=== PATIENT | male | born 1955 | race Caucasian/White ===

== ENCOUNTER 2024-03-24 08:20 | Outpatient (REF) | payer MEDICARE, SELFPAY ==
--- NOTE | 2024-03-24 07:45 | SKI_PTH ---
PATIENT: Hugo Goins LOC: [facility] U#:[id number] AGE/SX: 69/M ROOM: RE03/24/[address]: Ethan Garvey MD : 1955 BED: DIS: 03/24/2024 SPEC #: [id number] RECD: 03/24/24 12:57 STATUS: SERGIO RERenato #: [id number] MARTHA: 03/24/24 07:[address]: Ethan Garvey DEPT: Surgical Specimen RECD BY: Sue Zhu ENTERED: 03/24/24 12:59 SP TYPE: ROD ROMERO DR: Teagan Kumar Tissues: 1 - SKIN BIOPSY(SHAVE/PUNCH) Procedures: GROSS AND MICRO LEVEL 4 IMMUNOPEROXIDASE STAIN Comments: [id number]
== END 2024-03-24 08:21 | disposition home or self-care (01) ==
LOC: LBN 08:20
PROVIDERS: PCP Nurse Practitioner Family; Visit Provider Otolaryngology
DX: B97.7 Papillomavirus as the cause of diseases classified elsewhere (principal); C09.9 Malignant neoplasm of tonsil, unspecified
CPT/HCPCS: 88305; 88361

== ENCOUNTER 2024-03-24 09:43 | Outpatient (CLI) | payer MEDICARE, SELFPAY ==
[2024-03-24 10:02] LABS: CREATININE 1.4 mg/dL (0.70-1.30); Estimated GFR 54.75 (mL/min/1.73m2)
== END 2024-03-24 09:44 | disposition home or self-care (01) ==
LOC: LBO 09:43
PROVIDERS: PCP Nurse Practitioner Family; Visit Provider Otolaryngology
DX: J35.8 Other chronic diseases of tonsils and adenoids (principal)
CPT/HCPCS: 36415; 82565

== ENCOUNTER 2024-03-27 00:25 | Outpatient (CLI) | payer MEDICARE, SELFPAY ==
--- OUTSIDE RECORDS SUMMARY | 2024-03-27 00:41 | XMS_ITS | Clinical Summary ---
Author Organization [facility] Address [facility] [place] [address] Care Team Providers Care Hereditary Cancer Program Coordinator Name Role Phone Lyric Egan MD Primary Care Provider Allergies Active Allergy Reactions Criticality Noted Date Comments Sulfamethoxazole-Trimethoprim Rash 2013 Sulfa (Sulfonamide Antibiotics) Rash 08/06 Medications Medication Sig Dispensed Refills Start Date End Date Status metoprolol tartrate (LOPRESSOR) 50 mg tablet Take 75 mg by mouth 2 times daily. Active betamethasone dipropionate (DIPROLENE) 0.05 % ointment Apply topically 2 times daily. Active fluticasone propion-salmeteroL (ADVAIR HFA) 45-21 mcg/actuation HFA Aerosol Inhaler Inhale 2 puffs into the lungs 2 times daily. Active levothyroxine (SYNTHROID) 125 mcg Tablet Take 125 mcg by mouth daily. 09/11/2017 Active betamethasone valerate (VALISONE) 0.1 % Cream 03/18/2019 Active albuteroL 90 mcg/actuation HFA Aerosol Inhaler Inhale 2 puffs into the lungs every 4 hours as needed. 10/28/2021 Active clindamycin phosphate (Clindagel) 1 % gel, once daily Apply topically 2 times daily. 08/01/2022 Active lisinopriL (Zestril) 10 mg Tablet TAKE ONE TABLET BY MOUTH EVERY DAY (INCREASE) 08/01/2022 Active magnesium 250 mg tablet Take 400 mg by mouth 2 times daily. Active EnbreL SureClick Pen InjectorIndications :moderate to severe plaque psoriasis,psoriatic arthritis,L40.50, L40.9 Inject the contents of 1 pen (50mg) subcutaneously twice weekly for 3 months, then inject 1 pen subcutaneously every 7 days thereafter. 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 8 mL 2 10/12/2022 Active EnbreL SureClick Pen InjectorIndications :psoriatic arthritis,L40.50, L40.9 Inject 50 mg subcutaneously once a week. 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 Hepatitis C, chronic 07/12/2011 Psoriasis 07/12/2011 Family History Medical History Relation Comments Heart Failure Brother 3 High Cholesterol Brother 4 Cancer Father Heart Failure Father Thyroid Disease Mother High Cholesterol Sister 3 Relation Status Comments Brother 1 Brother 2 Alive Brother 3 Brother 4 Father Mother Alive Sister 1 Sister 2 Alive Sister 3 Social History Tobacco Use Types Packs/Day Years Used Date Smoking Tobacco: Former Cigarettes 1 30 1 - 05/30/2002 Smokeless Tobacco: Never Tobacco Cessation:Counseling Given: Not Answered Alcohol Use Standard Drinks/Week Comments No 0 (1 standard drink = 0.6 oz pur e alcohol) quit alcohol 2001 Sex and Gender Information Value Date Recorded Sex Assigned at Not on file Gender Identity Not on file Sexual Orientation Not on file Last Filed Vital Signs Vital Sign Reading Time Taken Comments Blood Pressure 138/79 04/18/2023 12:42 PM EDT Pulse 77 04/18/2023 12:42 PM EDT Temperature 36.2 ??C (97.1 ??F) 04/18/2023 12:42 PM E DT Respiratory Rate 17 04/18/2023 12:42 PM EDT Oxygen Saturation 100% 04/18/2023 12:42 PM EDT Inhaled Oxygen Concentration - - Weight 81.6 kg (180 lb) 04/18/2023 12:42 PM EDT Height 177.8 cm (5' 10) 04/18/2023 12:42 PM EDT Body Mass Index 25.83 04/18/2023 12:42 PM EDT Plan of Treatment Upcoming Encounters Date Type Department Care Team (Late st Contact Info) Description 04/15/2024 1:30 PM EDT Office Visit Rheumatology at [facility] [place] [address] Lucrecia Rios, [facility] [place] [address] Health Maintenance Due Date Last Done Comments CT Colonography 1955 Colonoscopy 1955 Colorectal Cancer Screening 1955 FIT DNA 1955 FIT 1955 Sigmoidoscopy (10 year) with FIT yearly 1955 Sigmoidoscopy 1955 Pneumoccocal Vaccine: 65+ (1 of 2 - PCV) 1962 Lipid Screening 1974 Tdap adult 1975 Tetanus vaccine 1975 Zoster vaccine (1 of 2) 2006 Advance Directive 2011 Diabetes Screening (HgbA1C o r Glucose) 09/26/2015 09/26/2012, 08/11/2012, 06/30/2012, Additional history exists AAA Screen 2021 Covid-19 Vaccine (5 - 2022-2 4 season) 2023 12/25/2021, 06/27/2021, 11/28/2020, Additional history exists Influenza (Flu) vaccine (1 o f 1 - Influenza standard series) 04/05/2024 Goals Goal Patient Goal Type Associated Problems Recent Progress Patient-Stated? Author [facility] Medication Compliance and Understanding Patient Facing Action Plan No Nataliya Lentz, [facility] Note: Hugo Puja Goins is hoping to see a decrease in BSA of his Psorasis and a decrease in his pain score of 4 to a 2. Procedures Procedure Name Priority Date/Time Associated Diagnosis Comments CMP W/FASTING GLUCOSE Routine 09/26/2012 10:45 AM EST Chronic hepatitis C from Last 3 Months or Most Recently Relevant to Health Maintenance Results * (ABNORMAL) CMP w/fasting Glucose (09/26/2012 10:45 AM EST) Glucose Fasting 95 65 - 99 mg/dL CERNER MILLENNIUM Comment: ?Fasting* Glucose Interpretive Criteria Normal ?65-99 mg/dL Impaired Fasting glucose ?100-125 mg/dL Consistent with Diabetes Mellitus ? >or= 126 mg/dL *Fasting is defined as no caloric intake for at least 8 hours In the absence of unequivocal hyperglycemia a plasma glucose value of >or= 126 mg/dL should be repeated on a subsequent day. Diagnosis and Classification of Diabetes Mellitus, Position Statement from the [place] [employer]. ??Diabetes Care, Volume 33, Supplement 1, Aug 2009 Blood Urea Nitrogen 27(H) 10 - 20 mg/dL CERNER MILLENNIUM Creatinine 1.08 0.80 - 1.50 mg/dL CERNER MILLENNIUM Comment: Please note that the pediatric reference intervals supplied above were not validated at [facility]. Results from pediatric patients should be interpreted in conjunction to the patient's age, height and muscle mass. Sodium 138 135 - 145 mmol/L CERNER MILLENNIUM Potassium 4.3 3.5 - 5.0 mmol/L CERNER MILLENNIUM Comment: Please note: ??Patients with WBC >100,000 may have falsely elevated Potassium levels. ??For accurate Potassium quantification in these patients send serum separator tube (gold top) for subsequent determinations. ??Contact the Clinical Chemistry Laboratory if there are any questions. Chloride 103 98 - 107 mmol/L CERNER MILLENNIUM Carbon Dioxide 27 22 - 31 mmol/L CERNER MILLENNIUM Anion Gap 8 5 - 15 mmol/L CERNER MILLENNIUM Calcium 9.2 8.5 - 10.5 mg/dL CERNER MILLENNIUM Protein, Total 7.6 6.4 - 8.3 gm/dL CERNER MILLENNIUM Albumin 4.2 3.2 - 5.2 gm/dL CERNER MILLENNIUM Aspartate Aminotransferase 24 0 - 39 unit/L CERNER MILLENNIUM Alanine Aminotransferase 28 0 - 55 unit/L CERNER MILLENNIUM Alkaline Phosphatase 69 40 - 120 unit/L CERNER MILLENNIUM Bilirubin, Total 0.5 0.2 - 1.3 mg/dL CERNER MILLENNIUM Bilirubin, Direct 0.1 0.0 - 0.3 mg/dL CERNER MILLENNIUM Est Glomerular Filtration Rate >60 >=60 [facility] Comment: The National Kidney Disease Education Program (NKDEP) has recommended all laboratories report estimated GFR (eGFR) along with plasma creatinine measurements to assist you with recognition of early kidney disease. Caveats: ??Plasma creatinine should be at steady-state (unchanged within the past week). For patients multiply eGFR by 1.2. The MDRD equation was developed using patients between the ages of 18 and 70 years. ?? The MDRD equation has not been validated for patients < 18 years of age and should not be used to assess renal function in the pediatric population. ??The MDRD eGFR equation will also overestimate the true GFR of patients above the age of 70. ??This overestimation is variable but increases with age. At present, NKDEP does NOT recommend using the MDRD equation for drug dosing purposes and pharmacists should continue to use their current dosing methods. In addition, numerical eGFR values greater than 60 ml/min/1.73 square meters should be treated as > 60, and not an exact number due to greater inaccuracies at these higher values. Per NKDEP, they classify normal renal function as any GFR >60ml/min/1.73 square meters; chronic kidney disease when GFR <60, and renal failure when GFR <15. ??This calculation may not be valid for patients with atypical muscle mass (very lean or obese), acute renal failure, and in patients with diabetic kidney disease. References: http://nkdep.nih.gov/resources/NKDEP_Suggestn4Labs_0606_508.pdf http://www.kidney.org/professionals/kls/pdf/faq_gfr.pdf Roxane K, Corby NA, Jhoan AK, Anthony TS, Nan AD, Bran NABEEL. Relative performance of the MDRD and CKD-EPI equations for estimating glomerular filtration rate among patients with varied clinical presentations. Clin J Am Soc Nephrol;6:1963-72. Blood specimen (specimen) 09/26/2012 10:45 AM EST 09/26/2012 10:49 AM EST Narrative Resulting Agency Comment Spec In Lab Chris Brown MD CHEMISTRY ORDERABLE S CERNER MILLENNIUM from Last 3 Months or Most Recently Relevant to Health Maintenance Care Teams Hereditary Cancer Program Coordinator Relationship Specialty Start Date End Date Lyric Egan MD [address] [facility] [facility] [place] [id number] PCP - General 12/21/21
--- OUTSIDE RECORDS SUMMARY | 2024-03-27 00:42 | XMS_ITS | Encounter Summary ---
[facility] [place] [address] Care Team Providers Care Steel Finisher Name Role Phone Lyric Egan MD Primary Care Provider Encounter Details Date Type Department Care Team (Latest Contact Info) Description 04/18/2023 Travel Social History Tobacco Use Types Packs/Day Years Used Date Smoking Tobacco: Former Cigarettes 1 30 1 - 05/30/2002 Smokeless Tobacco: Never Alcohol Use Standard Drinks/Week Comments No 0 (1 standard drink = 0.6 oz pur e alcohol) quit alcohol 2001 Sex and Gender Information Value Date Recorded Sex Assigned at Not on file Gender Identity Not on file Sexual Orientation Not on file documented as of this encounter Plan of Treatment Upcoming Encounters Date Type Department Care Team (Late st Contact Info) Description 04/15/2024 1:30 PM EDT Office [place] [address] Lucrecia Rios, VP [employer] [facility] [place] [address] documented as of this encounter Goals Goal Patient Goal Type Associated Problems Recent Progress Patient-Stated? Author [facility] Medication Compliance and Understanding Patient Facing Action Plan No Nataliya Lentz, [facility] Note: Hugo Luo Buster is hoping to see a decrease in BSA of his Psorasis and a decrease in his pain score of 4 to a 2. documented as of this encounter Visit Diagnoses Not on filedocumented in this encounter Care Teams Steel Finisher Relationship Specialty Start Date End Date Lyric Egan MD [address] [place] [address] PCP - General 12/21/21 documented as of this encounter
--- OUTSIDE RECORDS SUMMARY | 2024-03-27 00:42 | XMS_ITS | Encounter Summary ---
Author Organization [facility] [place] [address] Care Team Providers Care Wardrobe Assistant Name Role Phone Lyric Egan MD Primary Care Provider Encounter Details Date Type Department Care Team (Late st Contact Info) Description 10/17/2023 [place] [phone] Silvio Avila, RN Social History Tobacco Use Types Packs/Day Years [...] on file documented as of this encounter Miscellaneous Notes * Telephone Encounter - Rupesh Quinones - 10/17/2023 10:40 AM EDT Rachel from [facility] insurance states they had to deny the patient's prior authorization for enbrel as they did not receive additional information. [facility] was looking for additional documentation of response to treatment. They will be faxing over their decision, and the provider may submit for redetermination or appeal. Reference number is [id number] * Telephone Encounter - Silvio Avila RN - 10/17/2023 10:15 AM EDT Copied from [facility] #[id number]. Topic: Specialty Dept CRMs - Generic Call >> Oct 17, 2023 9:11 AM Shell Bruno wrote: Specialist: Francisco Obrien MD Relationship (if other than patient-full name): Porsha at [facility] insurance Reason for Call: Calling to get additional information for prior authorization, case expires at 10am this morning. She did fax form to our fax. Please complete and send back. Will check with Specialty Pharmacist. ++++++++++++++++++++++++++++++++++++ Sandra Friedman [facility] sent to Silvio Avila RN Caller: Unspecified (Today, 9:13 AM) We submitted the extra information this morning. Fyi! documented in this encounter Plan of Treatment Upcoming Encounters Date Type Department Care Team (Late st Contact Info) Description 04/15/2024 1:30 PM EDT Office [place] [address] Lucrecia Rios APRN [facility] [place] [address] documented as of this encounter Goals Goal Patient Goal Type Associated Problems Recent Progress Patient-Stated? Author [facility] Medication Compliance and Understanding Patient Facing Action Plan Nataliya Hyatt, [facility] Note: Hugo Hurdett is hoping to see a decrease in BSA of his Psorasis and a decrease in his pain score of 4 to a 2. documented as of this encounter Visit Diagnoses Not on filedocumented in this encounter Care Teams Wardrobe Assistant Relationship Specialty Start Date End Date Lyric Egan MD [address] [place] [address] PCP - General 12/21/21 documented as of this encounter
--- OUTSIDE RECORDS SUMMARY | 2024-03-27 00:42 | XMS_ITS | Encounter Summary ---
[place] [address] Care Team Providers Care Hostess Party Sales Representative Name Role Phone Lyric Egan MD Primary Care Provider Reason for Visit * Reason Comments Psoriasis Encounter Details Date Type Department Care Team (Late st Contact Info) Description 08/27/2022 3:45 PM EST Office Visit Dermatology at [address] [phone] Reilly Summers MD [address] [facility] [place] [address] Psoriasis Social History Tobacco Use Types Packs/Day Years [...] on file documented as of this encounter Progress Notes * Reilly Summers MD - 08/27/2022 3:45 PM EST Problem: 1. ??Follow-up psoriasis and psoriatic arthritis, hands, on Dar since November 2021 2. ??Previously Humira since January 2014 through August 2016, then back on February 2017 through November 2021 3. ??Past history of EtOH abuse hepatitis, now treated ?? Hugo follows up for a 6-month check. The [employer] is working beautifully for his cutaneous psoriasis but he is having some issues with pain in his hand and his right knee. The right knee issue beganabout 2 or 3 months ago and it sounds like both that and the left hand pain come and go during the day not clearly due to psoriatic arthritis. He recalls however when he was on the Humira that he had no joint pain. However after having been on the Humira since 2014 his cutaneous psoriasis with beginning again to flare. He tells me how he went to the emergency room because of pain in his knee and an x-ray was done and was told that there is no sign of any injury but the then he might have arthritis. He was given a course of prednisone which of course cleared his symptoms for a time but when he stopped the medicine it came back. Physical examination reveals a pleasant 67-year-old gentleman who has no active cutaneous psoriasis. He has pain upon flexing his right knee and he points to the back of his hands where he complains of pain within the hand. Assessment plan: Psoriasis, cutaneous well controlled with Skyrizi 1. Patient is currently appears to be developing either osteoarthritis or results of injury 2. Recommend that we begin the use of ibuprofen 400 mg 1 p.o. 3 times daily with meals given some pain relief and reduction of the swelling in his left knee. Dispense #90 with 3 refills. 3. Advised the patient to see his PCP regarding the symptoms. 4. Continue Skyrizi at the current dosing 150 mg subcutaneously once every 12 weeks. He was given a1 year supply in February. 5. Return to clinic in 6 months for repeat check. CC: CADE Hawthorne MD documented in this encounter Plan of Treatment Upcoming Encounters Date Type Department Care Team (Late st Contact Info) Description 04/15/2024 1:30 PM EDT Office [place] [address] Lucrecia Rios APRN [facility] [place] [address] documented as of this encounter Goals Goal Patient Goal Type Associated Problems Recent Progress Patient-Stated? Author [facility] Medication Compliance and Understanding Patient Facing Action Plan Nataliya Hyatt, [facility] Note: Hugo Luo Buster is hoping to see a decrease in BSA of his Psorasis and a decrease in his pain score of 4 to a 2. documented as of this encounter Visit Diagnoses Diagnosis Psoriasis Other psoriasis documented in this encounter Care Teams Hostess Party Sales Representative Relationship Specialty Start Date End Date Lyric Egan MD [address] [place] [address] PCP - General 12/21/21 documented as of this encounter
--- OUTSIDE RECORDS SUMMARY | 2024-03-27 00:42 | XMS_ITS | Encounter Summary ---
Author Organization [facility] [place] [address] Care Team Providers Care Equal Opportunity Director Name Role Phone Yeimi Carey APRN Primary Care Provider [phone] Reason for Visit * Reason Comments Medication Management Encounter Details Date Type Department Care Team (Late st Contact Info) Description 08/17/2020 Specialty [place] [phone] Mary Riggs [facility] Social History Tobacco Use Types Packs/Day Years [...] as of this encounter Progress Notes * Mary Riggs RPH - 08/17/2020 3:50 PM EST Clinical Management Plan: Refill Specialty Pharmacy Consultation; Mary Riggs [facility] Comprehensive Medication Management (CMM) Hugo Puja Buster Mr. Hugo Goins is a 65 y.o. (1955) male who was contacted in regard to a specialty medication refill reminder. Spoke with patient regarding Humira. A review of the medication therapy was performed. The medication was Refilled as scheduled, and all medication related questions and concernswere addressed. The specialty pharmacy staff will follow up with the patient 5-7 days prior to next refill. Was a change made to the Care Plan: no If yes, should the medication be held: No Assessment and Recommendations: Title Type of Medication Management: targeted medication review, chronic disease management Referred By: provider Recipient: beneficiary Provider: plan sponsor pharmacist Visit Type: [facility] Follow-up Method of Contact: by telephone Cognitive Ability: normal Cognitive Impairment Status Verified this Year: no Allergies and Drug intolerance: Allergies Allergen Reactions ??? Bactrim [Sulfamethoxazole-Trimethoprim] Rash Medication Reconciliation Discrepancies (compared to [facility] med list) -no New medications: no New medical conditions: no New allergies: no Adherence: Medication Adherence Patient reported X missed doses in the last month: 0 Any gaps in refill history greater than 2 weeks in the last 3 months: no Demonstrates understanding of importance of adherence: yes Informant: patient Reliability of informant: reliable Provider-estimated medication adherence level: 90-100% Reasons for non-adherence: no problems identified Adherence tools used: directed education Support network for adherence: healthcare provider Confirmed plan for next specialty medication refill: delivery by pharmacy Refills needed for supportive medications: not needed Are you experiencing any side effects from your medications? no Pt understands no changes to current drug regimen were made at the appointment and that [facility] is providing recommendations (summary located at top of note) for provider review and follow up. Mary Riggs RPH 08/17/20 3:51 PM documented in this encounter Plan of Treatment Upcoming Encounters Date Type Department Care Team (Late st Contact Info) Description 04/15/2024 1:30 PM EDT Office [place] [address] Lucrecia Rios SHIPBOARD INTELLIGENCE ANALYST [facility] [place] [address] documented as of this encounter Goals Goal Patient Goal Type Associated Problems Recent Progress Patient-Stated? Author [facility] Medication Compliance and Understanding Patient Facing Action Plan No Nataliya Lentz, [facility] Note: Hugo Goins is hoping to see a decrease in BSA of his Psorasis and a decrease in his pain score of 4 to a 2. documented as of this encounter Visit Diagnoses Not on filedocumented in this encounter Care Teams Equal Opportunity Director Relationship Specialty Start Date End Date Yeimi Carey APRN [address] [place] [phone] PCP - General Family Medicine 11/04/18 12/20/21 documented as of this encounter
--- OUTSIDE RECORDS SUMMARY | 2024-03-27 00:42 | XMS_ITS | Encounter Summary ---
Author Organization [facility] [place] [address] Care Team Providers Care Hotel Front Desk Agent Name Role Phone Lyric Egan MD Primary Care Provider Encounter Details Date Type Department Care Team (Late st Contact Info) Description 10/12/2022 [place] [phone] Francisco Obrien MD [facility] [place] [address] Social History Tobacco Use Types Packs/Day Years [...] as of this encounter Miscellaneous Notes * Addendum Note - Sandra Yoder [facility] - 10/30/2022 8:16 AM EDTAddended by: SANDRA YODER on: 10/30/2022 08:16 AM Modules accepted: Orders documented in this encounter Plan of Treatment Upcoming Encounters Date Type Department Care Team (Late st Contact Info) Description 04/15/2024 1:30 PM EDT Office [place] [phone] Lucrecia Rios, ELECTROMECHANICAL TECHNICIAN [facility] [place] [address] documented as of this encounter Goals Goal Patient Goal Type Associated Problems Recent Progress Patient-Stated? Author [facility] Medication Compliance and Understanding Patient Facing Action Plan Nataliya Hyatt, [facility] Note: Hugo Luo Buster is hoping to see a decrease in BSA of his Psorasis and a decrease in his pain score of 4 to a 2. documented as of this encounter Visit Diagnoses Not on filedocumented in this encounter Care Teams Hotel Front Desk Agent Relationship Specialty Start Date End Date Lyric Egan MD [address] [place] [address] PCP - General 12/21/21 documented as of this encounter
--- OUTSIDE RECORDS SUMMARY | 2024-03-27 00:42 | XMS_ITS | Encounter Summary ---
[place] [address] Care Team Providers Care Drum Plater Name Role Phone Lyric Egan MD Primary Care Provider Reason for Visit * Reason Comments Prior Authorization Skyrizi pen 150mg/mL SOAJ Encounter Details Date Type Department Care Team (Late st Contact Info) Description 11/22/2021 Specialty [place] [phone] Raina Man, [facility] [place] Social History Tobacco Use Types Packs/Day Years [...] as of this encounter Progress Notes * Raina Pimentel - 11/22/2021 9:38 AM EDT [facility], Medication Prior Authorization Submission Patient: Hugo Goins Patient : 1955 Patient Address: [address] [place] [address] [place] [id number] (home) Medication Name: SKYRIZI 150 MG/ML SUBCUTANEOUS PEN INJECTOR Medication ID: Subscriber Insurance: [employer] (MEDDADV) Subscriber Insurance Comment: Phone: Fax: Physician: KP RAMIREZ Physician Comment: Sent Via: CHRISTIE Torrez: [id number] Ref/Case/PA#: Medication Strength Frequency Requested: INJECT THE CONTENTS OF ONE PEN (150MG) SUBCUTANEOUSLY ONCEON DAY 1, ONCE ON DAY 28, AND THEN ONCE EVERY 12 WEEKS THEREAFTER Qty/Day Supply: 09/01 New Start: New to Therapy Diagnosis & ICD-10 Code: Psoriasis L40.9 Patient Notified: Left Voicemessage Submission Notes: None Raina Pimentel 11/22/21 9:43 AM * Raina Pimentel - 11/22/2021 9:38 AM EDT [facility], Prior Authorization Approval Medication Name: SKYRIZI 150 MG/ML SUBCUTANEOUS PEN INJECTOR Medication ID: Approval Dates: 11/22/2021 to 11/22/2022 Insurance requirements/notes: None Other Notes: None Case/Reference #: [id number] Approval notification Received via: Fax Copay: [phone] Copay assistance: Other (Enter Comment) Copay Notes: Pt can apply for hat stock laminating machine operator's assistance. Insurance mandated Pharmacy: [facility] Fillable at [facility]: Yes Pharmacy staff will be reaching out to the patient to inform them of their medication's [place]. If applicable, a pharmacist will speak with the patient to offer our specialty pharmacy services and to arrange delivery of their medication. Raina Pimentel 11/23/21 8:25 AM documented in this encounter Plan of Treatment Upcoming Encounters Date Type Department Care Team (Late st Contact Info) Description 04/15/2024 1:30 PM EDT Office Visit Rheumatology at [place] [phone] Lucrecia Rios APRN [facility] [place] [address] documented as of this encounter Goals Goal Patient Goal Type Associated Problems Recent Progress Patient-Stated? Author [facility] Home Medication Compliance and Understanding Patient Facing Action Plan Nataliya Hyatt, [facility] Note: Hugo Puja Goins is hoping to see a decrease in BSA of his Psorasis and a decrease in his pain score of 4 to a 2. documented as of this encounter Visit Diagnoses Not on filedocumented in this encounter Care Teams Drum Plater Relationship Specialty Start Date End Date Lyric Egan MD [address] [place] [address] PCP - General 12/21/21 documented as of this encounter
--- OUTSIDE RECORDS SUMMARY | 2024-03-27 00:42 | XMS_ITS | Encounter Summary ---
Author Organization [facility] [place] [address] Care Team Providers Care Manager Of Engineering Name Role Phone Yeimi Carey APRN Primary Care Provider +1- [phone] Reason for Visit * Reason Comments Medication Management Medication Refill Encounter Details Date Type Department Care Team (Late st Contact Info) Description 02/03/2021 Specialty [place] [phone] Haritha Enriquez [facility] Social History Tobacco Use Types Packs/Day Years [...] as of this encounter Progress Notes * Haritha Enriquez RP - 02/03/2021 11:22 AM EDT Clinical Management Plan: Refill Specialty Pharmacy Consultation; Haritha Enriquez [facility] Comprehensive Medication Management (CMM) Hugo Goins Mr. Hugo Goins is a 65 y.o. (1955) male who was contacted in regard to a specialty medication refill reminder. Contact made with patient regarding Humira. A review of the medication therapywas performed. The medication was refilled as scheduled, and all medication related questions and concerns were addressed. The specialty pharmacy staff will follow up with the patient 5-7 days prior to next refill. Was a change made to the Care Plan: no If yes, should the medication be held: No Assessment and Recommendations: Title Type of Medication Management: chronic disease management, targeted medication review Referred By: provider Recipient: beneficiary Provider: plan sponsor pharmacist Visit Type: [facility] Follow-up Method of Contact: by telephone Cognitive Ability: normal Cognitive Impairment Status Verified this Year: no Allergies and Drug intolerance: Allergies Allergen Reactions ??? Bactrim [Sulfamethoxazole-Trimethoprim] Rash Medication Reconciliation Discrepancies (compared to [facility] med list) -None Specialty Pharmacy Refill Questionnaire Refill Questionnaire 02/03/2021 What is the name of the specialty medication you are refilling? Humira 40mg/0.4ml Are you taking any new medications? No Any new medical condition? No Any new allergies? No Any missed doses since your last fill? No Any new side effects that are bothersome? No What date will you need this fill by? 02/07/2021 Adherence: Medication Adherence Patient reported X missed doses in the last month: 0 Any gaps in refill history greater than 2 weeks in the last 3 months: no Demonstrates understanding of importance of adherence: yes Informant: patient Reliability of informant: reliable Provider-estimated medication adherence level: 90-100% Other non-adherence reason: Patient will be 1 day late to inject to to holiday weekend Adherence tools used: directed education Support network for adherence: healthcare provider Confirmed plan for next specialty medication refill: delivery by pharmacy Refills needed for supportive medications: not needed Pt understands no changes to current drug regimen were made at the appointment and that [facility] is providing recommendations (summary located at top of note) for provider review and follow up. Haritha Enriquez RPH 02/03/21 11:25 AM documented in this encounter Plan of Treatment Upcoming Encounters Date Type Department Care Team (Late st Contact Info) Description 04/15/2024 1:30 PM EDT Office [place] [address] [address]N [facility] [place] [address] documented as of this encounter Goals Goal Patient Goal Type Associated Problems Recent Progress Patient-Stated? Author [facility] Medication Compliance and Understanding Patient Facing Action Plan No Nataliya Lentz, [facility] Note: Hugo Luo Buster is hoping to see a decrease in BSA of his Psorasis and a decrease in his pain score of 4 to a 2. documented as of this encounter Visit Diagnoses Not on filedocumented in this encounter Care Teams Manager Of Engineering Relationship Specialty Start Date End Date Yeimi Carey APRN [address] [place] [phone] PCP - General Family Medicine 11/04/18 12/20/21 documented as of this encounter
--- OUTSIDE RECORDS SUMMARY | 2024-03-27 00:42 | XMS_ITS | Encounter Summary ---
Author Organization [facility] [place] [address] Care Team Providers Care Valve Repairer Reclamation Name Role Phone Yeimi Carey APRN Primary Care Provider +1- [phone] Reason for Visit * Reason Comments Specialty Refill Management Encounter Details Date Type Department Care Team (Late st Contact Info) Description 12/06/2020 Specialty [place] [phone] Liberty Chawla, [employer] Social History Tobacco Use Types Packs/Day Years [...] as of this encounter Progress Notes * Liberty Chawla - 12/06/2020 4:04 PM EDT Clinical Management Plan: Refill Specialty Pharmacy Consultation; Liberty Chawla Comprehensive Medication Management (CMM) Hugoasad Hurdfranko Mr. Hugo Goins is a 65 y.o. [...] a change made to the Care Plan: No Allergies and Drug intolerance: Allergies Allergen Reactions ??? Bactrim [Sulfamethoxazole-Trimethoprim] Rash Medication Reconciliation Discrepancies (compared to [facility] med list) No Specialty Pharmacy Refill Questionnaire Refill Questionnaire 12/06/2020 What is the name of the specialty medication you are refilling? Humira Pen 40MG/0.4ML PNKT Are you taking any new medications? No Any new medical condition? No Any new allergies? No Any new side effects that are bothersome? No What date will you need this fill by? 12/13/2020 Adherence: Any missed doses? No Patient understands no changes to current drug regimen were made.. Liberty Chawla 12/06/20 4:06 PM documented in this encounter Plan of Treatment Upcoming Encounters Date Type Department Care Team (Late st Contact Info) Description 04/15/2024 1:30 PM EDT Office [place] [address] Lucrecia Rios [employer]ER[employer] [facility] [place] [address] documented as of this encounter Goals Goal Patient Goal Type Associated Problems Recent Progress Patient-Stated? Author [facility] Medication Compliance and Understanding Patient Facing Action Plan No Nataliya Lentz, [facility] Note: Hugo Puja Goins is hoping to see a decrease in BSA of his Psorasis and a decrease in his pain score of 4 to a 2. documented as of this encounter Visit Diagnoses Not on filedocumented in this encounter Care Teams Valve Repairer Reclamation Relationship Specialty Start Date End Date Yeimi Carey APRN [address] [place] [phone] PCP - General Family Medicine 11/04/18 12/20/21 documented as of this encounter
--- OUTSIDE RECORDS SUMMARY | 2024-03-27 00:42 | XMS_ITS | Encounter Summary ---
[place] [address] Care Team Providers Care Awning Maker Name Role Phone Lyric Egan MD Primary Care Provider Encounter Details Date Type Department Care Team (Late st Contact Info) Description 10/19/2022 Specialty [place] [address] Desiree Ramsey, [facility] Social History Tobacco Use Types Packs/Day Years [...] as of this encounter Progress Notes * Desiree Ramsey - 10/19/2022 3:14 PM EDTSummary: Enbrel MAP submission [facility] - Accounts Payable Clerk Assistance Submission The Specialty Medication Access Team has looked into copay assistance for the following patient, but was unable to locate a copay card or [employer] with available funding. The Specialty Medication Access Team will work with the patient to complete an application to the director translational's assistance program. The Specialty Medication Access Team will follow up with the patient throughout the process. Patient: Hugo Goins : 1955 Medication: Enbrel Order ID: [id number] Directions: Inject the contents of 1 pen (50mg) subcutaneously twice weekly for 3 months, then inject 1 pen subcutaneously every 7 days thereafter. Dispense Quantity: 8mL # of Refills: 2 Prescriber Name: Francisco Obrien Diagnosis/ICD-10 code: L40.9, L40.50 Insurance: [employer] Med D Medicare Part D?: Yes [place] Approved? Yes Current copay is: $$$ Patient notified of copay and attests that copay is unaffordable: Yes Accounts Payable Clerk: [email or web address] Radiotelegraph Operator Servicer: n/a Phone number: [phone] Fax number: [phone] Patient documents submitted (per Accounts Payable Clerk guidelines - may vary): ??? Copies of insurance cards: Yes ??? Income verification documents: Yes ??? Signed Patient Enrollment Form: Yes ??? Pharmacy receipts (important for manufacturers requesting patient to spend 3% income on pharmacy expenses): No Additional Comments: Desiree Ramsey 10/19/22 3:15 PM Next Review Date: * Desiree Ramsey - 10/19/2022 3:14 PM EDTSummary: Enbrel MAP approval [facility] - Accounts Payable Clerk Assistance Approval The Specialty Medication Access Team has looked into director translational assistance for the following patient. The patient???s application was approved to receive the medication at no cost through the director translational. The Specialty Medication Access Team will inform the patient and provider. Patient: Hugo Goins : 1955 Medication: Enbrel Accounts Payable Clerk: [employer] Accounts Payable Clerk Assistance Approval Dates: 10/25/22 to 08/04/23 Accounts Payable Clerk Preferred Pharmacy: [facility] Accounts Payable Clerk Preferred Pharmacy Accounts Payable Clerk Preferred Pharmacy Patient Notified: Yes Prescriber Notified: Yes Desiree Ramsey 10/26/22 8:50 AM documented in this encounter Plan of Treatment Upcoming Encounters Date Type Department Care Team (Late st Contact Info) Description 04/15/2024 1:30 PM EDT Office [place] [address] Lucrecia Rios, [facility] [place] [address] documented as of this encounter Goals Goal [...] on filedocumented in this encounter Care Teams Awning Maker Relationship Specialty Start Date End Date Lyric Egan MD [address] [place] [address] PCP - General 12/21/21 documented as of this encounter
--- OUTSIDE RECORDS SUMMARY | 2024-03-27 00:42 | XMS_ITS | Encounter Summary ---
Author Organization [facility] [place] [address] Care Team Providers Care Sleeve Tailor Name Role Phone Yeimi Carey APRN Primary Care Provider +1- [phone] Reason for Visit * Reason Comments Medication Management Encounter Details Date Type Department Care Team (Late st Contact Info) Description 10/12/2020 Specialty Pharmacy [place] [phone] Mary Riggs [facility] Social History Tobacco Use Types Packs/Day [...] Progress Notes * Mary Riggs RPH - 10/12/2020 4:26 PM EST Clinical Management Plan: Refill Specialty Pharmacy Consultation; Mary Riggs [facility] Comprehensive Medication Management (CMM) Hugo Goins Mr. [...] beneficiary Provider: plan sponsor pharmacist Visit Type: [facility] Follow-up Method of Contact: by telephone Cognitive Ability: normal Cognitive Impairment Status Verified this Year: no Allergies and Drug intolerance: Allergies Allergen Reactions ??? Bactrim [Sulfamethoxazole-Trimethoprim] Rash Medication Reconciliation Discrepancies (compared to [facility] med list) -no New medications: no [...] were made at the appointment and that [facility] is providing recommendations (summary located at top of note) for provider review and follow up. Mary Riggs RPH 10/12/20 4:27 PM documented in this encounter Plan of Treatment Upcoming Encounters Date Type Department Care Team (Late st Contact Info) Description 04/15/2024 1:30 PM EDT Office Visit [place] [address] Lucrecia Rios DIRECTOR OF CAREER SERVICES [place] [address] documented as of this encounter Goals Goal Patient Goal Type Associated Problems Recent Progress Patient-Stated? Author [facility] Medication Compliance and Understanding Patient Facing Action Plan No Nataliya Lentz, [facility] Note: Hugo Goins is hoping to see a decrease in BSA of his Psorasis and a decrease in his pain score of 4 to a 2. documented as of this encounter Visit Diagnoses Not on filedocumented in this encounter Care Teams Sleeve Tailor Relationship Specialty Start Date End Date Yeimi Carey APRN [address] [place] [phone] PCP - General Family Medicine 11/04/18 12/20/21 documented as of this encounter
--- OUTSIDE RECORDS SUMMARY | 2024-03-27 00:42 | XMS_ITS | Encounter Summary ---
[place] [address] Care Team Providers Care Aircraft Mechanic Electrical And Radio Name Role Phone Lyric Egan MD Primary Care Provider Reason for Visit * Reason Comments Follow-up Encounter Details Date Type Department Care Team (Late st Contact Info) Description 02/19/2022 4:00 PM EDT Office Visit Dermatology at [address] [address] Reilly Summers MD [address] [facility], [place] [address] Psoriasis Social History Tobacco Use Types Packs/Day [...] Progress Notes * Reilly Summers MD - 02/19/2022 4:00 PM EDT Problem: 1. Follow-up psoriasis and psoriatic arthritis, hands, on Skyrizi since November 2021 2. Previously Humira since January 2014 through August 2016, then back on February 2017 through November 2021 3. Past history of EtOH abuse hepatitis, now treated Roddy follows up and is doing well. He is pleased with his initial improvement with the Skyrizi. He is tolerating the medication well without any injection site reactions or side effects. Examination still reveals psoriasis present over the lower shins but the plaques are thinning significantly and flattening. There is still marked erythema at sites of previous involvement. He has no other areas of psoriasis. His arthritic symptoms are well controlled. Assessment plan: Psoriasis and psoriatic arthritis with initial response to Skyrizi 1. Continue Skyrizi current dosing 150 mg subcutaneously once every 12 weeks. Dispense 1 pen will give 3 refills for 1 year supply 2. Return to clinic another 6 months for repeat check. 3. Patient congratulated on initial good response CC: Lyric Phoenix MD ?? documented in this encounter Plan of Treatment Upcoming Encounters Date Type Department Care Team (Late st Contact Info) Description 04/15/2024 1:30 PM EDT Office Visit [place] [address] Lucrecia Rios, [facility] [place] [address] documented as of this encounter Goals Goal Patient Goal Type Associated Problems Recent Progress Patient-Stated? Author [facility] Medication Compliance and Understanding Patient Facing Action Plan Nataliya Hyatt, [facility] Note: Hugo Luo Buster is hoping to see a decrease in BSA of his Psorasis and a decrease in his pain score of 4 to a 2. documented as of this encounter Visit Diagnoses Diagnosis Psoriasis Other psoriasis documented in this encounter Care Teams Aircraft Mechanic Electrical And Radio Relationship Specialty Start Date End Date Lyric Egan MD [address] [place] [address] PCP - General 12/21/21 documented as of this encounter
--- OUTSIDE RECORDS SUMMARY | 2024-03-27 00:42 | XMS_ITS | Encounter Summary ---
Author Organization [facility] [place] [address] Care Team Providers Care Bullet Slugs Inspector Name Role Phone Lyric Egan MD Primary Care Provider Reason for Visit * Reason Comments Specialty Pharmacy Review Enbrel SureCli ck 50mg/ml Encounter Details Date Type Department Care Team (Late st Contact Info) Description 04/18/2023 Specialty Pharm[place] [phone] Rosa Hanson, [facility] Social History Tobacco Use Types Packs/Day Years [...] as of this encounter Progress Notes * Rosa Hanson - 04/18/2023 11:59 PM EDT The [facility] has completed a benefits investigation for Hugo Luo Buster to review their eligibility to fill at [facility]. Per patient's medication list they are prescribedEnbrel SureClick 50mg/ml and the medication is able to be filled at the [facility], butthe medication cost may not be financially viable. The patient is approved to get Enbrel from [facility] until 08/04/23 documented in this encounter Plan of Treatment Upcoming Encounters Date Type Department Care Team (Late st Contact Info) Description 04/15/2024 1:30 PM EDT Office Visit Rheumatology at [facility] [place] [address] Lucrecia Rios, CONTROLS OPERATOR MOLDED [employer] [facility] [place] [address] documented as of this encounter Goals Goal Patient Goal Type Associated Problems Recent Progress Patient-Stated? Author [facility] Medication Compliance and Understanding Patient Facing Action Plan Nataliya Hyatt, [facility] Note: Hugo Luo Buster is hoping to see a decrease in BSA of his Psorasis and a decrease in his pain score of 4 to a 2. documented as of this encounter Visit Diagnoses Not on filedocumented in this encounter Care Teams Bullet Slugs Inspector Relationship Specialty Start Date End Date Lyric Egan MD [address] [place] [address] PCP - General 12/21/21 documented as of this encounter
--- OUTSIDE RECORDS SUMMARY | 2024-03-27 00:42 | XMS_ITS | Encounter Summary ---
Author Organization [facility] [place] [address] Care Team Providers Care Community Organizer Name Role Phone Yeimi Carey APRN Primary Care Provider +1- [phone] Reason for Visit * Reason Comments Medication Management Encounter Details Date Type Department Care Team (Late st Contact Info) Description 11/09/2020 Specialty [place] [phone] Mary Riggs [facility] Social History Tobacco Use Types [...] Progress Notes * Mary Riggs RPH - 11/09/2020 3:29 PM EDT Clinical Management Plan: Refill Specialty Pharmacy Consultation; Mary Riggs [facility] Comprehensive Medication Management (CMM) Hugo Goins Mr. [...] [Sulfamethoxazole-Trimethoprim] Rash Medication Reconciliation Discrepancies (compared to [facility] med list) No Specialty Pharmacy Refill Questionnaire There is no flowsheet data to display. Adherence: Any missed doses? No Patient understands no changes to current drug regimen were made.. Mary Riggs RPH 11/09/20 3:30 PM documented in this encounter Plan of Treatment Upcoming Encounters Date Type Department Care Team (Late st Contact Info) Description 04/15/2024 1:30 PM EDT Office [place] [address] Lucrecia Rios APRN [facility] [address] documented as of this encounter Goals Goal Patient Goal Type Associated Problems Recent Progress Patient-Stated? Author [facility] Medication Compliance and Understanding Patient Facing Action Plan No Nataliya Lentz, [facility] Note: Hugo Luo Vannessafranko is hoping to see a decrease in BSA of his Psorasis and a decrease in his pain score of 4 to a 2. documented as of this encounter Visit Diagnoses Not on filedocumented in this encounter Care Teams Community Organizer Relationship Specialty Start Date End Date Yeimi Carey APRN [address] [place] [phone] PCP - General Family Medicine 11/04/18 12/20/21 documented as of this encounter
--- OUTSIDE RECORDS SUMMARY | 2024-03-27 00:42 | XMS_ITS | Encounter Summary ---
[place] [address] Care Team Providers Care Transport Rn Name Role Phone Yeimi Carey LESTER Primary Care Provider +1- [phone] Reason for Visit * Reason Comments Psoriasis Encounter Details Date Type Department Care Team (Late st Contact Info) Description 11/20/2021 3:45 PM EDT Office Visit Dermatology at [address] [phone] Reilly Summers MD [address] [facility] [place] [address] Psoriasis Social History Tobacco Use Types Packs/Day [...] Progress Notes * Reilly Summers MD - 11/20/2021 3:45 PM EDT Problem: 1. Follow-up psoriasis and psoriatic arthritis, hands 2. On Humira since January 2014 through August 2016 now back back on since February 2017 3. Past history of EtOH abuse hepatitis, now treated Roddy follows up and wanted to see me in July because of worsening of psoriasis on his shins. Unfortunately was not able to get in. Physical examination reveals a pleasant 66-year-old gentleman who has plaques of psoriasis widely over the anterior shins bilaterally. Last year he only has some involvement on his elbows, which today are clear. He has no other areas of psoriasis. His arthritic symptoms are still controlled Assessment plan: Psoriasis and psoriatic arthritis with decreased control on Humira 1. We will check to see which of the Biologics are formulary. For now to continue Humira 40 mg per 0.4 mL autoinjector pen citrate free. He is injecting 1 pen subcutaneously every 2 weeks. 2. Patient's current co-pay is a $5 a month 3. Return to clinic in 3 months for repeat check and then again in a year. CC: Yeimi Carey APRN documented in this encounter Plan of Treatment Upcoming Encounters Date Type Department Care Team (Late st Contact Info) Description 04/15/2024 1:30 PM EDT Office [place] [address] Lucrecia Rios APRN [facility] [place] [address] documented as of this encounter Goals Goal Patient Goal Type Associated Problems Recent Progress Patient-Stated? Author [facility] Medication Compliance and Understanding Patient Facing Action Plan Nataliya Hyatt, [facility] Note: Hugo Goins is hoping to see a decrease in BSA of his Psorasis and a decrease in his pain score of 4 to a 2. documented as of this encounter Visit Diagnoses Diagnosis Psoriasis Other psoriasis documented in this encounter Care Teams Transport Rn Relationship Specialty Start Date End Date Yeimi Carey APRN [address] [place] [phone] PCP - General Family Medicine 11/04/18 12/20/21 documented as of this encounter
--- OUTSIDE RECORDS SUMMARY | 2024-03-27 00:42 | XMS_ITS | Encounter Summary ---
Author Organization [facility] [place] [address] Care Team Providers Care Care Transport Nurse Name Role Phone Lyric Egan MD Primary Care Provider Reason for Visit * Reason Comments Medication Management Etanercept (Enbrel ) 50mg/mL SOAJ Encounter Details Date Type Department Care Team (Late st Contact Info) Description 06/21/2023 Specialty [place] [phone] Sandra Friedman, [facility] Social History Tobacco Use Types Packs/Day [...] as of this encounter Progress Notes * Sandra Friedman [facility] - 06/21/2023 2:24 PM EST Specialty Pharmacy Consultation; Sandra Friedman [facility] Comprehensive Medication Management (CMM): Specialty Consult, Intervention Hugo Goins Diagnosis: Psoriatic Arthritis Contact in person or via telephone: in person Mr. Hugo Goins is a 68 y.o. (1955) male who was contacted in regard to specialty medication intervention. Spoke with patient regarding Enbrel mfr assistance form. Specialty Pharmacy Intervention: Intervention Category (Nature of Intervention): Formulary Related/Financial Issues Formulary Related/Financial Issues: Referred to MAT Prescriber accepted response (Prescriber accept Intervention): Accepted Recommendation: Patient had all his paperwork filled out and brought to clinic. We will work on getting Lucrecia Anne's form signed early next week. Outcome: We will let him know once submitted to [email or web address] and follow up with them. Sandra Friedman [facility] 06/21/23 2:25 PM * Sandra Friedman [facility] - 06/21/2023 2:24 PM EST [facility]- Energy Conservation Director Assistance Update The [facility] has looked into assistance for the following patient, but we have not been able to find any copay cards or foundations with available funding for them. The patient has beenprovided information to apply for chief load dispatcher assistance program to receive free medication. The [facility] will follow-up with the patient in 7 days to see if they need any additional guidance. Patient: Hugo Merinoihsan : 1955 Medication: Enbrel Sureclick 50mg/mL SOAJ Dosing: Inject 50 mg subQ every 7 days Insurance: Medicare Medicare Part D?: Yes PA has been approved, current copay is: $$$ Sandra Friedman [facility] 06/21/23 2:31 PM * Hina Flor [facility] - 06/21/2023 2:24 PM EST D- Specialty Pharmacy - Energy Conservation Director Assistance Outreach The Specialty Medication Access Team received a referral to work with Hugo Goins to complete an application to the chief load dispatcher's assistance program for their specialty medication, Enbrel sureclick 50mg/ml. The Specialty Medication Access Team spoke to chief load dispatcher. Energy Conservation Director name: [employer] to provider the chief load dispatcher application status. The chief load dispatcher application is still under review. The Specialty Medication Access Team will follow-up with the chief load dispatcher in 3 days to check on application status. Summary of conversations and next steps: S/W [employer]- THE APPLICAITON WAS CUT OFF THEY REQUESTED TOHAVE APPLICATION RE-FAXED. WILL REFAX ONCE MORE THEN REACH OUT TO CLINIC IF FAX NOT RECIEVED. Hina Flor CPHT 07/01/23 3:56 PM * Pham Juan CP[facility] - 06/21/2023 2:24 PM EST [facility] - Energy Conservation Director Assistance Outreach The Specialty Medication Access Team received a referral to work with Hugo Goins to complete an application to the chief load dispatcher's assistance program for their specialty medication, Enbrel. The Specialty Medication Access Team spoke to chief load dispatcher. Energy Conservation Director name: [email or web address] to provide the chief load dispatcher application status. The chief load dispatcher application is still under review. The Specialty Medication Access Team will follow-up with the chief load dispatcher in 3 days to check on application status. Summary of conversations and next steps: S/W MFR - THEY PARTIALLY RECEIVED THE APPLICATION, EACH PAGE IS CUT OFF. ASKED CLINIC TO REFAX APPLICATION FOR US Pham Juan CPHT 07/03/23 11:00 AM * Sandra Friedman [facility] - 06/21/2023 2:24 PM EST [facility], Energy Conservation Director Assistance Update The D[facility] Specialty Pharmacy has attempted to reach out to Hugo Goins to see if they need any further guidance with acquiring chief load dispatcher assistance for their specialty medication, Enbrel. Summary of conversations and next steps: We re-sent the application via manual fax to [email or web address]. Sandra Friedman RPH 07/04/23 11:33 AM * Rhianna Patel - 06/21/2023 2:24 PM EST [facility] - Energy Conservation Director Assistance Outreach The Specialty Medication Access Team received a referral to work with Hugo Goins to complete an application to the chief load dispatcher's assistance program for their specialty medication, Enbrel. The Specialty Medication Access Team spoke to chief load dispatcher. Energy Conservation Director name: [email or web address] to provide the chief load dispatcher application status. The chief load dispatcher application is still under review. The Specialty Medication Access Team will follow-up with the chief load dispatcher in 3 days to check on application status. Summary of conversations and next steps: S/W MFR: THEY ONLY RECEIVED 1ST PAGE OF THE APPLICATION BUT IT WAS CUT OFF. WILL REACH OUT TO CLINIC TO ASK THEM TO FAX THE APPLICATION AGAIN. [facility] FAX [employer] ([phone]) Rhianna Bharathi Patel 07/05/23 9:59 AM * Liberty Chawla - 06/21/2023 2:24 PM EST [facility] - Energy Conservation Director Assistance Approval The Specialty Medication Access Team has looked into chief load dispatcher assistance for the following patient. The patient???s application was approved to receive the medication at no cost through the chief load dispatcher. The Specialty Medication Access Team will inform the patient and provider. Patient: Hugo Goins : 1955 Medication: Enbrel Energy Conservation Director: [employer] Energy Conservation Director Assistance Approval Dates: 08/05/2023 to 08/04/2024 Energy Conservation Director Preferred Pharmacy: [facility] Energy Conservation Director Preferred Pharmacy Energy Conservation Director Preferred Pharmacy Fax Number: Patient Notified: Yes Prescriber Notified: Yes Liberty Chawla 07/09/23 1:26 PM documented in this encounter Plan of Treatment Upcoming Encounters Date Type Department Care Team (Late st Contact Info) Description 04/15/2024 1:30 PM EDT Office [place] [address] Lucrecia Rios APRN [facility] [place] [address] documented as of this encounter Goals Goal Patient Goal Type Associated Problems Recent Progress Patient-Stated? Author [facility] Medication Compliance and Understanding Patient Facing Action Plan Nataliya Hyatt, [facility] Note: Hugo Merinoghulamfranko is hoping to see a decrease in BSA of his Psorasis and a decrease in his pain score of 4 to a 2. documented as of this encounter Visit Diagnoses Not on filedocumented in this encounter Care Teams Care Transport Nurse Relationship Specialty Start Date End Date Lyric Egan MD [address] [place] [address] PCP - General 12/21/21 documented as of this encounter
--- OUTSIDE RECORDS SUMMARY | 2024-03-27 00:42 | XMS_ITS | Encounter Summary ---
Author Organization [facility] Address [facility] [place] [address] Care Team Providers Care Flatwork Washer Name Role Phone Lyric Egan MD Primary Care Provider Encounter Details Date Type Department Care Team (Late Contact Info) Description 08/27/2022 Refill Dermatology at [address] [phone] Liudmila Whitehead, RN Social History Tobacco Use Types Packs/Day [...] Encounters Date Type Department Care Team (Late Contact Info) Description 04/15/2024 1:30 PM EDT Office [place] [address] Lucrecia Rios, L[facility]ER UP [facility] [place] [address] documented as of this encounter Goals Goal Patient Goal Type Associated Problems Recent Progress Patient-Stated? Author [facility] Medication Compliance and Understanding Patient Facing Action Plan No Nataliya Lentz, [facility] Note: Hugo Goins is hoping to see a decrease in BSA of his Psorasis and a decrease in his pain score of 4 to a 2. documented as of this encounter Visit Diagnoses Not on filedocumented in this encounter Care Teams Flatwork Washer Relationship Specialty Start Date End Date Lyric Egan MD [address] [place] [address] PCP - General 12/21/21 documented as of this encounter
--- OUTSIDE RECORDS SUMMARY | 2024-03-27 00:42 | XMS_ITS | Encounter Summary ---
Author Organization [facility] [place] [place] [address] Care Team Providers Care Operator Automated Process Name Role Phone Lyric Egan MD Primary Care Provider Encounter Details Date Type Department Care Team (Latest Contact Info) Description 08/27/2022 Travel Social History Tobacco Use Types Packs/Day [...] 1:30 PM EDT Office [place] [address] Lucrecia Rios, S3B MULTI SENSOR OPERATOR [facility] [place] [address] documented as of this encounter Goals Goal Patient Goal Type Associated Problems Recent Progress Patient-Stated? Author [employer] Medication Compliance and Understanding Patient Facing Action Plan No Nataliya Lentz, [facility] Note: Hugo Luo Buster is hoping to see a decrease in BSA of his Psorasis and a decrease in his pain score of 4 to a 2. documented as of this encounter Visit Diagnoses Not on filedocumented in this encounter Care Teams Operator Automated Process Relationship Specialty Start Date End Date Lyric Egan MD [address] [place] [address] PCP - General 12/21/21 documented as of this encounter
--- OUTSIDE RECORDS SUMMARY | 2024-03-27 00:42 | XMS_ITS | Encounter Summary ---
Author Organization [facility] [place] [address] Care Team Providers Care Hands Assembler Name Role Phone Lyric Egan MD Primary Care Provider Encounter Details Date Type Department Care Team (Late st Contact Info) Description 07/02/2023 [place] [phone] Erin Arriaga Social History Tobacco Use Types Packs/Day Years [...] encounter Miscellaneous Notes * Telephone Encounter - Erin Arriaga - 07/02/2023 2:42 PM EST Copied from [facility] #[id number]. Topic: Specialty Dept CRMs - Form Status >> Jul 02, 2023 9:43 AM Zoe Bender wrote: Form Status Request Specialist: Francisco Obrien MD Relationship (if other than patient-full name): self Type of Form/Paperwork: [employer] application How Was Form/Paperwork Given to Office: Faxed Date Form/Paperwork was Sent to Office: Please see encounter dated 06/21/23 for updates on 07/01/23regarding refax. Patient called to check status. Patient Informed, completion of this request can take 5-7 business days. documented in this encounter Plan of Treatment Upcoming Encounters Date Type Department Care Team (Late st Contact Info) Description 04/15/2024 1:30 PM EDT Office [place] [address] Lucrecia Rios, LESTER [facility] [place] [address] documented as of this encounter Goals Goal Patient Goal Type Associated Problems Recent Progress Patient-Stated? Author [facility] Medication Compliance and Understanding Patient Facing Action Plan No Nataliya Lentz, [facility] Note: Hugo Luo Buster is hoping to see a decrease in BSA of his Psorasis and a decrease in his pain score of 4 to a 2. documented as of this encounter Visit Diagnoses Not on filedocumented in this encounter Care Teams Hands Assembler Relationship Specialty Start Date End Date Lyric Egan MD [address] [place] [address] PCP - General 12/21/21 documented as of this encounter
--- OUTSIDE RECORDS SUMMARY | 2024-03-27 00:42 | XMS_ITS | Encounter Summary ---
Author Organization [facility] [place] [address] Care Team Providers Care Child Monitor Name Role Phone Lyric Egan MD Primary Care Provider Encounter Details Date Type Department Care Team (Late st Contact Info) Description 10/30/2022 Telephone [place] [phone] Sandra Friedman, [facility] Social History Tobacco Use Types [...] 1:30 PM EDT Office [place] [phone] Lucrecia Rios, LESTER [facility] [place] [address] documented as of this encounter Goals Goal Patient Goal Type Associated Problems Recent Progress Patient-Stated? Author [facility] Medication Compliance and Understanding Patient Facing Action Plan No Nataliya Lentz, [facility] Note: Hugo Goins is hoping to see a decrease in BSA of his Psorasis and a decrease in his pain score of 4 to a 2. documented as of this encounter Visit Diagnoses Not on filedocumented in this encounter Care Teams Child Monitor Relationship Specialty Start Date End Date Lyric Egan MD [address] [place] [address] PCP - General 12/21/21 documented as of this encounter
--- OUTSIDE RECORDS SUMMARY | 2024-03-27 00:42 | XMS_ITS | Encounter Summary ---
Author Organization [facility] [place] [address] Care Team Providers Care Manager Rehab Name Role Phone Yeimi Carey APRN Primary Care Provider +1- [phone] Reason for Visit * Reason Comments Medication Management Encounter Details Date Type Department Care Team (Late st Contact Info) Description 09/15/2020 Specialty [place] [phone] Andres Fitzgerald [facility] Social History Tobacco Use Types [...] as of this encounter Progress Notes * Andres Espinal RPH - 09/15/2020 2:51 PM EST Clinical Management Plan: Refill Specialty Pharmacy Consultation; Andres Espinal [facility] Comprehensive Medication Management (CMM) Hugo Puja Butser Mr. Hugo Goins is a 65 y.o. [...] beneficiary Provider: plan sponsor pharmacist Visit Type: [facility] Follow-up Method of Contact: by telephone Cognitive Ability: normal Cognitive Impairment Status Verified this Year: no Allergies and Drug intolerance: Allergies Allergen Reactions ??? Bactrim [Sulfamethoxazole-Trimethoprim] Rash Medication Reconciliation Discrepancies (compared to [facility] med list) -None New medications: no New medical conditions: no [...] at the appointment and that [facility] is providing recommendations (summary located at top of note) for provider review and follow up. Andres Espinal RPH 09/15/20 2:54 PM documented in this encounter Plan of Treatment Upcoming Encounters Date Type Department Care Team (Late st Contact Info) Description 04/15/2024 1:30 PM EDT Office [place] [address] Lucrecia Rios APRN [facility] [place] [address] documented as of this encounter Goals Goal Patient Goal Type Associated Problems Recent Progress Patient-Stated? Author [facility] Medication Compliance and Understanding Patient Facing Action Plan No Nataliya Lentz [facility] Note: Hugo Puja Goins is hoping to see a decrease in BSA of his Psorasis and a decrease in his pain score of 4 to a 2. documented as of this encounter Visit Diagnoses Not on filedocumented in this encounter Care Teams Manager Rehab Relationship Specialty Start Date End Date Yeimi Carey APRN [address] [place] [phone] PCP - General Family Medicine 11/04/18 12/20/21 documented as of this encounter
--- OUTSIDE RECORDS SUMMARY | 2024-03-27 00:42 | XMS_ITS | Encounter Summary ---
[place] [address] Care Team Providers Care Inside Barrel Lathe Operator Name Role Phone Yeimi Carey LESTER Primary Care Provider +1- [phone] Reason for Visit * Reason Comments Psoriasis Encounter Details Date Type Department Care Team (Late st Contact Info) Description 11/17/2020 4:15 PM EDT Office Visit Dermatology at [address] [phone] Reilly Summers MD [address] [facility] [place] [address] Psoriasis Social History Tobacco Use Types Packs/Day [...] Progress Notes * Reilly Summers MD - 11/17/2020 4:15 PM EDT Problem: 1. ??Follow-up psoriasis 2. ??On Humira since January 2014 through August 2016 now back on since February 2017 3. ??Past history of EtOH abuse and hepatitis C,??now treated. Roddy follows today for a 1 year check on his psoriasis. He is doing very well with the Humira utilizing the 40 mg autoinjector pen, citrate free, and very pleased with this. He gives himself 1 injection every 2 weeks. He denies any history of fevers chills injection site reactions. His skin is entirely clear except for little bit on his elbows. His joints are doing well, he does not complain of any arthritic symptoms. Physical examination reveals thin patches of psoriasis on either elbow, mild erythema, very minimalscaling. Otherwise he is clear. Assessment and plan: Psoriasis controlled with Humira 1. Continue Humira utilizing the 40 mg per 0.4 mL, autoinjector pen citrate free. Inject contents of 1 pen simultaneously every 2 weeks. Will dispense #2 to be dispensed with 11 refills for a one year supply 2. Return to clinic in a year for repeat check CC: Yeimi Carey APRN. documented in this encounter Plan of Treatment Upcoming Encounters Date Type Department Care Team (Late st Contact Info) Description 04/15/2024 1:30 PM EDT Office Visit [place] [address] Lucrecia Rios OVEN EQUIPMENT REPAIRER [facility] [place] [address] documented as of this encounter Goals Goal Patient Goal Type Associated Problems Recent Progress Patient-Stated? Author [facility] Medication Compliance and Understanding Patient Facing Action Plan Nataliya Hyatt, [facility] Note: Hugo Goins is hoping to see a decrease in BSA of his Psorasis and a decrease in his pain score of 4 to a 2. documented as of this encounter Visit Diagnoses Diagnosis Psoriasis Other psoriasis documented in this encounter Care Teams Inside Barrel Lathe Operator Relationship Specialty Start Date End Date Yeimi Carey APRN [address] [place] [phone] PCP - General Family Medicine 11/04/18 12/20/21 documented as of this encounter
--- OUTSIDE RECORDS SUMMARY | 2024-03-27 00:42 | XMS_ITS | Encounter Summary ---
Author Organization [facility] [place] [address] Care Team Providers Care Size Tester Name Role Phone Yeimi Carey APRN Primary Care Provider +1- [phone] Encounter Details Date Type Department Care Team (Late st Contact Info) Description 12/15/2021 Specialty [place] [address] Mary Riggs [facility] Social History Tobacco Use Types Packs/Day Years [...] Progress Notes * Mary Riggs RPH - 12/15/2021 7:53 AM EDT Clinical Management Plan: Transfer of Care/Discharge Specialty Services Specialty Pharmacy Consultation; Mary Riggs [facility] Comprehensive Medication Management (CMM) Hugo Goins [address] [facility] [place] [address] Telephone Information: Home Phone [phone] Work Phone Not on file. Is the patient transferring services to a different Specialty Pharmacy or discontinuing the medication? Discontinuing Medication Medication: Humira 40mg/0.4ml PNKT Reason for discontinuation or transfer: Switching therapy and receiving natural history collections curator assistance Approximate date of discontinuation or transfer: 12/14/21 Patient's response to therapy: n/a Summary of services provided by [facility] Special[facility]: n/a Summary of on-going needs: n/a Referral for additional services (if applicable): n/a Is patient aware of referral? no Instructions provided to patient about discharge/transfer: no Provider aware of discontinuation or transfer: yes Patient understands no changes to current drug regimen were made at the appointment and that [facility] isproviding recommendations (summary located at top of note) for provider review and follow up. Mary Riggs RPH 12/15/21 7:54 AM documented in this encounter Plan of Treatment Upcoming Encounters Date Type Department Care Team (Late st Contact Info) Description 04/15/2024 1:30 PM EDT Office [place] [address] Lucrecia Rios APRN [facility] [place] [address] documented as of this encounter Goals Goal Patient Goal Type Associated Problems Recent Progress Patient-Stated? Author [facility] Medication Compliance and Understanding Patient Facing Action Plan No Nataliya Lentz, [facility] Note: Hugo Luo Buster is hoping to see a decrease in BSA of his Psorasis and a decrease in his pain score of 4 to a 2. documented as of this encounter Visit Diagnoses Not on filedocumented in this encounter Care Teams Size Tester Relationship Specialty Start Date End Date Yeimi Carey APRN [address] [place] [phone] PCP - General Family Medicine 11/04/18 12/20/21 documented as of this encounter
--- OUTSIDE RECORDS SUMMARY | 2024-03-27 00:42 | XMS_ITS | Encounter Summary ---
Author Organization [facility] [place] [address] Care Team Providers Care Clinical Services Professional Name Role Phone Yeimi Carey APRN Primary Care Provider +1- [phone] Reason for Visit * Reason Comments Specialty Refill Management Encounter Details Date Type Department Care Team (Late st Contact Info) Description 08/17/2021 Specialty [place] [address] Andres Fitzgerald [facility] Social History [...] of this encounter Progress Notes * Andres Fitzgerald RPH - 08/17/2021 8:32 AM EST Clinical Management Plan: Refill Specialty Pharmacy Consultation; Andres Fitzgerald [facility] Comprehensive Medication Management (CMM) Hugo Puja Buster Mr. Hugo Goins is a 66 y.o. (1955) male who was contacted in [...] (compared to [facility] med list) No Specialty Pharmacy Refill Questionnaire Refill Questionnaire 08/17/2021 What is the name of the specialty medication you are refilling? Humira Are you taking any new medications? No Any new medical condition? No Any new allergies? No Any new side effects that are bothersome? No What date will you need this fill by? 08/22/2021 Adherence: Any missed doses? No Patient understands no changes to current drug regimen were made. Andres Fitzgerald RPH 08/17/21 8:33 AM documented in this encounter Plan of Treatment Upcoming Encounters Date Type Department Care Team (Late st Contact Info) Description 04/15/2024 1:30 PM EDT Office [place] [address] Lucrecia Rios [employer] [facility] [place] [address] documented as of this encounter Goals Goal Patient Goal Type Associated Problems Recent Progress Patient-Stated? Author [facility] Medication Compliance and Understanding Patient Facing Action Plan Nataliya Hyatt, [facility] Note: Hugo Luo Vannessafranko is hoping to see a decrease in BSA of his Psorasis and a decrease in his pain score of 4 to a 2. documented as of this encounter Visit Diagnoses Not on filedocumented in this encounter Care Teams Clinical Services Professional Relationship Specialty Start Date End Date Yeimi Carey APRN [address] [place] [phone] PCP - General Family Medicine 11/04/18 12/20/21 documented as of this encounter
--- OUTSIDE RECORDS SUMMARY | 2024-03-27 00:42 | XMS_ITS | Encounter Summary ---
[place] [address] Care Team Providers Care Fuels Sales Representative Name Role Phone Lyric Egan MD Primary Care Provider Reason for Visit * Reason Comments Prior Authorization Enbrel Sureclick 50m g/ml SOAJ Encounter Details Date Type Department Care Team (Late st Contact Info) Description 10/12/2022 Specialty [place] [phone] Jina Modi, [facility] Social History Tobacco Use Types Packs/Day Years [...] as of this encounter Progress Notes * Jina Modi - 10/12/2022 3:47 PM EST [facility], Medication Prior Authorization Submission Patient: Hugo Goins Patient : 1955 Patient Address: [address] [place] [address] [place] [address] (home) Medication Name: ENBREL SURECLICK 50 MG/ML (1 ML) SUBCUTANEOUS PEN INJECTOR Medication ID: [id number] Subscriber Insurance: [employer] (MEDDADV) Subscriber Insurance Comment: Phone: Fax: Physician: ALLYSSA NEWBERRY Physician Comment: Sent Via: [facility] Torrez: Torrez: [id number] Ref/Case/PA#: Medication Strength Frequency Requested: Inject the contents of 1 pen (50mg) subcutaneously twice weekly for 3 months, then inject 1 pen subcutaneously every 7 days thereafter. 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 Qty/Day Supply: 04/01 New Start: New to Therapy Diagnosis & ICD-10 Code: Psoriasis L40.9 and psoriatic arthritis L40.50 Patient Notified: Yes Submission Notes: None Jina Modi 10/12/22 3:50 PM * Jina Modi - 10/12/2022 3:47 PM EST [facility], Prior Authorization Approval Medication Name: ENBREL SURECLICK 50 MG/ML (1 ML) SUBCUTANEOUS PEN INJECTOR Medication ID: [id number] Approval Dates: 10/12/2022 to 10/13/2023 Insurance requirements/notes: None Other Notes: None Case/Reference #: [id number] Approval notification Received via: Fax Copay: [phone] Copay assistance: None Copay Notes: Insurance mandated Pharmacy: Fillable at [facility]: Yes Patient Notified: Left Voicemessage Pharmacy staff will be reaching out to the patient to inform them of their medication's approval [facility]. If applicable, a pharmacist will speak with the patient to offer our specialty pharmacy services and to arrange delivery of their medication. Jina Modi 10/15/22 11:19 AM documented in this encounter Plan of Treatment Upcoming Encounters Date Type Department Care Team (Late st Contact Info) Description 04/15/2024 1:30 PM EDT Office Visit Rheumatology at [facility] [place] [address] Lucrecia Rios APRN [facility] [place] [address] documented as of this encounter Goals Goal Patient Goal Type Associated Problems Recent Progress Patient-Stated? Author [facility] Medication Compliance and Understanding Patient Facing Action Plan Nataliya Hyatt, [facility] Note: Hugo Luo Vannessafranko is hoping to see a decrease in BSA of his Psorasis and a decrease in his pain score of 4 to a 2. documented as of this encounter Visit Diagnoses Not on filedocumented in this encounter Care Teams Fuels Sales Representative Relationship Specialty Start Date End Date Lyric Egan MD [address] [place] [address] PCP - General 12/21/21 documented as of this encounter
--- OUTSIDE RECORDS SUMMARY | 2024-03-27 00:42 | XMS_ITS | Encounter Summary ---
Author Organization [facility] [place] [address] Care Team Providers Care Hospital Ward Clerk Name Role Phone Yeimi Carey APRN Primary Care Provider +1- [phone] Reason for Visit * Reason Comments Medication Management Encounter Details Date Type Department Care Team (Late st Contact Info) Description 07/21/2020 Specialty [place] [phone] Nixon Linn, [facility] Social History Tobacco Use Types Packs/Day Years [...] as of this encounter Progress Notes * Nixon Linn [facility] - 07/21/2020 3:50 PM EST Clinical Management Plan: Refill Specialty Pharmacy Consultation; Nixon Linn [facility] Comprehensive Medication Management (CMM) Hugo Puja Buster [...] beneficiary Provider: plan sponsor pharmacist Visit Type: [facility] Follow-up Method of Contact: by telephone Cognitive Ability: normal Cognitive Impairment Status Verified this Year: no Allergies and Drug intolerance: Allergies Allergen Reactions ??? Bactrim [Sulfamethoxazole-Trimethoprim] Rash Medication Reconciliation Discrepancies (compared to [facility] med list) -none New medications: no New medical conditions: no [...] were made at the appointment and that [facility] is providing recommendations (summary located at top of note) for provider review and follow up. Nixon Linn RPH 07/21/20 3:51 PM documented in this encounter Plan of Treatment Upcoming Encounters Date Type Department Care Team (Late st Contact Info) Description 04/15/2024 1:30 PM EDT [place] [address] Lucrecia Rios IMAGING TECHNOLOGIST [facility] [place] [address] documented as of this encounter Goals Goal Patient Goal Type Associated Problems Recent Progress Patient-Stated? Author [facility] Medication Compliance and Understanding Patient Facing Action Plan Nataliya Hyatt, [facility] Note: Hugo Goins is hoping to see a decrease in BSA of his Psorasis and a decrease in his pain score of 4 to a 2. documented as of this encounter Visit Diagnoses Not on filedocumented in this encounter Care Teams Hospital Ward Clerk Relationship Specialty Start Date End Date Yeimi Carey APRN [address] [place] [phone] PCP - General Family Medicine 11/04/18 12/20/21 documented as of this encounter
--- OUTSIDE RECORDS SUMMARY | 2024-03-27 00:42 | XMS_ITS | Encounter Summary ---
Author Organization [facility] [place] [address] Care Team Providers Care Local Company Refrigerated Truck Driver Name Role Phone Yeimi Carey APRN Primary Care Provider +1- [phone] Reason for Visit * Reason Comments Specialty Refill Management Encounter Details Date Type Department Care Team (Late st Contact Info) Description 01/06/2021 Specialty [place] [phone] Erick Pace CP[facility] Social History Tobacco Use Types Packs/Day Years [...] as of this encounter Progress Notes * Erick Pace - 01/06/2021 4:04 PM EDT Clinical Management Plan: Refill Specialty Pharmacy Consultation; Erick Pace Comprehensive Medication Management (CMM) Hugo Goins Mr. [...] [Sulfamethoxazole-Trimethoprim] Rash Medication Reconciliation Discrepancies (compared to [facility] med list) No Specialty Pharmacy Refill Questionnaire Refill Questionnaire 01/06/2021 What is the name of the specialty medication you are refilling? Humira Are you taking any new medications? No Any new medical condition? No Any new allergies? No Any new side effects that are bothersome? No What date will you need this fill by? - Adherence: Any missed doses? No Patient understands no changes to current drug regimen were made.. Erick Pace 01/06/21 4:13 PM documented in this encounter Plan of Treatment Upcoming Encounters Date Type Department Care Team (Late st Contact Info) Description 04/15/2024 1:30 PM EDT [place] [address] Lucrecia Rios APRN [facility] [place] [address] documented as of this encounter Goals Goal Patient Goal Type Associated Problems Recent Progress Patient-Stated? Author [facility] Medication Compliance and Understanding Patient Facing Action Plan No Nataliya Lentz, [facility] Note: Hugo Luo Vannessafranko is hoping to see a decrease in BSA of his Psorasis and a decrease in his pain score of 4 to a 2. documented as of this encounter Visit Diagnoses Not on filedocumented in this encounter Care Teams Local Company Refrigerated Truck Driver Relationship Specialty Start Date End Date Yeimi Carey APRN [address] [place] [address] PCP - General Family Medicine 11/04/18 12/20/21 documented as of this encounter
--- OUTSIDE RECORDS SUMMARY | 2024-03-27 00:42 | XMS_ITS | Encounter Summary ---
Author Organization [facility] [place] [address] Care Team Providers Care A R Specialist Name Role Phone Yeimi Carey APRN Primary Care Provider +1- [phone] Reason for Visit * Reason Comments Specialty Refill Management Encounter Details Date Type Department Care Team (Late st Contact Info) Description 03/30/2021 Specialty [place] [phone] Laura Saunders CPHT Social History Tobacco Use Types Packs/Day [...] as of this encounter Progress Notes * Laura Saunders CPHT - 03/30/2021 3:25 PM EDT Clinical Management Plan: Refill Specialty Pharmacy Consultation; Laura Saunders CP[facility] Comprehensive Medication Management (CMM) Hugo Puja Buster [...] [Sulfamethoxazole-Trimethoprim] Rash Medication Reconciliation Discrepancies (compared to [facility] med list) No Specialty Pharmacy Refill Questionnaire Refill Questionnaire 03/30/2021 What is the name of the specialty medication you are refilling? Humira Are you taking any new medications? No Any new medical condition? No Any new allergies? No Any new side effects that are bothersome? No What date will you need this fill by? 04/04/2021 Adherence: Any missed doses? No Patient understands no changes to current drug regimen were made.. Laura Saunders CPHT 03/30/21 3:26 PM documented in this encounter Plan of Treatment Upcoming Encounters Date Type Department Care Team (Late st Contact Info) Description 04/15/2024 1:30 PM EDT [place] [address] Lucrecia Rios [facility] [place] [address] documented as of this encounter Goals Goal Patient Goal Type Associated Problems Recent Progress Patient-Stated? Author [facility] Medication Compliance and Understanding Patient Facing Action Plan Nataliya Hyatt, [facility] Note: Hugo Luo Buster is hoping to see a decrease in BSA of his Psorasis and a decrease in his pain score of 4 to a 2. documented as of this encounter Visit Diagnoses Not on filedocumented in this encounter Care Teams A R Specialist Relationship Specialty Start Date End Date Yeimi Carey APRN [address] [place] [phone] PCP - General Family Medicine 11/04/18 12/20/21 documented as of this encounter
--- OUTSIDE RECORDS SUMMARY | 2024-03-27 00:42 | XMS_ITS | Encounter Summary ---
Author Organization [facility] [place] [address] Care Team Providers Care Splitter Tender Name Role Phone Yeimi Carey APRN Primary Care Provider +1- [phone] Reason for Visit * Reason Comments Specialty Refill Management Encounter Details Date Type Department Care Team (Late st Contact Info) Description 03/02/2021 Specialty [place] [phone] Erick Pace CPHT Social History Tobacco Use [...] encounter Progress Notes * Erick Pace - 03/02/2021 4:45 PM EDT Clinical Management Plan: Refill Specialty [...] [Sulfamethoxazole-Trimethoprim] Rash Medication Reconciliation Discrepancies (compared to [facility] med list) No Specialty Pharmacy Refill Questionnaire Refill Questionnaire 03/02/2021 What is the name of the specialty medication you are refilling? Humira Are you taking any new medications? No Any new medical condition? No Any new allergies? No Any new side effects that are bothersome? No What date will you need this fill by? 03/07/2021 Adherence: Any missed doses? No Patient understands no changes to current drug regimen were made.. Erick Pace 03/02/21 4:48 PM documented in this encounter Plan of Treatment Upcoming Encounters Date Type Department Care Team (Late st Contact Info) Description 04/15/2024 1:30 PM EDT [place] [address] Lucrecia Rios APRN [facility] [place] [address] documented as of this encounter Goals Goal Patient Goal Type Associated Problems Recent Progress Patient-Stated? Author [facility] Medication Compliance and Understanding Patient Facing Action Plan No Nataliya Lentz, [facility] Note: Hugo Luo Vannessafranko is hoping to see a decrease in BSA of his Psorasis and a decrease in his pain score of 4 to a 2. documented as of this encounter Visit Diagnoses Not on filedocumented in this encounter Care Teams Splitter Tender Relationship Specialty Start Date End Date Yeimi Carey APRN [address] [place] [phone] PCP - General Family Medicine 11/04/18 12/20/21 documented as of this encounter
--- OUTSIDE RECORDS SUMMARY | 2024-03-27 00:42 | XMS_ITS | Encounter Summary ---
[place] [address] Care Team Providers Care Rn Family Practice Name Role Phone Yeimi Carey APRN Primary Care Provider +1- [phone] Reason for Visit * Reason Comments Prior Authorization Humira Pen 40mg/0.4m L PNKT Encounter Details Date Type Department Care Team (Late st Contact Info) Description 05/26/2021 Specialty [place] [phone] Sloan Bansal, [facility] Social History Tobacco Use Types [...] as of this encounter Progress Notes * Sloan Bansal - 05/26/2021 8:48 AM EDT [facility], Medication Prior Authorization Patient: Hugo Goins Patient : 1955 Patient [address]: [address] [place] [address] [place] [address] (home) Medication Name: ADALIMUMAB 40 MG/0.4 ML SUBCUTANEOUS PEN KIT Medication ID: Patient Location: [facility] Patient Location Comment: Subscriber Insurance: Subscriber Insurance Comment: [facility] (IRX) Fax: Physician: KP RAMIREZ Physician Comment: Sent Via: [facility] Torrez: [id number] Ref/Case/PA#: Medication Strength Frequency Requested: Humira Pen 40mg/0.4mL PNKT. Inject the contents of one pen(40mg) SQ every 14 days. Qty/Day Supply: 10/02 New Start: Renewal Diagnosis & ICD-10 Code: Psoriasis L40.9 Patient Notified: Yes Submission Notes: None Sloan Bansal 05/26/21 8:51 AM * Sloan Bansal - 05/26/2021 8:48 AM EDT [facility], Prior Authorization Approval Medication Name: ADALIMUMAB 40 MG/0.4 ML SUBCUTANEOUS PEN KIT Medication ID: Approval Dates: 05/26/2021 to 05/26/2022 Insurance requirements/notes: None Other Notes: None Case/Reference #: [id number] Approval notification Received via: [facility] Copay: $0.00 Copay assistance: None Copay Notes: Insurance mandated Pharmacy: [facility] Fillable at [facility] Specialty Pharmacy: Yes Pharmacy staff will be reaching out to the patient to inform them of their medication[facility]. If applicable, a pharmacist will speak with the patient to offer our specialty pharmacy services and to arrange delivery of their medication. Sloan Bansal 05/26/21 9:17 AM documented in this encounter Plan of Treatment Upcoming Encounters Date Type Department Care Team (Late st Contact Info) Description 04/15/2024 1:30 PM EDT Office [place] [address] Lucrecia Rios, [facility] [place] [address] documented as of this encounter Goals Goal Patient Goal Type Associated Problems Recent Progress Patient-Stated? Author [facility] Medication Compliance and Understanding Patient Facing Action Plan Nataliya Hyatt, [facility] Note: Hugo Goins is hoping to see a decrease in BSA of his Psorasis and a decrease in his pain score of 4 to a 2. documented as of this encounter Visit Diagnoses Not on filedocumented in this encounter Care Teams Rn Family Practice Relationship Specialty Start Date End Date Yeimi Carey APRN [address] [place] [phone] PCP - General Family Medicine 11/04/18 12/20/21 documented as of this encounter
--- OUTSIDE RECORDS SUMMARY | 2024-03-27 00:42 | XMS_ITS | Encounter Summary ---
Author Organization [facility] [place] [address] Care Team Providers Care Morale Officer Name Role Phone Lyric Egan MD Primary Care Provider Reason for Visit * Reason Comments Medication Management Patient Education Encounter Details Date Type Department Care Team (Late st Contact Info) Description 10/12/2022 Specialty Pharmacy [place] [phone] Sandra Friedman, [facility] Social History Tobacco Use Types [...] this encounter Progress Notes * Sandra Friedman [facility] - 10/12/2022 12:47 PM EST Images from the original note were not included. Specialty Pharmacy Initial Consultation; Sandra Friedman [facility] Comprehensive Medication Management (CMM) Hugo Goins Diagnosis: PsO/PsA Therapy Start Date: TBD Contact in person or via telephone: in person Mr. Hugo Goins is a 67 y.o. (1955) male who was contacted in regard to specialty medication. Spoke with patient regarding Enbrel . A review of the medication therapy was performed. The medication was Filled as scheduled, and all medication related questions and concerns were addressed. The specialty pharmacy staff will follow up with the patient 5-7 days prior to next refill. Is the patient willing to proceed with the Clinical Assessment? Yes Summary and Recommendations: Hugo Goins was seen in clinic for a review of Enbrel for the treatment of psoriatic arthritis. Patient is aware of the prior authorization process and timeline and was given [facility] contact information for any questions. Patient was educated on the Enbrel labeled black box warnings regarding the risk of serious infections including tuberculosis and malignancies. Discussed other precautions with Enbrel including anaphylaxis/hypersensitivity and hepatitis B reactivation. Patient denies personal history of demyelinating disease or heart failure and was made aware of these precautions as well. Patient was educated on the importance of infection prevention including best practices for hand hygiene and the annual fluvaccine. Discussed the need to avoid live vaccines during treatment. Dose hold parameters were reviewed including suspected/known infection, prescribed antibiotic therapy, or scheduled surgery. Patient agrees to contact the clinic to review dose hold in these settings. Educated patient on the potential side effects of Enbrel including injection site reaction, diarrhea, rash, and infections such as URTI/sinusitis. Discussed with patient that it may take 3-4 months to experience the full benefit of Enbrel. A review of dosing, storage, and administration was completed. Patient was educated on the dosing schedule, 50 mg twice weekly for 3 months, then 50 mg once weekly. Patient was made aware that Enbrelmust be stored in the refrigerator and remains stable at room temperature for 30 days. Demonstration of injection technique was performed using Enbrel training kit. Patient was advised on proper siterotation, site sterilization, and allowing the medication to reach room temperature prior to injection. Patient was able to demonstrate appropriate injection technique and required no remedial counseling. Patient was encouraged to schedule an injection teaching appointment if they prefer to have first injection completed with medical oversight and was directed to view additional online video resources if needed. Patient will be provided with a sharps container and disposal of pens was discussed. During our visit in clinic, we discussed [employer] orthopedic radiologic technologist assistance. He discussed that he was receiving skyrizi through [employer] He was given the application and return envelope to send back to us once completed. We will make a referral to [facility]. Patient was told to call us with any questions he may have regarding the application. Clinic follow-up needed: yes - with Terri Anne on 01/16/23 Allergies and Drug intolerance: Allergies Allergen Reactions ??? Bactrim [Sulfamethoxazole-Trimethoprim] Rash ??? Sulfa (Sulfonamide Antibiotics) Rash Problem List: Patient Active Problem List Diagnosis Code ??? Hepatitis C, chronic B18.2 ??? Psoriasis L40.9 ??? 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 med list) -none Medication List: Current Outpatient Medications Medication Sig Note Dispense Refill ??? magnesium 250 mg Tablet Take 400 mg by mouth 2 times daily. ??? predniSONE (Deltasone) 5 mg Tablet Take 1 tablet by mouth daily. 90 tablet 1 ??? clindamycin phosphate (Clindagel) 1 % gel, once daily Apply topically 2 times daily. ??? lisinopriL (Zestril) 10 mg Tablet TAKE ONE TABLET BY MOUTH EVERY DAY (INCREASE) ??? risankizumab-rzaa (Skyrizi) 150 mg/mL Syringe Inject subcutaneously. ??? ibuprofen (Motrin) 400 mg Tablet Take one tablet by mouth 3 times daily with meals. 90 tablet 3 ??? albuteroL 90 mcg/actuation HFA Aerosol Inhaler Inhale 2 puffs into the lungs every 4 hours as needed. ??? betamethasone valerate (VALISONE) 0.1 % Cream ??? AFLURIA 9536-1100, PF, 45 mcg (15 mcg x 3)/0.5 mL Syringe inject 0.5 milliliter intramuscularly10/14/2017: Received from: External Pharmacy 0 ??? levothyroxine (SYNTHROID) 125 mcg Tablet 10/14/2017: Received from: External Pharmacy ??? ribavirin (COPEGUS) 200 mg tablet Take by mouth 2 times daily. ??? fluticasone propion-salmeteroL (ADVAIR HFA) 45-21 mcg/actuation HFA Aerosol Inhaler Inhale 2 puffs into the lungs 2 times daily. ??? metoprolol tartrate (LOPRESSOR) 50 mg tablet Take 75 mg by mouth 2 times daily. ??? betamethasone dipropionate (DIPROLENE) 0.05 % ointment Apply topically 2 times daily. No current facility-administered medications for this visit. Most Recent Vitals: Ht Readings from Last 1 Encounters: 10/12/22 177.8 cm (5' 10) Wt Readings from Last 3 Encounters: 10/12/22 83.5 kg (184 lb) 09/26/12 83.9 kg (185 lb) 08/11/12 84.4 kg (186 lb) Temp Readings from Last 3 Encounters: No data found for Temp BP Readings from Last 3 Encounters: 10/12/22 (!) 159/92 09/26/12 142/67 08/11/12 131/87 Pulse Readings from Last 3 Encounters: 10/12/22 88 09/26/12 63 08/11/12 98 There is no height or weight on file to calculate BMI. Pertinent Lab values: Lab Results Component Value Date NA 138 09/26/2012 K 4.3 09/26/2012 CL 103 09/26/2012 CO2 27 09/26/2012 BUN 27 (H) 09/26/2012 CREATININE 1.08 09/26/2012 GLUCOSE 101 01/14/2012 GLUCFASTING 95 09/26/2012 CALCIUM 9.2 09/26/2012 Lab Results Component Value Date ALT 28 09/26/2012 ALT 28 09/26/2012 AST 24 09/26/2012 AST 24 09/26/2012 ALKPHOS 69 09/26/2012 ALKPHOS 69 09/26/2012 BILITOT 0.5 09/26/2012 BILITOT 0.5 09/26/2012 BILIDIR 0.1 09/26/2012 BILIDIR 0.1 09/26/2012 ALBUMIN 4.2 09/26/2012 ALBUMIN 4.2 09/26/2012 PROT 7.6 09/26/2012 PROT 7.6 09/26/2012 Lab Results Component Value Date WBC 5.1 09/26/2012 HGB 13.2 (L) 09/26/2012 HCT 40.0 09/26/2012 MCV 94.6 (H) 09/26/2012 PLATELET 228 09/26/2012 No results found for: HA1C There is no immunization history on file for this patient. Assessment and Recommendations: Patient Counseling Patient informed of specialty services: Yes Patient accepted offer to summer counselor: select all, adherence/missed doses, cost of medications/cost implications, doses and administration, possible drug/OTC drug and food interactions, possible adverse side effects and management, pharmacy contact information, lab monitoring/follow up, possible drug/Rx drug interactions, safe handling, storage, and disposal, therapeutic rationale Medication Management Summary Topics discussed: reviewed medication changes since last visit, medication safety precautions education provided, drug interaction education provided to patient, safe handling, storage, and disposal discussed, possible adverse effects and management discussed, lab monitoring and follow-up discussed, cost of medications and cost implications discussed, adherence and missed doses discussed, effects of medication in patients over 65 years of age discussed, health goals discussed, monitoring medication discussed, over the counter products discussed, preventative care discussed, recommendations to doctor discussed, reminder to refill or pick pulling machine tender medication discussed, self-monitoring discussed, start medication discussed, stop medication discussed, timing of medications discussed, vaccination discussed, lifestyle modification education, referral needs discussed Time spent: 31-45 min Treatment Outcomes 10/12/2022 1252 Disease progression: Moderate Reviewed in detail with patient: Dose appropriateness based on recommended standard dosing Current medication list including OTC medications Medication and disease problems Allergies Comorbid conditions/ Problem List Past adverse events if any Special needs of the patient including physical and cognitive limitations Goals of therapy and management strategies Warnings, precautions, and contraindications Side effects Drug-drug and drug-food interactions Administration instructions including dose, frequency and method Handling, storage, and disposal Verifying expiration dates on products before use Rotating medication inventory to use oldest product first Relevant lab data Treatments impact on disease Dose appropriateness based on recommended standard dosing schedule, including any variations from FDA approved dosing Patient verbalizes understanding and is able to read-back instructions on self-administration/injection, proper storage, drug stability, importance of adherence and management strategies, side effect avoidance and mitigation strategies, and interruptions in therapy: Yes Patient is aware a licensed pharmacist is available 24 hours a day, 7 days a week to discuss medication-related questions or concerns: Yes Patient verbalizes understanding of the common side effect profile of their medication. The patient is able to call 911 or seek urgent care if signs/symptoms of allergy or harmful adverse reactions occur: Yes Additional care/services needed: Yes If yes, explain: [employer] safety net assistance program Additional equipment/supplies required: No Patient satisfied with care/services provided: Yes Specialty Assessment: Physical and Cognitive Assessment: Functional limitations identified: No Cognitive limitations identified: No Concern regarding orientation/memory: No Concern with reasoning/judgement: No Is patient a fall risk: No Social Assessment: Does patient have a primary long term care phlebotomist: No Does patient have an emergency contact on file: Yes Does patient need referral to hospital social worker: No Does patient need referral to advocacy group: No Home Health Assessment: Is the patient in a safe home environment?: Yes Is the patient able to store their medication as directed?: Yes Does the patient have a support network at home?: Yes Reviewed potential home safety hazards with patient: Yes Economic Assessment: Patient is agreeable to medication copay: Yes Actual Copay: $: 0 Days Supply: 28 Welcome Packet and Rights and Responsibilities: Patient provided welcome packet/rights and responsibilities: Yes Specialty Med Adherence Adherence Tools Used: directed education Therapy Assessment: View : No data to display. Current Medication Dosing/Route/Frequency: Enbrel sureclick 50mg/mL Inject the contents of 1 pen (50mg) subcutaneously twice weekly for 3 months, then inject 1 pen subcutaneously every 7 days thereafter. Appropriate Therapy: Yes Current joints affected: shoulders, hands, knees Current pain rating (1-10): 4/10 Estimated duration of morning joint stiffness: all day (without pred) Estimated number of recent flares: yes - 1 Recent systemic corticosteroid use: yes - prednisone taper Patient's Problems/Needs: PsA/PsO- control over his symptoms Expected Outcome: decrease in pain and BSA of PsO Treatment Outcome: Therapy initiated Patient's goals: Patient's specific desired goal: Goals ??? Home Medication Compliance and Understanding Hugo Puja Goins is hoping to see a decrease in BSA of his Psorasis and a decrease in his pain score of 4 to a 2. Measured by: pain scale, morning stiffness, affect joints Time-frame to meet goal: 3 to 6 months On a scale of 1-10, what is the patient's overall confidence level with administering this medication? 10/10 Monitoring requirements for prescribed medication: Improvement of symptoms,TB screening, HBV screening, CBC, signs/symptoms of active infections, heart failure, hypersensitivity, and malignancy On a scale of 1-10 the patient rates their quality of life: not rated Care Plan Reviewed and Approved by both Pharmacist and Patient: Yes Interventions (if applicable): No Pharmacist follow-up needed: Yes Delivery Method: Delivery Patient understands no changes to current drug regimen were made at the appointment and that [facility] isproviding recommendations (summary located at top of note) for provider review and follow up. Sandra Friedman RPH 10/12/22 12:52 PM documented in this encounter Plan of Treatment Upcoming Encounters Date Type Department Care Team (Late st Contact Info) Description 04/15/2024 1:30 PM EDT Office Visit [place] [address] Lucrecia Rios SHADING PAINTER [facility] [place] [address] documented as of this encounter Goals Goal Patient Goal Type Associated Problems Recent Progress Patient-Stated? Author [facility] Medication Compliance and Understanding Patient Facing Action Plan No Nataliya Lentz, [facility] Note: Hugo Luo Vannessafranko is hoping to see a decrease in BSA of his Psorasis and a decrease in his pain score of 4 to a 2. documented as of this encounter Visit Diagnoses Not on filedocumented in this encounter Care Teams Morale Officer Relationship Specialty Start Date End Date Lyric Egan MD [address] [place] [address] PCP - General 12/21/21 documented as of this encounter
--- OUTSIDE RECORDS SUMMARY | 2024-03-27 00:42 | XMS_ITS | Encounter Summary ---
[facility] [place] [address] Care Team Providers Care Actuarial Clerk Name Role Phone Lyric Egan MD Primary Care Provider Encounter Details Date Type Department Care Team (Latest Contact Info) Description 01/16/2023 Travel Social History Tobacco Use Types Packs/Day [...] 1:30 PM EDT Office [place] [address] Lucrecia Rios, SKI TECHNICIAN [facility] [place] [address] documented as of this encounter Goals Goal Patient Goal Type Associated Problems Recent Progress Patient-Stated? Author [facility] Medication Compliance and Understanding Patient Facing Action Plan No Nataliya Lentz, [facility] Note: Hugo Luo Buster is hoping to see a decrease in BSA of his Psorasis and a decrease in his pain score of 4 to a 2. documented as of this encounter Visit Diagnoses Not on filedocumented in this encounter Care Teams Actuarial Clerk Relationship Specialty Start Date End Date Lyric Egan MD [address] [place] [address] PCP - General 12/21/21 documented as of this encounter
--- OUTSIDE RECORDS SUMMARY | 2024-03-27 00:42 | XMS_ITS | Encounter Summary ---
Author Organization [facility] [place] [address] Care Team Providers Care Apartment Maintenance Supervisor Name Role Phone Lyric Egan MD Primary Care Provider Encounter Details Date Type Department Care Team (Late st Contact Info) Description 02/01/2023 [place] [phone] Ann Marie Flores RN Social History Tobacco Use Types Packs/Day [...] encounter Miscellaneous Notes * Telephone Encounter - Ann Marie Flores RN - 02/01/2023 12:58 PM EDT Patient called back, left message he wanted to talk to the Provider as he had more question regarding labs/results. Message to Provider. Spoke with Hugo regarding 01/2023 lab work. Reviewed hep B surface antigen and hep B surface antibody both negative (not immune to hep B). But hep C core positive. Patient reports this has been his labs since 2010. Upon chart review there are labs from 2011 with the same results. LFTs normal. History of hep C which was treated years ago. Hep C RNA (quantitative) has not returned back yet as wellas TB. Patient states he; [facility] to find out status of this. * Telephone Encounter - Ann Marie Flores, RN - 02/01/2023 10:48 AM EDT RTC to patient, no answer. Patient left message on the nurse line about lab results, he had at a outside facility. Asked to call back Message to Provide to review. documented in this encounter Plan of Treatment Upcoming Encounters Date Type Department Care Team (Late st Contact Info) Description 04/15/2024 1:30 PM EDT Office [place] [address] Lucrecia Rios APRN [facility] [place] [address] documented as of this encounter Goals Goal Patient Goal Type Associated Problems Recent Progress Patient-Stated? Author [facility] Medication Compliance and Understanding Patient Facing Action Plan No Nataliya Lentz, [facility] Note: Huog Luo Buster is hoping to see a decrease in BSA of his Psorasis and a decrease in his pain score of 4 to a 2. documented as of this encounter Visit Diagnoses Not on filedocumented in this encounter Care Teams Apartment Maintenance Supervisor Relationship Specialty Start Date End Date Lyric Egan MD [address] [place] [address] PCP - General 12/21/21 documented as of this encounter
--- OUTSIDE RECORDS SUMMARY | 2024-03-27 00:42 | XMS_ITS | Encounter Summary ---
Author Organization [facility] [place] [address] Care Team Providers Care Funeral Driver Name Role Phone Yeimi Carey LESTER Primary Care Provider +1- [phone] Encounter Details Date Type Department Care Team (Late st Contact Info) Description 10/23/2021 Refill Dermatology at [place] [address] [facility] [place] [phone] Reilly Summers MD [address] [facility] [place] [address] Psoriasis Social History Tobacco Use Types Packs/Day [...] 1:30 PM EDT Office [place] [address] Lucrecia Rios APRN [facility] [place] [address] documented as of this encounter Goals Goal Patient Goal Type Associated Problems Recent Progress Patient-Stated? Author [facility] Medication Compliance and Understanding Patient Facing Action Plan No Nataliya Lentz, [facility] Note: Hugo Puja Goins is hoping to see a decrease in BSA of his Psorasis and a decrease in his pain score of 4 to a 2. documented as of this encounter Visit Diagnoses Diagnosis Psoriasis Other psoriasis documented in this encounter Care Teams Funeral Driver Relationship Specialty Start Date End Date Yeimi Carey APRN [address] [place] [address] PCP - General Family Medicine 11/04/18 12/20/21 documented as of this encounter
--- OUTSIDE RECORDS SUMMARY | 2024-03-27 00:42 | XMS_ITS | Encounter Summary ---
Author Organization [facility] [place] [address] Care Team Providers Care Sql Database Developer Name Role Phone Yeimi Carey APRN Primary Care Provider +1- [phone] Reason for Visit * Reason Comments Specialty Refill Management Encounter Details Date Type Department Care Team (Late st Contact Info) Description 04/26/2021 Specialty [place] [phone] Erick Pace CPHT Social History Tobacco Use [...] encounter Progress Notes * Erick Pace - 04/26/2021 2:50 PM EDT Clinical Management Plan: Refill Specialty Pharmacy Consultation; Erick Pace Comprehensive Medication Management (CMM) Hugo Goins Mr. Hugo Goins is a 66 y.o. [...] [Sulfamethoxazole-Trimethoprim] Rash Medication Reconciliation Discrepancies (compared to [facility] med list) No Specialty Pharmacy Refill Questionnaire Refill Questionnaire 04/26/2021 What is the name of the specialty medication you are refilling? Humira Are you taking any new medications? No Any new medical condition? No Any new allergies? No Any new side effects that are bothersome? No What date will you need this fill by? 05/02/2021 Adherence: Any missed doses? No Patient understands no changes to current drug regimen were made. Erick Pace 04/26/21 2:51 PM documented in this encounter Plan of Treatment Upcoming Encounters Date Type Department Care Team (Late st Contact Info) Description 04/15/2024 1:30 PM EDT [place] [address] Lucrecia Rios APRN [facility] [address] documented as of this encounter Goals Goal Patient Goal Type Associated Problems Recent Progress Patient-Stated? Author [facility] Medication Compliance and Understanding Patient Facing Action Plan No Nataliya Lentz, [facility] Note: Hugo Goins is hoping to see a decrease in BSA of his Psorasis and a decrease in his pain score of 4 to a 2. documented as of this encounter Visit Diagnoses Not on filedocumented in this encounter Care Teams Sql Database Developer Relationship Specialty Start Date End Date Yeimi Carey APRN [address] [place] [address] PCP - General Family Medicine 11/04/18 12/20/21 documented as of this encounter
--- OUTSIDE RECORDS SUMMARY | 2024-03-27 00:42 | XMS_ITS | Encounter Summary ---
[place] [address] Care Team Providers Care Energy Trading Analyst Name Role Phone Lyric Egan MD Primary Care Provider Reason for Referral * Consultation (Routine) - Closed Specialty Diagnoses / Procedures Referred By Contkamar t Referred To Contact Rheumatology Diagnoses Psoriatic arthropathy Abdirashid Tatum PA [address] [place] [address] [facility] [address] [place] [phone] Referral ID Status Reason Start Date Expiration Date V isits Requested Visits Authorized [id number] Closed Consult, Test & Treat PCP Updated and/or Approved 10/02/2022 10/02/2023 6 6 Encounter Details Date Type Department Care Team (Late st Contact Info) Description 10/02/2022 Transcribe Orders eD Incoming Referrals [phone] Abdirashid Tatum PA [address] [place], [place] [id number] Psoriatic arthropathy Social History Tobacco Use Types Packs/Day Years [...] 1:30 PM EDT Office Visit Rheumatology [place] [address] Lucrecia Rios, LESTER [facility] [place] [address] Scheduled Referrals Name Type Priority Associated Diagnoses Orde r Schedule Referral to Rheumatology Outpatient Referral Routine Psoriatic arthropathy Ordered: 10/02/2022 documented as of this encounter Goals Goal Patient Goal Type Associated Problems Recent Progress Patient-Stated? Author [facility] Medication Compliance and Understanding Patient Facing Action Plan Nataliya Hyatt, [facility] Note: Hugo Luo Vannessafranko is hoping to see a decrease in BSA of his Psorasis and a decrease in his pain score of 4 to a 2. documented as of this encounter Visit Diagnoses Diagnosis Psoriatic arthropathy documented in this encounter Care Teams Energy Trading Analyst Relationship Specialty Start Date End Date Lyric Egan MD [address] [place] [address] PCP - General 12/21/21 documented as of this encounter
--- OUTSIDE RECORDS SUMMARY | 2024-03-27 00:42 | XMS_ITS | Encounter Summary ---
[place] [address] Care Team Providers Care Stone Unloader Name Role Phone Lyric Egan MD Primary Care Provider Reason for Visit * Reason Comments Specialty Pharmacy Review Etanercept (En brel) 50mg/mL Sureclick Encounter Details Date Type Department Care Team (Late st Contact Info) Description 10/12/2022 Specialty [place] [phone] Sara Jensen, [facility] Social History Tobacco Use Types Packs/Day [...] as of this encounter Progress Notes * Sara Jensen - 10/12/2022 9:35 AM EST [facility] has completed a benefits investigation for Hugo Puja Goins to review their eligibility to fill at [facility]. Per patient's medication list they are prescribedEtanercept (Enbrel) and the medication is able to be filled at [facility] Applying for chemical inspector assistance. documented in this encounter Plan of Treatment Upcoming Encounters Date Type Department Care Team (Late st Contact Info) Description 04/15/2024 1:30 PM EDT Office Visit Rheumatology at [facility] [place] [address] Lucrecia Rios, [facility] [address] documented as of this encounter Goals Goal Patient Goal Type Associated Problems Recent Progress Patient-Stated? Author [facility] Medication Compliance and Understanding Patient Facing Action Plan Nataliya Hyatt, [facility] Note: Hugo Luo Buster is hoping to see a decrease in BSA of his Psorasis and a decrease in his pain score of 4 to a 2. documented as of this encounter Visit Diagnoses Not on filedocumented in this encounter Care Teams Stone Unloader Relationship Specialty Start Date End Date Lyric Egan MD [address] [place] [address] PCP - General 12/21/21 documented as of this encounter
--- OUTSIDE RECORDS SUMMARY | 2024-03-27 00:42 | XMS_ITS | Encounter Summary ---
Author Organization [facility] [place] [address] Care Team Providers Care Criminal Lawyer Name Role Phone Lyric Egan MD Primary Care Provider Encounter Details Date Type Department Care Team (Late st Contact Info) Description 02/01/2023 [place]phone [place] [phone] Lucrecia Rios, [facility] [place] [place] [address] Social History Tobacco Use Types Packs/Day Years [...] 1:30 PM EDT Office [place] [phone] Lucrecia Rios, [facility] [place] [place] [address] documented as of this encounter Goals Goal Patient Goal Type Associated Problems Recent Progress Patient-Stated? Author [facility] Medication Compliance and Understanding Patient Facing Action Plan No Nataliya Lentz, [facility] Note: Hugo Merinoggett is hoping to see a decrease in BSA of his Psorasis and a decrease in his pain score of 4 to a 2. documented as of this encounter Visit Diagnoses Not on filedocumented in this encounter Care Teams Criminal Lawyer Relationship Specialty Start Date End Date Lyric Egan MD [address] [place] [address] PCP - General 12/21/21 documented as of this encounter
--- OUTSIDE RECORDS SUMMARY | 2024-03-27 00:42 | XMS_ITS | Encounter Summary ---
Author Organization [facility] [place] [address] Care Team Providers Care Veneer Press Operator Name Role Phone Lyric Egan MD Primary Care Provider Encounter Details Date Type Department Care Team (Late st Contact Info) Description 01/16/2023 10:30 AM EDT Office [place] [phone] Lucrecia Rios, CONCRETE BUCKET LOADER [facility] [place] [address] Psoriasis; Psoriatic arthritis; High risk medications (not anticoagulants) long-term use Social History Tobacco Use Types Packs/Day Years [...] on file documented as of this encounter Last Filed Vital Signs Vital Sign Reading Time Taken Comments Blood Pressure 144/82 01/16/2023 10:15 AM EDT Pulse 69 01/16/2023 10:15 AM EDT Temperature 35.7 ??C (96.2 ??F) 01/16/2023 10:15 AM E DT Respiratory Rate 16 01/16/2023 10:15 AM EDT Oxygen Saturation 98% 01/16/2023 10:15 AM EDT Inhaled Oxygen Concentration - - Weight 86.3 kg (190 lb 3.2 oz) 01/16/2023 10:15 AM EDT Height 177.8 cm (5' 10) 01/16/2023 10:15 AM EDT Body Mass Index 27.29 01/16/2023 10:15 AM EDT documented in this encounter Patient Instructions * Patient Instructions* Rylee Anne APRN - 01/16/2023 10:30 AM EDT Lab work at [facility] (Hep B, Hep C quantitative, TB, CMP, CBC) Continue enbrel Follow up in 3-6 months, sooner if needed Make sure you are following up with PCP and you are UTD with all of your recommended preventative screenings and vaccinations. You may qualify earlier than the normal recommendations due to your condition and/or treatment. documented in this encounter Progress Notes * Rylee Anne APRN - 01/16/2023 10:30 AM EDT Rheumatology Progress Note Chief Complaint: Hugo Goins is a 67 y.o. year old male seen as a follow up for PsA. FOREST from Dr. Obrien. Last visit 10/2022. Rheum History: -hx psoriasis since adolescence. 6-8 yrs ago skin and joint disease became severe, started Humira q2w. Dramatic benefit and well-tolerated until 10/2021. increased skin involvement but no recurrent joint sx. started Skyrizi for the past year. excellent control of skin and joints. until 2022 began experiencing pain with activity in R knee. X-rays showed joint space narrowing in medial compartment with degenerative cx. considerable benefit from MDP. completion of MDP experienced recurrent painin R knee, acute swelling L knee, bilateral shoulder and wrist pain acutely with marked swelling and difficulty. found it difficult to move at all in UE. steroids again with dramatic benefit and completing last tablet today. begun to experience recurrent joint pain but no swelling. sx mostly in wrists and L knee. psoriasis to worsening. no change in LBP. A/P: OA R knee; IA L knee, wrists, L shoulder; rx enrel and prednisone 5mg/d Previous Therapies: Enbrel - current Skyrizi - secondary failure Humira - secondary failure History of Present Illness: PMH includes COPD, chronic hepatitis C. Started enbrel ~3m ago. Stopped prednisone once he started the Enbrel. Prednisone was very helpful.Feels Enbrel has been working well. No red, warm, swollen joints. Occasional stiffness. If he sits too long or climbs a lot of stairs thinks it is a 1-2/10. Prior to treatment, he rates his pain 9-10out of 10. Feels like he is at a tolerable amount of pain. Skin also has improved greatly. Was seeing Dr. Summers for psoriasis. Not sure if he is going to go see him again since skin has been doing well. No SE or adverse effects from Enbrel injections except the stinging that happens with the injection. Denies actual injection site reaction. Has not had labs recently. Thinks he has PCP appointment with AWA Venegas at [facility] this month. Denies any illnesses, infections, ABX use. Rheumatic History (x) means positive Heart Failure Iritis Dactylitis Pleuritis Pericarditis Oral / Nasal Ulcers PE/DVT Spontaneous Discoid SLE STD Raynaud???s Psoriasis X Seizures Anemia Leucopenia Thrombocytopenia Psychosis from a medical condition Pertinent History: N/A ROS: General (-)fevers, (-)chills, (-)night sweats, (-)wt loss/gain, (-)fatigue Head and Neck (-)headache, (-)dizziness, (-)tinnitus, (-)epistaxis, (-)tender scalp or temporal area, (-)hair loss, (-)lymphadenopathy Mouth (-)dry mouth, (-)mouth ulcers, (-)jaw claudication Eyes (-)vision change, (-)dry eyes, (-)photosensitivity, (-)uveitis CVS (-)chest pain, (-)palpitations, (-)edema, (-)claudication Pulm (-)shortness of breath, (-)wheezes, (-)cough Hematologic (-)anemia, (-)bruising, (-)blood clots GI (-)nausea (-)vomiting, (-)diarrhea, (-)abdominal pain, (-)hematochezia, (- )change in appetite, (-)reflux, (-)dysphagia (-)hematuria, (-)dysuria, (-)frequency MS (+)joint pain, (+) joint stiffness, (-)paralysis, (+)hx of arthritis Endo (-)thyroid disorders, (-)diabetes, (-)temperature intolerance Neuro (-) neuropathy, (-)numbness, (-)paresthesias, (-)weakness, (-)gait instability Skin (-)Raynaud's,(-) ulcers, (+)rash, (-)fingernail changes, (-)dactylitis, (- )injection site reaction Psych (-) depression, (-)anxiety, (-)sleep disturbances Problem List: Patient Active Problem List Diagnosis Date Noted 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 Hepatitis C, chronic 07/12/2011 Psoriasis 07/12/2011 Allergies: Allergies Allergen Reactions Bactrim [Sulfamethoxazole-Trimethoprim] Rash Sulfa (Sulfonamide Antibiotics) Rash Past Medical History: Past Medical History: Diagnosis Date Chronic hepatitis C without mention of hepatic coma hep b Hypertension Hypothyroid Psoriasis Past Surgical History: Past Surgical History: Procedure Laterality Date PILONIDAL CYST EXCISION PRO NEEDLE BIOPSY LIVER 07/06/2011 LIVER BIOPSY performed by CARLOS HERNANDEZ at [facility] END[facility] Family History: Family History Problem Relation Age of Onset Thyroid Disease Mother Cancer Father Heart Failure Father Heart Failure Brother High Cholesterol Brother High Cholesterol Sister Health Care Maintenance Date Next Due Influenza vaccine 2021 2022 Pneumonia vaccine TB Screen (PPD/QGA) DXA HCQ Eye Exam Viral Hepatitis Screen Shingles Covid vaccine X4 Social History: Social History Socioeconomic History Marital status: Single Spouse name: Not on file Number of children: Not on file Years of education: Not on file Highest education level: Not on file Occupational History Not on file Tobacco Use Smoking status: Former Packs/day: 1.00 Years: 30.00 Pack years: 30.00 Types: Cigarettes Quit date: 05/30/2002 Years since quittin.6 Smokeless tobacco: Never Vaping Use Vaping Use: Never used Substance and Sexual Activity Alcohol use: No Comment: quit alcohol 2001 Drug use: No Sexual activity: Not on file Other Topics Concern Service Not Asked Blood Transfusions No Caffeine Concern Not Asked Occupational Exposure Not Asked Hobby Hazards Not Asked Sleep Concern Not Asked Stress Concern Not Asked Weight Concern Not Asked Special Diet Not Asked Back Care Not Asked Exercise Not Asked Bike Helmet Not Asked Seat Belt Not Asked Self-Exams Not Asked Social History Narrative 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 Gen: awake, alert and oriented x 3, in no distress. well nourished Skin: warm and dry, no rheumatologic rashes. no nail abnormalities. Scarred skin on LE Head and Neck: no cervical or submandibular adenopathy Eyes: normal sclerae Heart: regular rate and rhythm, no murmurs, rubs or gallops. No edema present. +2 radial and posterior tibial pulses. Lungs: no signs of respiratory distress, mild wheeze in bases. No rales, ronchi MSK: Hand - no tenderness, swelling, redness, or warmth. normal fist. Dupuytren's contracture R third. strength normal. Wrist - no tenderness, swelling, redness, or warmth. normal ROM Elbow - no tenderness, swelling, redness, or warmth. normal ROM Shoulder - no tenderness, swelling, redness, or warmth. Decreased ROM R, normal L ROM Neck - no tenderness, normal ROM Spine - no tenderness Hip - Sit to stand with little difficulty. Knee - no tenderness, swelling. No crepitus noted. Ankle - no tenderness, swelling. normal ROM Feet - no tenderness Neuro: Strength 5/5 throughout unless otherwise noted. Sensation to light touch is grossly normal throughout. Psych: appropriate mood and affect. good eye contact. answers questions appropriately Past Lab Studies: WBC Date Value Ref Range Status 09/26/2012 5.1 4.0 - 10.0 x10(3)/mcL Final RBC Date Value Ref Range Status 09/26/2012 4.23 (L) 4.63 - 6.08 x10(6)/mcL Final Hematocrit Date Value Ref Range Status 09/26/2012 40.0 40.0 - 51.0 % Final Hemoglobin Date Value Ref Range Status 09/26/2012 13.2 (L) 13.7 - 17.5 gm/dL Final MCV Date Value Ref Range Status 09/26/2012 94.6 (H) 79.0 - 92.0 fL Final MCH Date Value Ref Range Status 09/26/2012 31.2 25.6 - 32.2 pg Final Platelets Date Value Ref Range Status 09/26/2012 228 145 - 370 x10(3)/mcL Final Chemistry Component Value Date/Time NA 138 09/26/2012 1045 K 4.3 09/26/2012 1045 CL 103 09/26/2012 1045 CO2 27 09/26/2012 1045 BUN 27 (H) 09/26/2012 1045 CREATININE 1.08 09/26/2012 1045 Component Value Date/Time CALCIUM 9.2 09/26/2012 1045 ALKPHOS 69 09/26/2012 1045 ALKPHOS 69 09/26/2012 1045 AST 24 09/26/2012 1045 AST 24 09/26/2012 1045 ALT 28 09/26/2012 1045 ALT 28 09/26/2012 1045 BILITOT 0.5 09/26/2012 1045 BILITOT 0.5 09/26/2012 1045 Assessment/Plan: I discussed the following diagnosis/diagnoses and differential diagnoses in detail with patient, including treatment options and patient agrees with the plan outlined below. PsA, high risk med use, psoriasis - Patient presents today with history of psoriatic arthritis and psoriasis on Enbrel for about 3 months with a great response. He has been off of prednisone since hestarted Enbrel and he notes dramatic improvement. Skin has also improved greatly. He is happy with the results so far. No SE or adverse effects. We will continue Enbrel. He understands to report any new or worsening symptoms as well as any infections, ABX use, illnesses. He is due for lab work which she would like to get at [facility] because he thinks his PCP wants labs as well. We will check ID labs. He is not sure if he is going to continue following with dermatology since his skin is doing so well. I recommend he follow at least yearly. We can follow- up in 3 to 6 months, sooner if needed. Patient agreement with plan. Lab work at [facility] (Hep B, Hep C quantitative, TB, CMP, CBC) Continue enbrel Follow up in 3-6 months, sooner if needed Orders Placed This Encounter Procedures Comprehensive metabolic panel (non-fasting) CBC (with Diff) Hepatitis B Core Antibody, Total Hepatitis B Surface Antigen Hepatitis B Surface Antibody QuantiFERON-TB Gold Hepatitis C RNA, quantitative, PCR - Patient was given the necessary information on the condition and instructed to contact clinic or go to ER if symptoms continue or worsen. - After Visit Summary was either printed and given to the patient or provided via the patient portal at the patient's request. 30 minutes was spent today in chart review, documentation, and [id number] visit. Terri Anne, MSN, CONCRETE BUCKET LOADER, CD MIXER-C Rheumatology Department documented in this encounter Plan of Treatment Upcoming Encounters Date Type Department Care Team (Late st Contact Info) Description 04/15/2024 1:30 PM EDT Office [place] [address] Lucrecia Rios APRN [facility] [place] [address] documented as of this encounter Goals Goal Patient Goal Type Associated Problems Recent Progress Patient-Stated? Author [facility] Medication Compliance and Understanding Patient Facing Action Plan Nataliya Hyatt, [facility] Note: Hugo Goins is hoping to see a decrease in BSA of his Psorasis and a decrease in his pain score of 4 to a 2. documented as of this encounter Visit Diagnoses Diagnosis Psoriasis Other psoriasis Psoriatic arthritis Psoriatic arthropathy High risk medications (not anticoagulants) long-term use Encounter for long-term (current) use of other medications documented in this encounter Care Teams Veneer Press Operator Relationship Specialty Start Date End Date Lyric Egan MD [address] [place] [address] PCP - General 12/21/21 documented as of this encounter
--- OUTSIDE RECORDS SUMMARY | 2024-03-27 00:42 | XMS_ITS | Encounter Summary ---
[facility] [place] [address] Care Team Providers Care Trust And Estates Attorney Name Role Phone Lyric Egan MD Primary Care Provider Encounter Details Date Type Department Care Team (Latest Contact Info) Description 10/12/2022 Travel Social History Tobacco Use Types Packs/Day [...] 1:30 PM EDT Office [place] [address] Lucrecia Rios, GENERAL SUPERVISOR [facility] [address] documented as of this encounter Goals Goal Patient Goal Type Associated Problems Recent Progress Patient-Stated? Author [facility] Medication Compliance and Understanding Patient Facing Action Plan No Nataliya Lentz, [facility] Note: Hugo Luo Buster is hoping to see a decrease in BSA of his Psorasis and a decrease in his pain score of 4 to a 2. documented as of this encounter Visit Diagnoses Not on filedocumented in this encounter Care Teams Trust And Estates Attorney Relationship Specialty Start Date End Date Lyric Egan MD [address] [place] [address] PCP - General 12/21/21 documented as of this encounter
--- OUTSIDE RECORDS SUMMARY | 2024-03-27 00:42 | XMS_ITS | Encounter Summary ---
Author Organization [facility] [place] [address] Care Team Providers Care Research Test Engine Evaluator Name Role Phone Lyric Egna MD Primary Care Provider Reason for Visit * Reason Comments Medication Refill Encounter Details Date Type Department Care Team (Late Contact Info) Description 03/30/2023 [place] [address] Francisco Obrien MD [facility] [place] [address] Psoriasis; Psoriatic arthritis Social History Tobacco Use Types Packs/Day Years [...] encounter Miscellaneous Notes * Telephone Encounter - Silvio Avila RN - 04/01/2023 3:57 PM EDT Rx received for Prednisone and it appears patient no longer taking. Called Kathy advising to RTC to nurse if continuing Prednisone and Rx needed. documented in this encounter Plan of Treatment Upcoming Encounters Date Type Department Care Team (Late st Contact Info) Description 04/15/2024 1:30 PM EDT [place] [address] Lucrecia Rios APRN [facility] [place] [address] documented as of this encounter Goals Goal Patient Goal Type Associated Problems Recent Progress Patient-Stated? Author [facility] Medication Compliance and Understanding Patient Facing Action Plan Nataliya Hyatt, [facility] Note: Hugo Puja Goins is hoping to see a decrease in BSA of his Psorasis and a decrease in his pain score of 4 to a 2. documented as of this encounter Visit Diagnoses Diagnosis Psoriasis Other psoriasis Psoriatic arthritis Psoriatic arthropathy documented in this encounter Care Teams Research Test Engine Evaluator Relationship Specialty Start Date End Date Lyric Egan MD [address] [place] [address] PCP - General 12/21/21 documented as of this encounter
--- OUTSIDE RECORDS SUMMARY | 2024-03-27 00:42 | XMS_ITS | Encounter Summary ---
Author Organization [facility] [place] [address] Care Team Providers Care Web Development Consultant Name Role Phone Lyric Egan MD Primary Care Provider Encounter Details Date Type Department Care Team (Late st Contact Info) Description 08/17/2022 Ancillary Procedure [place] [address] Lyric Egan MD [address] [place], [place] [id number] Social History Tobacco Use Types Packs/Day Years [...] 1:30 PM EDT Office Visit Rheumatology at [facility] [place] [phone] Lucrecia Rios APRN [facility] [place] [address] documented as of this encounter Goals Goal Patient Goal Type Associated Problems Recent Progress Patient-Stated? Author [facility] Medication Compliance and Understanding Patient Facing Action Plan No Nataliya Lentz, [facility] Note: Hugo Goins is hoping to see a decrease in BSA of his Psorasis and a decrease in his pain score of 4 to a 2. documented as of this encounter Procedures Procedure Name Priority Date/Time Associated Diagnosis Comments FILM LIBRARY STORAGE ONLY DX KNEE Routine 08/17/2022 12:00 AM EST documented in this encounter Results * Film Library- Storage Only DX Knee (08/17/2022 12:00 AM EST) Narrative [facility] [place] - 10/01/2022 9:53 PM EST This exam is auto-finalizing. It's purpose is for storage only. Lyric Phoenix MD IMG FILM LIBRAR Y ORDERABLES Performing Organization Address City/State/[facility] Co de Phone Number [place], [place] documented in this encounter Visit Diagnoses Not on filedocumented in this encounter Care Teams Web Development Consultant Relationship Specialty Start Date End Date Lyric Egan MD [address] [place] [address] PCP - General 12/21/21 documented as of this encounter
--- OUTSIDE RECORDS SUMMARY | 2024-03-27 00:42 | XMS_ITS | Encounter Summary ---
Author Organization [facility] [place] [address] Care Team Providers Care Water Plant Maintenance Mechanic Name Role Phone Yeimi Carey APRN Primary Care Provider [phone] Reason for Visit * Reason Comments Specialty Refill Management Encounter Details Date Type Department Care Team (Late st Contact Info) Description 11/16/2021 Specialty [place] [address] Laura Saunders CPHT Social History Tobacco Use [...] Progress Notes * Laura Saunders CPHT - 11/16/2021 11:14 AM EDT Clinical Management Plan: Refill Specialty [...] [Sulfamethoxazole-Trimethoprim] Rash Medication Reconciliation Discrepancies (compared to [facility] med list) No Specialty Pharmacy Refill Questionnaire Refill Questionnaire 11/16/2021 What is the name of the specialty medication you are refilling? Humira Are you taking any new medications? No Any new medical condition? No Any new allergies? No Any new side effects that are bothersome? No What date will you need this fill by? 11/21/2021 Adherence: Any missed doses? No Patient understands no changes to current drug regimen were made. Laura Saunders CPHT 11/16/21 11:15 AM documented in this encounter Plan of Treatment Upcoming Encounters Date Type Department Care Team (Late st Contact Info) Description 04/15/2024 1:30 PM EDT [place] [address] Lucrecia Rois [facility] [place] [address] documented as of this encounter Goals Goal Patient Goal Type Associated Problems Recent Progress Patient-Stated? Author [facility] Medication Compliance and Understanding Patient Facing Action Plan Nataliya Hyatt, [facility] Note: Hugo Luo Vannessafranko is hoping to see a decrease in BSA of his Psorasis and a decrease in his pain score of 4 to a 2. documented as of this encounter Visit Diagnoses Not on filedocumented in this encounter Care Teams Water Plant Maintenance Mechanic Relationship Specialty Start Date End Date Yeimi Carey APRN [address] [place] [phone] PCP - General Family Medicine 11/04/18 12/20/21 documented as of this encounter
--- OUTSIDE RECORDS SUMMARY | 2024-03-27 00:42 | XMS_ITS | Encounter Summary ---
Author Organization [facility] [place] [address] Care Team Providers Care Engineering Technician Parking Name Role Phone Yeimi Carey APRN Primary Care Provider +1- [phone] Encounter Details Date Type Department Care Team (Late st Contact Info) Description 06/23/2020 [place]phone [place] [address] Liberty Chawla, [facility] Social History Tobacco Use Types [...] encounter Miscellaneous Notes * Telephone Encounter - Liberty Chawla - 06/23/2020 2:53 PM EST Clinical Management Plan: Refill Specialty Pharmacy Consultation; Liberty Chawla Comprehensive Medication Management (CMM) Hugo Goins Mr. Hugo Goins is a 65 y.o. (1955) male who was contacted in regard to a specialty medication refill reminder. Spoke with patient regarding Humira. A review of the medication therapy was performed. The medication was refilled as scheduled, and all medication related questions and concernswere addressed. The specialty pharmacy staff will follow up with the patient 5-7 days prior to next refill. Was a change made to the Care Plan: No Allergies and Drug intolerance: Allergies Allergen Reactions ??? Bactrim [Sulfamethoxazole-Trimethoprim] Rash Medication Reconciliation Discrepancies (compared to [facility] med list) No New medications: No New medical conditions: No New allergies: No Adherence: Any missed doses? No Are you experiencing any side effects from your medications? No Patient understands no changes to current drug regimen were made.. Liberty Chawla 06/23/20 2:53 PM documented in this encounter Plan of Treatment Upcoming Encounters Date Type Department Care Team (Late st Contact Info) Description 04/15/2024 1:30 PM EDT Office [place] [address] Lucrecia Rios [facility] [place] [address] documented as of this encounter Goals Goal Patient Goal Type Associated Problems Recent Progress Patient-Stated? Author [facility] Medication Compliance and Understanding Patient Facing Action Plan No Nataliya Lentz, [facility] Note: Hugo Luo Vannessafranko is hoping to see a decrease in BSA of his Psorasis and a decrease in his pain score of 4 to a 2. documented as of this encounter Visit Diagnoses Not on filedocumented in this encounter Care Teams Engineering Technician Parking Relationship Specialty Start Date End Date Yeimi Carey APRN [address] [place] [phone] PCP - General Family Medicine 11/04/18 12/20/21 documented as of this encounter
--- OUTSIDE RECORDS SUMMARY | 2024-03-27 00:42 | XMS_ITS | Encounter Summary ---
Author Organization [facility] [place] [address] Care Team Providers Care Guest Services Manager Name Role Phone Yeimi Carey APRN Primary Care Provider +1- [phone] Reason for Visit * Reason Comments Specialty Refill Management Encounter Details Date Type Department Care Team (Late st Contact Info) Description 06/22/2021 Specialty [place] [phone] Erick Pace CPHT Social History Tobacco Use [...] encounter Progress Notes * Erick Pace - 06/22/2021 12:34 PM EST Clinical Management Plan: Refill Specialty [...] [Sulfamethoxazole-Trimethoprim] Rash Medication Reconciliation Discrepancies (compared to [facility] med list) No Specialty Pharmacy Refill Questionnaire Refill Questionnaire 06/22/2021 What is the name of the specialty medication you are refilling? Humira 40mg/0.4mL pens Are you taking any new medications? No Any new medical condition? No Any new allergies? No Any new side effects that are bothersome? No What date will you need this fill by? 06/27/2021 Adherence: Any missed doses? No Patient understands no changes to current drug regimen were made. Erick Pace 06/22/21 12:38 PM documented in this encounter Plan of Treatment Upcoming Encounters Date Type Department Care Team (Late st Contact Info) Description 04/15/2024 1:30 PM EDT [place] [address] Lucrecia Rios APRN [facility] [address] documented as of this encounter Goals Goal Patient Goal Type Associated Problems Recent Progress Patient-Stated? Author [facility] Medication Compliance and Understanding Patient Facing Action Plan No Nataliya Lentz, [facility] Note: Hugo Goins is hoping to see a decrease in BSA of his Psorasis and a decrease in his pain score of 4 to a 2. documented as of this encounter Visit Diagnoses Not on filedocumented in this encounter Care Teams Guest Services Manager Relationship Specialty Start Date End Date Yeimi Carey APRN [address] [place] [phone] PCP - General Family Medicine 11/04/18 12/20/21 documented as of this encounter
--- OUTSIDE RECORDS SUMMARY | 2024-03-27 00:42 | XMS_ITS | Encounter Summary ---
Author Organization [facility] [address] Care Team Providers Care Lobster Man Name Role Phone Yeimi Carey APRN Primary Care Provider +1- [phone] Reason for Visit * Reason Comments Specialty Refill Management Encounter Details Date Type Department Care Team (Late st Contact Info) Description 10/23/2021 Specialty [place] [address] Laura Saunders CPHT Social History Tobacco Use [...] Progress Notes * Laura Saunders CPHT - 10/23/2021 8:14 AM EDT Clinical Management Plan: Refill Specialty [...] [Sulfamethoxazole-Trimethoprim] Rash Medication Reconciliation Discrepancies (compared to [facility] med list) No Specialty Pharmacy Refill Questionnaire Refill Questionnaire 10/23/2021 What is the name of the specialty medication you are refilling? Humira Are you taking any new medications? No Any new medical condition? No Any new allergies? No Any new side effects that are bothersome? No What date will you need this fill by? 10/24/2021 Adherence: Any missed doses? No Patient understands no changes to current drug regimen were made. Laura Saunders CPHT 10/23/21 8:18 AM documented in this encounter Plan of Treatment Upcoming Encounters Date Type Department Care Team (Late st Contact Info) Description 04/15/2024 1:30 PM EDT Office [place] [address] Lucrecia Rios [employer] [facility] [place] [address] documented as of this encounter Goals Goal Patient Goal Type Associated Problems Recent Progress Patient-Stated? Author [facility] Medication Compliance and Understanding Patient Facing Action Plan Nataliya Hyatt, [facility] Note: Hugo Luo Vannessafranko is hoping to see a decrease in BSA of his Psorasis and a decrease in his pain score of 4 to a 2. documented as of this encounter Visit Diagnoses Not on filedocumented in this encounter Care Teams Lobster Man Relationship Specialty Start Date End Date Yeimi Carey APRN [address] [place] [id number] PCP - General Family Medicine 11/04/18 12/20/21 documented as of this encounter
--- OUTSIDE RECORDS SUMMARY | 2024-03-27 00:42 | XMS_ITS | Encounter Summary ---
Author Organization [facility] Address [facility] [place] [address] Care Team Providers Care Dot Compliance Coordinator Name Role Phone Lyric Egan MD Primary Care Provider Reason for Visit * Consultation (Routine) - Closed Specialty Diagnoses / Procedures Referred By Ernie t Referred To Contact Rheumatology Diagnoses Psoriatic arthropathy Abdirashid Tatum, PA [address] [place] [address] [facility] [address] [place] [phone] Referral ID Status Reason Start Date Expiration Date V isits Requested Visits Authorized [id number] Closed Consult, Test & Treat PCP Updated and/or Approved 10/02/2022 10/02/2023 6 6 Encounter Details Date Type Department Care Team (Late st Contact Info) Description 10/12/2022 11:00 AM EST Office [place] [address] Francisco Obrien MD [place] [address] Psoriasis; Psoriatic arthritis; Chronic pain of right knee Social History Tobacco Use Types Packs/Day Years [...] Sign Reading Time Taken Comments Blood Pressure 159/92 10/12/2022 10:47 AM EST Pulse 88 10/12/2022 10:47 AM EST Temperature - - Respiratory Rate 18 10/12/2022 10:47 AM EST Oxygen Saturation 100% 10/12/2022 10:47 AM EST Inhaled Oxygen Concentration - - Weight 83.5 kg (184 lb) 10/12/2022 10:47 AM EST Height 177.8 cm (5' 10) 10/12/2022 10:47 AM EST Body Mass Index 26.4 10/12/2022 10:47 AM EST documented in this encounter Patient Instructions * Patient Instructions* Francisco Obrien MD - 10/12/2022 11:00 AM EST Assessment: Patient with breakthrough of psoriasis and psoriatic arthritis while on Skyrizi. There is some osteoarthritis in his right knee but the event in his left knee both wrists and left shoulder are consistent with recurrent psoriatic arthritis. The arthritis did respond to prednisone quite briskly. This loss of benefit from risankizumab occurred after 1 year. Patient thinks the Humira worke d much better for the joints than it did the skin. There are 2 basic options available to the patient I would think. First we could try an anti-IL-17 antibody such as secukinumab or ixekizumab. Alternatively we could return to a TNF antagonist either subcutaneously (etanercept,golimumab or Cimzia) versus intravenous infliximab or golimumab. We will explore the options today as to what is best covered by his insurance. I do not think there is a particular benefit to risk ratio with either of these agents that is superior to the other. The patient expressed understanding and the only remaining question is whether we temporize some other medication such as oral prednisone or Kenalog while we are sorting these issues out. Plan: 1. Have Ms. Moore review insurance coverage of an IL-17 antagonist versus an TNF antagonist. If we use Enbrel would load for skin disease 2. Prednisone 5-10 mg daily to temporize while waiting for Enbrel 3. Schedule follow-up in 3-4 months with Ms. Anne. 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 Summers. documented in this encounter Progress Notes * Francisco Obrien MD - 10/12/2022 11:00 AM EST Rheumatology Consult Note Referral: Pt was first seen on October 12, 2022 for psoriasis and psoriatic arthritis that had lost benefit from risankizumab treatment. HPI patient is a 67-year-old magallanes with a history of psoriasis since adolescence. Approximately6 or 8 years ago his skin and joint disease became so severe that he was started on Humira 40 mg every 2 weeks. Dramatic benefit was noted which persisted and was well-tolerated until October 2021. At that time, the patient noted increased skin involvement but no recurrent joint symptoms. He was thenstarted on Skyrizi which she is taken for the past year. He did very well until August 2022 on Skyrizi with excellent control of skin and joints. He was essentially asymptomatic. In August 2022, patient began experiencing pain with activity in his right knee. X-rays at that time revealed joint space narrowing in the medial compartment with degenerative change. He was startedon prednisone with considerable benefit from the Medrol Dosepak. Upon completion of his Medrol Dosepak he experienced recurrent pain in his right knee as well as acute swelling in his left knee with the development of bilateral shoulder and wrist pain acutely with marked swelling and difficulty. Ifound it difficult to move at all in my upper extremities. He was given steroids again with dramatic benefit and he is completing this course with his last tablet today. He has begun to experience recurrent joint pain but no swelling. His symptoms seem to be mostly in the wrists and left knee. During this time, he is also noticed that his psoriasis seems to be worsening on his lower extremity. He reports no change in his low back pain. Patient Active Problem List Diagnosis Code ??? Hepatitis C, chronic B18.2 ??? Psoriasis L40.9 ??? 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 Hypothyroidism No significant problems with infections. Allergies: Sulfa causing rash Social history significant for cigarette smoking stopped in 2001. Review of Systems Constitutional: No fevers, chills, malaise. Skin: no rashes HEENT: no sicca sx, change in hearing, taste sinus pain, HALE, change in taste. Respiratory: no chest pain, shortness of breath CV: no MCKEON, angina sx, claudication Back: No sciatica, pain with standing GI: no abd pain, normal bowel movements : no dysuria, normal voiding, no nocturia Neuro: no focal deficit Physical Examination: Blood pressure (!) 159/92, pulse 88, resp. rate 18, height 177.8 cm (5' 10), weight 83.5 kg (184 lb), SpO2 100 %. General-Well developed well nourished who is alert and in no apparent distress at rest. Skin-old and new lesions consistent with psoriasis. Purplish coloration with scale seen on anteriortibias. Normal nail exam. HEENT: No temporal artery, sinus or TMJ tenderness. Mucus membranes moist, normal salivary pooling without lesions.Normal parotid, submental and submandibular nodes Neck-Supple no bruits Chest: clear to auscultation, good air movement without wheezes Cor: RR no M,G,R Back: No tenderness to punch, normal SLR Ext: Extremities warm w// normal pulses Musculoskeletal: Trigger points not present. Shoulders: Marked loss of motion in right shoulder left: FROM, no AC/subacromial tenderness. Elbows: Full motion, no joint or epicondylar swelling or tenderness. Wrists: Full motion, no swelling, no warmth, no tenderness over radiocarpal or ulnocarpal joints. Hands: Right third finger Dupuytren's no active synovitis. Hips: Decreased hip flexion and external rotation. Knees: Full motion, no swelling, no popliteal or joint line tenderness. No patellar tenderness or crepitance. Ankles: No warmth, swelling, normal motion. No Achilles or plantar fascia tenderness. Normal MTPJs no compression tenderness. Neuro: No focal weakness Assessment: Patient with breakthrough of psoriasis and psoriatic arthritis while on Skyrizi. There is some osteoarthritis in his right knee but the event in his left knee both wrists and left shoulder are consistent with recurrent inflammatory arthritis. The arthritis did respond to prednisone quite briskly. This loss of benefit from risankizumab occurred after 1 year. Patient thinks the Humira worked much better for the joints than it did the skin. There are 2 basic options available to the patient I would think. First we could try an anti-IL-17 antibody such as secukinumab or ixekizumab. Alternatively we could return to a TNF antagonist either subcutaneously (etanercept,golimumab or Cimzia) versus intravenous infliximab or golimumab. We will explore the options today as to what is best covered by his insurance. I do not think there is a particular benefit to risk ratio with either of these agents that is superior to the other. The patient expressed understanding and the only remaining question is whether we temporize some other medication such as oral prednisone or Kenalog while we are sorting these issues out; opted for prednisone 5 mg/d Plan: 1. Have Ms. Moore review insurance coverage of an IL-17 antagonist versus an TNF antagonist. If we use Enbrel would load for skin disease 2. Prednisone 5-10 mg daily to temporize while waiting for Enbrel 3. Schedule follow-up in 3 months with Ms. Anne. 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 Summers. Level 5 consultation 65 min Francisco Obrien MD documented in this encounter Miscellaneous Notes * Addendum Note - Francisco Obrien MD - 10/12/2022 11:00 AM ESTAddended by: FRANCISCO OBRIEN on: 10/12/2022 12:33 PM Modules accepted: Orders documented in this encounter Plan of Treatment Upcoming Encounters Date Type Department Care Team (Late st Contact Info) Description 04/15/2024 1:30 PM EDT Office [place] [address] Lucrecia Rios APRN [place] [address] documented as of this encounter Goals Goal Patient Goal Type Associated Problems Recent Progress Patient-Stated? Author [facility] Medication Compliance and Understanding Patient Facing Action Plan Nataliya Hyatt, [facility] Note: Hugo Hurdett is hoping to see a decrease in BSA of his Psorasis and a decrease in his pain score of 4 to a 2. documented as of this encounter Visit Diagnoses Diagnosis Psoriasis Other psoriasis Psoriatic arthritis Psoriatic arthropathy Chronic pain of right knee documented in this encounter Care Teams Dot Compliance Coordinator Relationship Specialty Start Date End Date Lyric Egan MD [address] [place] [address] PCP - General 12/21/21 documented as of this encounter
--- OUTSIDE RECORDS SUMMARY | 2024-03-27 00:42 | XMS_ITS | Encounter Summary ---
Author Organization [facility] [place] [address] Care Team Providers Care Escort Service Attendant Name Role Phone Yeimi Carey APRN Primary Care Provider +1- [phone] Reason for Visit * Reason Comments Specialty Refill Management Encounter Details Date Type Department Care Team (Late st Contact Info) Description 07/21/2021 Specialty [place] [address] Liberty Chawla, [facility] Social History Tobacco Use Types Packs/Day [...] encounter Progress Notes * Liberty Chawla - 07/21/2021 9:10 AM EST Clinical Management Plan: Refill Specialty [...] [Sulfamethoxazole-Trimethoprim] Rash Medication Reconciliation Discrepancies (compared to [facility] med list) No Specialty Pharmacy Refill Questionnaire Refill Questionnaire 07/21/2021 What is the name of the specialty medication you are refilling? Humira Pen 40MG/ML PNKT Are you taking any new medications? No Any new medical condition? No Any new allergies? No Any new side effects that are bothersome? No What date will you need this fill by? 07/25/2021 Adherence: Any missed doses? No Patient understands no changes to current drug regimen were made. Liberty Chawla 07/21/21 9:11 AM documented in this encounter Plan of Treatment Upcoming Encounters Date Type Department Care Team (Late st Contact Info) Description 04/15/2024 1:30 PM EDT Office [place] [address] Lucrecia Rios [facility] [place] [address] documented as of this encounter Goals Goal Patient Goal Type Associated Problems Recent Progress Patient-Stated? Author [facility] Medication Compliance and Understanding Patient Facing Action Plan Nataliya Hyatt, [facility] Note: Hugo Luo Buster is hoping to see a decrease in BSA of his Psorasis and a decrease in his pain score of 4 to a 2. documented as of this encounter Visit Diagnoses Not on filedocumented in this encounter Care Teams Escort Service Attendant Relationship Specialty Start Date End Date Yeimi Carey APRN [address] [place] [phone] PCP - General Family Medicine 11/04/18 12/20/21 documented as of this encounter
--- OUTSIDE RECORDS SUMMARY | 2024-03-27 00:42 | XMS_ITS | Encounter Summary ---
[place] [address] Care Team Providers Care Chief Information Officer Name Role Phone Lyric Egan MD Primary Care Provider Reason for Visit * Reason Comments Prior Authorization Enbrel Sureclick 50m g/ml SOAJ Encounter Details Date Type Department Care Team (Late st Contact Info) Description 10/14/2023 Specialty Pharmacy [place] [phone] Jina Modi, [facility] Social History Tobacco Use Types [...] encounter Progress Notes * Jina Modi - 10/14/2023 12:36 PM EDT [facility], Medication Prior Authorization Submission Patient: Hugo Goins Patient : 1955 Patient Address: [address] [place] [address] [place] [address] (home) Medication Name: ENBREL SURECLICK 50 MG/ML (1 ML) SUBCUTANEOUS PEN INJECTOR Medication ID: [id number] Subscriber Insurance: [employer] (MEDDADV) Subscriber Insurance Comment: Phone: Fax: Physician: JANIE LEAL Physician Comment: Sent Via: [facility] Torrez: Torrez: [id number] Ref/Case/PA#: Medication Strength Frequency Requested: Inject the contents of one pen(50mg) subcutaneously every 7 days Qty/Day Supply: 11/30 New Start: Renewal Diagnosis & ICD-10 Code: Psoriatic arthritis L40.50 Patient Notified: Yes Submission Notes: None Jina Modi 10/14/23 12:42 PM * Jina Modi - 10/14/2023 12:36 PM EDT [facility], Prior Authorization Approval Medication Name: ENBREL SURECLICK 50 MG/ML (1 ML) SUBCUTANEOUS PEN INJECTOR Medication ID: [id number] Approval Dates: 10/18/2023 to 10/17/2024 Insurance requirements/notes: None Other Notes: None Case/Reference #: [id number] Approval notification Received via: Telephone Copay: [id number] Copay assistance: None Copay Notes: Insurance mandated Pharmacy: Fillable at [facility] Specialty Pharmacy: Yes Patient Notified: Yes Pharmacy staff will be reaching out to the patient to inform them of their medication[facility]. If applicable, a pharmacist will speak with the patient to offer our specialty pharmacy services and to arrange delivery of their medication. Jina Modi 10/21/23 11:43 AM documented in this encounter Plan of Treatment Upcoming Encounters Date Type Department Care Team (Late st Contact Info) Description 04/15/2024 1:30 PM EDT Office Visit [place] [address] Lucrecia Rios APRN [facility] [place] [address] documented as of this encounter Goals Goal Patient Goal Type Associated Problems Recent Progress Patient-Stated? Author [facility] Medication Compliance and Understanding Patient Facing Action Plan Nataliya Hyatt, [facility] Note: Hugo Luo Vannessafranko is hoping to see a decrease in BSA of his Psorasis and a decrease in his pain score of 4 to a 2. documented as of this encounter Visit Diagnoses Not on filedocumented in this encounter Care Teams Chief Information Officer Relationship Specialty Start Date End Date Lyric Egan MD [address] [place] [address] PCP - General 12/21/21 documented as of this encounter
--- OUTSIDE RECORDS SUMMARY | 2024-03-27 00:42 | XMS_ITS | Encounter Summary ---
Author Organization [facility] [place] [address] Care Team Providers Care Urban Renewal Manager Name Role Phone Yeimi Carey APRN Primary Care Provider [phone] Reason for Visit * Reason Comments Specialty Refill Management Encounter Details Date Type Department Care Team (Late st Contact Info) Description 09/22/2021 Specialty [place] [address] Laura Saunders, [facility] Social History Tobacco Use Types Packs/Day [...] as of this encounter Progress Notes * Tee Mna RPH - 09/22/2021 3:13 PM EST Clinical Management Plan: Refill Specialty Pharmacy Consultation; Tee Man RPH Comprehensive Medication Management (CMM) Hugo L Buster Mr. Hugo Goins is a 66 [...] patient 5-7 days prior to next refill. Patient will take next dose on 2/22/22 following issues with insurance. Was a change made to the Care Plan: No Allergies and Drug intolerance: Allergies Allergen Reactions ??? Bactrim [Sulfamethoxazole-Trimethoprim] Rash Medication Reconciliation Discrepancies (compared to [facility] med list) No Specialty Pharmacy Refill Questionnaire Refill Questionnaire 09/22/2021 What is the name of the specialty medication you are refilling? Humira Are you taking any new medications? - Any new medical condition? No Any new allergies? No Any new side effects that are bothersome? No What date will you need this fill by? - Adherence: Any missed doses? No Patient understands no changes to current drug regimen were made. Tee Man RPH 09/22/21 3:23 PM documented in this encounter Plan of Treatment Upcoming Encounters Date Type Department Care Team (Late st Contact Info) Description 04/15/2024 1:30 PM EDT [place] [address] Lucrecia Rios LIFE MANAGEMENT TEACHER [facility] [place] [address] documented as of this encounter Goals Goal Patient Goal Type Associated Problems Recent Progress Patient-Stated? Author [facility] Medication Compliance and Understanding Patient Facing Action Plan Nataliya Hyatt, [facility] Note: Hugo Luo Buster is hoping to see a decrease in BSA of his Psorasis and a decrease in his pain score of 4 to a 2. documented as of this encounter Visit Diagnoses Not on filedocumented in this encounter Care Teams Urban Renewal Manager Relationship Specialty Start Date End Date Yeimi Carey APRN [address] [place] [phone] PCP - General Family Medicine 11/04/18 12/20/21 documented as of this encounter
--- OUTSIDE RECORDS SUMMARY | 2024-03-27 00:42 | XMS_ITS | Encounter Summary ---
Author Organization [facility] [place] [address] Care Team Providers Care Organizational Development Specialist Name Role Phone Lyric Egan MD Primary Care Provider Encounter Details Date Type Department Care Team (Late st Contact Info) Description 04/02/2023 [place] [phone] Ann Marie Flores RN Social History Tobacco [...] Notes * Telephone Encounter - Ann Marie Folres RN - 04/02/2023 1:05 PM EDT Copied from [facility] #[id number]. Topic: Specialty Dept CRMs - Generic Call >> Apr 02, 2023 8:52 AM Jenny Han wrote: Specialist: Dayana Relationship (if other than patient-full name): Reason for Call: Patient called and stated he is no longer taking the prednisone (Please see closed telephone encounter from 03/30/2023) documented in this encounter Plan of Treatment Upcoming Encounters Date Type Department Care Team (Late st Contact Info) Description 04/15/2024 1:30 PM EDT Office Visit Rheumatology at [facility] [place] [address] Lucrecia Rios, [facility] [place] [address] documented as of this encounter Goals Goal Patient Goal Type Associated Problems Recent Progress Patient-Stated? Author [facility] Medication Compliance and Understanding Patient Facing Action Plan Nataliya Hyatt, [facility] Note: Hugo Luo Buster is hoping to see a decrease in BSA of his Psorasis and a decrease in his pain score of 4 to a 2. documented as of this encounter Visit Diagnoses Not on filedocumented in this encounter Care Teams Organizational Development Specialist Relationship Specialty Start Date End Date Lyric Egan MD [address] [place] [address] PCP - General 12/21/21 documented as of this encounter
--- OUTSIDE RECORDS SUMMARY | 2024-03-27 00:42 | XMS_ITS | Encounter Summary ---
Author Organization [facility] [place] [address] Care Team Providers Care Professor Of Geography Name Role Phone Lyric Egan MD Primary Care Provider Reason for Visit * Reason Comments Follow-up Encounter Details Date Type Department Care Team (Late st Contact Info) Description 04/18/2023 1:00 PM EDT Office [place] [address] Lucrecia Rios, [facility] [place] [address] Psoriasis; Psoriatic arthritis; High risk medications (not [...] Mass Index 25.83 04/18/2023 12:42 PM EDT documented in this encounter Patient Instructions * Patient Instructions* Rylee Anne APRN - 04/18/2023 1:00 PM EDT Lab work at [facility] every 6 months, next due 07/2023 Continue enbrel Recommend staying UTD with CDC guidelines for vaccinations and preventative screenings. Hold enbrel 1 week after vaccines report any new or worsening symptoms as well as any SE or adverse effects. Follow up in 9 months, sooner if needed documented in this encounter Progress Notes * Rylee Anne APRN - 04/18/2023 1:00 PM EDT Rheumatology Progress Note Chief Complaint: Hugo Goins is a 68 y.o. year old male seen as a follow up for PsA. Last visit 01/2023. Rheum History: -hx psoriasis since adolescence. 6-8 [...] L shoulder; rx enrel and prednisone 5mg/d -01/2023 Enbrel for 3 months with great response. off of prednisone since he started Enbrel. Skin improved. not sure if he is going to continue following with derm since skin is doing so well. I recommend he follow at least yearly. We can follow-up in 3 to 6 months, sooner if needed. Patient agreement with plan. Previous Therapies: Enbrel - current Skyrizi - secondary failure Humira - secondary failure History of Present Illness: PMH includes COPD, chronic hepatitis C. Started enbrel ~6m ago. Continues with great response. No painful, red, warm, swollen joints. Occasional stiffness. Skin doing well. No SE or adverse effects that he is aware of. Denies any illnesses, infections, ABX use. Plans to get covid and flu vaccine. 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 Pertinent History: N/A Review of Systems (positive in bold): General: fatigue, fevers, chills, night sweats, unintended weight change HEENT: dry eyes, dry mouth, epistaxis, bleeding gums, lymphadenopathy Skin: rash, photosensitivity Cardiovascular: chest pain, palpitations, edema Pulmonary: SOB, cough Gastrointestinal: nausea, vomiting, diarrhea, constipation, blood in stool, heartburn, reflux Genitourinary: dysuria, hematuria Musculoskeletal: HPI Neurologic: dizziness, syncope, confusion, numbness, tingling, neuropathy, HALE Endocrine: thyroid disorders, diabetes Psychiatric: depression, anxiety, difficulty sleeping Problem List: Patient Active Problem List Diagnosis [...] LIVER BIOPSY performed by CARLOS HERNANDEZ at [facility] Family History: Family History Problem Relation Age of Onset Thyroid Disease Mother Cancer Father Heart Failure Father Heart Failure Brother High Cholesterol Brother High Cholesterol Sister Health Care Maintenance Date Next Due Influenza vaccine 2021 2022 Pneumonia vaccine TB Screen (PPD/QGA) 01/2023 - neg DXA HCQ Eye Exam Viral Hepatitis Screen 01/2023 - Hep BsAg/BsAb neg *not immune to hep B; Hep Bc+ hx of since ; Hep C RNA undetectable Shingles Covid vaccine X4 Social History: Social History Socioeconomic History Marital status: Single Spouse name: Not on file Number of children: Not on file Years of education: Not on file Highest education level: Not on file Occupational History Not on file Tobacco Use Smoking status: Former Packs/day: 1.00 Years: 30.00 Pack years: 30.00 Types: Cigarettes Quit date: 05/30/2002 Years since quittin.8 Smokeless tobacco: Never Vaping Use Vaping Use: [...] Narrative 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 Gen: awake, alert and oriented x 3, in no distress. well nourished Skin: warm and dry, no rheumatologic rashes. no nail abnormalities. Scarred skin on LE Heart: regular rate and rhythm, no murmurs, [...] Decreased ROM R, normal L ROM Neck -normal ROM Hip - Sit to stand with norm Ankle - no tenderness, swelling. normal ROM Feet - no tenderness Neuro: Sensation to light touch is grossly normal [...] psoriatic arthritis and psoriasis on Enbrel for 6 months with continued great response in both joints and skin. No SE or adverse effects that he is aware of. We will continue Enbrel. Labs from 01/2023 stable. Rec q6m, next due 07/2023. Hx +hepbc with neg hep ag/ab since at least 2010 and hx chronic hep C with negative hep CDNA. We can monitoring periodically. He understands to report any new or worsening symptoms as wellas any infections, ABX use, illnesses. Recommend staying UTD with CDC guidelines for vaccinations and preventative screenings. Discussed hold parameters for enbrel including 1w after vaccines. We canfollow- up in 9 months, sooner if needed. Patient agreement with plan. Lab work at [facility] every 6 months, next due 07/2023 Continue enbrel Recommend staying UTD with CDC guidelines for vaccinations and preventative screenings. Hold enbrel 1 week after vaccines report any new or worsening symptoms as well as any SE or adverse effects. Follow up in 9 months, sooner if needed Understands TNF inhibitors, administration, all SE and adverse effects, including but not limited to infections, malignancy, demyelinating disease, autoimmune disorder, injection site reaction, hepatotoxicity, reactivation of hepatitis or TB, heart failure, dermatologic reactions. Discussed the need to hold medication for infections, illnesses, ABX use and to seek care for any infection or febrile episodes. Understands to discuss surgeries and pregnancies with me. No orders of the defined types were placed in this encounter. - Patient was given the necessary information on the condition and instructed to contact clinic or go to ER if symptoms continue or worsen. - After Visit Summary was either printed and given to the patient or provided via the patient portal at the patient's request. 20 minutes was spent today in chart review, documentation, and [id number] visit. Terri Anne, MSN, HOME BASED ASSISTANT, SLOT MACHINE FLOOR PERSON-C Rheumatology Department documented in this encounter Plan of Treatment Upcoming Encounters Date Type Department Care Team (Late st Contact Info) Description 04/15/2024 1:30 PM EDT Office [facility] [place] [address] Lucrecia Rios, [facility] [place] [address] documented as of this encounter Goals Goal Patient Goal Type Associated Problems Recent Progress Patient-Stated? Author [facility] Medication Compliance and Understanding Patient Facing Action Plan Nataliya Hyatt, [facility] Note: Hugo Luo Vannessafranko is hoping to see a decrease in BSA of his Psorasis and a decrease in his pain score of 4 to a 2. documented as of this encounter Visit Diagnoses Diagnosis Psoriasis Other psoriasis Psoriatic arthritis Psoriatic arthropathy High risk medications (not anticoagulants) long-term use Encounter for long-term (current) use of other medications documented in this encounter Care Teams Professor Of Geography Relationship Specialty Start Date End Date Lyric Egan MD [address] [place] [address] PCP - General 12/21/21 documented as of this encounter
--- OUTSIDE RECORDS SUMMARY | 2024-03-27 00:42 | XMS_ITS | Encounter Summary ---
Author Organization [facility] [place] [address] Care Team Providers Care Public Address Servicer Name Role Phone Yeimi Carey APRN Primary Care Provider [phone] Reason for Visit * Reason Comments Specialty Refill Management Encounter Details Date Type Department Care Team (Late st Contact Info) Description 05/26/2021 Specialty [place] [phone] Liberty Chawla, [employer]INTENAN[employer]AN[employer] Social History Tobacco Use Types Packs/Day Years [...] encounter Progress Notes * Liberty Chawla - 05/26/2021 8:24 AM EDT Clinical Management Plan: Refill Specialty Pharmacy Consultation; Liberty Chawla Comprehensive Medication Management (CMM) Hugo L Angeliqueghulamfranko Mr. Hugo Goins is a 66 y.o. [...] [Sulfamethoxazole-Trimethoprim] Rash Medication Reconciliation Discrepancies (compared to [facility] med list) No Specialty Pharmacy Refill Questionnaire Refill Questionnaire 05/26/2021 What is the name of the specialty medication you are refilling? Humira Pen 40MG/0.4ML PNKT Are you taking any new medications? No Any new medical condition? No Any new allergies? No Any new side effects that are bothersome? No What date will you need this fill by? 05/30/2021 Adherence: Any missed doses? No Patient understands no changes to current drug regimen were made. Liberty Chawla 05/26/21 8:25 AM documented in this encounter Plan of Treatment Upcoming Encounters Date Type Department Care Team (Late st Contact Info) Description 04/15/2024 1:30 PM EDT Office [place] [address] Lucrecia Rios [employer] ST[employer] ARCHITECT [facility] [place] [address] documented as of this encounter Goals Goal Patient Goal Type Associated Problems Recent Progress Patient-Stated? Author [facility] Medication Compliance and Understanding Patient Facing Action Plan No Nataliya Lentz, [facility] Note: Hugo Puja Goins is hoping to see a decrease in BSA of his Psorasis and a decrease in his pain score of 4 to a 2. documented as of this encounter Visit Diagnoses Not on filedocumented in this encounter Care Teams Public Address Servicer Relationship Specialty Start Date End Date Yeimi Carey APRN [address] [place] [phone] PCP - General Family Medicine 11/04/18 12/20/21 documented as of this encounter
--- OUTSIDE RECORDS SUMMARY | 2024-03-27 00:42 | XMS_ITS | Encounter Summary ---
Author Organization [facility] [place] [address] Care Team Providers Care Bank Worker Name Role Phone yLric Egan MD Primary Care Provider Reason for Visit * Reason Comments Specialty Pharmacy Review Enbrel SureCli ck 50mg/ml Encounter Details Date Type Department Care Team (Late st Contact Info) Description 01/16/2023 Specialty Pharmacy [place] [phone] Rosa Hanson, [facility] Social History Tobacco Use Types Packs/Day [...] encounter Progress Notes * Rosa Hanson - 01/16/2023 11:59 PM EDT The [facility] has completed a benefits investigation for Hugo Luo Angeliqueihsan to review their eligibility to fill at [facility]. Per patient's medication list they are prescribedEnbrel SureClick 50mg/ml and the medication is able to be filled at the [facility], butthe medication cost may not be financially viable. The patient has been [facility]23. documented in this encounter Plan of Treatment Upcoming Encounters Date Type Department Care Team (Late st Contact Info) Description 04/15/2024 1:30 PM EDT Office Visit Rheumatology at [facility] [place] [address] Lucrecia Rios, [facility] [place] [place] [address] documented as of this encounter Goals Goal Patient Goal Type Associated Problems Recent Progress Patient-Stated? Author [facility] Medication Compliance and Understanding Patient Facing Action Plan No Nataliya Lentz, [facility] Note: Hugo Luo Buster is hoping to see a decrease in BSA of his Psorasis and a decrease in his pain score of 4 to a 2. documented as of this encounter Visit Diagnoses Not on filedocumented in this encounter Care Teams Bank Worker Relationship Specialty Start Date End Date Lyric Egan MD [address] [place] [address] PCP - General 12/21/21 documented as of this encounter
--- OUTSIDE RECORDS SUMMARY | 2024-03-27 00:43 | XMS_ITS | Encounter Summary ---
Author Organization [facility] [place] [address] Care Team Providers Care Sports Complex Attendant Name Role Phone Renzo Darden MD Primary Care Provider [phone] Reason for Visit * Reason Comments Medication Management Encounter Details Date Type Department Care Team (Late st Contact Info) Description 02/03/2018 Specialty [place] [phone] Charity Doran Social History Tobacco Use Types Packs/Day Years [...] as of this encounter Progress Notes * Charity Jackson, [facility] - 02/03/2018 9:14 AM EDT Clinical Management Plan: Refill Specialty Pharmacy Consultation; Charity Jackson [facility] Comprehensive Medication Management (CMM) Hugo Puja Buster Mr. Hugo Goins is a 62 y.o. (1955) male who was contacted in regard to a specialty medication refill reminder. Spoke with patient regarding HUMIRA. A review of the medication therapy was performed. The medication was Refilled as scheduled, and all medication related questions and concernswere addressed. The specialty pharmacy staff will follow up with the patient 5-7 days prior to next refill. Assessment and Recommendations: Referred By: provider Recipient: beneficiary Provider: plan sponsor pharmacist Visit Type: [facility] Follow-up Method of Contact: by telephone Cognitive Ability: normal Allergies and Drug intolerance: Allergies Allergen Reactions ??? Bactrim [Sulfamethoxazole-Trimethoprim] Rash Medication Reconciliation Discrepancies (compared to [facility] med list) -none New medications: no New [...] were made at the appointment and that [facility] is providing recommendations (summary located at top of note) for provider review and follow up. Charity Jackson RPH 02/03/18 9:15 AM documented in this encounter Plan of Treatment Upcoming Encounters Date Type Department Care Team (Late st Contact Info) Description 04/15/2024 1:30 PM EDT Office [place] [address] Lucrecia Rios, SALESPERSON [employer] [facility] [place] [address] documented as of this encounter Visit Diagnoses Not on filedocumented in this encounter Care Teams Sports Complex Attendant Relationship Specialty Start Date End Date Renzo Darden MD [address] [place] [phone] PCP - General 12/21/13 11/03/18 documented as of this encounter
--- OUTSIDE RECORDS SUMMARY | 2024-03-27 00:43 | XMS_ITS | Encounter Summary ---
Author Organization [facility] [place] [address] Care Team Providers Care Dough Machine Operator Name Role Phone Renzo Darden MD Primary Care Provider [phone] Reason for Visit * Reason Comments Follow-up Encounter Details Date Type Department Care Team (Late Contact Info) Description 10/14/2017 4:15 PM EDT Office Visit Dermatology at [address] [phone] Reilly Summers MD [address] [facility] [place] [address] Psoriasis Social History Tobacco Use Types Packs/Day [...] Progress Notes * Reilly Summers MD - 10/14/2017 4:15 PM EDT Problem: 1. Follow-up psoriasis 2. On Humira January 2014 showed August 2016, now back on it again since late February 2017 Roddy follows up is doing well with Humira. He has equivocally $5. His psoriatic cutaneous involvement is entirely gone and his skin is clear, and he does not have any issues with any arthritis. He is tolerating the medication well without any fevers chills or any untoward reactions Physical examination reveals a pleasant 62-year-old gentleman who has no active psoriasis remainingover the knees the elbows dorsal hands and forearms his hands are no longer sore. He is quite pleased. 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 Assessment plan: Psoriasis back on Humira since late February 2017 1. Continue Humira injecting a 40 mg injected pen once every 2 weeks. We will dispense #2 with 5 refills 2. Patient prior authorization has been renewed is good through May 2018 3. Return to clinic in 6 months for recheck. Cc: Renzo Darden MD documented in this encounter Plan of Treatment Upcoming Encounters Date Type Department Care Team (Late st Contact Info) Description 04/15/2024 1:30 PM EDT Office Visit [place] [address] Lucrecia Rios, [facility] [place] [address] documented as of this encounter Visit Diagnoses Diagnosis Psoriasis Other psoriasis documented in this encounter Care Teams Dough Machine Operator Relationship Specialty Start Date End Date Renzo Darden MD [address] [place] [phone] PCP - General 12/21/13 11/03/18 documented as of this encounter
--- OUTSIDE RECORDS SUMMARY | 2024-03-27 00:43 | XMS_ITS | Encounter Summary ---
Author Organization [facility] [place] [address] Care Team Providers Care Websphere Portal Architect Name Role Phone Renzo Darden MD Primary Care Provider [phone] Reason for Visit * Reason Comments Medication Management Encounter Details Date Type Department Care Team (Late st Contact Info) Description 11/12/2017 Specialty [place] [phone] Charity Doran Social History Tobacco Use Types [...] this encounter Progress Notes * Charity Jackson, [facility] - 11/12/2017 12:37 PM EDT Clinical Management Plan: Refill Specialty Pharmacy Consultation; Charity Jackson [facility] Comprehensive Medication Management (CMM) Hugo Puja Buster [...] prior to next refill. Assessment and Recommendations: Cognitive Ability: normal Allergies and Drug intolerance: Allergies Allergen Reactions ??? Bactrim [Sulfamethoxazole-Trimethoprim] Rash Medication Reconciliation Discrepancies (compared to [facility] med list) -none New medications: no New [...] review and follow up. Charity Jackson RPH 11/12/17 12:39 PM documented in this encounter Plan of Treatment Upcoming Encounters Date Type Department Care Team (Late st Contact Info) Description 04/15/2024 1:30 PM EDT Office [place] [address] Lucrecia Rios [facility] [place] [address] documented as of this encounter Visit Diagnoses Not on filedocumented in this encounter Care Teams Websphere Portal Architect Relationship Specialty Start Date End Date Renzo Darden MD [address] [place] [phone] PCP - General 12/21/13 11/03/18 documented as of this encounter
--- OUTSIDE RECORDS SUMMARY | 2024-03-27 00:43 | XMS_ITS | Encounter Summary ---
Author Organization [facility] [place] [address] Care Team Providers Care Roll Hauler Name Role Phone Yeimi Carey APRN Primary Care Provider [phone]- [phone] Reason for Visit * Reason Comments Medication Management Encounter Details Date Type Department Care Team (Late st Contact Info) Description 12/01/2019 Specialty [place] [phone] Mary Riggs [facility] Social [...] Progress Notes * Mary Riggs RPH - 12/01/2019 7:57 AM EDT Clinical Management Plan: Refill Specialty Pharmacy Consultation; Mary Riggs [facility] Comprehensive Medication Management (CMM) Hugo Goins Mr. Hugo Goisn is a 64 y.o. (1955) male who was contacted in [...] change made to the Care Plan: no Assessment and Recommendations: Title Type of Medication Management: chronic disease management, targeted medication review Referred By: provider Recipient: beneficiary Provider: plan sponsor pharmacist Visit Type: [facility] [place] Follow-up Method of Contact: by telephone Cognitive Ability: normal Cognitive Impairment Status Verified this Year: no Allergies and Drug intolerance: Allergies Allergen Reactions ??? Bactrim [Sulfamethoxazole-Trimethoprim] Rash Medication Reconciliation Discrepancies (compared to [facility] med list) -no New medications: no [...] were made at the appointment and that [facility] is providing recommendations (summary located at top of note) for provider review and follow up. Mary Riggs RPH 12/01/19 7:58 AM documented in this encounter Plan of Treatment Upcoming Encounters Date Type Department Care Team (Late st Contact Info) Description 04/15/2024 1:30 PM EDT Office [place] [address] Lucrecia Rios MANAGER [employer] [facility] [place] [address] documented as of this encounter Goals Goal Patient Goal Type Associated Problems Recent Progress Patient-Stated? Author [facility] Medication Compliance and Understanding Patient Facing Action Plan No Nataliya Lentz [facility] Note: Hugo Goins is hoping to see a decrease in BSA of his Psorasis and a decrease in his pain score of 4 to a 2. documented as of this encounter Visit Diagnoses Not on filedocumented in this encounter Care Teams Roll Hauler Relationship Specialty Start Date End Date Yeimi Carey APRN [address] [place] [phone] PCP - General Family Medicine 11/04/18 12/20/21 documented as of this encounter
--- OUTSIDE RECORDS SUMMARY | 2024-03-27 00:43 | XMS_ITS | Encounter Summary ---
Author Organization [facility] [place] [address] Care Team Providers Care Heating And Refrigeration Inspector Name Role Phone Renzo Darden MD Primary Care Provider [phone] Reason for Visit * Reason Onset Date Comments Medication Refill 09/17/2018 Encounter Details Date Type Department Care Team (Late st Contact Info) Description 09/17/2018 Refill Dermatology at [place] [address] [place] [phone] Reilly Summers MD [address] [facility] [place] [address] Social History Tobacco Use Types Packs/Day Years [...] encounter Miscellaneous Notes * Telephone Encounter - Camilla Moreno RPH - 09/17/2018 9:03 AM EST Sent in error documented in this encounter Plan of Treatment Upcoming Encounters Date Type Department Care Team (Late st Contact Info) Description 04/15/2024 1:30 PM EDT Office [place] [address] Lucrecia Rios, PESTICIDE CONTROL INSPECTOR [facility] [place] [address] documented as of this encounter Goals Goal Patient Goal Type Associated Problems Recent Progress Patient-Stated? Author [facility] Medication Compliance and Understanding Patient Facing Action Plan Nataliya Hyatt, [facility] Note: Hugo Luo Buster is hoping to see a decrease in BSA of his Psorasis and a decrease in his pain score of 4 to a 2. documented as of this encounter Visit Diagnoses Not on filedocumented in this encounter Care Teams Heating And Refrigeration Inspector Relationship Specialty Start Date End Date Renzo Darden MD [address] [place] [phone] PCP - General 12/21/13 11/03/18 documented as of this encounter
--- OUTSIDE RECORDS SUMMARY | 2024-03-27 00:43 | XMS_ITS | Encounter Summary ---
Author Organization [facility] [place] [address] Care Team Providers Care Supervisory Civil Engineer Name Role Phone Yeimi Carey APRN Primary Care Provider [phone]- [phone] Reason for Visit * Reason Comments Medication Management Encounter Details Date Type Department Care Team (Late st Contact Info) Description 11/10/2018 Specialty [place] [phone] Camilla Moreno [place] Social History Tobacco Use Types Packs/Day Years [...] as of this encounter Progress Notes * Camilla Moreno RPH - 11/10/2018 1:12 PM EDT Clinical Management Plan: Refill Specialty Pharmacy Consultation; Camilla Moreno [place] Comprehensive Medication Management (CMM) Hugo Puja Buster Mr. Hugo Goins is a 63 y.o. (1955) male who was contacted in regard to a specialty medication refill reminder. Spoke with patient regarding Humria. A review of the medication therapy was performed. The medication was Refilled as scheduled, and all medication related questions and concernswere addressed. The specialty pharmacy staff will follow up with the patient 5-7 days prior to next refill. Patient was recently changed to the citrate free version of Humira. We will follow up with patient upon next refill. Was a change made to the Care Plan: no Assessment and Recommendations: Title Type of Medication Management: chronic disease management, targeted medication review Referred By: pharmacist Recipient: beneficiary Provider: plan sponsor pharmacist [place] [facility] [place] Method of Contact: by telephone Cognitive Ability: normal Cognitive Impairment Status Verified this Year: no Allergies and Drug intolerance: Allergies Allergen Reactions ??? Bactrim [Sulfamethoxazole-Trimethoprim] Rash Medication Reconciliation Discrepancies (compared to [facility] med list) -none New medications: no New [...] were made at the appointment and that [facility] is providing recommendations (summary located at top of note) for provider review and follow up. Camilla Moreno RPH 11/10/18 1:14 PM documented in this encounter Plan of Treatment Upcoming Encounters Date Type Department Care Team (Late st Contact Info) Description 04/15/2024 1:30 PM EDT Office [place] [address] Lucrecia Rios RESERVOIR CARETAKER [facility] [place] [address] documented as of this encounter Goals Goal Patient Goal Type Associated Problems Recent Progress Patient-Stated? Author [facility] Medication Compliance and Understanding Patient Facing Action Plan Nataliya Hyatt, [facility] Note: Hugo Merinoghulamfranko is hoping to see a decrease in BSA of his Psorasis and a decrease in his pain score of 4 to a 2. documented as of this encounter Visit Diagnoses Not on filedocumented in this encounter Care Teams Supervisory Civil Engineer Relationship Specialty Start Date End Date Yeimi Carey APRN [address] [place] [phone] PCP - General Family Medicine 11/04/18 12/20/21 documented as of this encounter
--- OUTSIDE RECORDS SUMMARY | 2024-03-27 00:43 | XMS_ITS | Encounter Summary ---
Author Organization [facility] [place] [address] Care Team Providers Care Quality Assurance Monitor Body Name Role Phone Yeimi Carey APRN Primary Care Provider [phone] Encounter Details Date Type Department Care Team (Late st Contact Info) Description 04/19/2020 [place] [address] Liberty Chawla, [facility] Social History Tobacco Use Types [...] * Telephone Encounter - Liberty Chawla - 04/19/2020 4:26 PM EDT Clinical Management Plan: Refill Specialty [...] [Sulfamethoxazole-Trimethoprim] Rash Medication Reconciliation Discrepancies (compared to [facility] med list) No New medications: No New medical conditions: No New allergies: No Adherence: Any missed doses? No Are you experiencing any side effects from your medications? No Patient understands no changes to current drug regimen were made.. Liberty Chawla 04/19/20 4:26 PM documented in this encounter Plan of Treatment Upcoming Encounters Date Type Department Care Team (Late st Contact Info) Description 04/15/2024 1:30 PM EDT Office [place] [address] Lucrecia Rios REBAR WORKER [facility] [place] [address] documented as of this encounter Goals Goal Patient Goal Type Associated Problems Recent Progress Patient-Stated? Author [facility] Medication Compliance and Understanding Patient Facing Action Plan No Nataliya Lentz, [facility] Note: Hugo Luo Vannessafranko is hoping to see a decrease in BSA of his Psorasis and a decrease in his pain score of 4 to a 2. documented as of this encounter Visit Diagnoses Not on filedocumented in this encounter Care Teams Quality Assurance Monitor Body Relationship Specialty Start Date End Date Yeimi Carey APRN [address] [place] [phone] PCP - General Family Medicine 11/04/18 12/20/21 documented as of this encounter
--- OUTSIDE RECORDS SUMMARY | 2024-03-27 00:43 | XMS_ITS | Encounter Summary ---
Author Organization [facility] [place] [address] Care Team Providers Care Application Support Intern Name Role Phone Renzo Dardne MD Primary Care Provider [phone] Reason for Visit * Reason Comments Medication Management Encounter Details Date Type Department Care Team (Late st Contact Info) Description 01/06/2018 Specialty [place] [phone] Tee Man [facility] Social History Tobacco Use Types Packs/Day [...] of this encounter Progress Notes * Tee Man RPH - 01/06/2018 9:51 AM EDT Clinical Management Plan: Refill Specialty Pharmacy Consultation; Tee Man [place] Comprehensive Medication Management (CMM) Hugo Puja Buster Mr. Hugo Goins is a 62 y.o. (1955) male who was contacted in regard to a specialty medication refill reminder. Spoke with patient regarding ADALIMUMAB. A review of the medication therapy was performed. The medication was Refilled as scheduled, and all medication related questions and concerns were addressed. The specialty pharmacy staff will follow up with the patient 5-7 days prior to next refill. Assessment and Recommendations: Title Type of Medication Management: chronic disease management, targeted medication review Referred By: provider Recipient: beneficiary Provider: plan sponsor pharmacist Method of Contact: by telephone Cognitive Ability: normal Allergies and Drug intolerance: Allergies Allergen Reactions ??? Bactrim [Sulfamethoxazole-Trimethoprim] Rash Medication Reconciliation Discrepancies (compared to [facility] med list) - none New medications: no New medical conditions: no [...] were made at the appointment and that [facility] is providing recommendations (summary located at top of note) for provider review and follow up. Tee Man RPH 01/06/18 9:51 AM documented in this encounter Plan of Treatment Upcoming Encounters Date Type Department Care Team (Late st Contact Info) Description 04/15/2024 1:30 PM EDT Office [place] [address] Lucrecia Rios, [facility] [place] [address] documented as of this encounter Visit Diagnoses Not on filedocumented in this encounter Care Teams Application Support Intern Relationship Specialty Start Date End Date Renzo Darden MD [address] [place] [phone] PCP - General 12/21/13 11/03/18 documented as of this encounter
--- OUTSIDE RECORDS SUMMARY | 2024-03-27 00:43 | XMS_ITS | Encounter Summary ---
Author Organization [facility] [place] [address] Care Team Providers Care Anvil Seating Press Operator Name Role Phone Yeimi Carey APRN Primary Care Provider [phone]- [phone] Encounter Details Date Type Department Care Team (Late st Contact Info) Description 08/10/2019 [place] [address] Erick Pace CPHT Social History Tobacco Use [...] encounter Miscellaneous Notes * Telephone Encounter - Erick Pace - 08/10/2019 8:33 AM EST Clinical Management Plan: Refill Specialty Pharmacy Consultation; Erick Pace Comprehensive Medication Management (CMM) Hugo Goins Mr. Hugo Goins is a 64 y.o. (1955) male who [...] [Sulfamethoxazole-Trimethoprim] Rash Medication Reconciliation Discrepancies (compared to [facility] med list) No New medications: No New medical conditions: No New allergies: No Adherence: Any missed doses? No Are you experiencing any side effects from your medications? No Patient understands no changes to current drug regimen were made.. Erick Pace 08/10/19 8:33 AM documented in this encounter Plan of Treatment Upcoming Encounters Date Type Department Care Team (Late st Contact Info) Description 04/15/2024 1:30 PM EDT Office [place] [address] Lucrecia Rios APRN [facility] [place] [address] documented as of this encounter Goals Goal Patient Goal Type Associated Problems Recent Progress Patient-Stated? Author [facility] Medication Compliance and Understanding Patient Facing Action Plan No Nataliya Lentz, [facility] Note: Hugo Luo Buster is hoping to see a decrease in BSA of his Psorasis and a decrease in his pain score of 4 to a 2. documented as of this encounter Visit Diagnoses Not on filedocumented in this encounter Care Teams Anvil Seating Press Operator Relationship Specialty Start Date End Date Yeimi Carey APRN [address] [place] [phone] PCP - General Family Medicine 11/04/18 12/20/21 documented as of this encounter
--- OUTSIDE RECORDS SUMMARY | 2024-03-27 00:43 | XMS_ITS | Encounter Summary ---
Author Organization [facility] [place] [address] Care Team Providers Care Clinical Nurse Reviewer Name Role Phone Renzo Darden MD Primary Care Provider [phone] Reason for Visit * Reason Comments Medication Management Encounter Details Date Type Department Care Team (Late st Contact Info) Description 12/11/2017 Specialty [place] [phone] Tee Man [facility] Social History Tobacco Use Types Packs/Day Years [...] Progress Notes * Tee Man RPH - 12/11/2017 9:29 AM EDT Clinical Management Plan: Refill Specialty Pharmacy Consultation; Tee Man [facility] Comprehensive Medication Management (CMM) Hugo Puja Buster [...] [Sulfamethoxazole-Trimethoprim] Rash Medication Reconciliation Discrepancies (compared to [facility] med list) - none New medications: no [...] were made at the appointment and that [facility] is providing recommendations (summary located at top of note) for provider review and follow up. Tee Man RPH 12/11/17 9:30 AM documented in this encounter Plan of Treatment Upcoming Encounters Date Type Department Care Team (Late st Contact Info) Description 04/15/2024 1:30 PM EDT Office [place] [address] Lucrecia Rios, [facility] [place] [address] documented as of this encounter Visit Diagnoses Not on filedocumented in this encounter Care Teams Clinical Nurse Reviewer Relationship Specialty Start Date End Date Renzo Darden MD [address] [place] [phone] PCP - General 12/21/13 11/03/18 documented as of this encounter
--- OUTSIDE RECORDS SUMMARY | 2024-03-27 00:43 | XMS_ITS | Encounter Summary ---
Author Organization [facility] [place] [address] Care Team Providers Care Hr Director Name Role Phone Yeimi Carey APRN Primary Care Provider [phone]- [phone] Reason for Visit * Reason Comments Medication Management Encounter Details Date Type Department Care Team (Late st Contact Info) Description 05/26/2020 Specialty Pharmacy [place] [phone] Nixon Linn, [facility] Social History Tobacco Use Types Packs/Day [...] this encounter Progress Notes * Nixon Linn [facility] - 05/26/2020 4:34 PM EDT Clinical Management Plan: Refill Specialty Pharmacy Consultation; Nixon Linn [facility] Comprehensive Medication Management (CMM) Hugo Puja [...] beneficiary Provider: plan sponsor pharmacist Visit Type: [facility] [place] Follow-up Method of Contact: by telephone Cognitive Ability: normal Cognitive Impairment Status Verified this Year: no Allergies and Drug intolerance: Allergies Allergen Reactions ??? Bactrim [Sulfamethoxazole-Trimethoprim] Rash Medication Reconciliation Discrepancies (compared to [facility] med list) -none New medications: no New [...] were made at the appointment and that [facility] is providing recommendations (summary located at top of note) for provider review and follow up. Nixon Linn RPH 05/26/20 4:35 PM documented in this encounter Plan of Treatment Upcoming Encounters Date Type Department Care Team (Late st Contact Info) Description 04/15/2024 1:30 PM EDT Office Visit [place] [address] Lucrecia Rios, [facility] [place] [address] documented as of this encounter Goals Goal Patient Goal Type Associated Problems Recent Progress Patient-Stated? Author [facility] Medication Compliance and Understanding Patient Facing Action Plan Nataliya Hyatt, [facility] Note: Hugo Luo Vannessafranko is hoping to see a decrease in BSA of his Psorasis and a decrease in his pain score of 4 to a 2. documented as of this encounter Visit Diagnoses Not on filedocumented in this encounter Care Teams Hr Director Relationship Specialty Start Date End Date Yeimi Carey APRN [address] [place] [phone] PCP - General Family Medicine 11/04/18 12/20/21 documented as of this encounter
--- OUTSIDE RECORDS SUMMARY | 2024-03-27 00:43 | XMS_ITS | Encounter Summary ---
[place] [address] Care Team Providers Care Computer Technology Teacher Name Role Phone Aurelio Yeimi LESTER Primary Care Provider [phone] Encounter Details Date Type Department Care Team (Late st Contact Info) Description 11/17/2019 4:15 PM EDT TH Visit (TeleHealth) Dermatology at [address] [place] [phone] Reilly Summers MD [address] [facility] [place] [address] Psoriasis Social History Tobacco Use Types Packs/Day [...] Progress Notes * Reilly Summers MD - 11/17/2019 4:15 PM EDT Problem: 1. Follow-up psoriasis 2. On Humira since January 2014 through August 2016 now back on since February 2017 3. Past history of EtOH abuse and hepatitis C, now treated. 4. telehealth telephone visit ?? Roddy follows up for a 6-month check on his psoriasis being treated with Humira. He is here today utilizing the [employer] telephone platform. He states that his psoriasis has been very well controlled. He has 1 minimal patch on the back of his right calf that he told me about 6 months ago but nothing new since then. The citrate free injections are going well without any stinging without any burn ing. He has not had any fever chills or injection site reactions. He wants to continue the medication. It has been working well for him since January 2014! Assessment plan: Psoriasis controlled on Humira 1. Continue Humira utilizing the 40 mg autoinjector pen once every 2 weeks utilizing the citrate free Humira. Prescription will be written for 2 pens to be dispensed with PRN refills to last for a year 2. Recommend I see patient again in a year for repeat check today we will schedule an appointment. 3. Should Humira lose durability, discussed with Roddy that we have many other options at our disposal. 4. Return to clinic in 1 year. Cc: Yeimi Carey APRN documented in this encounter Plan of Treatment Upcoming Encounters Date Type Department Care Team (Late st Contact Info) Description 04/15/2024 1:30 PM EDT Office [place] [address] Lucrecia Rios APRN [facility] [place] [address] documented as of this encounter Goals Goal Patient Goal Type Associated Problems Recent Progress Patient-Stated? Author [facility] Medication Compliance and Understanding Patient Facing Action Plan Nataliya Hyatt, [facility] Note: Hugo Luo Buster is hoping to see a decrease in BSA of his Psorasis and a decrease in his pain score of 4 to a 2. documented as of this encounter Visit Diagnoses Diagnosis Psoriasis Other psoriasis documented in this encounter Care Teams Computer Technology Teacher Relationship Specialty Start Date End Date Yeimi Carey APRN [address] [place] [phone] PCP - General Family Medicine 11/04/18 12/20/21 documented as of this encounter
--- OUTSIDE RECORDS SUMMARY | 2024-03-27 00:43 | XMS_ITS | Encounter Summary ---
Author Organization [facility] [place] [address] Care Team Providers Care Education Program Associate Name Role Phone Yeimi Carey APRN Primary Care Provider [phone]- [phone] Encounter Details Date Type Department Care Team (Late st Contact Info) Description 11/04/2018 4:15 PM EDT Office Visit Dermatology at [address] [place] [phone] Reilly Summers MD [address] [facility] [place] [address] Psoriasis Social History Tobacco Use Types Packs/Day [...] Progress Notes * Reilly Summers MD - 11/04/2018 4:15 PM EDT Problem: 1. Follow-up psoriasis 2. On Humira January 2014 06 August 2016, now back on it since late February 2017 Roddy follows up and is doing very well. The Humira is keeping his psoriasis clear. During the wintermon he does get a little bit of some hyperkeratosis on the palmar hands, a psoriasiform palmar hand dermatitis. Word sometimes he occasionally still gets some stinging and burning with the autoinjector administration of the medication perhaps once every 4 months, but he does not desire to try the prefilled syringes but rather stick with the autoinjectors. He denies any injection site reactions. He is on no fevers chills no infections. He is tolerating the Humira well. Physical examination reveals a pleasant 63-year-old gentleman who has no psoriasis on the elbows orknees. He has some hyperkeratosis in the palmar hands. He has no other stigmata of psoriasis Assessment plan: Psoriasis controlled on Humira 1. Continue Humira utilizing the autoinjector 40 mg once every 2 weeks. Recommend now that we utilize the citrate free Humira to decrease chance of stinging and burning. Dispense #2 for a one month supply with 5 refills 2. Prior authorization good through total of 2018, and then will need to renew 3. Return to clinic in another 6 months for repeat check. 4. Discussed I believe the stinging from the Humira is likely due to the rapid spring-loaded injection of the medication. Utilizing a citrate free version will also be beneficial CC: Yeimi Carey APRN documented in this encounter Plan of Treatment Upcoming Encounters Date Type Department Care Team (Late st Contact Info) Description 04/15/2024 1:30 PM EDT Office [place] [address] Lucrecia Rios APRN [facility] [place] [address] documented as of this encounter Goals Goal Patient Goal Type Associated Problems Recent Progress Patient-Stated? Author [facility] Medication Compliance and Understanding Patient Facing Action Plan No Nataliya Lentz, [facility] Note: Hugo Luo Vannessafranko is hoping to see a decrease in BSA of his Psorasis and a decrease in his pain score of 4 to a 2. documented as of this encounter Visit Diagnoses Diagnosis Psoriasis Other psoriasis documented in this encounter Care Teams Education Program Associate Relationship Specialty Start Date End Date Yeimi Carey APRN [address] [place] [phone] PCP - General Family Medicine 11/04/18 12/20/21 documented as of this encounter
--- OUTSIDE RECORDS SUMMARY | 2024-03-27 00:43 | XMS_ITS | Encounter Summary ---
Author Organization [facility] [place] [address] Care Team Providers Care Survey Researcher Name Role Phone Yeimi Carey APRN Primary Care Provider [phone]- [phone] Encounter Details Date Type Department Care Team (Late st Contact Info) Description 03/03/2019 Specialty [place] [address] Ivania Rubio [facility] Social History Tobacco Use Types Packs/Day Years [...] as of this encounter Progress Notes * Ivania Rubio - 03/03/2019 8:32 AM EDT Clinical Management Plan: Refill Specialty Pharmacy Consultation; Ivania Rubio Comprehensive Medication Management (CMM) Hugo Goins Mr. Hugo Goins is a 63 y.o. (1955) male who refilled their specialty medication, Humira ,without speaking to a hardware supplies sales representative from the Specialty Pharmacy. The medication was refilled on03/03/19 for a 28 day supply for $0 copay. Adherence: Gaps in fill history: none Was a change made to the Care Plan: no If yes, should the medication be held: No The specialty pharmacy staff will follow up with the patient 5-7 days prior to next refill for reminder if needed. Ivania Rubio 03/03/19 8:32 AM documented in this encounter Plan of Treatment Upcoming Encounters Date Type Department Care Team (Late st Contact Info) Description 04/15/2024 1:30 PM EDT Office Visit Rheumatology at [facility] [place] [place] [address] Lucrecia Rios APRN [facility] [place] [address] documented as of this encounter Goals Goal Patient Goal Type Associated Problems Recent Progress Patient-Stated? Author [facility] Medication Compliance and Understanding Patient Facing Action Plan No Nataliya Lentz, [facility] Note: Hugo Luo Buster is hoping to see a decrease in BSA of his Psorasis and a decrease in his pain score of 4 to a 2. documented as of this encounter Visit Diagnoses Not on filedocumented in this encounter Care Teams Survey Researcher Relationship Specialty Start Date End Date Yeimi Carey APRN [address] [place] [phone] PCP - General Family Medicine 11/04/18 12/20/21 documented as of this encounter
--- OUTSIDE RECORDS SUMMARY | 2024-03-27 00:43 | XMS_ITS | Encounter Summary ---
Author Organization [facility] [place] [address] Care Team Providers Care Parts Processor Name Role Phone Renzo Darden MD Primary Care Provider [phone] Reason for Visit * Reason Comments Follow-up Psoriasis Encounter Details Date Type Department Care Team (Late Contact Info) Description 05/05/2018 4:15 PM EDT Office Visit Dermatology at [address] [phone] Reilly Summers MD 580 [facility] [place] [address] Psoriasis Social History Tobacco Use Types Packs/Day [...] Progress Notes * Reilly Summers MD - 05/05/2018 4:15 PM EDT Problem: 1. Follow-up psoriasis 2. On Humira January 2014 through August 2016, now back on it again since late February 2017 Roddy follows up and is doing well with Humira. He has however seen some worsening however on the ankles and his legs. This is new as he was pretty much clear previously. He has a co-pay of only $5. Occasionally has some burning and stinging with the autoinjector administrations of the medication. Physical examination reveals a pleasant 63-year-old who has psoriasis a little bit on his nieces elbows some patchy areas on his calves. Assessment plan: Psoriasis back on Humira since late February 2017 1. Continue Humira utilizing the autoinjector 40 mg every 2 weeks dispense #2 with 5 refills 2. Prior authorization good through May 2018 will need to renew 3. Return to clinic in 6 months for repeat check 4. Discussed techniques to minimize burning and stinging when giving himself the Humira injections. Cc: Renzo Darden MD documented in this encounter Plan of Treatment Upcoming Encounters Date Type Department Care Team (Late st Contact Info) Description 04/15/2024 1:30 PM EDT Office [place] [address] Lucrecia Rios ASSISTANT PRODUCTION EDITOR [facility] [place] [address] documented as of this encounter Goals Goal Patient Goal Type Associated Problems Recent Progress Patient-Stated? Author Home Medication Compliance and Understanding Patient Facing Action Plan No Nataliya Lentz, [facility] Note: Hugo Merinoghulamfranko is hoping to see a decrease in BSA of his Psorasis and a decrease in his pain score of 4 to a 2. documented as of this encounter Visit Diagnoses Diagnosis Psoriasis Other psoriasis documented in this encounter Care Teams Parts Processor Relationship Specialty Start Date End Date Renzo Darden MD [address] [place] [phone] PCP - General 12/21/13 11/03/18 documented as of this encounter
--- OUTSIDE RECORDS SUMMARY | 2024-03-27 00:43 | XMS_ITS | Encounter Summary ---
Author Organization [facility] [place] [address] Care Team Providers Care Deaf Interpreter Name Role Phone Yeimi Carey APRN Primary Care Provider [phone]- [phone] Reason for Visit * Reason Comments Medication Management Encounter Details Date Type Department Care Team (Late st Contact Info) Description 07/16/2019 Specialty [place] [phone] Mary Riggs [facility] Social History Tobacco Use Types [...] Progress Notes * Mary Riggs RPH - 07/16/2019 12:06 PM EST Clinical Management Plan: Refill Specialty Pharmacy Consultation; Mary Riggs [facility] Comprehensive Medication Management (CMM) Hugo [...] beneficiary Provider: plan sponsor pharmacist Visit Type: [facility] Follow-up Method of Contact: by telephone Cognitive Ability: normal Cognitive Impairment Status Verified this Year: no Allergies and Drug intolerance: Allergies Allergen Reactions ??? Bactrim [Sulfamethoxazole-Trimethoprim] Rash Medication Reconciliation Discrepancies (compared to [facility] med list) -no New medications: no New [...] review and follow up. Mary Riggs RPH 07/16/19 12:07 PM documented in this encounter Plan of Treatment Upcoming Encounters Date Type Department Care Team (Late st Contact Info) Description 04/15/2024 1:30 PM EDT Office [place] [address] Lucrecia Rios APRN [facility] [place] [address] documented as of this encounter Goals Goal Patient Goal Type Associated Problems Recent Progress Patient-Stated? Author Home Medication Compliance and Understanding Patient Facing Action Plan No Nataliya Lentz [facility] Note: Hugo Goins is hoping to see a decrease in BSA of his Psorasis and a decrease in his pain score of 4 to a 2. documented as of this encounter Visit Diagnoses Not on filedocumented in this encounter Care Teams Deaf Interpreter Relationship Specialty Start Date End Date Yeimi Carey APRN [address] [place] [phone] PCP - General Family Medicine 11/04/18 12/20/21 documented as of this encounter
--- OUTSIDE RECORDS SUMMARY | 2024-03-27 00:43 | XMS_ITS | Encounter Summary ---
Author Organization [facility] [place] [address] Care Team Providers Care Construction Lineman Name Role Phone Yeimi Carey APRN Primary Care Provider [phone]- [phone] Reason for Visit * Reason Comments Medication Management Encounter Details Date Type Department Care Team (Late st Contact Info) Description 01/08/2019 Specialty [place] [phone] Sara Medel [facility] Social History Tobacco Use Types [...] of this encounter Progress Notes * Sara Medel [facility] - 01/08/2019 12:18 PM EDT Clinical Management Plan: Refill Specialty Pharmacy Consultation; Sara Medel [facility] Comprehensive Medication Management (CMM) Hugo L Buster Mr. Hugo Goins is a 63 [...] beneficiary Provider: plan sponsor pharmacist Visit Type: [facility] Follow-up Method of Contact: by telephone Cognitive Ability: normal Cognitive Impairment Status Verified this Year: no Allergies and Drug intolerance: Allergies Allergen Reactions ??? Bactrim [Sulfamethoxazole-Trimethoprim] Rash Medication Reconciliation Discrepancies (compared to [facility] med list) - None New medications: no New medical conditions: no [...] education Support network for adherence: healthcare provider Are you experiencing any side effects from your medications? no Pt understands no changes to current drug regimen were made at the appointment and that [facility] is providing recommendations (summary located at top of note) for provider review and follow up. Sara Medel RPH 01/08/19 12:19 PM documented in this encounter Plan of Treatment Upcoming Encounters Date Type Department Care Team (Late st Contact Info) Description 04/15/2024 1:30 PM EDT Office [place] [address] Lucrecia Rios FIELD NATURALIST [facility] [place] [address] documented as of this encounter Goals Goal Patient Goal Type Associated Problems Recent Progress Patient-Stated? Author [facility] Medication Compliance and Understanding Patient Facing Action Plan No Nataliya Lentz [facility] Note: Hugo Goins is hoping to see a decrease in BSA of his Psorasis and a decrease in his pain score of 4 to a 2. documented as of this encounter Visit Diagnoses Not on filedocumented in this encounter Care Teams Construction Lineman Relationship Specialty Start Date End Date Yeimi Carey APRN [address] [place] [phone] PCP - General Family Medicine 11/04/18 12/20/21 documented as of this encounter
--- OUTSIDE RECORDS SUMMARY | 2024-03-27 00:43 | XMS_ITS | Encounter Summary ---
Author Organization [facility] [place] [address] Care Team Providers Care Vascular Tech Name Role Phone Yeimi Carey APRN Primary Care Provider [phone]- [phone] Reason for Visit * Reason Comments Medication Management Encounter Details Date Type Department Care Team (Late st Contact Info) Description 05/28/2017 Specialty [place] [phone] Charity Doran Social History Tobacco Use Types [...] this encounter Progress Notes * Charity Jackson, [facility] - 05/28/2017 10:18 AM EDT Clinical Management Plan: Refill Specialty Pharmacy Consultation; Charity Jackson [facility] Comprehensive Medication Management (CMM) Hugo Goins is a 62 y.o. (1955) male who called in to fill their specialty prescription, HUMIRA. Hugo has used Humira on and off since January 2014. The medication was refilled on 05/27 for a 28 day supply for no copay. We currently have a call out to Hugo to opt in to the Specialty Clinical Management Program, which offers refill tracking and clinical follow-up assessments. The specialty pharmacy staff will follow up with the patient 5-7 days prior to next refill for reminder if needed. Cahrity Jackson RPH 05/28/17 10:20 AM * Mary Payan RPH - 05/28/2017 10:18 AM EDT Hugo called back on 06/14/2017 and declined formal pharmacist consultations on Humira. He would like to opt into refill reminders only through our [facility] program. documented in this encounter Plan of Treatment Upcoming Encounters Date Type Department Care Team (Late st Contact Info) Description 04/15/2024 1:30 PM EDT [place] [address] Lucrecia Rios APRN [facility] [place] [address] documented as of this encounter Goals Goal Patient Goal Type Associated Problems Recent Progress Patient-Stated? Author [facility] Medication Compliance and Understanding Patient Facing Action Plan No Nataliya Lentz [facility] Note: Hugo Goins is hoping to see a decrease in BSA of his Psorasis and a decrease in his pain score of 4 to a 2. documented as of this encounter Visit Diagnoses Not on filedocumented in this encounter Care Teams Vascular Tech Relationship Specialty Start Date End Date Yeimi Carey APRN [address] [place] [phone] PCP - General Family Medicine 11/04/18 12/20/21 documented as of this encounter
--- OUTSIDE RECORDS SUMMARY | 2024-03-27 00:43 | XMS_ITS | Encounter Summary ---
Author Organization [facility] [place] [address] Care Team Providers Care Library Attendant Name Role Phone Yeimi Carey LESTER Primary Care Provider +1- [phone] Encounter Details Date Type Department Care Team (Late st Contact Info) Description 04/28/2019 [place] [address] Lucrecia El Social History Tobacco Use Types Packs/Day Years [...] encounter Miscellaneous Notes * Telephone Encounter - Lucrecia El - 04/28/2019 12:46 PM EDT Clinical Management Plan: Refill Specialty Pharmacy Consultation; Lucrecia El Comprehensive Medication Management (CMM) Hugo Goins Mr. [...] [Sulfamethoxazole-Trimethoprim] Rash Medication Reconciliation Discrepancies (compared to [facility] med list) No New medications: No New medical conditions: No New allergies: No Adherence: Any missed doses? No Are you experiencing any side effects from your medications? No Patient understands no changes to current drug regimen were made.. Lucrecia El 04/28/19 12:46 PM documented in this encounter Plan of Treatment Upcoming Encounters Date Type Department Care Team (Late st Contact Info) Description 04/15/2024 1:30 PM EDT Office [place] [address] Lucrecia Rios APRN [facility] [address] documented as of this encounter Goals Goal Patient Goal Type Associated Problems Recent Progress Patient-Stated? Author [facility] Medication Compliance and Understanding Patient Facing Action Plan No Nataliya Lentz, [facility] Note: Hugo Luo Buster is hoping to see a decrease in BSA of his Psorasis and a decrease in his pain score of 4 to a 2. documented as of this encounter Visit Diagnoses Not on filedocumented in this encounter Care Teams Library Attendant Relationship Specialty Start Date End Date Yeimi Carey APRN [address] [place] [phone] PCP - General Family Medicine 11/04/18 12/20/21 documented as of this encounter
--- OUTSIDE RECORDS SUMMARY | 2024-03-27 00:43 | XMS_ITS | Encounter Summary ---
Author Organization [facility] [place] [address] Care Team Providers Care Chlorobutadiene Scrubber Operator Name Role Phone Yeimi Carey APRN Primary Care Provider +1- [phone] Reason for Visit * Reason Comments Medication Management Encounter Details Date Type Department Care Team (Late st Contact Info) Description 01/30/2019 Specialty [place] [phone] Tee Man [facility] Social History Tobacco Use Types [...] Progress Notes * Tee Man RPH - 01/30/2019 9:52 AM EDT Clinical Management Plan: Refill Specialty Pharmacy Consultation; Tee Man [facility] Comprehensive Medication Management (CMM) Hugo [...] Care Plan: no Assessment and Recommendations: Title Cognitive Ability: normal Cognitive Impairment Status Verified this Year: no Allergies and Drug intolerance: Allergies Allergen Reactions ??? Bactrim [Sulfamethoxazole-Trimethoprim] Rash Medication Reconciliation Discrepancies (compared to [facility] med list) - none New medications: no [...] were made at the appointment and that [facility] is providing recommendations (summary located at top of note) for provider review and follow up. Tee Man RPH 01/30/19 9:52 AM documented in this encounter Plan of Treatment Upcoming Encounters Date Type Department Care Team (Late st Contact Info) Description 04/15/2024 1:30 PM EDT [place] [address] Lucrecia Rios [employer] [facility] [address] [place] [phone] documented as of this encounter Goals Goal Patient Goal Type Associated Problems Recent Progress Patient-Stated? Author [facility] Medication Compliance and Understanding Patient Facing Action Plan No Nataliya Lentz [facility] Note: Hugo Luo Buster is hoping to see a decrease in BSA of his Psorasis and a decrease in his pain score of 4 to a 2. documented as of this encounter Visit Diagnoses Not on filedocumented in this encounter Care Teams Chlorobutadiene Scrubber Operator Relationship Specialty Start Date End Date Yeimi Carey APRN [address] [place] [phone] PCP - General Family Medicine 11/04/18 12/20/21 documented as of this encounter
--- OUTSIDE RECORDS SUMMARY | 2024-03-27 00:43 | XMS_ITS | Encounter Summary ---
Author Organization [facility] [place] [address] Care Team Providers Care Grain Drier Name Role Phone Renzo Darden MD Primary Care Provider [phone] Reason for Visit * Reason Comments Psoriasis Follow-up Encounter Details Date Type Department Care Team (Late st Contact Info) Description 10/26/2016 4:00 PM EDT Office Visit Dermatology at [address] [phone] Reilly Summers MD [address] [facility] [place] [address] Psoriasis Social History Tobacco Use Types Packs/Day [...] Progress Notes * Reilly Summers MD - 10/26/2016 4:00 PM EDT PROBLEM: 1. Followup, psoriasis. 2. On Humira from 01/2014 forward until 08/2016, successfully treating psoriasis. 3. Patient has not had any further refills due to insurance changes since August but would like to get back on. Roddy follows up and is working through some insurance issues to get back on his Humira. He also is required to have a Quantiferon Gold test to rule out TB, and that has been done 2 days ago. Pending those results, he will be able to again be qualified to receive Humira. He is concerned, however, about the copays and deductible that he may incur. I discussed the Humira copay assistance plan with him. 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 PHYSICAL EXAMINATION: Reveals a pleasant, 69-year-old gentleman who has psoriatic plaques on both elbows and both knees. He does not complain of any arthritic joint symptoms. Psoriasis otherwise still at the moment is still in remission. ASSESSMENT AND PLAN: Psoriasis, out of Humira x2 months. A. The patient has had his Quantiferon Gold test done. When results are available, and I presume they will be normal/negative, we will forward a new prescription for Humira to his [employer] plan. He no longer qualifies for [employer] because of his income level. B. Patient given Humira copay assistance plan contact information, and he will contact them once he hears from his insurance what his copay will be. C. I would like to see the patient back in 6 months for a repeat check. He knows to contact us if there is any holdup in getting his medication again. He will be taking 40 mg, giving himself an injection subcutaneously every 2 weeks utilizing the autoinjector pen. documented in this encounter Plan of Treatment Upcoming Encounters Date Type Department Care Team (Late st Contact Info) Description 04/15/2024 1:30 PM EDT Office [place] [address] Lucrecia Rios, SLEEP SCIENTIST [facility] [place] [address] documented as of this encounter Visit Diagnoses Diagnosis Psoriasis Other psoriasis documented in this encounter Care Teams Grain Drier Relationship Specialty Start Date End Date Renzo Darden MD [address] [place] [phone] PCP - General 12/21/13 11/03/18 documented as of this encounter
--- OUTSIDE RECORDS SUMMARY | 2024-03-27 00:43 | XMS_ITS | Encounter Summary ---
Author Organization [facility] [place] [address] Care Team Providers Care Rocket Scientist Name Role Phone Rnezo Darden MD Primary Care Provider [phone] Reason for Visit * Reason Comments Medication Management Encounter Details Date Type Department Care Team (Late st Contact Info) Description 09/16/2017 Specialty [place] [phone] Charity Doran Social History Tobacco Use Types [...] this encounter Progress Notes * Charity Jackson, [facility] - 09/16/2017 1:18 PM EST Clinical Management Plan: Refill Specialty Pharmacy Consultation; Charity Jackson [facility] Comprehensive Medication Management (CMM) Hugo Puja Buster [...] prior to next refill. Assessment and Recommendations: General Medication Management Cognitive ability: normal Allergies and Drug intolerance: Allergies Allergen Reactions ??? Bactrim [Sulfamethoxazole-Trimethoprim] Rash Medication Reconciliation Discrepancies (compared to [facility] med list) -none New medications: no New medical conditions: no New allergies: no Adherence: Medication Adherence Patient reported X missed doses in the last month: 0 Any gaps in refill history greater than 2 weeks in the last 3 months: no Demonstrates understanding of importance of adherence: yes Informant: patient Reliability of informant: reliable Provider-estimated medication adherence level: good Reasons for non-adherence: no problems identified Adherence tools used: directed education Support network for adherence: healthcare provider Confirmed plan for next specialty medication refill: delivery by pharmacy Refills needed for supportive medications: not needed Are you experiencing any side effects from your medications? no Pt understands no changes to current drug regimen were made at the appointment and that [facility] is providing recommendations (summary located at top of note) for provider review and follow up. Charity Jackson RPH 09/16/17 1:18 PM documented in this encounter Plan of Treatment Upcoming Encounters Date Type Department Care Team (Late st Contact Info) Description 04/15/2024 1:30 PM EDT Office [place] [address] [address] [facility] [place] [address] documented as of this encounter Visit Diagnoses Not on filedocumented in this encounter Care Teams Rocket Scientist Relationship Specialty Start Date End Date Renzo Darden MD [address] [place] [phone] PCP - General 12/21/13 11/03/18 documented as of this encounter
--- OUTSIDE RECORDS SUMMARY | 2024-03-27 00:43 | XMS_ITS | Encounter Summary ---
Author Organization [facility] [place] [address] Care Team Providers Care Endoscopy Tech Name Role Phone Renzo Darden MD Primary Care Provider Reason for Visit * Reason Comments Medication Management Encounter Details Date Type Department Care Team (Late st Contact Info) Description 09/17/2018 Specialty [place] [phone] Camilla Moreno [place] Social History Tobacco Use [...] Progress Notes * Camilla Moreno RPH - 09/17/2018 9:13 AM EST Clinical Management Plan: Refill Specialty [...] beneficiary Provider: plan sponsor pharmacist [facility] Method of Contact: by telephone Cognitive Ability: normal Cognitive Impairment Status Verified this Year: no Allergies and Drug intolerance: Allergies Allergen Reactions ??? Bactrim [Sulfamethoxazole-Trimethoprim] Rash Medication Reconciliation Discrepancies (compared to [facility] med list) -none New medications: no [...] were made at the appointment and that [facility] is providing recommendations (summary located at top of note) for provider review and follow up. Camilla Moreno RPH 09/17/18 9:16 AM documented in this encounter Plan of Treatment Upcoming Encounters Date Type Department Care Team ([facility] Contact Info) Description 04/15/2024 1:30 PM EDT Office [place] [address] Lucrecia Rios B2B ACCOUNT EXECUTIVE [facility] [place] [address] documented as of this encounter Goals Goal Patient Goal Type Associated Problems Recent Progress Patient-Stated? Author [facility] Medication Compliance and Understanding Patient Facing Action Plan No Nataliya Lentz [facility] Note: Hugo Goins is hoping to see a decrease in BSA of his Psorasis and a decrease in his pain score of 4 to a 2. documented as of this encounter Visit Diagnoses Not on filedocumented in this encounter Care Teams Endoscopy Tech Relationship Specialty Start Date End Date Renzo Darden MD [address] [place] [address] [place] [phone] PCP - General 12/21/13 11/03/18 documented as of this encounter
--- OUTSIDE RECORDS SUMMARY | 2024-03-27 00:43 | XMS_ITS | Encounter Summary ---
Author Organization [facility] [place] [address] Care Team Providers Care Lavender Farm Worker Name Role Phone Renzo Darden MD Primary Care Provider [phone] Encounter Details Date Type Department Care Team (Late st Contact Info) Description 07/22/2018 [place] [address] Zoraida Strickland, [facility] Social History Tobacco Use Types Packs/Day [...] encounter Miscellaneous Notes * Telephone Encounter - Zoraida Strickland - 07/22/2018 2:28 PM EST Clinical Management Plan: Refill Specialty Pharmacy Consultation; Zoraida Strickland Comprehensive Medication Management (CMM) Hugo Puja Angeliqueghulamfranko Mr. Hugo Goins is a 63 y.o. [...] [Sulfamethoxazole-Trimethoprim] Rash Medication Reconciliation Discrepancies (compared to [facility] med list) No New medications: No New medical conditions: No New allergies: No Adherence: Any missed doses? No Are you experiencing any side effects from your medications? No Patient understands no changes to current drug regimen were made.. Zoraida Strickland 07/22/18 2:28 PM documented in this encounter Plan of Treatment Upcoming Encounters Date Type Department Care Team (Late st Contact Info) Description 04/15/2024 1:30 PM EDT Office [place] [address] Lucrecia Rios [facility] [place] [address] documented as of this encounter Goals Goal Patient Goal Type Associated Problems Recent Progress Patient-Stated? Author [facility] Medication Compliance and Understanding Patient Facing Action Plan No Nataliya Lentz, [facility] Note: Hugo Luo Buster is hoping to see a decrease in BSA of his Psorasis and a decrease in his pain score of 4 to a 2. documented as of this encounter Visit Diagnoses Not on filedocumented in this encounter Care Teams Lavender Farm Worker Relationship Specialty Start Date End Date Renzo Darden MD [address] [place] [phone] PCP - General 12/21/13 11/03/18 documented as of this encounter
--- OUTSIDE RECORDS SUMMARY | 2024-03-27 00:43 | XMS_ITS | Encounter Summary ---
Author Organization [facility] [place] [address] Care Team Providers Care Brake Tester Name Role Phone Renzo Darden MD Primary Care Provider [phone] Reason for Visit * Reason Comments Medication Management Encounter Details Date Type Department Care Team (Late st Contact Info) Description 08/20/2017 Specialty [place] [phone] Tee Man [facility] Social History Tobacco Use Types Packs/Day Years [...] Progress Notes * Tee Man RPH - 08/20/2017 12:34 PM EST Clinical Management Plan: Refill [...] refill. Assessment and Recommendations: General Medication Management Type of medication management: chronic disease management, targeted medication review Referred by: provider Recipient: beneficiary Provider: plan sponsor pharmacist Visit type: follow-up Method of contact: by telephone Cognitive ability: normal Allergies and Drug intolerance: Allergies Allergen Reactions ??? Bactrim [Sulfamethoxazole-Trimethoprim] Rash Medication Reconciliation Discrepancies (compared to [facility] med list) - none New medications: [...] made at the appointment and that [facility] is providing recommendations (summary located at top of note) for provider review and follow up. Tee Man RPH 08/20/17 12:35 PM documented in this encounter Plan of Treatment Upcoming Encounters Date Type Department Care Team (Late st Contact Info) Description 04/15/2024 1:30 PM EDT Office [place] [address] Lucrecia Rios APRN [facility] [place] [address] documented as of this encounter Visit Diagnoses Not on filedocumented in this encounter Care Teams Brake Tester Relationship Specialty Start Date End Date Renzo Darden MD [address] [place] [phone] PCP - General 12/21/13 11/03/18 documented as of this encounter
--- OUTSIDE RECORDS SUMMARY | 2024-03-27 00:43 | XMS_ITS | Encounter Summary ---
Author Organization [facility] [place] [address] Care Team Providers Care Retail Area Manager Name Role Phone Renzo Darden MD Primary Care Provider [phone] Reason for Visit * Reason Comments Follow-up Psoriasis Encounter Details Date Type Department Care Team (Late st Contact Info) Description 04/19/2017 4:15 PM EDT Office Visit Dermatology at [address] [phone] Reilly Summers MD [address] [facility] [place] [address] Psoriasis Social History Tobacco Use Types Packs/Day [...] Progress Notes * Reilly Summers MD - 04/19/2017 4:15 PM EDT PROBLEM: 1. Followup psoriasis. 2. On Humira from January 2014 until August 2016, now back on it again since late February 2017. Roddy follows up and is back on Humira. He has a copay of only 5 dollars. It took him awhile to get that all straightened out. However, after only a month and a half his psoriasis is much, much better again. He is tolerating it well without any fevers, chills, or any untoward reactions. Physical examination reveals a pleasant, 62-year-old gentleman who has thinning patches of psoriasis and thinning plaques of psoriasis over his knees, on his shins, on his dorsal hands, arms. He has some soreness in his left thumb and left finger, but this is a constant, does not sound like it is in fact psoriatic. It sounds like it is more osteoarthritic in this 62-year-old magallanes. A/P: 1. Psoriasis. Back on Humira since late February. a. Continue with Humira, injecting a 40 mg autoinjector pen once every 2 weeks. We had given him a 6 month supply on March 01. b. Will need to renew prior authorization prior to its expiration May 29, 2017. c. Return to clinic in October for repeat check. Return to clinic in 6 months in October for repeat check. CC: Renzo Darden MD documented in this encounter Plan of Treatment Upcoming Encounters Date Type Department Care Team (Late Contact Info) Description 04/15/2024 1:30 PM EDT Office [place] [address] Lucrecia Rios, [facility] [place] [address] documented as of this encounter Visit Diagnoses Diagnosis Psoriasis Other psoriasis documented in this encounter Care Teams Retail Area Manager Relationship Specialty Start Date End Date Renzo Darden MD [address] [place] [phone] PCP - General 12/21/13 11/03/18 documented as of this encounter
--- OUTSIDE RECORDS SUMMARY | 2024-03-27 00:43 | XMS_ITS | Encounter Summary ---
Author Organization [facility] [place] [address] Care Team Providers Care Entertainer & Comic Name Role Phone Renzo Darden MD Primary Care Provider [phone] Reason for Visit * Reason Comments Medication Refill Encounter Details Date Type Department Care Team (Late Contact Info) Description 11/18/2015 Refill Dermatology at [place] [address] [place] [phone] Reilly Summers MD [address] [facility] [place] [address] Social History Tobacco Use Types Packs/Day Years [...] 1:30 PM EDT Office Visit Rheumatology at [facility] [place] [address] Lucrecia Rios APRN [facility] [place] [address] documented as of this encounter Visit Diagnoses Not on filedocumented in this encounter Care Teams Entertainer & Comic Relationship Specialty Start Date End Date Renzo Darden MD [address] [place] [phone] PCP - General 12/21/13 11/03/18 documented as of this encounter
--- OUTSIDE RECORDS SUMMARY | 2024-03-27 00:43 | XMS_ITS | Encounter Summary ---
Author Organization [facility] [place] [address] Care Team Providers Care Cadmium Liquor Maker Name Role Phone Renzo Darden MD Primary Care Provider [phone] Reason for Visit * Reason Comments Medication Management Patient Education Encounter Details Date Type Department Care Team (Late st Contact Info) Description 08/18/2018 Specialty Pharm[place] [phone] Tahira Diamond [facility] Social [...] as of this encounter Progress Notes * Tahira Dalton [facility] - 08/18/2018 9:31 AM EST Clinical Management Plan: Refill Specialty Pharmacy Consultation; Tahira Dalton [facility] Comprehensive [...] Title Type of Medication Management: chronic disease management Referred By: provider Recipient: beneficiary Provider: plan sponsor pharmacist Method of Contact: by telephone Cognitive Ability: normal Cognitive Impairment Status Verified this Year: no Allergies and Drug intolerance: Allergies Allergen Reactions ??? Bactrim [Sulfamethoxazole-Trimethoprim] Rash Medication Reconciliation Discrepancies (compared to [facility] med list) - no discrepancies found New medications: no New medical conditions: no New allergies: no Adherence: Medication Adherence Adherence tools used: directed education Support network for adherence: healthcare provider Are you experiencing any side effects from your medications? no Pt understands no changes to current drug regimen were made at the appointment and that [facility] is providing recommendations (summary located at top of note) for provider review and follow up. Tahira Dalton RPH 08/18/18 9:31 AM documented in this encounter Plan of Treatment Upcoming Encounters Date Type Department Care Team (Late st Contact Info) Description 04/15/2024 1:30 PM EDT Office [place] [address] Lucrecia Rios, [facility] [place] [address] documented as of this encounter Goals Goal Patient Goal Type Associated Problems Recent Progress Patient-Stated? Author [facility] Medication Compliance and Understanding Patient Facing Action Plan Nataliya Hyatt, [facility] Note: Hugo Luo Buster is hoping to see a decrease in BSA of his Psorasis and a decrease in his pain score of 4 to a 2. documented as of this encounter Visit Diagnoses Not on filedocumented in this encounter Care Teams Cadmium Liquor Maker Relationship Specialty Start Date End Date Renzo Darden MD [address] [place] [phone] PCP - General 12/21/13 11/03/18 documented as of this encounter
--- OUTSIDE RECORDS SUMMARY | 2024-03-27 00:43 | XMS_ITS | Encounter Summary ---
[place] [address] Care Team Providers Care Mill Labor Supervisor Name Role Phone Renzo Darden MD Primary Care Provider [phone] Reason for Visit * Reason Comments Psoriasis Encounter Details Date Type Department Care Team (Late st Contact Info) Description 06/16/2015 4:30 PM EST Office Visit Dermatology at [place] [address] [place] [phone] Reilly Summers MD [address] [facility] [place] [address] Psoriasis Social History Tobacco Use Types Packs/Day [...] on file documented as of this encounter Patient Instructions * Patient Instructions* Krystin Heller LPN - 06/16/2015 4:28 PM EST Images from the original note were not included. [facility] Psoriasis: After Your Visit Your Care Instructions Psoriasis (say tma-JI-vz-lauri) is a long-term skin problem that causes thick, white, silvery, or red patches on the skin. The patches may be small or large, and they occur most often on the knees, elbows, scalp, hands, feet, or lower back. The skin may be scaly. If the condition is severe, your skin can become itchy and tender. Psoriasisalso can be embarrassing if the patches are on visible areas. You can treat psoriasis with good care at home and with medicine from your doctor. You may put medicine on your skin and take pills or have shots to stop the redness and swelling. Your doctor also may suggest ultraviolet light treatments. Follow-up care is a rick part of your treatment and safety. Be sure to make and go to all appointments, and call your doctor if you are having problems. It???s also a good idea to know your test results and keep a list of the medicines you take. How can you care for yourself at home? ?? If your doctor prescribes medicine, use it exactly as prescribed. Call your doctor if you think you are having a problem with your medicine. ?? Keep your skin moist. After bathing, put an ointment, cream, or lotion on your skin while it is still damp. This seals in moisture. Use umbf-bkp-nymrzrg products that your doctor suggests. These may include Cetaphil, Lubriderm, or Eucerin. Petroleum jelly (such as Vaseline) and vegetable shortening (such as Crisco) also work. ?? If you have psoriasis on your scalp, use a mild tar shampoo, such as Neutrogena T/Gel, Polytar, or Zetar. Other scalp lotions, such as Dritho-Scalp, can be applied for several hours and then washed out. Shampoos that contain zinc pyrithione (such as Danex or Head & Shoulders), or selenium sulfide (such as Exsel or Selsun) may also help. ?? Gently soften and remove skin crusts. Put cream on the crusts and then peel off loose crusts. Removing crusts may help creams and lotions get into the skin. However, peel off crusts carefully so that you do not irritate your skin. ?? Follow your doctor's advice for sunlight or ultraviolet light treatment. ?? Avoid harsh skin products, such as those that contain alcohol. ?? Cover your skin in cold weather. ?? Try to prevent sunburn. Although short periods of sun exposure reduce psoriasis in most people, too much sun can damage the skin and cause skin cancer. In addition, sunburns can trigger psoriasis.Use sunscreen on areas of your skin that do not have psoriasis. Make sure the sunscreen blocks ultraviolet rays (both UVA and UVB) and has a sun protection factor (SPF) of at least 15. Use it every day, even when it is cloudy. Some doctors may recommend a higher SPF, such as 30. ?? Take care to avoid accidents such as cutting or scraping your skin. An injury to the skin can cause psoriasis patches to form anywhere on the body, including the area of the injury. ?? Avoid tight shoes, clothing, watchbands, and hats. These may irritate your skin. ?? Try to control stress and anxiety. They may cause psoriasis to appear suddenly or can make symptoms worse. ?? Use a vaporizer or humidifier to add moisture to your bedroom. Follow the directions for cleaning the machine. ?? Seek support from family and friends. Talk to a counselor or other professional if you feel sad about your condition and need more help. When should you call for help? Call your doctor now or seek immediate medical care if: ?? You have signs of infection, such as: ?? Increased pain, swelling, warmth, or redness. ?? Red streaks leading from the area. ?? Pus draining from the area. ?? A fever. Watch closely for changes in your health, and be sure to contact your doctor if: ?? Your skin is more red and irritated than usual, especially if you also have another illness. ?? You need to talk to someone about how you are coping with the illness. Where can you learn more? Visit our health information library at [email or web address]/Nomio You can also view health information on [employer] ([facility]), your personal patient account. Log in or sign up today. Enter U759 in the search box to learn more about Psoriasis: After Your Visit. ?? [id number] [employer]. Care instructions adapted under license by [facility]. This care instruction is for use with your licensed healthcare professional. If you have questions about a medical condition or this instruction, always ask your healthcare professional. [employer] disclaims any warranty or liability for your use of this information. Content Version: 10.4.399803; Current as of: October 14, 2013 documented in this encounter Progress Notes * Reilly Summers MD - 06/16/2015 4:44 PM EST Problem: 1. Followup psoriasis, on Humira since January 2014. 2. Six-month skin checkup. Roddy follows up and is doing beautifully. He continues to tolerate the Humira well, and it keeps his skin clear. He has not had any injection site reactions, fevers, or chills. On the 13 of June I did authorize a six-month refill of his Humira, and the authorization was sent to his [facility] pharmacy, [place], [place]. He injects the autoinjector pen subcutaneously one every two weeks. They dispense two, and he was given five refills. He has prior auth through the [facility] through the middle of this month. Physical examination reveals a pleasant 60-year-old gentleman who has no active psoriasis. He has minimal erythematous papules on his knees, but otherwise his skin is clear. Examination of the head and the neck, the chest, the back shows a few erythematous patches at sites of prior involvement, also erythematous patches on his knees, but no active psoriasis. Assessment and Plan: Psoriasis, well controlled with Humira. a. Continue Humira 40 mg, using the autoinjector pens one subcutaneously every two weeks. b. We will obtain prior authorization for the patient through the [facility]. c. Return to clinic in another six months for repeat check. COPY: Yeimi Carey A.P.R.N. documented in this encounter Plan of Treatment Upcoming Encounters Date Type Department Care Team (Late st Contact Info) Description 04/15/2024 1:30 PM EDT Office [place] [address] Lucrecia Rios APRN [facility] [place] [address] documented as of this encounter Visit Diagnoses Diagnosis Psoriasis Other psoriasis documented in this encounter Care Teams Mill Labor Supervisor Relationship Specialty Start Date End Date Renzo Darden MD [address] [place] [phone] PCP - General 12/21/13 11/03/18 documented as of this encounter
--- OUTSIDE RECORDS SUMMARY | 2024-03-27 00:43 | XMS_ITS | Encounter Summary ---
Author Organization [facility] [place] [address] Care Team Providers Care Irish Moss Operator Name Role Phone Renzo Darden MD Primary Care Provider [phone] Reason for Visit * Reason Comments Medication Management Encounter Details Date Type Department Care Team (Late st Contact Info) Description 06/24/2018 Specialty [place] [phone] Tee Man [facility] Social History Tobacco Use Types Packs/Day [...] Progress Notes * Tee Man RPH - 06/24/2018 2:23 PM EST Clinical Management Plan: Refill Specialty [...] (compared to [facility] med list) - none New medications: no [...] were made at the appointment and that [facility] is providing recommendations (summary located at top of note) for provider review and follow up. Tee Man RPH 06/24/18 2:23 PM documented in this encounter Plan of Treatment Upcoming Encounters Date Type Department Care Team (Late st Contact Info) Description 04/15/2024 1:30 PM EDT [place] [address] Lucrecia Rios [facility] [place] [address] documented as of this encounter Goals Goal Patient Goal Type Associated Problems Recent Progress Patient-Stated? Author [facility] Medication Compliance and Understanding Patient Facing Action Plan No Nataliya Lentz [facility] Note: Hugo Luo Vannessafranko is hoping to see a decrease in BSA of his Psorasis and a decrease in his pain score of 4 to a 2. documented as of this encounter Visit Diagnoses Not on filedocumented in this encounter Care Teams Irish Moss Operator Relationship Specialty Start Date End Date Renzo Darden MD [address] [place] [phone] PCP - General 12/21/13 11/03/18 documented as of this encounter
--- OUTSIDE RECORDS SUMMARY | 2024-03-27 00:43 | XMS_ITS | Encounter Summary ---
Author Organization [facility] [place] [address] Care Team Providers Care Environmental Monitoring Technician Name Role Phone Renzo Darden MD Primary Care Provider [phone] Reason for Visit * Reason Comments Medication Management Encounter Details Date Type Department Care Team (Late st Contact Info) Description 03/31/2018 Specialty [place] [address] Khris Bellamy, [facility] Social History Tobacco Use Types [...] as of this encounter Progress Notes * Khris Bellamy [facility] - 03/31/2018 12:42 PM EDT Clinical Management Plan: Refill Specialty Pharmacy Consultation; Khris Bellamy [facility] Comprehensive Medication Management (CMM) Hugo Puja [...] staff will follow up with the patient 7 days prior to next re fill. Assessment and Recommendations: Title Type of Medication Management: chronic disease management, targeted medication review Recipient: beneficiary Method of Contact: by telephone Cognitive Ability: normal Cognitive Impairment Status Verified this Year: no Allergies and Drug intolerance: Allergies Allergen Reactions ??? Bactrim [Sulfamethoxazole-Trimethoprim] Rash Medication Reconciliation Discrepancies (compared to [facility] med list) - no problems noted New medications: no New medical conditions: no New allergies: no Adherence: Medication Adherence Patient reported X missed doses in the last month: 0 Any gaps in refill history greater than 2 weeks in the last 3 months: no Demonstrates understanding of importance of adherence: yes Informant: patient Reliability of informant: reliable Provider-estimated medication adherence level: 90-100% Adherence tools used: directed education Support network for adherence: healthcare provider Confirmed plan for next specialty medication refill: delivery by pharmacy Are you experiencing any side effects from your medications? no Pt understands no changes to current drug regimen were made at the appointment and that [facility] is providing recommendations (summary located at top of note) for provider review and follow up. Khris Bellamy RPH 03/31/18 12:46 PM documented in this encounter Plan of Treatment Upcoming Encounters Date Type Department Care Team (Late st Contact Info) Description 04/15/2024 1:30 PM EDT Office [place] [address] Lucrecia Rios GAUGE INSPECTOR [facility] [place] [address] documented as of this encounter Goals Goal Patient Goal Type Associated Problems Recent Progress Patient-Stated? Author [facility] Medication Compliance and Understanding Patient Facing Action Plan Nataliya Hyatt, [facility] Note: Hugo Luo Vannessafranko is hoping to see a decrease in BSA of his Psorasis and a decrease in his pain score of 4 to a 2. documented as of this encounter Visit Diagnoses Not on filedocumented in this encounter Care Teams Environmental Monitoring Technician Relationship Specialty Start Date End Date Renzo Darden MD [address] [place] [phone] PCP - General 12/21/13 11/03/18 documented as of this encounter
--- OUTSIDE RECORDS SUMMARY | 2024-03-27 00:43 | XMS_ITS | Encounter Summary ---
Author Organization [facility] [place] [address] Care Team Providers Care President And Chief Executive Officer Name Role Phone Yeimi Carey APRN Primary Care Provider [phone] Encounter Details Date Type Department Care Team (Late st Contact Info) Description 10/05/2019 [place] [address] Erick Pace CPHT Social History Tobacco Use [...] * Telephone Encounter - Erick Pace - 10/05/2019 3:13 PM EST Clinical Management Plan: Refill [...] [Sulfamethoxazole-Trimethoprim] Rash Medication Reconciliation Discrepancies (compared to [facility] med list) No New medications: No New medical conditions: No New allergies: No Adherence: Any missed doses? No Are you experiencing any side effects from your medications? No Patient understands no changes to current drug regimen were made.. Erick Pace 10/05/19 3:13 PM documented in this encounter Plan of Treatment Upcoming Encounters Date Type Department Care Team (Late st Contact Info) Description 04/15/2024 1:30 PM EDT Office [place] [address] Lucrecia Rios APRN [facility] [place] [address] documented as of this encounter Goals Goal Patient Goal Type Associated Problems Recent Progress Patient-Stated? Author [facility] Medication Compliance and Understanding Patient Facing Action Plan No Nataliya Lentz, [facility] Note: Hugo Luo Buster is hoping to see a decrease in BSA of his Psorasis and a decrease in his pain score of 4 to a 2. documented as of this encounter Visit Diagnoses Not on filedocumented in this encounter Care Teams President And Chief Executive Officer Relationship Specialty Start Date End Date Yeimi Carey APRN [address] [place] [phone] PCP - General Family Medicine 11/04/18 12/20/21 documented as of this encounter
--- OUTSIDE RECORDS SUMMARY | 2024-03-27 00:43 | XMS_ITS | Encounter Summary ---
Author Organization [facility] [place] [address] Care Team Providers Care Motel Clerk Name Role Phone Renzo Darden MD Primary Care Provider [phone] Reason for Visit * Reason Comments Medication Management Encounter Details Date Type Department Care Team (Late st Contact Info) Description 06/24/2017 Specialty [place] [address] Khris Bellamy, [facility] Social History Tobacco Use Types [...] this encounter Progress Notes * Khris Bellamy [facility] - 06/24/2017 2:52 PM EST Clinical Management Plan: Refill Specialty Pharmacy Consultation; Khris Bellamy [facility] Comprehensive Medication Management (CMM) Hugo [...] to next re fill. Assessment and Recommendations: General Medication Management Type of medication management: chronic disease management, targeted medication review Recipient: beneficiary Visit type: follow-up Method of contact: by telephone Allergies and Drug intolerance: Allergies Allergen Reactions ??? Bactrim [Sulfamethoxazole-Trimethoprim] Rash Medication Reconciliation Discrepancies (compared to [facility] med list) - no problems noted New [...] level: 90-100% Adherence tools used: directed education Confirmed plan for next specialty medication refill: delivery by pharmacy Are you experiencing any side effects from your medications? no Pt understands no changes to current drug regimen were made at the appointment and that [facility] is providing recommendations (summary located at top of note) for provider review and follow up. Khris Bellamy RPH 06/24/17 2:55 PM documented in this encounter Plan of Treatment Upcoming Encounters Date Type Department Care Team (Late st Contact Info) Description 04/15/2024 1:30 PM EDT [place] [address] Lucrecia Rios [facility] [address] documented as of this encounter Visit Diagnoses Diagnosis Medication management Encounter for long-term (current) use of other medications documented in this encounter Care Teams Motel Clerk Relationship Specialty Start Date End Date Renzo Darden MD [address] [place] [phone] PCP - General 12/21/13 11/03/18 documented as of this encounter
--- OUTSIDE RECORDS SUMMARY | 2024-03-27 00:43 | XMS_ITS | Encounter Summary ---
Author Organization [facility] [place] [address] Care Team Providers Care Group Home Supervisor Name Role Phone Yeimi Carey APRN Primary Care Provider [phone] Encounter Details Date Type Department Care Team (Late st Contact Info) Description 09/07/2019 [place] [address] Wilber Portillo Social History Tobacco Use Types Packs/Day Years [...] encounter Miscellaneous Notes * Telephone Encounter - Wilber Portillo - 09/07/2019 11:01 AM EST Clinical Management Plan: Refill Specialty Pharmacy Consultation; Wilber Portillo Comprehensive Medication Management (CMM) Hugo Goins Mr. [...] (compared to [facility] med list) No New medications: No New medical conditions: No New allergies: No Adherence: Any missed doses? No Are you experiencing any side effects from your medications? No Patient understands no changes to current drug regimen were made.. Wilber Portillo 09/07/19 11:01 AM documented in this encounter Plan of Treatment Upcoming Encounters Date Type Department Care Team (Late st Contact Info) Description 04/15/2024 1:30 PM EDT Office [place] [address] Lucrecia Rios POLISHER [facility] [address] documented as of this encounter Goals Goal Patient Goal Type Associated Problems Recent Progress Patient-Stated? Author [facility] Medication Compliance and Understanding Patient Facing Action Plan No Nataliya Lentz, [facility] Note: Hugo Luo Buster is hoping to see a decrease in BSA of his Psorasis and a decrease in his pain score of 4 to a 2. documented as of this encounter Visit Diagnoses Not on filedocumented in this encounter Care Teams Group Home Supervisor Relationship Specialty Start Date End Date Yeimi Carey APRN [address] [place] [phone] PCP - General Family Medicine 11/04/18 12/20/21 documented as of this encounter
--- OUTSIDE RECORDS SUMMARY | 2024-03-27 00:43 | XMS_ITS | Encounter Summary ---
Author Organization [facility] [place] [address] Care Team Providers Care Seater Grinder Name Role Phone Yeimi Carey APRN Primary Care Provider [phone] Encounter Details Date Type Department Care Team (Late st Contact Info) Description 01/26/2020 [place] [address] Liberty Chawla, [facility] Social History Tobacco Use Types [...] * Telephone Encounter - Liberty Chawla - 01/26/2020 10:51 AM EDT Clinical Management Plan: Refill Specialty [...] [Sulfamethoxazole-Trimethoprim] Rash Medication Reconciliation Discrepancies (compared to [facility] med list) No New medications: No New medical conditions: No New allergies: No Adherence: Any missed doses? No Are you experiencing any side effects from your medications? No Patient understands no changes to current drug regimen were made.. Liberty Chawla 01/26/20 10:51 AM documented in this encounter Plan of Treatment Upcoming Encounters Date Type Department Care Team (Late st Contact Info) Description 04/15/2024 1:30 PM EDT Office [place] [address] Lucrecia Rios LOT ATTENDANT [facility] [place] [address] documented as of this encounter Goals Goal Patient Goal Type Associated Problems Recent Progress Patient-Stated? Author [facility] Medication Compliance and Understanding Patient Facing Action Plan No Nataliya Lentz, [facility] Note: Hugo Luo Vannessafranko is hoping to see a decrease in BSA of his Psorasis and a decrease in his pain score of 4 to a 2. documented as of this encounter Visit Diagnoses Not on filedocumented in this encounter Care Teams Seater Grinder Relationship Specialty Start Date End Date Yeimi Carey APRN [address] [place] [phone] PCP - General Family Medicine 11/04/18 12/20/21 documented as of this encounter
--- OUTSIDE RECORDS SUMMARY | 2024-03-27 00:43 | XMS_ITS | Encounter Summary ---
Author Organization [facility] [place] [address] Care Team Providers Care Windows Infrastructure Engineer Name Role Phone Yeimi Carey APRN Primary Care Provider [phone] Reason for Visit * Reason Comments Medication Management Encounter Details Date Type Department Care Team (Late st Contact Info) Description 03/30/2019 Specialty [place] [phone] Rylee Felix [facility] Social History Tobacco Use Types Packs/Day [...] as of this encounter Progress Notes * Rylee Felix [facility] - 03/30/2019 4:37 PM EDT Clinical Management Plan: Refill Specialty Pharmacy Consultation; Rylee Felix [facility] Comprehensive Medication Management (CMM) Hugo Puja Buster Mr. Hugo Goins is a 64 y.o. [...] beneficiary Provider: plan sponsor pharmacist Visit Type: [facility] [place] Follow-up Method of Contact: by telephone Cognitive Ability: normal Cognitive Impairment Status Verified this Year: no Allergies and Drug intolerance: Allergies Allergen Reactions ??? Bactrim [Sulfamethoxazole-Trimethoprim] Rash Medication Reconciliation Discrepancies (compared to [facility] med list) -none New medications: no [...] were made at the appointment and that [facility] is providing recommendations (summary located at top of note) for provider review and follow up. Rylee Felix RPH 03/30/19 4:38 PM documented in this encounter Plan of Treatment Upcoming Encounters Date Type Department Care Team (Late st Contact Info) Description 04/15/2024 1:30 PM EDT [place] [address] Lucrecia Rios MANAGER [facility] [place] [address] documented as of this encounter Goals Goal Patient Goal Type Associated Problems Recent Progress Patient-Stated? Author [facility] Medication Compliance and Understanding Patient Facing Action Plan No Nataliya Lentz, [facility] Note: Hugo Goins is hoping to see a decrease in BSA of his Psorasis and a decrease in his pain score of 4 to a 2. documented as of this encounter Visit Diagnoses Not on filedocumented in this encounter Care Teams Windows Infrastructure Engineer Relationship Specialty Start Date End Date Yeimi Carey APRN [address] [place] [phone] PCP - General Family Medicine 11/04/18 12/20/21 documented as of this encounter
--- OUTSIDE RECORDS SUMMARY | 2024-03-27 00:43 | XMS_ITS | Encounter Summary ---
Author Organization [facility] [place] [address] Care Team Providers Care Section Beamer Name Role Phone Yeimi Carey APRN Primary Care Provider [phone]- [phone] Reason for Visit * Reason Comments Medication Management Encounter Details Date Type Department Care Team (Late st Contact Info) Description 12/10/2018 Specialty [place] [phone] Charity Doran Social History Tobacco Use Types [...] encounter Progress Notes * Charity Jackson, [facility] - 12/10/2018 3:53 PM EDT Clinical Management Plan: Refill Specialty Pharmacy Consultation; Charity Jackson [facility] Comprehensive Medication Management (CMM) Hugo [...] the Care Plan: no Assessment and Recommendations: Type of Medication Management: chronic disease management, targeted medication review Referred By: provider Recipient: beneficiary Provider: plan sponsor pharmacist Visit Type: [facility] [place] [place] Follow-up Method of Contact: by telephone Cognitive Ability: normal Cognitive Impairment Status Verified this Year: no Allergies and Drug intolerance: Allergies Allergen Reactions ??? Bactrim [Sulfamethoxazole-Trimethoprim] Rash Medication Reconciliation Discrepancies (compared to [facility] med list) -none New medications: no New [...] were made at the appointment and that [facility] is providing recommendations (summary located at top of note) for provider review and follow up. Charity Jackson RPH 12/10/18 3:54 PM documented in this encounter Plan of Treatment Upcoming Encounters Date Type Department Care Team (Late st Contact Info) Description 04/15/2024 1:30 PM EDT [place] [address] Lucrecia Rios APRN [facility] [place] [address] documented as of this encounter Goals Goal Patient Goal Type Associated Problems Recent Progress Patient-Stated? Author [facility] Medication Compliance and Understanding Patient Facing Action Plan No Nataliya Lentz [facility] Note: Hugo Goins is hoping to see a decrease in BSA of his Psorasis and a decrease in his pain score of 4 to a 2. documented as of this encounter Visit Diagnoses Not on filedocumented in this encounter Care Teams Section Beamer Relationship Specialty Start Date End Date Yeimi Carey APRN [address] [place] [phone] PCP - General Family Medicine 11/04/18 12/20/21 documented as of this encounter
--- OUTSIDE RECORDS SUMMARY | 2024-03-27 00:43 | XMS_ITS | Encounter Summary ---
Author Organization [facility] [place] [address] Care Team Providers Care Technology Sales Specialist Name Role Phone Renzo Darden MD Primary Care Provider [phone] Reason for Visit * Reason Comments Medication Management Encounter Details Date Type Department Care Team (Late st Contact Info) Description 10/13/2018 Specialty [place] [phone] Camilla Moreno [place] Social History Tobacco Use [...] Progress Notes * Camilla Moreno RPH - 10/13/2018 11:03 AM EDT Clinical Management Plan: Refill Specialty [...] Provider: plan sponsor pharmacist Visit Type: [facility] Follow-up Method of Contact: by telephone Cognitive Ability: normal Cognitive Impairment Status Verified this Year: no Allergies and Drug intolerance: Allergies Allergen Reactions ??? Bactrim [Sulfamethoxazole-Trimethoprim] Rash Medication Reconciliation Discrepancies (compared to [facility] med list) -none New medications: no New [...] were made at the appointment and that [facility] is providing recommendations (summary located at top of note) for provider review and follow up. Camilla Moreno RPH 10/13/18 11:04 AM documented in this encounter Plan of Treatment Upcoming Encounters Date Type Department Care Team ([facility] Contact Info) Description 04/15/2024 1:30 PM EDT [place] [address] Lucrecia Rios CLOTHESPIN MACHINE OPERATOR [facility] [place] [address] documented as of this encounter Goals Goal Patient Goal Type Associated Problems Recent Progress Patient-Stated? Author [facility] Medication Compliance and Understanding Patient Facing Action Plan No Nataliya Lentz [facility] Note: Hugo Goins is hoping to see a decrease in BSA of his Psorasis and a decrease in his pain score of 4 to a 2. documented as of this encounter Visit Diagnoses Not on filedocumented in this encounter Care Teams Technology Sales Specialist Relationship Specialty Start Date End Date Renzo Darden MD [address] [place] [phone] PCP - General 12/21/13 11/03/18 documented as of this encounter
--- OUTSIDE RECORDS SUMMARY | 2024-03-27 00:43 | XMS_ITS | Encounter Summary ---
Author Organization [facility] [place] [address] Care Team Providers Care Steamfitter Name Role Phone Renzo Darden MD Primary Care Provider [phone] Reason for Visit * Reason Comments Medication Refill Encounter Details Date Type Department Care Team (Late st Contact Info) Description 03/04/2018 Specialty [place] [phone] Nataliya Lentz [facility] Social History Tobacco Use Types [...] as of this encounter Progress Notes * Nataliya Espinosa RPH - 03/04/2018 3:39 PM EDT Clinical Management Plan: Refill Specialty Pharmacy Consultation; Nataliya Espinosa [facility] Comprehensive Medication Management (CMM) Hugo Luo Buster Mr. Hugo Goins is a 62 y.o. (1955) male who called in a refill for their specialty prescription, HUMIRA, before a refill reminder was needed from [facility]. The medication was refilled on 03/04/18 for a 28 day supply for $5 copay. Adherence: Gaps in fill history: none The specialty pharmacy staff will follow up with the patient 5-7 days prior to next refill for reminder if needed. Nataliya Espinosa RPH 03/04/18 3:43 PM documented in this encounter Plan of Treatment Upcoming Encounters Date Type Department Care Team (Late st Contact Info) Description 04/15/2024 1:30 PM EDT Office [place] [address] Lucrecia Rios, BODY COMPONENT ENGINEER [facility] [address] documented as of this encounter Goals Goal Patient Goal Type Associated Problems Recent Progress Patient-Stated? Author [facility] Medication Compliance and Understanding Patient Facing Action Plan No Nataliya Lentz RPH Note: Hugo Luo Vannessafranko is hoping to see a decrease in BSA of his Psorasis and a decrease in his pain score of 4 to a 2. documented as of this encounter Visit Diagnoses Not on filedocumented in this encounter Care Teams Steamfitter Relationship Specialty Start Date End Date Renzo Darden MD [address] [place] [phone] PCP - General 12/21/13 11/03/18 documented as of this encounter
--- OUTSIDE RECORDS SUMMARY | 2024-03-27 00:43 | XMS_ITS | Encounter Summary ---
Author Organization Formerly [facility] [place] [address] Care Team Providers Care Email Developer Name Role Phone Yeimi Carey APRN Primary Care Provider [phone]- [phone] Reason for Visit * Reason Comments Medication Management Encounter Details Date Type Department Care Team (Late st Contact Info) Description 06/15/2019 Specialty [place] [phone] Rylee Felix [facility] Social History Tobacco Use Types Packs/Day [...] this encounter Progress Notes * Rylee Felix RPH - 06/15/2019 1:26 PM EST Clinical Management Plan: Refill Specialty Pharmacy Consultation; Rylee Felix [facility] Comprehensive Medication Management (CMM) Hugo Puja [...] beneficiary Provider: plan sponsor pharmacist [place] [facility] [place] Method of Contact: by telephone Cognitive Ability: normal Cognitive Impairment Status Verified this Year: no Allergies and Drug intolerance: Allergies Allergen Reactions ??? Bactrim [Sulfamethoxazole-Trimethoprim] Rash Medication Reconciliation Discrepancies (compared to [facility] med list) -none New medications: no [...] at the appointment and that [facility] is providing recommendations (summary located at top of note) for provider review and follow up. Rylee Felix RPH 06/15/19 2:56 PM documented in this encounter Plan of Treatment Upcoming Encounters Date Type Department Care Team (Late st Contact Info) Description 04/15/2024 1:30 PM EDT Office [place] [address] HOUSE NURSE [facility] [place] [address] documented as of this encounter Goals Goal Patient Goal Type Associated Problems Recent Progress Patient-Stated? Author [facility] Medication Compliance and Understanding Patient Facing Action Plan Nataliya Hyatt, [facility] Note: Hugo Goins is hoping to see a decrease in BSA of his Psorasis and a decrease in his pain score of 4 to a 2. documented as of this encounter Visit Diagnoses Not on filedocumented in this encounter Care Teams Email Developer Relationship Specialty Start Date End Date Yeimi Carey APRN [address] [place] [phone] PCP - General Family Medicine 11/04/18 12/20/21 documented as of this encounter
--- OUTSIDE RECORDS SUMMARY | 2024-03-27 00:43 | XMS_ITS | Encounter Summary ---
[facility] [place] [address] Care Team Providers Care Punch Machine Operator Name Role Phone Renzo Darden MD Primary Care Provider Encounter Details Date Type Department Care Team (Late st Contact Info) Description 12/22/2015 4:15 PM EDT Office Visit Dermatology at [address] [place] [phone] Reilly Summers MD [address] [facility] [place] [address] Psoriasis Social History Tobacco Use Types Packs/Day [...] Progress Notes * Reilly Summers MD - 12/22/2015 5:02 PM EDT Problem: 1. Followup psoriasis on Humira since January 2014. 2. Six-month skin checkup. Roddy follows up and his psoriasis is doing beautifully. He continues to tolerate the Humira well, having no injection site reactions, fevers, chills, or side effects. His skin is all but clear. He has prior authorization of his Humira through June of 2016. He has reapplied again to renew his insurance through the [facility]. Physical examination reveals a pleasant 60-year-old gentleman who has no active psoriasis. He is doing wonderfully. Assessment and Plan: Psoriasis, well controlled with Humira. a. Continue Humira 40 mg, using the autoinjector pens one subcutaneously every two weeks. Alternate thighs. b. Prior authorization good through June of 2016. c. Six-month supply of his medication was faxed in to [facility] on November 24, 2015. Return to clinic here in six months for repeat check. COPY: Yeimi Carey A.P.R.N. documented in this encounter Plan of Treatment Upcoming Encounters Date Type Department Care Team (Late st Contact Info) Description 04/15/2024 1:30 PM EDT Office [place] [address] Lucrecia Rios, [facility] [place] [address] documented as of this encounter Visit Diagnoses Diagnosis Psoriasis Other psoriasis documented in this encounter Care Teams Punch Machine Operator Relationship Specialty Start Date End Date Renzo Darden MD [address] [place] [phone] PCP - General 12/21/13 11/03/18 documented as of this encounter
--- OUTSIDE RECORDS SUMMARY | 2024-03-27 00:43 | XMS_ITS | Encounter Summary ---
Author Organization [facility] [place] [address] Care Team Providers Care Sheltered Workshop Executive Director Name Role Phone Yeimi Carey APRN Primary Care Provider [phone]- [phone] Reason for Visit * Reason Comments Medication Management Encounter Details Date Type Department Care Team (Late st Contact Info) Description 11/04/2019 Specialty [place] [phone] Mary Riggs [facility] Social History Tobacco Use Types [...] Progress Notes * Mary Riggs RPH - 11/04/2019 1:16 PM EDT Clinical Management Plan: Refill Specialty Pharmacy Consultation; Mary Riggs [facility] Comprehensive Medication Management (CMM) Hugo [...] beneficiary Provider: plan sponsor pharmacist Visit Type: [facility] Follow-up Method of Contact: by telephone Cognitive Ability: normal Cognitive Impairment Status Verified this Year: no Allergies and Drug intolerance: Allergies Allergen Reactions ??? Bactrim [Sulfamethoxazole-Trimethoprim] Rash Medication Reconciliation Discrepancies (compared to [facility] med list) -no New medications: no [...] at the appointment and that [facility] is providing recommendations (summary located at top of note) for provider review and follow up. Mary Riggs RPH 11/04/19 1:17 PM documented in this encounter Plan of Treatment Upcoming Encounters Date Type Department Care Team (Late st Contact Info) Description 04/15/2024 1:30 PM EDT [place] [address] Lucrecia Rios ELASTIC YARN TWISTER [facility] [place] [address] documented as of this encounter Goals Goal Patient Goal Type Associated Problems Recent Progress Patient-Stated? Author [facility] Medication Compliance and Understanding Patient Facing Action Plan No Nataliya Lentz [facility] Note: Hugo Goins is hoping to see a decrease in BSA of his Psorasis and a decrease in his pain score of 4 to a 2. documented as of this encounter Visit Diagnoses Not on filedocumented in this encounter Care Teams Sheltered Workshop Executive Director Relationship Specialty Start Date End Date Yeimi Carey APRN [address] [place] [phone] PCP - General Family Medicine 11/04/18 12/20/21 documented as of this encounter
--- OUTSIDE RECORDS SUMMARY | 2024-03-27 00:43 | XMS_ITS | Encounter Summary ---
Author Organization Formerly [facility] [place] [address] Care Team Providers Care Ham Sawyer Name Role Phone Yeimi Carey APRN Primary Care Provider +1- [phone] Encounter Details Date Type Department Care Team (Late st Contact Info) Description 03/23/2020 [place] [address] Liberty Chawla, [facility] Social History Tobacco Use Types Packs/Day Years [...] * Telephone Encounter - Liberty Chawla - 03/23/2020 12:06 PM EDT Clinical Management Plan: Refill Specialty [...] [Sulfamethoxazole-Trimethoprim] Rash Medication Reconciliation Discrepancies (compared to [facility] med list) No New medications: No New medical conditions: No New allergies: No Adherence: Any missed doses? No Are you experiencing any side effects from your medications? No Patient understands no changes to current drug regimen were made.. Liberty Chawla 03/23/20 12:07 PM documented in this encounter Plan of Treatment Upcoming Encounters Date Type Department Care Team (Late st Contact Info) Description 04/15/2024 1:30 PM EDT [place] [address] Lucrecia Rios [facility] [place] [address] documented as of this encounter Goals Goal Patient Goal Type Associated Problems Recent Progress Patient-Stated? Author [facility] Medication Compliance and Understanding Patient Facing Action Plan No Nataliya Lentz, [facility] Note: Hugo Luo Vannessafranko is hoping to see a decrease in BSA of his Psorasis and a decrease in his pain score of 4 to a 2. documented as of this encounter Visit Diagnoses Not on filedocumented in this encounter Care Teams Ham Sawyer Relationship Specialty Start Date End Date Yeimi Carey APRN [address] [place] [phone] PCP - General Family Medicine 11/04/18 12/20/21 documented as of this encounter
--- OUTSIDE RECORDS SUMMARY | 2024-03-27 00:43 | XMS_ITS | Encounter Summary ---
Author Organization [facility] [place] [address] Care Team Providers Care Standard Machine Stitcher Name Role Phone Yeimi Carey APRN Primary Care Provider [phone]- [phone] Reason for Visit * Reason Onset Date Comments Prior Authorization 05/20/2019 Humira Pen Encounter Details Date Type Department Care Team (Late st Contact Info) Description 05/20/2019 [place]phone [place] [phone] Donte Simon Prior Authorization (Humira Pen) Social History Tobacco Use Types Packs/Day Years [...] encounter Miscellaneous Notes * Telephone Encounter - Donte Simon - 05/20/2019 9:28 AM EDT [facility], Medication Prior Authorization Patient: Hugo Goins Patient : 1955 Patient Address: [address] [place] [address] [place] [address] (home) Medication: Humira Pen 40mg/0.4mL PNKT Subscriber Insurance: [facility] Fax: Physician: Reilly Summers Sent Via: [facility] Torrez: [id number] Ref/Case/PA#: [id number] Medication Strength Frequency Requested: Humira Pen 40mg/0.4mL PNKT Qty/Day Supply: 10/02 New Start: No Diagnosis & ICD-10 Code: Psoriasis L40.9 [facility], Prior Authorization Approval Medication Name: Humira Pen 40mg/0.4mL PNKT FILLABLE AT [facility]? yes APPROVAL DATES: 04/20/2019 - 05/19/2020 SPECIFIC INS REQUIREMENT: Prior authorization approved. Patient can fill prescription through [facility] with a $0.00 co-pay. CASE/REFERENCE # [id number] APPROVAL NOTIFICATION RECEIVED VIA: [facility] COPAY: $0.00 COPAY ASSISTANCE NEEDED?: No NOTES: Prior authorization approved. Patient can fill prescription through [facility] with a $0.00 co-pay. documented in this encounter Plan of Treatment Upcoming Encounters Date Type Department Care Team (Late st Contact Info) Description 04/15/2024 1:30 PM EDT Office Visit [place] [address] Lucrecia Rios APRN [facility] [place] [address] documented as of this encounter Goals Goal Patient Goal Type Associated Problems Recent Progress Patient-Stated? Author [facility] Medication Compliance and Understanding Patient Facing Action Plan Nataliya Hyatt, [facility] Note: Hugo Luo Vannessafranko is hoping to see a decrease in BSA of his Psorasis and a decrease in his pain score of 4 to a 2. documented as of this encounter Visit Diagnoses Not on filedocumented in this encounter Care Teams Standard Machine Stitcher Relationship Specialty Start Date End Date Yeimi Carey APRN [address] [place] [phone] PCP - General Family Medicine 11/04/18 12/20/21 documented as of this encounter
--- OUTSIDE RECORDS SUMMARY | 2024-03-27 00:43 | XMS_ITS | Encounter Summary ---
Author Organization [facility] [place] [address] Care Team Providers Care Pool Hall Inspector Name Role Phone Yeimi Carey APRN Primary Care Provider [phone]- [phone] Reason for Visit * Reason Comments Medication Management Encounter Details Date Type Department Care Team (Late st Contact Info) Description 05/22/2019 Specialty [place] [phone] Camilla Moreno RPH Social History Tobacco Use Types Packs/Day Years [...] Progress Notes * Camilla Moreno RPH - 05/22/2019 11:12 AM EDT Clinical Management Plan: Refill Specialty Pharmacy Consultation; Camilla Moreno RPH Comprehensive Medication Management (CMM) Hugo Goins Mr. Hugo Goins is a 64 y.o. (1955) male who refilled their specialty medication, Humira ,without speaking to a guest relations representative from the Specialty Pharmacy. The medication was refilled on05/20/19 for a 28 day supply for $0.00 copay. Adherence: Gaps in fill history: none Was a change made to the Care Plan: no The specialty pharmacy staff will follow up with the patient 5-7 days prior to next refill for reminder if needed. Camilla Moreno RPH 05/22/19 11:12 AM documented in this encounter Plan of Treatment Upcoming Encounters Date Type Department Care Team (Late st Contact Info) Description 04/15/2024 1:30 PM EDT Office [place] [address] Lucrecia Rios APRN [facility] [place] [address] documented as of this encounter Goals Goal Patient Goal Type Associated Problems Recent Progress Patient-Stated? Author [facility] Medication Compliance and Understanding Patient Facing Action Plan No Nataliya Lentz [facility] Note: Hugo Luo Buster is hoping to see a decrease in BSA of his Psorasis and a decrease in his pain score of 4 to a 2. documented as of this encounter Visit Diagnoses Not on filedocumented in this encounter Care Teams Pool Hall Inspector Relationship Specialty Start Date End Date Yeimi Carey APRN [address] [place] [phone] PCP - General Family Medicine 11/04/18 12/20/21 documented as of this encounter
--- OUTSIDE RECORDS SUMMARY | 2024-03-27 00:43 | XMS_ITS | Encounter Summary ---
Author Organization [facility] [place] [address] Care Team Providers Care Starch Cooker Name Role Phone Renzo Darden MD Primary Care Provider [phone] Reason for Visit * Reason Comments Medication Management Encounter Details Date Type Department Care Team (Late st Contact Info) Description 10/14/2017 Specialty Pharm[place] [phone] Mary Arroyo [facility] Social History Tobacco Use Types Packs/Day Years [...] of this encounter Progress Notes * Mary Payan [facility] - 10/14/2017 3:07 PM EDT Clinical Management Plan: Refill Specialty Pharmacy Consultation; Mary Payan [facility] Comprehensive Medication Management (CMM) Hugo Puja Buster [...] beneficiary Provider: plan sponsor pharmacist [place] [facility] [place] Method of Contact: by telephone Cognitive Ability: normal Allergies and Drug intolerance: Allergies Allergen Reactions ??? Bactrim [Sulfamethoxazole-Trimethoprim] Rash Medication Reconciliation Discrepancies (compared to [facility] med list) -none New medications: no New [...] were made at the appointment and that [facility] is providing recommendations (summary located at top of note) for provider review and follow up. Mary Payan RPH 10/14/17 3:09 PM documented in this encounter Plan of Treatment Upcoming Encounters Date Type Department Care Team (Late st Contact Info) Description 04/15/2024 1:30 PM EDT Office [place] [address] Lucrecia Rios [facility] [place] [address] documented as of this encounter Visit Diagnoses Not on filedocumented in this encounter Care Teams Starch Cooker Relationship Specialty Start Date End Date Renzo Darden MD [address] [place] [phone] PCP - General 12/21/13 11/03/18 documented as of this encounter
--- OUTSIDE RECORDS SUMMARY | 2024-03-27 00:43 | XMS_ITS | Encounter Summary ---
Author Organization [facility] [place] [address] Care Team Providers Care Bus System Operator Name Role Phone Renzo Darden MD Primary Care Provider [phone] Reason for Visit * Reason Comments Medication Management Encounter Details Date Type Department Care Team (Late st Contact Info) Description 07/23/2017 Specialty [place] [phone] Tee Man [facility] Social History Tobacco Use Types Packs/Day Years [...] Progress Notes * Tee Man RPH - 07/23/2017 4:34 PM EST Clinical Management Plan: Refill Specialty Pharmacy Consultation; Tee Man [facility] Comprehensive Medication Management (CMM) Hugo Puja Buster [...] disease management, targeted medication review Recipient: beneficiary Provider: plan sponsor pharmacist Visit type: follow-up Method of contact: by telephone Allergies and Drug intolerance: Allergies Allergen Reactions ??? Bactrim [Sulfamethoxazole-Trimethoprim] Rash Medication Reconciliation Discrepancies (compared to [facility] med list) - none New medications: no [...] at the appointment and that [facility] is providing recommendations (summary located at top of note) for provider review and follow up. Tee Man RPH 07/23/17 4:35 PM documented in this encounter Plan of Treatment Upcoming Encounters Date Type Department Care Team (Late st Contact Info) Description 04/15/2024 1:30 PM EDT [place] [address] Lucrecia Rios APRN [facility] [place] [address] documented as of this encounter Visit Diagnoses Not on filedocumented in this encounter Care Teams Bus System Operator Relationship Specialty Start Date End Date Renzo Darden MD [address] [place] [phone] PCP - General 12/21/13 11/03/18 documented as of this encounter
--- OUTSIDE RECORDS SUMMARY | 2024-03-27 00:43 | XMS_ITS | Encounter Summary ---
[place] [address] Care Team Providers Care Degreaser Name Role Phone AurelioYeimi LESTER Primary Care Provider [phone]- [phone] Reason for Visit * Reason Comments Psoriasis Encounter Details Date Type Department Care Team (Late st Contact Info) Description 05/12/2019 4:15 PM EDT Office Visit Dermatology at [address] [phone] Reilly Summers MD [address] [facility] [place] [address] Psoriasis Social History Tobacco Use Types Packs/Day [...] Progress Notes * Reilly Summers MD - 05/12/2019 4:15 PM EDT Problem: 1. Follow-up psoriasis 2. On Humira since January 2014 through August 2016 now back on since February 2017 3. Past history of EtOH abuse and hepatitis C, now treated. Roddy follows up and is doing very well. His psoriasis is clear. He has a minimal scaling patch in the back of his right calf that pretty much fades after Humira shot but then slowly recurs before the next 1. He loves the citrate free injections and no longer stinging no longer burn. Is working well for him. Not had any fevers chills injection site reactions. He would like to continue it. The one that bothers him is the expense which is born by his insurance but it still bothers him. Physical examination was a pleasant 64-year-old magallanes who still working and is gainfully employed. He has no active psoriasis. He is only a thin minimal erythematous patch in the back of his right calf. Assessment and plan: Psoriasis controlled on Humira 1. Continue Humira utilizing the 40 mg autoinjector pen once every 2 weeks utilizing the citrate free Humira. Dispense #2 for 1 month supply with 5 refills 2. We will need to renew prior authorization 3. Return to clinic in the 6 months for recheck. 4. Discussed the lack of another safe and less expensive medication that he could take for his psoriasis, given his history of EtOH abuse and history of hepatitis C. 5. We decided to continue the Humira as he does not want his psoriasis to flare again. CC: Kiley Carey APRN documented in this encounter Plan of Treatment Upcoming Encounters Date Type Department Care Team (Late st Contact Info) Description 04/15/2024 1:30 PM EDT Office Visit [place] [address] Lucrecia Rios REVENUE ACCOUNTANT [facility] [place] [address] documented as of this encounter Goals Goal Patient Goal Type Associated Problems Recent Progress Patient-Stated? Author [facility] Medication Compliance and Understanding Patient Facing Action Plan No Nataliya Lentz, [facility] Note: Hugo Luo Vannessafranko is hoping to see a decrease in BSA of his Psorasis and a decrease in his pain score of 4 to a 2. documented as of this encounter Visit Diagnoses Diagnosis Psoriasis Other psoriasis documented in this encounter Care Teams Degreaser Relationship Specialty Start Date End Date Yeimi Carey APRN [address] [place] [phone] PCP - General Family Medicine 11/04/18 12/20/21 documented as of this encounter
--- OUTSIDE RECORDS SUMMARY | 2024-03-27 00:43 | XMS_ITS | Encounter Summary ---
Author Organization [facility] [place] [address] Care Team Providers Care Airveyor Operator Name Role Phone Renzo Darden MD Primary Care Provider [phone] Encounter Details Date Type Department Care Team (Late Contact Info) Description 10/15/2017 Refill Dermatology at [place] [address] [place] [phone] Reilly Summers MD [address] [facility] [place] [address] Social History Tobacco Use Types Packs/Day Years [...] 1:30 PM EDT Office Visit Rheumatology at [facility] [place] [address] Lucrecia Rios, ALIGNMENT TECHNICIAN [facility] [place] [address] documented as of this encounter Visit Diagnoses Not on filedocumented in this encounter Care Teams Airveyor Operator Relationship Specialty Start Date End Date Renzo Darden MD [address] [place] [phone] PCP - General 12/21/13 11/03/18 documented as of this encounter
--- OUTSIDE RECORDS SUMMARY | 2024-03-27 00:43 | XMS_ITS | Encounter Summary ---
Author Organization [facility] [place] [address] Care Team Providers Care White Sugar Supervisor Name Role Phone Renzo Darden MD Primary Care Provider [phone] Reason for Visit * Reason Comments Medication Management Encounter Details Date Type Department Care Team (Late st Contact Info) Description 05/26/2018 Specialty [place] [phone] Charity Doran Social History Tobacco Use Types [...] this encounter Progress Notes * Charity Jackson, [facility] - 05/26/2018 1:39 PM EDT Clinical Management Plan: Refill Specialty Pharmacy Consultation; Charity Jackson [facility] Comprehensive Medication Management (CMM) Hugo Puja [...] beneficiary Provider: plan sponsor pharmacist Visit Type: [facility] Follow-up Method of Contact: by telephone Cognitive [...] review and follow up. Charity Jackson RPH 05/26/18 1:41 PM documented in this encounter Plan of Treatment Upcoming Encounters Date Type Department Care Team (Late st Contact Info) Description 04/15/2024 1:30 PM EDT [place] [address] Lucrecia Rios APRN [facility] RHEUMATOLOGY [place] [phone] documented as of this encounter Goals Goal Patient Goal Type Associated Problems Recent Progress Patient-Stated? Author [facility] Medication Compliance and Understanding Patient Facing Action Plan Nataliya Hyatt [facility] Note: Hugo Luo Vannessafranko is hoping to see a decrease in BSA of his Psorasis and a decrease in his pain score of 4 to a 2. documented as of this encounter Visit Diagnoses Not on filedocumented in this encounter Care Teams White Sugar Supervisor Relationship Specialty Start Date End Date Renzo Dardne MD [address] [place] [phone] PCP - General 12/21/13 11/03/18 documented as of this encounter
--- OUTSIDE RECORDS SUMMARY | 2024-03-27 00:43 | XMS_ITS | Encounter Summary ---
Author Organization [facility] [place] [address] Care Team Providers Care Editor Producer Name Role Phone Renzo Darden MD Primary Care Provider [phone] Reason for Visit * Reason Comments Medication Management Encounter Details Date Type Department Care Team (Late st Contact Info) Description 04/29/2018 Specialty [place] [phone] Alen Lamas [facility] Social History Tobacco Use Types Packs/Day [...] as of this encounter Progress Notes * Alen [place] RPH - 04/29/2018 4:23 PM EDT Clinical Management Plan: Refill Specialty Pharmacy Consultation; Alen [place] [facility] Comprehensive Medication Management (CMM) Hugo Puja [...] beneficiary Provider: plan sponsor pharmacist Visit Type: [facility] Follow-up Method of Contact: by telephone Cognitive Ability: normal Cognitive Impairment Status Verified this Year: no Allergies and Drug intolerance: Allergies Allergen Reactions ??? Bactrim [Sulfamethoxazole-Trimethoprim] Rash Medication Reconciliation Discrepancies (compared to [facility] med list) -none reported New medications: no New medical conditions: no [...] were made at the appointment and that [facility] is providing recommendations (summary located at top of note) for provider review and follow up. Alen [place] RPH 04/29/18 4:24 PM documented in this encounter Plan of Treatment Upcoming Encounters Date Type Department Care Team (Late st Contact Info) Description 04/15/2024 1:30 PM EDT [place] [address] Lucrecia Rios MECHANICAL ENGINEERING MANAGER [facility] [place] [address] documented as of this encounter Goals Goal Patient Goal Type Associated Problems Recent Progress Patient-Stated? Author [facility] Medication Compliance and Understanding Patient Facing Action Plan Nataliya Haytt, [facility] Note: Hugo Merinoghulamfranko is hoping to see a decrease in BSA of his Psorasis and a decrease in his pain score of 4 to a 2. documented as of this encounter Visit Diagnoses Not on filedocumented in this encounter Care Teams Editor Producer Relationship Specialty Start Date End Date Renzo Darden MD [address] [place] [phone] PCP - General 12/21/13 11/03/18 documented as of this encounter
--- OUTSIDE RECORDS SUMMARY | 2024-03-27 00:43 | XMS_ITS | Encounter Summary ---
Author Organization [facility] [place] [address] Care Team Providers Care General Office Clerk Name Role Phone Renzo Darden MD Primary Care Provider [phone] Reason for Visit * Reason Onset Date Comments Prior Authorization 05/08/2018 [place] Encounter Details Date Type Department Care Team (Late st Contact Info) Description 05/08/2018 [place] [phone] Myrna Aldridge Prior Authorization (Arabella) Social History Tobacco Use Types Packs/Day Years [...] encounter Miscellaneous Notes * Telephone Encounter - Danisha Koch - 05/09/2018 12:00 PM EDT [facility], Prior Authorization Approval APPROVAL DATES: 05/09/18 - 05/09/19 SPECIFIC INS REQUIREMENT: Patient may fill at [facility]. CASE/REFERENCE # [id number] APPROVAL NOTIFICATION RECEIVED VIA: Phone call * Telephone Encounter - Myrna Flanagan - 05/08/2018 2:24 PM EDT [facility], Medication Prior Authorization Patient: Hugo Goins Patient : 1955 Patient Address: [address] [place] [phone] (home) Medication: Humira Subscriber Insurance: [facility] Fax: n/a Physician: Reilly Summers Sent Via: [facility] Torrez: [id number] Ref/Case/PA#: [id number] Medication Strength Frequency Requested: Humira Qty/Day Supply: 10/02 New Start: No Diagnosis & ICD-10 Code: Psoriasis documented in this encounter Plan of Treatment Upcoming Encounters Date Type Department Care Team (Late st Contact Info) Description 04/15/2024 1:30 PM EDT Office [place] [phone] Lucrecia Rios [facility] [place] [address] documented as of this encounter Goals Goal Patient Goal Type Associated Problems Recent Progress Patient-Stated? Author [facility] Medication Compliance and Understanding Patient Facing Action Plan No Nataliya Lentz, [facility] Note: Hugo Goins is hoping to see a decrease in BSA of his Psorasis and a decrease in his pain score of 4 to a 2. documented as of this encounter Visit Diagnoses Not on filedocumented in this encounter Care Teams General Office Clerk Relationship Specialty Start Date End Date Renzo Darden MD [address] [place] [phone] PCP - General 12/21/13 11/03/18 documented as of this encounter
--- OUTSIDE RECORDS SUMMARY | 2024-03-27 00:43 | XMS_ITS | Encounter Summary ---
Author Organization [facility] Address [facility] [place] [address] Care Team Providers Care Technical Trainer Name Role Phone Renzo Darden MD Primary Care Provider [phone] Encounter Details Date Type Department Care Team (Late Contact Info) Description 05/05/2018 Refill Dermatology at [address] [phone] Megan Mukherjee, FISHING VESSEL MATE Social History Tobacco Use Types Packs/Day Years [...] 1:30 PM EDT Office [place] [address] Lucrecia Rios APRN [facility] [place] [address] documented as of this encounter Goals Goal Patient Goal Type Associated Problems Recent Progress Patient-Stated? Author [facility] Medication Compliance and Understanding Patient Facing Action Plan No Nataliya Lentz, [facility] Note: Hugo Goins is hoping to see a decrease in BSA of his Psorasis and a decrease in his pain score of 4 to a 2. documented as of this encounter Visit Diagnoses Not on filedocumented in this encounter Care Teams Technical Trainer Relationship Specialty Start Date End Date Renzo Darden MD [address] [place] [phone] PCP - General 12/21/13 11/03/18 documented as of this encounter
--- OUTSIDE RECORDS SUMMARY | 2024-03-27 00:43 | XMS_ITS | Encounter Summary ---
Author Organization [facility] [place] [address] Care Team Providers Care Brick Molder Hand Name Role Phone Renzo Darden MD Primary Care Provider [phone] Reason for Visit * Reason Comments Follow-up Encounter Details Date Type Department Care Team (Late st Contact Info) Description 05/01/2016 10:45 AM EDT Office Visit Dermatology at [address] [phone] Reilly Summers MD [address] [facility] [place] [address] Psoriasis; Herpes labialis Social History Tobacco Use Types Packs/Day Years [...] Progress Notes * Reilly Summers MD - 05/01/2016 10:45 AM EDT PROBLEM: 1. Lip lesions. 2. On Humira since January 2014, successfully treating psoriasis. Hugo overall has been doing well. However, last or Saturday he developed a stinging and burning in his lips and then blisters 2 separate locations, and then they crusted and scabbed. He wonders whether his Humira could be making him more prone to cold sores, whether he needs to stop taking Humira, and he would like to know whether this could be diagnosed or should be treated to date. He has had cold sores in the past intermittently. No increased frequency since he started the Humira roughly 2 years ago. He states that he had been out in the sun a little bit more recently doing some fishing. There have been no recent and different change in his medications. He has been using a new ChapStick-type product with a 30 SPF for his lips to protect them. He also wants to be sure that he does not have anything cancerous. Physical examination reveals a pleasant 61-year-old gentleman who has 2 small shallow erosions which are scab crusted, 1 on the central, 1 on the left lower lip. He had no intraoral lesions. There is no lesion on the upper lip. He is blue eyed and very fair skinned. 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 a. The patient in the past was given an acyclovir cream to use which he has tried recently, but it really has not helped. b. Explained that at this point treating with orals is also not likely to be beneficial, but I gave him a prescription for Valtrex 500 mg to take 1 p.o. b.i.d. for 3 days at the 1st sight of anther outbreak. c. Reassured him that his Humira should not be stopped but continued. It is not likely triggering the outbreaks of his herpes labialis. d. Also explained that unable to really obtain culture today as he has dried scabs present on the lips, and it would be much more productive to culture from a fresh vesicle/blister. Return to clinic here. The patient has prior authorization of his Humira good through June of 2016. I will see him back in 6 months for a repeat check. We will be happy to renew his Humira until then. cc: Yeimi Carey APRN documented in this encounter Plan of Treatment Upcoming Encounters Date Type Department Care Team (Late st Contact Info) Description 04/15/2024 1:30 PM EDT Office [place] [address] Lucrecia Rios APRN [facility] [place] [address] documented as of this encounter Visit Diagnoses Diagnosis Psoriasis Other psoriasis Herpes labialis Herpes simplex without mention of complication documented in this encounter Care Teams Brick Molder Hand Relationship Specialty Start Date End Date Renzo Darden MD [address] [place] [phone] PCP - General 12/21/13 11/03/18 documented as of this encounter
--- OUTSIDE RECORDS SUMMARY | 2024-03-27 00:43 | XMS_ITS | Encounter Summary ---
Author Organization [facility] [place] [address] Care Team Providers Care Quality Assurance Nurse Name Role Phone Yeimi Carey APRN Primary Care Provider [phone] Reason for Visit * Reason Comments Medication Management Encounter Details Date Type Department Care Team (Late st Contact Info) Description 12/30/2019 Specialty [place] [phone] Andres Fitzgerald [facility] Social History Tobacco [...] Progress Notes * Andres Espinal RPH - 12/30/2019 4:04 PM EDT Clinical Management Plan: Refill Specialty Pharmacy Consultation; Andres Espinal [facility] Comprehensive Medication Management (CMM) Hugo Puja [...] beneficiary Provider: plan sponsor pharmacist Visit Type: [facility] Follow-up Method of Contact: by telephone Cognitive Ability: normal Cognitive Impairment Status Verified this Year: no Allergies and Drug intolerance: Allergies Allergen Reactions ??? Bactrim [Sulfamethoxazole-Trimethoprim] Rash Medication Reconciliation Discrepancies (compared to [facility] med list) -None New medications: no New [...] review and follow up. Andres Espinal RPH 12/30/19 4:06 PM documented in this encounter Plan of Treatment Upcoming Encounters Date Type Department Care Team (Late st Contact Info) Description 04/15/2024 1:30 PM EDT Office [place] [address] Lucrecia Rios APRN [facility] [address] documented as of this encounter Goals Goal Patient Goal Type Associated Problems Recent Progress Patient-Stated? Author [facility] Medication Compliance and Understanding Patient Facing Action Plan No Nataliya Lentz, [facility] Note: Hugo Puja Goins is hoping to see a decrease in BSA of his Psorasis and a decrease in his pain score of 4 to a 2. documented as of this encounter Visit Diagnoses Not on filedocumented in this encounter Care Teams Quality Assurance Nurse Relationship Specialty Start Date End Date Yeimi Carey APRN [address] [place] [phone] PCP - General Family Medicine 11/04/18 12/20/21 documented as of this encounter
--- OUTSIDE RECORDS SUMMARY | 2024-03-27 00:43 | XMS_ITS | Encounter Summary ---
Author Organization [facility] [place] [address] Care Team Providers Care Warehouse Production Worker Name Role Phone Yeimi Carey APRN Primary Care Provider [phone] Reason for Visit * Reason Comments Medication Management Medication Refill Encounter Details Date Type Department Care Team (Late st Contact Info) Description 02/19/2020 Specialty [place] [phone] Kodak Beckman [facility] Social History Tobacco Use Types Packs/Day [...] as of this encounter Progress Notes * Kodak Beckman [facility] - 02/19/2020 12:35 PM EDT Clinical Management Plan: Refill Specialty Pharmacy Consultation; Kodak Beckman [facility] Comprehensive Medication Management (CMM) Hugo Puja [...] beneficiary Provider: plan sponsor pharmacist Visit Type: [facility] Follow-up Method of Contact: by telephone Cognitive Ability: normal Cognitive Impairment Status Verified this Year: no Allergies and Drug intolerance: Allergies Allergen Reactions ??? Bactrim [Sulfamethoxazole-Trimethoprim] Rash Medication Reconciliation Discrepancies (compared to [facility] med list) - No New medications: no New medical conditions: no [...] were made at the appointment and that [facility] is providing recommendations (summary located at top of note) for provider review and follow up. Kodak Beckman RPH 02/19/20 12:38 PM documented in this encounter Plan of Treatment Upcoming Encounters Date Type Department Care Team (Late st Contact Info) Description 04/15/2024 1:30 PM EDT [place] [address] Lucrecia Riso, [facility] [place] [address] documented as of this encounter Goals Goal Patient Goal Type Associated Problems Recent Progress Patient-Stated? Author [facility] Medication Compliance and Understanding Patient Facing Action Plan Nataliya Hyatt [facility] Note: Hugo Goins is hoping to see a decrease in BSA of his Psorasis and a decrease in his pain score of 4 to a 2. documented as of this encounter Visit Diagnoses Not on filedocumented in this encounter Care Teams Warehouse Production Worker Relationship Specialty Start Date End Date Yeimi Carey APRN [address] [place] [phone] PCP - General Family Medicine 11/04/18 12/20/21 documented as of this encounter
--- OUTSIDE RECORDS SUMMARY | 2024-03-27 00:44 | XMS_ITS | Encounter Summary ---
Author Organization [facility] [place] [address] Care Team Providers Care Printing Press Machinist Name Role Phone Lyric Egan MD Primary Care Provider Reason for Visit * Reason Comments Medication Refill Encounter Details Date Type Department Care Team (Late st Contact Info) Description 06/10/2015 Refill Dermatology at [place] [address] [place] [phone] Reilly Summers MD [address] [facility] [place] [address] Social History Tobacco Use Types Packs/Day Years [...] 1:30 PM EDT Office Visit [place] [address] Lucrecia Rios, [facility] [place] [address] documented as of this encounter Goals Goal Patient Goal Type Associated Problems Recent Progress Patient-Stated? Author [facility] Medication Compliance and Understanding Patient Facing Action Plan No Nataliya Lentz, [facility] Note: Hugo Goins is hoping to see a decrease in BSA of his Psorasis and a decrease in his pain score of 4 to a 2. documented as of this encounter Visit Diagnoses Not on filedocumented in this encounter Care Teams Printing Press Machinist Relationship Specialty Start Date End Date Lyric Egan MD [address] [place] [address] PCP - General 12/21/21 documented as of this encounter
--- OUTSIDE RECORDS SUMMARY | 2024-03-27 00:44 | XMS_ITS | Encounter Summary ---
Author Organization [facility] [place] [address] Care Team Providers Care Intermodal Truck Driver Name Role Phone Renzo Darden MD Primary Care Provider [phone] Reason for Visit * Reason Comments Follow-up Encounter Details Date Type Department Care Team (Late st Contact Info) Description 04/04/2012 11:00 AM EDT [place] [phone] Nataliya Mejias APRN [facility] [place] [address] Cirrhosis (Primary Dx) Discharge Disposition: Home Social History Tobacco Use Types Packs/Day Years [...] Sign Reading Time Taken Comments Blood Pressure 134/73 04/04/2012 10:46 AM EDT Pulse 71 04/04/2012 10:46 AM EDT Temperature - - Respiratory Rate - - Oxygen Saturation - - Inhaled Oxygen Concentration - - Weight 80.3 kg (177 lb) 04/04/2012 10:46 AM EDT Height 175.3 cm (5' 9) 04/04/2012 10:46 AM EDT Body Mass Index 26.14 04/04/2012 10:46 AM EDT documented in this encounter Progress Notes * Nataliya Mejias APRN - 04/04/2012 11:25 AM EDT Subjective: Patient ID: Hugo Goins is a 57 y.o. male. GI Problem The primary symptoms include myalgias. Primary symptoms do not include fever, fatigue, abdominal pain, nausea, vomiting, diarrhea or rash. The myalgias are not associated with weakness. CURRENT PROBLEM LIST: 1.) Chronic Hepatitis C Genotype: 3 Liver biopsy:(07/06/2011) G 2 S3 Prior treatment history: Naive PREVENTATIVE HEALTH: Hepatitis A: not done Hepatitis B: not done EGD: NA Colonoscopy: refused HIV status: negative 2010 PRETREATMENT ASSESSMENTS: Eye exam: 08/28/2011 ok for treatment EKG: not done Drug interactions:N/A Psych: no history of depression control method: discussed options, currently not sexual active CURRENT HCV TREATMENT: Start Date: 11/16/11-04/25/2012 Initial medications: 180 Pegasys mcg / 1200 mg Ribavirin Dose reductions/ escalations: Completed tx week/ planned duration of tx: IFN dose day: Fridays Significant side effects: 09/26/2011 baseline week 4 week 7 week 9 week 12 62,384 1050 <43+ <43- Mr. Goins is a very pleasant 56 year old male who presents to [facility] for follow-up of his Hepatitis C genotype 3. He started dual therapy with ribavirin 1200 mg daily and Pegasys 180 mcg SQ weekly on 11/16/11. He reports that he is doing well with intermittent flu-like sx includingbody aches and stomach aches. His sx are well-controlled with ibuprofen 600 mg 1-2 times daily. He had a low initial viral load of 62,000 and was undetected at week 9. Review of Systems Constitutional: Negative for fever, appetite change and fatigue. Respiratory: Negative for chest tightness, shortness of breath and wheezing. Cardiovascular: Negative for chest pain, palpitations and leg swelling. Gastrointestinal: Negative for nausea, vomiting, abdominal pain, diarrhea, blood in stool and abdominal distention. Genitourinary: Negative for hematuria. Musculoskeletal: Positive for myalgias. Skin: Negative for rash. Neurological: Negative for tremors and weakness. Hematological: Negative for adenopathy. Does not bruise/bleed easily. Psychiatric/Behavioral: Negative for sleep disturbance, dysphoric mood and agitation. Objective: Physical Exam Constitutional: He is oriented to person, place, and time. He appears well- developed and well-nourished. HENT: Head: Normocephalic and atraumatic. Eyes: No scleral icterus. Neck: Normal range of motion. Neck supple. No thyromegaly present. Cardiovascular: Normal rate, regular rhythm and normal heart sounds. No murmur heard. Pulmonary/Chest: Effort normal and breath sounds normal. He has no wheezes. He has no rales. Abdominal: Soft. Bowel sounds are normal. No tenderness. Musculoskeletal: He exhibits no edema. Lymphadenopathy: He has no cervical adenopathy. Neurological: He is alert and oriented to person, place, and time. Skin: Skin is warm and dry. Rash (psoriasis) noted. Psoriatic plaques on abd, back, legs, arms, hands, feet Psychiatric: He has a normal mood and affect. His behavior is normal. Assessment and Plan: 1. Hepatitis C virus genotype 3 he cleared the virus at week 9 of treatment. I am concerned that dago be treated for 48 weeks to get the best outcome, we have discussed this on mulitple occasions and he is willing to try to tolerate the longer course. Will plan to apply for insurance authorization for another 24 weeks of treatment. 2. Hypothyroid, follow up testing with Dr. Darden. 3. Psoriasis, using steroid cream at least once a day. He is hesitant to see dermatology due to costs, but since using bag balm daily and wearing long sleeves outside his skin is better. He will get labs again in six weeks as his counts are stable, he will follow up with me in six weeks. He will call the office if he feels he needs to stop treatment early. documented in this encounter Plan of Treatment Upcoming Encounters Date Type Department Care Team (Late st Contact Info) Description 04/15/2024 1:30 PM EDT Office Visit Rheumatology at [facility] [place] [address] Lucrecia Rios APRN [facility] [place] [address] Scheduled Orders Name Type Priority Associated Diagnoses Orde r Schedule Hepatitis C RNA, quantitative, PCR Lab Routine Cirrhosis Expected: 04/04/2012 (Approximate), Expires: 04/05/2013 documented as of this encounter Visit Diagnoses Diagnosis Cirrhosis- Primary Cirrhosis of liver without mention of alcohol documented in this encounter Care Teams Intermodal Truck Driver Relationship Specialty Start Date End Date Renzo Darden MD [address] [place] [phone] PCP - General 10/31/11 09/25/12 documented as of this encounter
--- OUTSIDE RECORDS SUMMARY | 2024-03-27 00:44 | XMS_ITS | Encounter Summary ---
Author Organization [facility] [place] [address] Care Team Providers Care Colon And Rectal Surgeon Name Role Phone Renzo Darden MD Primary Care Provider [phone] Reason for Visit * Reason Onset Date Comments Prior Authorization 07/21/2012 [employer] Encounter Details Date Type Department Care Team (Late st Contact Info) Description 07/21/2012 Telephone [place] [phone] Mimi Fisher training coordinator ([employer]) Social History Tobacco Use Types Packs/Day Years [...] encounter Miscellaneous Notes * Telephone Encounter - Mimi Fisher CMA - 07/21/2012 9:49 AM EST RENEWAL Medication: Peg[employer] Dosage: 180 mg Frequency & Route: Inject 180 mcg weekly Pharmacy & Phone#: [employer] & Phone #: [facility] [phone] ID #: [id number] Notes: Started treatment on 11/16/11. PA 07/21/12-10/13/12 Auth # [id number] documented in this encounter Plan of Treatment Upcoming Encounters Date Type Department Care Team (Late st Contact Info) Description 04/15/2024 1:30 PM EDT Office Visit [place] [address] Lucrecia Rios APRN [facility] [place] [address] documented as of this encounter Visit Diagnoses Not on filedocumented in this encounter Care Teams Colon And Rectal Surgeon Relationship Specialty Start Date End Date Renzo Darden MD [address] [place] [phone] PCP - General 10/31/11 09/25/12 documented as of this encounter
--- OUTSIDE RECORDS SUMMARY | 2024-03-27 00:44 | XMS_ITS | Encounter Summary ---
Author Organization [facility] [place] [address] Care Team Providers Care Coffee Weigher Name Role Phone Yeimi Carey APRN Primary Care Provider [phone] Encounter Details Date Type Department Care Team (Latest Contact Info) Description 07/06/2011 11:26 AM EST - 07/06/2011 3:45 PM EST Hospital Encounter [place] [address] Carlos Hernandez MD [facility] [address] [place] [address] Discharge Disposition: Home Social History Tobacco Use Types Packs/Day Years Used Date Smoking Tobacco: Former Cigarettes 1 30 1 - 05/30/2002 Alcohol Use Standard Drinks/Week Comments No 0 (1 standard drink = 0.6 oz pur e alcohol) quit alcohol 2001 Sex and Gender Information Value Date Recorded Sex Assigned at Not on file Gender Identity Not on file Sexual Orientation Not on file documented as of this encounter Last Filed Vital Signs Vital Sign Reading Time Taken Comments Blood Pressure 124/76 07/06/2011 3:00 PM EST Pulse 56 07/06/2011 3:00 PM EST Temperature 36.2 ??C (97.2 ??F) 07/06/2011 11:[address] Respiratory Rate 16 07/06/2011 3:00 PM EST Oxygen Saturation 98% 07/06/2011 3:00 PM EST Inhaled Oxygen Concentration - - Weight - - Height - - Body Mass Index - - documented in this encounter Medications at Time of Discharge Medication Sig Dispensed Refills Start Date End Date BUDESONIDE/FORMOTEROL FUMARATE (SYMBICORT INHL) Inhale into the lungs 2 times daily. 01/14/2012 levothyroxine (SYNTHROID) 88 mcg tablet Take 125 mcg by mouth daily. 04/19/2017 morphine (MSIR) 15 mg tablet Take 15 mg by mouth 2 times daily. 10/31/2011 FLUTICASONE/SALMETEROL (ADVAIR DISKUS INHL) 05/17/2004 012 metoprolol succinate (TOPROL XL) 100 mg XL tablet 05/17/2004 12/12/2011 albuterol-ipratropium (COMBIVENT) 18-103 mcg/Actuation inhaler 05/17/20042011 documented as of this encounter H&P Notes * Carlos Hernandez MD - 07/06/2011 11:49 AM EST H&P done prior to procedure and documented in the endoscopy report located in the Procedures tab in eDH. documented in this encounter Miscellaneous Notes * Miscellaneous - Provider, Scanning - 07/06/2011 8:46 PM EST * OR Attestation - Carlos Hernandez MD - 07/06/2011 12:32 PM EST Attestation: Case Date: 07/06/2011 As the attending physician, I personally performed the entire procedure. CARLOS HERNANDEZ MD 07/06/2011 * Miscellaneous - Provider, Scanning - 07/06/2011 11:32 AM EST documented in this encounter Plan of Treatment Upcoming Encounters Date Type Department Care Team (Late st Contact Info) Description 04/15/2024 1:30 PM EDT Office [place] [address] Lucrecia Rios, PRESIDENT AND [employer]IEF [employer]CIAL OFFICER [facility] [place] [address] [phone] (work) documented as of this encounter Procedures Procedure Name Priority Date/Time Associated Diagnosis Comments SURGICAL PATHOLOGY REPORT Routine 07/06/2011 2:10 PM EST SPECIMEN TO PATHOLOGY Routine 07/06/2011 12:43 PM EST LIVER BIOPSY (PERCUTANEOUS) Routine 07/06/2011 12:33 PM EST LIVER BIOPSY (WRVU 1.65) 07/06/2011 12:14 PM EST Hep C (iv conscious sedation) GI [facility] HX AND PHYSICAL Routine 07/06/2011 11:46 AM EST documented in this encounter Results * Surgical Pathology Report (07/06/2011 2:10 PM EST) Pathologist [facility] Surgical Pathology Report [id number] ? Location: 4T The signing pathologist has (i) examined the relevant preparation(s) for the specimen(s) and (ii) rendered or confirmed the diagnosis(es). . ?Pathology Surgical Pathology Final Report Clinical Information Specimen Submitted: A - Right lobe liver biopsy Clinical History/Diagnosi s: Hepatitis C Gross Description Labeled/Fixative : ? Right lobe liver biopsy, formalin. Qty/Size/Weight: ?Two needle core biopsies, 0.6 x 0.1 cm and ?1.5 x 0.1 cm. ??Soft, red-brown. Sections/Process ing: ??(T1) ??aje/SNS Microscopic Description Slides reviewed, microscopic description not recorded. Diagnosis Liver, needle biopsy showing dense portal lymphocytic aggregates, mild interface hepatitis, mild lobular inflammation and periportal steatosis. Trichrome stains show portal fibrosis, fibrous septa, bridging fibrosis and focal partial nodule formation. Iron stain is negative for iron deposition. The findings are those of chronic hepatitis C, stage 3/4, grade 2/4 (mild activity). Cr-0 07/09/11 AAS 07/10/11 Verified by: ? Gianni Lagos MD ?Pathologist ?(Electronic Signature) The attending pathologist whose signature appears on this report has reviewed all diagnostic slides and has edited the gross and/or microscopic portion of the report in rendering the final pathologic diagnosis. PREMA LEWIS 07/06/2011 2:10 PM EST Carlos Hernandez MD PATHOLOGY/CYTOLOGY ORDERABLES PREMA LEWIS * Specimen to Pathology (surgical or derm) (07/06/2011 12:43 PM EST) AP Specimen 07/06/2011 12:4 3 PM EST 07/06/2011 12:43 PM EST Narrative PREMA FUIUM - 07/06/2011 12:43 PM EST Specimen requisition ordered. ??Separate Pathology report to follow Carlos Hernandez MD PATHOLOGY/CYTOLOGY ORDERABLES Performing Organization Address City/State/[facility] Co de Phone Number PREMA LEWIS * LIVER BIOPSY (PERCUTANEOUS) (07/06/2011 12:33 PM EST) LIVER BIOPSY [facility] Endoscopy Patient Name: Hugo Goins ? Procedure Date: 07/06/2011 12:33:08 PM ? Date of : 1955 ? Age: 56 ? Procedure: ? Liver biopsy Indications: ? Established hepatitis C Providers: ? Carlos Hernandez MD Referring MD: ?Yeimi Carey MD Medicines: ? 1% Lidocaine 10 mL SubQ, Midazolam 4 ? mg IV, Fentanyl 150 mcg IV Complications: ? No immediate complications Procedure: ? Pre-Anesthesia Assessment: ? - Prior to the procedure, a History ? and Physical was performed, and ? patient medications, allergies and ? sensitivities have been reviewed. The ? patient's tolerance of previous ? anesthesia has been reviewed. ? - The risks and benefits of the ? procedure and the sedation options ? and risks were discussed with the ? patient. All questions were answered ? and informed consent was obtained. ? The procedure, indications, benefits, ? risks and alternatives were explained ? to the patient. Specifically ? discussed were potential ? complications including, but not ? limited to, bleeding, perforation, ? infection, missing a cancer, and ? adverse medication reactions. Aseptic ? technique was used. The point of ? maximal dullness was determined by ? percussion. 1% Lidocaine local ? anesthesia was injected. The depth of ? the liver was confirmed by spinal ? needle sounding. The liver biopsy was ? accomplished without difficulty. The ? patient tolerated the procedure well. ? Findings: ? A 25 mm unfragmented core of tissue was obtained. ? Tissue was sent for histology. One pass was made with ? the Jamshidi needle using ultrasound to [place] the site. ? Impression: ?- Tissue was submitted to pathology. Recommendation: ?- Await pathology results. ? ____ Carlos Hernandez MD Signed Date: 07/06/2011 12:35:15 PM Number of Addenda: 0 Note initiated on 07/06/2011 12:33:08 PM [facility] 07/06/2011 12:3 3 PM EST Unknown GENERAL SURGICAL ORD ERABLES [facility]ATION * GI PROVATION HX AND PHYSICAL (07/06/2011 11:46 AM EST) Endo History & Physical [facility] Endoscopy Patient Name: Hugo Goins ? H & P Date: 07/06/2011 ? Date of : 1955 ? Age: 56 ? Provider: ? Carlos Hernandez MD Referring MD: ? Requesting Provider: ? Chief Complaint: ?HCV History of Present Illness: This 56 year old male is being ?evaluated because of HCV. Past Medical History: ? See H & P Current Medications: ?See H & P Drug Allergies: ? See H & P Social History: ? See H & P Family Medical History: ? See H & P Review of Systems: ?See H & P Physical Exam: ?CV: ?RRR, normal S1 & S2, no S3, no ?S4, no murmurs or rubs. ?Respiratory : ?Clear to auscultation. Impression: ? Perform a liver biopsy. ASA: ?P2 A patient with mild ?systemic disease. Plan: ? Perform a liver biopsy [Day]. Carlos Hernandez MD Signed Date: 07/06/2011 11:48:57 AM Number of Addenda: 0 Note initiated on 07/06/2011 11:46:59 AM [employer] 07/06/2011 11:4 6 AM EST Unknown GENERAL SURGICAL ORD ERABLES [employer] documented in this encounter Visit Diagnoses Not on filedocumented in this encounter Active and Recently Administered Medications Times are shown in EST. PRN Medication Order 07/04/2011 07/05/2011 07/06/2011 fentaNYL 50mcg/mL injection (CANCELED) ONCE PRN, Starting on Sat07/06/11 at 1224, Until Sat07/06/11 at 1754, Pain, Intra-Operative (Intra-Procedure), Routine 1216 (Given - Provid er: Ritchie Mercado RN)1221 (Given - Provider: Ritchie Mercado RN)1224 (Given - Provider: Ritchie Mercado RN) midazolam (VERSED) injection (CANCELED) ONCE PRN, Starting on Sat07/06/11 at 1224, Until Sat07/06/11 at 1754, Sleep, Intra-Operative (Intra-Procedure), Routine 1216 (Given - Provid er: Ritchie Mercado RN)1221 (Given - Provider: Ritchie Mercado RN)1224 (Given - Provider: Ritchie Mercado RN)1228 (Given - Provider: Ritchie Mercado RN) documented in this encounter Care Teams Coffee Weigher Relationship Specialty Start Date End Date Yeimi Carey APRN [address] [place] [phone] PCP - General 05/04/11 10/30/11 documented as of this encounter
--- OUTSIDE RECORDS SUMMARY | 2024-03-27 00:44 | XMS_ITS | Encounter Summary ---
Author Organization [facility] [place] [address] Care Team Providers Care Scroll Machine Operator Name Role Phone Renzo Darden MD Primary Care Provider [phone] Encounter Details Date Type Department Care Team (Late st Contact Info) Description 12/24/2011 Telephone [place] [address] [address]N [facility] DR [place] [address] Social History Tobacco Use Types Packs/Day Years [...] encounter Miscellaneous Notes * Telephone Encounter - Nataliya Mejias APRN - 12/28/2011 9:32 AM EDT I do not think an EKG was done prior * Telephone Encounter - Noemí Harkins RN - 12/24/2011 4:22 PM EDT Patient calling to discuss episode at work today where he became light-headed and short of breath. 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 We discussed his current lab levels as compared to start of treatment, and how less hemoglobin is affecting how he feels and his oxygen level. Hgb was in 18 range to start, and i s now in low 11's. Discussed with Nataliya Mejias NP. He will decrease his ribavirin to 400 mg twice daily, and repeat CBC in one week. He was cautioned to avoid over-exertion, and educated about symptoms that would prompt an ER visit. Upon further discussion, he also thinks he did not have a baselineEKG. Will d/w provider. documented in this encounter Plan of Treatment Upcoming Encounters Date Type Department Care Team (Late st Contact Info) Description 04/15/2024 1:30 PM EDT Office [place] [address] Lucrecia Rios APRN [facility] [place] [address] documented as of this encounter Visit Diagnoses Not on filedocumented in this encounter Care Teams Scroll Machine Operator Relationship Specialty Start Date End Date Renzo Darden MD [address] [place] [phone] PCP - General 10/31/11 09/25/12 documented as of this encounter
--- OUTSIDE RECORDS SUMMARY | 2024-03-27 00:44 | XMS_ITS | Encounter Summary ---
Author Organization [facility] [place] [address] Care Team Providers Care Physical Therapy Nurse Name Role Phone Renzo Darden MD Primary Care Provider [phone] Reason for Visit * Reason Comments Follow-up Psoriasis Encounter Details Date Type Department Care Team (Late st Contact Info) Description 06/14/2014 4:30 PM EST Office Visit Dermatology at [address] [place] [phone] Reilly Summers MD [address] [facility] [place] [address] Psoriasis Discharge Disposition: Home Social History Tobacco Use [...] this encounter Patient Instructions * Patient Instructions* Babs Enriquez LPN - 06/14/2014 4:57 PM EST [facility] Psoriasis: After Your Visit Your Care Instructions Psoriasis (say fkn-ZX-zl-lauri) is a long-term skin problem that causes [...] still damp. This seals in moisture. Use lgza-[id number]-[id number] products that your doctor suggests. These may [...] more? Visit our health information library at [email or web address] You can also view health information on [employer], your personal patient account. Log in or sign up today. Enter U759 in the search box to learn more about Psoriasis: After Your Visit. ?? [phone] [employer], [employer]. Care instructions adapted under license by [facility]. This care instruction is for use with your licensed healthcare professional. If you have questions about a medical condition or this instruction, always ask your healthcare professional. [employer] disclaims any warranty or liability for your use of this information. Content Version: 9.9.362071; Last Revised: March 10, 2013 documented in this encounter Progress Notes * Reilly Summers MD - 06/14/2014 5:10 PM EST Problem: Followup psoriasis status post three months of Humira. Roddy follows up and is a month overdue. He was at a job site and unable to come to his appointment in April 2014. He has had Humira but had been using the 40-mg autoinjector pens, one every two weeks, and he is totally cleared, even within the first month. He is ecstatic. Physical examination reveals a pleasant, 59-year-old gentleman whose psoriasis on the abdomen now has entirely cleared, just leaving erythematous patches/postinflammatory erythema at sites of prior plaque formation. This is also the case on his elbows, his arms, and his leg. Assessment and Plan: Psoriasis, clear on Humira. a. Desires to continue Humira 40 mg using autoinjector pens, injecting one subcutaneously every two weeks. I will dispense two with five refills, then return to clinic in another six months for repeat check. b. We will obtain ongoing prior authorization for the patient to the [facility]. c. Return to clinic in another six months for repeat check. COPY: Yeimi Carey A.P.R.N. documented in this encounter Plan of Treatment Upcoming Encounters Date Type Department Care Team (Late st Contact Info) Description 04/15/2024 1:30 PM EDT Office [place] [address] Lucrecia Rios APRN [facility] [place] [address] documented as of this encounter Visit Diagnoses Diagnosis Psoriasis Other psoriasis documented in this encounter Care Teams Physical Therapy Nurse Relationship Specialty Start Date End Date Renzo Darden MD [address] [place] [phone] PCP - General 12/21/13 11/03/18 documented as of this encounter
--- OUTSIDE RECORDS SUMMARY | 2024-03-27 00:44 | XMS_ITS | Encounter Summary ---
[place] [address] Care Team Providers Care Sinker Winder Name Role Phone Renzo Darden MD Primary Care Provider [phone] Encounter Details Date Type Department Care Team (Late st Contact Info) Description 12/03/2011 Tele[place] [address] Laura Neal RN Social History Tobacco Use Types Packs/Day [...] encounter Miscellaneous Notes * Telephone Encounter - Laura Neal RN - 12/03/2011 1:47 PM EDT Patient called responding to letter. He states that he started Hep C treatment on November 15, and has had 2 sets of labs done at [facility]. Attempted call back to patient and detailed message left on identified VM asking patient to call back to make a follow up appointment with Crispin Mejias NP Patient also provided a home number [phone] documented in this encounter Plan of Treatment Upcoming Encounters Date Type Department Care Team (Late st Contact Info) Description 04/15/2024 1:30 PM EDT [place] [address] Lucrecia Rios, [facility] [place] [address] documented as of this encounter Visit Diagnoses Not on filedocumented in this encounter Care Teams Sinker Winder Relationship Specialty Start Date End Date Renzo Darden MD [address] [place] [phone] PCP - General 10/31/11 09/25/12 documented as of this encounter
--- OUTSIDE RECORDS SUMMARY | 2024-03-27 00:44 | XMS_ITS | Encounter Summary ---
Author Organization [facility] [place] [address] Care Team Providers Care Legal Librarian Name Role Phone Renzo Darden MD Primary Care Provider [phone] Reason for Visit * Reason Comments Hepatitis C Encounter Details Date Type Department Care Team (Late st Contact Info) Description 05/16/2012 10:00 AM EDT [place] [phone] Nataliya Mejias FURNACE FIRER [facility] [place] [address] Chronic hepatitis C (Primary Dx); Hepatitis C; Hepatitis c, chronic; Psoriasis; Cirrhosis Discharge Disposition: Home Social History Tobacco Use [...] Sign Reading Time Taken Comments Blood Pressure 144/81 05/16/2012 9:49 AM EDT Pulse 71 05/16/2012 9:49 AM EDT Temperature - - Respiratory Rate - - Oxygen Saturation - - Inhaled Oxygen Concentration - - Weight 79.8 kg (176 lb) 05/16/2012 9:49 AM EDT Height 175.3 cm (5' 9) 05/16/2012 9:49 AM EDT Body Mass Index 25.99 05/16/2012 9:49 AM EDT documented in this encounter Progress Notes * Nataliya Mejias Bharathi, FURNACE FIRER - 05/16/2012 10:08 AM EDT Subjective: Patient ID: Hugo Goins [...] 56 year old male who presents to [facility] for follow-up of his Hepatitis C genotype 3. He started dual therapy with ribavirin 1200 mg daily and Pegasys 180 mcg SQ weekly on 11/16/11. Due to his viral clearance between week 7 and 9 we have decided to proceed with 48 weeks of treatment. He has some intermittent shortness of breath but hg has been relatively stable over the past fewmonths. He also complains of lip sores which have been present for about 5-6 weeks. He felt that this was initially related to sun exposure however they don't seem to be healing. It is not painful, but does tend to crust over in the morning. He also has recently developed an oral lesion which a badtooth seems to be irritating, it is making it diffiucult for him to eat. Review of Systems Constitutional: Negative for fever, [...] and well-nourished. HENT: Head: Normocephalic and atraumatic. Mouth/Throat: Abnormal dentition. 1 cm tongue sore right side Lower lip with raised dark lesions Eyes: No scleral icterus. Neck: Normal range [...] the virus at week 9 of treatment. He has decided to continue therapy for as close to the 48 weeks as possible. 2. Hypothyroid, follow up testing with Dr. Darden, I have not tested his tsh since January, will defer to PCP for testing and management. 3. Psoriasis, using steroid cream at least once a day. He is hesitant to see dermatology due to costs, but since using bag balm daily and wearing long sleeves outside his skin is better. 4. Lip and oral sores, will try miracle mouthwash swish and spit. Will give him an antiviral ointment for the lip ulcers and continue to monitor the situation. He will get labs again in six weeks as his counts are stable, he will follow up with me in six weeks. He will call the office if he doesn't notice an improvement with his tongue or lip lesions. documented in this encounter Plan of Treatment Upcoming Encounters Date Type Department Care Team (Late st Contact Info) Description 04/15/2024 1:30 PM EDT Office Visit Rheumatology at [facility] [place] [address] Lucrecia Rios APRN [facility] [address] documented as of this encounter Procedures Procedure Name Priority Date/Time Associated Diagnosis Comments HCV QUANT Routine 05/16/2012 11:04 AM EDT Chronic hepatitis C CMP W/FASTING GLUCOSE Routine 05/16/2012 11:04 AM EDT Chronic hepatitis C DIFFERENTIAL, AUTOMATED Routine 05/16/2012 11:04 AM EDT HEPATITIS C RNA, QUANTITATIVE, PCR Routine 05/16/2012 11:04 AM EDT Chronic hepatitis C CBC (WITH DIFF) Routine 05/16/2012 11:04 AM EDT Chronic hepatitis C TSH Routine 05/16/2012 11:04 AM EDT documented in this encounter Results * DIFFERENTIAL, AUTOMATED (05/16/2012 11:04 AM EDT) Neutrophil % 60.9 34.0 - 71.0 % [facility] MILLENNIUM Neutrophil Absolute 2.50 1.50 - 6.30 x10(3)/mcL [facility] MILLENNIUM Lymph % 24.1 19.0 - 53.0 % [facility] MILLENNIUM Lymphocytes Abs 1.0 1.0 - 3.6 x10(3)/mcL CERNER MILLENNIUM Monocyte % 11.9 4.0 - 13.0 % CERNER MILLENNIUM Monocyte Abs 0.5 0.2 - 1.0 x10(3)/mcL CERNER MILLENNIUM Eos % 2.7 0.0 - 7.0 % CERNER MILLENNIUM Eosinophils Abs 0.1 0.0 - 0.5 x10(3)/mcL CERNER MILLENNIUM Basophil % 0.2 0.0 - 2.0 % CERNER MILLENNIUM Baso Absolute 0.0 0.0 - 0.2 x10(3)/mcL CERNER MILLENNIUM Immature Gran % 0.20 0.00 - 0.66 % [facility] Comment: Immature granulocytes(IG's)percentage and absolute count will include metamyelocytes, myelocytes, and promyelocytes. Blood smears from CBCs yielding IG's will be scanned manually for concordance. If this scan disagrees with the automated IG or if promyelocytes are noted, a manual differential will be performed. Immature Gran Absolute 0.01 0.00 - 0.05 x10(3)/mcL [facility] Blood specimen (specimen) 05/16/2012 11:04 AM EDT 05/16/2012 11:15 AM EDT Chris Brown MD HEMATOLOGY ORDERABL ES Performing Organization Address [facility] de Phone Number [facility] * TSH (05/16/2012 11:04 AM EDT) Thyroid Stimulating Hormone 2.86 0.27 - 4.20 mcIU/mL [facility] Blood specimen (specimen) 05/16/2012 11:04 AM EDT 05/16/2012 11:15 AM EDT Narrative Resulting Agency Comment Spec In Lab Chris Brown MD CHEMISTRY ORDERABLE S Performing Organization Address [facility] de Phone Number [facility] * HCV QUANT (05/16/2012 11:04 AM EDT) HCV Viral Load <43 IU/mL [facility] HCV Viral Load Result: < 43 Target Not Detected Indication for Study: Hepatitis C Infection Analysis: A quantitiative real time reverse transcriptase PCR assay was performed on extracted viral RNA for the purpose of quantification. Sample: plasma (0.5 mL minimun volume) Method: Wilfredo Ana TaqMAN 48 HCV Linear Range: 43IU/mL - 69,000,000IU/mL (95% CI) Interpretation: The result of this analysis is within the limits of detection of the assay. Note: This assay is being performed in the [facility]. Sha North, Ph.D. Director, Molecular Pathology [facility] Comment: [VERIFIED DATE]05.22.12 Verified By:Layla Javier (Electronic Signature) Blood specimen (specimen) 05/16/2012 11:04 AM EDT 05/16/2012 11:15 AM EDT Narrative Resulting Agency Comment Spec In Lab Chris Brown MD HEMATOLOGY ORDERABL ES [facility] * (ABNORMAL) CMP w/fasting Glucose (05/16/2012 11:04 AM EDT) Glucose Fasting 99 65 - 99 mg/dL [facility] Comment: ?Fasting* Glucose Interpretive Criteria Normal [...] of Diabetes Mellitus, Position Statement from the [place] [employer]. ??Diabetes Care, Volume 33, Supplement 1, Aug 2009 Blood Urea Nitrogen 26(H) 10 - 20 mg/dL [facility] MILLENNIUM Creatinine 0.99 0.80 - 1.50 mg/dL [facility]ILL[facility]NI[facility] Comment: Please note that the pediatric reference intervals supplied above were not validated at [facility]. Results from pediatric patients should be interpreted in conjunction to the patient's age, height and muscle mass. Sodium 139 135 - 145 mmol/L [facility] MILLENNIUM Potassium 3.7 3.5 - 5.0 mmol/L [facility] Comment: Please note: ??Patients with WBC >100,000 may have falsely elevated Potassium levels. ??For accurate Potassium quantification in these patients send serum separator tube (gold top) for subsequent determinations. ??Contact the Clinical Chemistry Laboratory if there are any questions. Chloride 105 98 - 107 mmol/L [facility] MILLENNIUM Carbon Dioxide 25 22 - 31 mmol/L [facility] MILLENNI[facility] Anion Gap 9 5 - 15 mmol/L [facility] MILLENNI[facility] Calcium 8.7 8.5 - 10.5 mg/dL [facility] MILLENNI[facility] Protein, Total 6.8 6.4 - 8.3 gm/dL [facility] MILLENNIUM Albumin 3.9 3.2 - 5.2 gm/dL [facility]ILL[facility] Aspartate Aminotransferase 24 0 - 39 unit/L [facility] MILLENNIUM Alanine Aminotransferase 22 0 - 55 unit/L [facility] MILLENNI[facility] Alkaline Phosphatase 61 40 - 120 unit/L [facility] MILLENNIUM Bilirubin, Total 0.4 0.2 - 1.3 mg/dL [facility] MILLENNIUM Bilirubin, Direct 0.1 0.0 - 0.3 mg/dL [facility] MILLENNIUM Est Glomerular Filtration Rate >60 >=60 [facility] MILLENNIUM Comment: The National Kidney Disease Education Program [...] J Am Soc Nephrol;6:1963-72. Blood specimen (specimen) 05/16/2012 11:04 AM EDT 05/16/2012 11:15 AM EDT Narrative Resulting Agency Comment Spec In Lab Chris Brown MD CHEMISTRY ORDERABLE S [facility] * (ABNORMAL) CBC (with Diff) (05/16/2012 11:04 AM EDT) White Blood Cell 4.1 4.0 - 10.0 x10(3)/mc L [facility] MILLENNIUM Red Blood Cell 4.05(L) 4.63 - 6.08 x10(6)/mc L [facility] MILLENNI[facility] Hemoglobin 12.6(L) 13.7 - 17.5 gm/dL [facility] MILLENNIUM Hematocrit 37.5(L) 40.0 - 51.0 % CERNER MILLENNIUM Mean Cell Volume 92.6(H) 79.0 - 92.0 fL [facility] MILLENNIUM Mean Cell Hemoglobin 31.1 25.6 - 32.2 pg [facility] MILLENNIUM Mean Cell Hemoglobin Concentration 33.6 32.0 - 36.5 gm/dL [facility]ERN[facility] MILLENNIUM Platelet 199 145 - 370 x10(3)/mc L [facility]ERNER MILLENNIUM RDW Standard Deviation 50.7(H) 35.0 - 46.0 fL CERNER MILLENNIUM RDW coefficient of variation 15.1(H) 10.9 - 14.4 % CERNER MILLENNIUM Mean Platelet Volume 10.4 9.0 - 12.0 fL [facility]ILL[facility] Blood specimen (specimen) 05/16/2012 11:04 AM EDT 05/16/2012 11:15 AM EDT Narrative Resulting Agency Comment Spec In Lab Chris Brown MD HEMATOLOGY ORDERABL ES PREMA LEWIS documented in this encounter Visit Diagnoses Diagnosis Chronic hepatitis C- Primary Chronic hepatitis C without mention of hepatic coma Hepatitis C Unspecified viral hepatitis C without hepatic coma Hepatitis C, chronic Chronic hepatitis C without mention of hepatic coma Psoriasis Other psoriasis Cirrhosis Cirrhosis of liver without mention of alcohol documented in this encounter Care Teams Legal Librarian Relationship Specialty Start Date End Date Renzo Darden MD [address] [place] [phone] PCP - General 10/31/11 09/25/12 documented as of this encounter
--- OUTSIDE RECORDS SUMMARY | 2024-03-27 00:44 | XMS_ITS | Encounter Summary ---
Author Organization [facility] [place] [address] Care Team Providers Care Linseed Oil Refiner Name Role Phone Renoz Darden MD Primary Care Provider [phone] Reason for Visit * Reason Onset Date Comments Medication Refill 02/08/2012 Encounter Details Date Type Department Care Team (Late Contact Info) Description 02/08/2012 Refill [place] [phone] Nataliya Mejias, [facility] [place] [address] Social History Tobacco Use Types Packs/Day Years [...] 1:30 PM EDT Office [place] [address] Lucrecia Rios, [facility] [place] [address] documented as of this encounter Visit Diagnoses Not on filedocumented in this encounter Care Teams Linseed Oil Refiner Relationship Specialty Start Date End Date Renzo Darden MD [address] [place] [phone] PCP - General 10/31/11 09/25/12 documented as of this encounter
--- OUTSIDE RECORDS SUMMARY | 2024-03-27 00:44 | XMS_ITS | Encounter Summary ---
Author Organization [facility] [place] [address] Care Team Providers Care Electrical Worker Name Role Phone AurelioYeimi LESTER Primary Care Provider [phone] Reason for Visit * Reason Comments Hepatitis C Encounter Details Date Type Department Care Team (Late st Contact Info) Description 07/12/2011 11:00 AM EST [place] [phone] Nataliya Mejias APRN [facility] [place] [address] Hepatitis c, chronic (Primary Dx) Discharge Disposition: Home Social History [...] Sign Reading Time Taken Comments Blood Pressure 139/89 07/12/2011 10:46 AM EST Pulse - - Temperature - - Respiratory Rate - - Oxygen Saturation - - Inhaled Oxygen Concentration - - Weight 87.1 kg (192 lb) 07/12/2011 10:44 AM EST Height 172.7 cm (5' 8) 07/12/2011 10:44 AM EST Body Mass Index 29.19 07/12/2011 10:44 AM EST documented in this encounter Progress Notes * Nataliya Mejias APRN - 07/12/2011 11:25 AM EST Subjective: Patient ID: Hugo Swan is a 56 y.o. male. HPI Mr. Swan is a 56 year old male with hepatitis C genotype 3a, he had a liver biopsy in 2003 whichshowed mild disease. We have agreed to repeat the liver biopsy at this point to stage disease and check for progression. Given his psoriasis I am hesitant to recommend treatment unless indicated by increased fibrosis. There are many drugs in the pipeline for treatment of hepatitis C at this time and certainly there is considerable hope that a non-interferon based treatment will be available with in five years. As the Interferon is the drug that could further aggravate his psoriasis he may want to wait. We also discussed his mildly elevated ferritin in the 300 range, I have assured him that this does not represent Hemochromatosis as he had no excess iron seen on his liver biopsy in 2003. Today will check his hepatitis B status with blood tests. He will follow up with me about a week after the liver biopsy to review the results. Liver, needle biopsy showing dense portal lymphocytic aggregates, mild interface hepatitis, mild lobular inflammation and periportal steatosis. Trichrome stains show portal fibrosis, fibrous septa, bridging fibrosis and focal partial nodule formation. Iron stain is negative for iron deposition. The findings are those of chronic hepatitis C, stage 3/4, grade 2/4 (mild Activity).Results for HUGO SWAN ( ) as of 07/12/2011 14:24 Ref. Range 05/30/2011 12:58 WBC Latest Range: 4.0-10.0 x10(3)/mcL 10.0 RBC Latest Range: 4.63-6.08 x10(6)/mcL 5.35 Hemoglobin Latest Range: 13.7-17.5 gm/dL 16.4 Hematocrit Latest Range: 40.0-51.0 % 46.9 MCV Latest Range: 79.0-92.0 fL 87.7 MCH Latest Range: 25.6-32.2 pg 30.7 MCHC Latest Range: 32.0-36.5 gm/dL 35.0 RDWSD Latest Range: 35.0-46.0 fL 41.9 RDWCV Latest Range: 10.9-14.4 % 13.0 Platelets Latest Range: 145-370 x10(3)/mcL 215 MPV Latest Range: 9.0-12.0 fL 9.9 Neutr Abs (ANC) Latest Range: 1.50-6.30 x10(3)/mcL 6.18 Neutrophils % Latest Range: 34.0-71.0 % 61.9 Immature Gran % Latest Range: 0.00-0.66 % 0.90 (H) Lymphocytes % Latest Range: 19.0-53.0 % 23.6 Monocytes % Latest Range: 4.0-13.0 % 7.8 Eosinophils % Latest Range: 0.0-7.0 % 4.9 Basophils % Latest Range: 0.0-2.0 % 0.9 Elizabeth Gran Abs Latest Range: 0.00-0.05 x10(3)/mcL 0.09 (H) Lymphocytes Abs Latest Range: 1.0-3.6 x10(3)/mcL 2.4 Monocyte Abs Latest Range: 0.2-1.0 x10(3)/mcL 0.8 Eosinophils Abs Latest Range: 0.0-0.5 x10(3)/mcL 0.5 Basophils Abs Latest Range: 0.0-0.2 x10(3)/mcL 0.1 Total Bilirubin Latest Range: 0.2-1.3 mg/dL 0.4 Bili, Direct Latest Range: 0.0-0.3 mg/dL 0.1 Alk Phos Latest Range: 40-120 unit/L 62 AST Latest Range: 0-39 unit/L 47 (H) ALT Latest Range: 0-55 unit/L 79 (H) Ferritin Latest Range: 30-400 ng/mL 513 (H) Iron Latest Range: 45-160 mcg/dL 125 TIBC Latest Range: 250-450 mcg/dL 422 Iron Saturation Latest Range: 20-50 % 30 PT Latest Range: 12.3-14.7 sec 12.8 INR Latest Range: 0.9-1.1 0.9 Sodium Latest Range: 135-145 mmol/L 138 Potassium Latest Range: 3.5-5.0 mmol/L 4.4 Chloride Latest Range: 98-107 mmol/L 102 CO2 Latest Range: 22-31 mmol/L 29 Anion Gap Latest Range: 5-15 mmol/L 7 BUN Latest Range: 10-20 mg/dL 26 (H) Creatinine Latest Range: 0.80-1.50 mg/dL 1.07 Estimated GFR Latest Range: >=60 >60 Glucose Lvl Latest Range: 60-199 mg/dL 91 Calcium Latest Range: 8.5-10.5 mg/dL 9.1 Total Protein Latest Range: 6.4-8.3 gm/dL 7.7 Albumin Latest Range: 3.2-5.2 gm/dL 4.4 Hepatitis A Ab Latest Range: Negative Negative Hep B DNA Quant-Rolla Latest Range: <357 IU/mL <357 Hep B E Ab-Rolla Latest Range: Negative Positive Hep B E Ag-Rolla Latest Range: Negative Negative HepB Surface Ab No range found Indeterminate HepB Surface Ag Latest Range: Negative Negative Hep B Core Ab Latest Range: Negative Positive (A) Review of Systems Objective: Physical Exam Assessment and Plan: 1. Hepatitis C, genotype 3 with an increase his fibrosis stage from stage I in 2003 to stage III [id number]. Would like to see him back for a teaching visit in September to start treatment. Prior to treatment he will need an ekg which he would like to do at his PCP's office, he will also need a dilatedeye exam which he will schedule. His prosiasis is not well controlled and this may worsen with the Interferon. He will start using his creams more regularly in an attempt to better control the psoriasis prior to starting the Peg interferon. Will plan to do baseline labs at his next visit. documented in this encounter Plan of Treatment Upcoming Encounters Date Type Department Care Team (Late st Contact Info) Description 04/15/2024 1:30 PM EDT Office [place] [address] Lucrecia Rios APRN [facility] [place] [place] [address] documented as of this encounter Visit Diagnoses Diagnosis Hepatitis C, chronic- Primary Chronic hepatitis C without mention of hepatic coma documented in this encounter Care Teams Electrical Worker Relationship Specialty Start Date End Date Yeimi Carey APRN [address] [place] [phone] PCP - General 05/04/11 10/30/11 documented as of this encounter
--- OUTSIDE RECORDS SUMMARY | 2024-03-27 00:44 | XMS_ITS | Encounter Summary ---
Author Organization [facility] [place] [address] Care Team Providers Care Naturopath Name Role Phone Renzo Darden MD Primary Care Provider [phone] Reason for Visit * Reason Onset Date Comments Medication Refill 08/04/2012 Encounter Details Date Type Department Care Team (Late st Contact Info) Description 08/04/2012 Refill [place] [phone] Nataliya Mejias, [facility] [place] [address] Chronic hepatitis C (Primary Dx) Social History Tobacco Use Types Packs/Day Years [...] encounter Miscellaneous Notes * Telephone Encounter - Noemí Harkins, RN - 08/07/2012 9:40 AM EST Med refill needed. documented in this encounter Plan of Treatment Upcoming Encounters Date Type Department Care Team (Late st Contact Info) Description 04/15/2024 1:30 PM EDT Office Visit [place] [phone] Lucrecia Rios, [facility] [address] documented as of this encounter Visit Diagnoses Diagnosis Chronic hepatitis C- Primary Chronic hepatitis C without mention of hepatic coma documented in this encounter Care Teams Naturopath Relationship Specialty Start Date End Date Renzo Darden MD [address] [place] [phone] PCP - General 10/31/11 09/25/12 documented as of this encounter
--- OUTSIDE RECORDS SUMMARY | 2024-03-27 00:44 | XMS_ITS | Encounter Summary ---
Author Organization [facility] [place] [address] Care Team Providers Care Package Wrapper Name Role Phone Lyric Egan MD Primary Care Provider Reason for Visit * Reason Comments Medication Refill Encounter Details Date Type Department Care Team (Late st Contact Info) Description 12/09/2014 Refill Dermatology at [place] [address] [place] [phone] Reilly Summers MD [address] [facility], [place] [address] Social History Tobacco Use Types Packs/Day Years [...] 1:30 PM EDT Office [place] [address] Lucrecia Rios, [facility] [place] [address] documented as of this encounter Goals Goal Patient Goal Type Associated Problems Recent Progress Patient-Stated? Author [facility] Medication Compliance and Understanding Patient Facing Action Plan No Nataliya Lentz, [facility] Note: Hugo Goins is hoping to see a decrease in BSA of his Psorasis and a decrease in his pain score of 4 to a 2. documented as of this encounter Visit Diagnoses Not on filedocumented in this encounter Care Teams Package Wrapper Relationship Specialty Start Date End Date Lyric Egan MD [address] [place] [address] PCP - General 12/21/21 documented as of this encounter
--- OUTSIDE RECORDS SUMMARY | 2024-03-27 00:44 | XMS_ITS | Encounter Summary ---
Author Organization [facility] [place] [address] Care Team Providers Care Entertainment & Media Correspondent Name Role Phone Yeimi Carey LESTER Primary Care Provider [phone] Reason for Visit * Reason Onset Date Comments Abnormal Lab 09/27/2011 Encounter Details Date Type Department Care Team (Late st Contact Info) Description 09/27/2011 Telephone [place] [phone] Nataliya Mejias [facility] DR [place]STRO[place] [address] Abnormal Lab Social History Tobacco Use Types Packs/Day Years [...] Telephone Encounter - Nataliya Mejias APRN - 09/27/2011 8:53 AM EST Left msg for patient that his tsh is abnormal, he is on synthroid but the dose may need to be adjusted. He should discuss with his PCP, he should not start the Interferon until the tsh is normal as the interferon can cause abnormalities with the thyroid. Results for HUGO SWAN ( ) as of 09/27/2011 08:53 Ref. Range 09/26/2011 16:47 TSH Latest Range: 0.27-4.20 mcIU/mL 13.37 (H) documented in this encounter Plan of Treatment Upcoming Encounters Date Type Department Care Team (Late st Contact Info) Description 04/15/2024 1:30 PM EDT Office [place] [address] Lucrecia Rios APRN [facility] [place] [address] documented as of this encounter Visit Diagnoses Not on filedocumented in this encounter Care Teams Entertainment & Media Correspondent Relationship Specialty Start Date End Date Yeimi Carey APRN [address] [place] [address] PCP - General 05/04/11 10/30/11 documented as of this encounter
--- OUTSIDE RECORDS SUMMARY | 2024-03-27 00:44 | XMS_ITS | Encounter Summary ---
Author Organization [facility] [place] [address] Care Team Providers Care Field Artillery Crewmember Name Role Phone Renzo Daredn MD Primary Care Provider [phone] Encounter Details Date Type Department Care Team (Late st Contact Info) Description 12/04/2011 Abstract [place] [phone] Mimi Fisher, RN Social History Tobacco Use Types Packs/Day [...] 1:30 PM EDT Office [place] [phone] Lucrecia Rios, PRIVACY MANAGER [facility] [place] [address] documented as of this encounter Visit Diagnoses Not on filedocumented in this encounter Care Teams Field Artillery Crewmember Relationship Specialty Start Date End Date Renzo Darden MD [address] [place] [phone] PCP - General 10/31/11 09/25/12 documented as of this encounter
--- OUTSIDE RECORDS SUMMARY | 2024-03-27 00:44 | XMS_ITS | Encounter Summary ---
Author Organization [facility] [place] [address] Care Team Providers Care Commercial Fisherman Name Role Phone Yeimi Carey LESTER Primary Care Provider [phone] Reason for Visit * Reason Comments Follow-up Encounter Details Date Type Department Care Team (Late st Contact Info) Description 09/26/2011 3:35 PM EST [place] [phone] Nataliya Mejias CLINICAL PROJECT MANAGER [facility] [place] [address] Hepatitis c, chronic (Primary Dx) Discharge Disposition: [...] Sign Reading Time Taken Comments Blood Pressure 140/80 09/26/2011 3:15 PM EST Pulse 68 09/26/2011 3:15 PM EST Temperature - - Respiratory Rate - - Oxygen Saturation - - Inhaled Oxygen Concentration - - Weight 89.4 kg (197 lb) 09/26/2011 3:15 PM EST Height 172.7 cm (5' 8) 09/26/2011 3:15 PM EST Body Mass Index 29.95 09/26/2011 3:15 PM EST documented in this encounter Progress Notes * Nataliya Mejias APRN - 09/26/2011 3:24 PM EST Subjective: Patient ID: Hugo Goins is a 56 y.o. male. HPI CURRENT PROBLEM LIST: 1.) Chronic Hepatitis C [...] sexual active CURRENT HCV TREATMENT: Start Date: Initial medications: 180 Pegasys mcg / 1200 mg Ribavirin Dose reductions/ escalations: Completed tx week/ planned duration of tx: IFN dose day: Significant side effects: 09/26/2011 baseline / week 4 / week 8 / week 12 / week 24 pending Review of Systems Objective: Physical Exam Assessment and Plan: Today we discussed the typical side effects of peg-interferon and Ribavirin treatment. We discussedthe flu like symptoms including fever, chills and arthralgias. Safe doses of Tylenol were discussed. Other side effects including but not limited to nausea, vomiting, diarrhea and weight loss, hair thinning, rash and visual changes were discussed. The patient agrees to see an Imcu Specialist if visual changes occur. We also discussed the rare side effect of unmasking an autoimmune disease. We discussed the importance of adequate hydration during treatment, as this helps to limit side effects. We discussed the psychiatric side effects of the medication including difficulty concentrating, irritability, depression and suicidal or homicidal thoughts. The patient is aware of these complications and agrees to notify myself or the nursing staff if she experiences progressive mood changes. We discussed the importance of control due to the teratogenic effects of Ribavirin. The patient was cautioned to keep the medication away from women of child bearing age. We discussed the appropriate disposal of needles and syringes. The patient was shown appropriate sub cutaneous injection technique and the rotation of injection sites. The patient will get lab tests according to our clinic schedule which is weekly until stable. We will check for a viral response at week 4 and pilar the treatment duration to the viral response. Thepatient will follow up in clinic in 5 weeks. He is aware that his psoriasis will likely get worse while he is on Interferon. documented in this encounter Plan of Treatment Upcoming Encounters Date Type Department Care Team (Late st Contact Info) Description 04/15/2024 1:30 PM EDT Office Visit Rheumatology at [facility] [place] [address] Lucrecia Rios APRN [facility] [place] [address] documented as of this encounter Procedures Procedure Name Priority Date/Time Associated Diagnosis Comments HCV QUANT Routine 09/26/2011 4:47 PM EST Hepatitis c, chronic DIFFERENTIAL, AUTOMATED Routine 09/26/2011 4:47 PM EST IRON AND TIBC Routine 09/26/2011 4:47 PM EST Hepatitis c, chronic CBC (WITH DIFF) Routine 09/26/2011 4:47 PM EST Hepatitis c, chronic JENNIFER ANTIBODY SCREEN Routine 09/26/2011 4 :47 PM EST Hepatitis c, chronic TSH Routine 09/26/2011 4:47 PM EST Hepatitis c, chronic COMPREHENSIVE METABOLIC PANEL Routine 09/26/2011 4:47 PM EST Hepatitis c, chronic HEPATITIS C RNA, QUANTITATIVE, PCR Routine 09/26/2011 4:31 PM EST Hepatitis c, chronic documented in this encounter Results * (ABNORMAL) DIFFERENTIAL, AUTOMATED (09/26/2011 4:47 PM EST) Neutrophil % 59.7 34.0 - 71.0 % CERNER MILLENNIUM Neutrophil Absolute 6.36(H) 1.50 - 6.30 x10(3)/mc L CERNER MILLENNIUM Lymph % 24.3 19.0 - 53.0 % CERNER MILLENNIUM Lymphocytes Abs 2.6 1.0 - 3.6 x10(3)/mc L CERNER MILLENNIUM Monocyte % 8.9 4.0 - 13.0 % CERNER MILLENNIUM Monocyte Abs 1.0 0.2 - 1.0 x10(3)/mc L CERNER MILLENNIUM Eos % 5.5 0.0 - 7.0 % CERNER MILLENNIUM Eosinophils Abs 0.6(H) 0.0 - 0.5 x10(3)/mc L CERNER MILLENNIUM Basophil % 0.7 0.0 - 2.0 % CERNER ASHLEYENNIUM Baso Absolute 0.1 0.0 - 0.2 x10(3)/mc L PREMA RAMIREZENNIUM Immature Gran % 0.90(H) 0.00 - 0.66 % PREMA RAMIREZENNIUM Comment: Immature granulocytes(IG's)percentage and absolute count will include metamyelocytes, myelocytes, and promyelocytes. Blood smears from CBCs yielding IG's will be scanned manually for concordance. If this scan disagrees with the automated IG or if promyelocytes are noted, a manual differential will be performed. Immature Gran Absolute 0.10(H) 0.00 - 0.05 x10(3)/mc L PREMA LEWIS Blood specimen (specimen) 09/26/2011 4:47 PM EST 09/26/2011 4:50 PM EST Chris Brown MD HEMATOLOGY ORDERABL ES [facility] * HCV QUANT (09/26/2011 4:47 PM EST) HCV Viral Load 65825 IU/mL [facility] HCV Viral Load Result: [id number] Indication for Study: Hepatitis C Infection Analysis: [...] This assay is being performed in the [facility] Molecular Pathology Laboratory. Sha North, Ph.D. Director, Molecular Pathology [facility] Comment: [VERIFIED DATE]02.24.12 Verified By:Layla Javier (Electronic Signature) Blood specimen (specimen) 09/26/2011 4:47 PM EST 09/28/2011 7:23 AM EST Narrative Resulting Agency Comment Spec In Lab Chris Brown MD HEMATOLOGY ORDERABL ES Performing Organization Address [facility] de Phone Number CERNER MILLENNIUM * (ABNORMAL) TSH (09/26/2011 4:47 PM EST) Thyroid Stimulating Hormone 13.37(H) 0.27 - 4.20 mcIU/mL CERNER MILLENNIUM Blood specimen (specimen) 09/26/2011 4:47 PM EST 09/26/2011 4:50 PM EST Narrative Resulting Agency Comment Spec In Lab Chris Brown MD CHEMISTRY ORDERABLE S Performing Organization Address [facility] Phone Number CERNER MILLENNIUM * Iron and TIBC (09/26/2011 4:47 PM EST) Iron 113 45 - 160 mcg/dL CERNER MILLENNIUM TIBC 403 250 - 450 mcg/dL CERNER MILLENNIUM Iron Saturation 28 20 - 50 % CERN ER MILLENNIUM Blood specimen (specimen) 09/26/2011 4:47 PM EST 09/26/2011 4:50 PM EST Narrative Resulting Agency Comment Spec In Lab Chris Brown MD CHEMISTRY ORDERABLE S Performing Organization Address [facility] de Phone Number CERNER MILLENNIUM * (ABNORMAL) Comprehensive metabolic panel (non-fasting) (09/26/2011 4:47 PM EST) Glucose 94 60 - 199 mg/dL CERNER MILLENNIUM Comment:Diabetes: >=200 mg/d L plus symptoms Blood Urea Nitrogen 24(H) 10 - 20 mg/dL CERNER MILLENNIUM Creatinine 1.01 0.80 - 1.50 mg/dL CERNER MILLENNIUM Sodium 138 135 - 145 mmol/L CERNER MILLENNIUM Potassium 3.9 3.5 - 5.0 mmol/L CERNER MILLENNIUM Comment: Please note: ??Patients with WBC >100,000 may have falsely elevated Potassium levels. ??For accurate Potassium quantification in these patients send serum separator tube (gold top) for subsequent determinations. ??Contact the Clinical Chemistry Laboratory if there are any questions. Chloride 104 98 - 107 mmol/L CERNER MILLENNIUM Carbon Dioxide 25 22 - 31 mmol/L CERNER MILLENNIUM Anion Gap 9 5 - 15 mmol/L CERNER MILLENNIUM Calcium 9.3 8.5 - 10.5 mg/dL CERNER MILLENNIUM Protein, Total 7.5 6.4 - 8.3 gm/dL CERNER MILLENNIUM Albumin 4.3 3.2 - 5.2 gm/dL CERNER MILLENNIUM Aspartate Aminotransferase 75(H) 0 - 39 unit/L CERNER MILLENNIUM Alanine Aminotransferase 128(H) 0 - 55 unit/L CERNER MILLENNIUM Alkaline Phosphatase 58 40 - 120 unit/L CERNER MILLENNIUM Bilirubin, [...] multiply eGFR by 1.2. The MDRD equation has not been validated for pediatric patients and is only valid for patients with age >= 18 years. At present, NKDEP does NOT recommend using [...] with diabetic kidney disease. References: http://nkdep.nih.gov/resources/NKDEP_Suggestn4Labs_0606_508.pdf http://www.kidney.org/professionals/kls/pdf/faq_gfr.pdf Blood specimen (specimen) 09/26/2011 4:47 PM EST 09/26/2011 4:50 PM EST Narrative Resulting Agency Comment Spec In Lab Chris Brown MD CHEMISTRY ORDERABLE S CERNER MILLENNIUM * (ABNORMAL) CBC (with Diff) (09/26/2011 4:47 PM EST) White Blood Cell 10.7(H) 4.0 - 10.0 x10(3)/mc L CERNER MILLENNIUM Red Blood Cell 5.87 4.63 - 6.08 x10(6)/mc L CERNER MILLENNIUM Hemoglobin 18.2(H) 13.7 - 17.5 gm/dL CERNER MILLENNIUM Hematocrit 49.3 40.0 - 51.0 % CERNER MILLENNIUM Mean Cell Volume 84.0 79.0 - 92.0 fL CERNER MILLENNIUM Mean Cell Hemoglobin 31.0 25.6 - 32.2 pg CERNER MILLENNIUM Mean Cell Hemoglobin Concentration 36.9(H) 32.0 - 36.5 gm/dL CERNER MILLENNIUM Platelet 206 145 - 370 x10(3)/mc L CERNER MILLENNIUM RDW Standard Deviation 38.9 35.0 - 46.0 fL CERNER MILLENNIUM RDW coefficient of variation 13.0 10.9 - 14.4 % CERNER MILLENNIUM Mean Platelet Volume 10.0 9.0 - 12.0 fL CERNER MILLENNIUM Blood specimen (specimen) 09/26/2011 4:47 PM EST 09/26/2011 4:50 PM EST Narrative Resulting Agency Comment Spec In Lab Chris Brown MD HEMATOLOGY ORDERABL ES Performing Organization Address City/[facility]/ZIP Co de Phone Number CERWES RAMIREZENNIUM * JENNIFER (09/26/2011 4:47 PM EST) JENNIFER Neg Neg PREMA LEWIS Blood specimen (specimen) 09/26/2011 4:47 PM EST 09/27/2011 8:14 AM EST Narrative Resulting Agency Comment Spec In Lab Chris Brown MD LAB SEND OUT ORDERA BLES PREMA LEWIS documented in this encounter Visit Diagnoses Diagnosis Hepatitis C, chronic- Primary Chronic hepatitis C without mention of hepatic coma documented in this encounter Care Teams Commercial Fisherman Relationship Specialty Start Date End Date Yeimi Carey APRN [address] [place] [address] PCP - General 05/04/11 10/30/11 documented as of this encounter
--- OUTSIDE RECORDS SUMMARY | 2024-03-27 00:44 | XMS_ITS | Encounter Summary ---
Author Organization [facility] [place] [address] Care Team Providers Care Research And Insights Executive Name Role Phone Renzo Darden MD Primary Care Provider [phone] Reason for Visit * Reason Comments GI Problem Encounter Details Date Type Department Care Team (Late st Contact Info) Description 10/31/2011 3:00 PM EDT Follow-[place] [phone] Nataliya Mejias APRN [facility] [place] [address] Hepatitis C (Primary Dx) Discharge Disposition: Home Social History [...] Sign Reading Time Taken Comments Blood Pressure 140/95 10/31/2011 3:18 PM EDT Pulse 79 10/31/2011 3:18 PM EDT Temperature - - Respiratory Rate - - Oxygen Saturation - - Inhaled Oxygen Concentration - - Weight 88.9 kg (196 lb) 10/31/2011 3:18 PM EDT Height 175.3 cm (5' 9) 10/31/2011 3:18 PM EDT Body Mass Index 28.94 10/31/2011 3:18 PM EDT documented in this encounter Progress Notes * Nataliya Mejias APRN - 10/31/2011 3:15 PM EDT Subjective: Patient ID: Hugo Goins is [...] dose day: Significant side effects: 09/26/2011 baseline week 4 / week 8 / week 12 / week 24 62,384 Review of Systems Objective: Physical Exam Assessment and Plan: Mr. Goins returns today with a normal TSH. His HCV treatment was delayed due to an abnormal TSh reading last month. He had his synthroid dose adjusted and on repeat testing his TSH was 3. He is ready to start treatment, no questions about the routine at this point. Will look into his authorization and plan to start Pegasys and Ribavirin as soon as they are available. documented in this encounter Plan of Treatment Upcoming Encounters Date Type Department Care Team (Late st Contact Info) Description 04/15/2024 1:30 PM EDT Office [place] [address] Lucrecia Rios APRN [facility] [place] [address] documented as of this encounter Visit Diagnoses Diagnosis Hepatitis C- Primary Unspecified viral hepatitis C without hepatic coma documented in this encounter Care Teams Research And Insights Executive Relationship Specialty Start Date End Date Renzo Darden MD [address] [place] [phone] PCP - General 10/31/11 09/25/12 documented as of this encounter
--- OUTSIDE RECORDS SUMMARY | 2024-03-27 00:44 | XMS_ITS | Encounter Summary ---
Author Organization [facility] [place] [address] Care Team Providers Care Superintendent Compressor Stations Name Role Phone Renzo Darden MD Primary Care Provider [phone] Reason for Visit * Reason Onset Date Comments Medication Refill 05/19/2012 Encounter Details Date Type Department Care Team (Late st Contact Info) Description 05/19/2012 Telephone [place] [phone] Nataliya Mejias, CLINICAL PRACTITIONER [facility] [place] [address] Medication Refill Social History Tobacco Use Types Packs/Day Years [...] Telephone Encounter - Laura Neal RN - 05/19/2012 10:45 AM EDT Call from patient's local pharmacy stating they cannot compound mouthwash and they cannot provide zovirax cream. [facility] pharmacy has zovirax cream, and [facility] has mouthwash. They will mail to patient. They were given verbal scripts, and patient was given their phone numbers. Patient agrees with this plan. documented in this encounter Plan of Treatment Upcoming Encounters Date Type Department Care Team (Late st Contact Info) Description 04/15/2024 1:30 PM EDT Office [place] [address] Lucrecia Rios, [facility] [place] [address] documented as of this encounter Visit Diagnoses Not on filedocumented in this encounter Care Teams Superintendent Compressor Stations Relationship Specialty Start Date End Date Renzo Darden MD [address] [place] [phone] PCP - General 10/31/11 09/25/12 documented as of this encounter
--- OUTSIDE RECORDS SUMMARY | 2024-03-27 00:44 | XMS_ITS | Encounter Summary ---
Author Organization [facility] [place] [address] Care Team Providers Care Spectrograph Operator Name Role Phone Renzo Darden MD Primary Care Provider [phone] Reason for Visit * Reason Onset Date Comments Medication Refill 05/16/2012 Encounter Details Date Type Department Care Team (Late Contact Info) Description 05/16/2012 Refill [place] [phone] Nataliya Mejias, [facility] [place] [address] Social History Tobacco Use Types Packs/Day Years [...] 1:30 PM EDT Office [place] [phone] Lucrecia Rios, [facility] [place] [address] documented as of this encounter Visit Diagnoses Not on filedocumented in this encounter Care Teams Spectrograph Operator Relationship Specialty Start Date End Date Renzo Darden MD [address] [place] [address] PCP - General 10/31/11 09/25/12 documented as of this encounter
--- OUTSIDE RECORDS SUMMARY | 2024-03-27 00:44 | XMS_ITS | Encounter Summary ---
[place] [address] Care Team Providers Care Hand Worker Name Role Phone Renzo Darden MD Primary Care Provider [phone] Reason for Visit * Reason Onset Date Comments Prior Authorization 01/14/2012 Hep C Treatm ent Encounter Details Date Type Department Care Team (Late st Contact Info) Description 01/14/2012 Telephone [place] [phone] Mimi Fisher web design intern (Hep C Treatment) Social History Tobacco Use Types Packs/Day Years [...] Telephone Encounter - Mimi Fisher CMA - 01/14/2012 11:37 AM EDT 180 Pegasys mcg- SQ every week 1200 mg Ribavirin- 600mg every AM and 600mg PM every day- Covered with no PA Insurance & Phone #: [employer] [phone] ID #: [id number] Notes: Pegasys PA approved for 12 weeks. documented in this encounter Plan of Treatment Upcoming Encounters Date Type Department Care Team (Late st Contact Info) Description 04/15/2024 1:30 PM EDT [place] [address] Lucrecia Rios, FULL DECATOR OPERATOR [facility] [place] [address] documented as of this encounter Visit Diagnoses Not on filedocumented in this encounter Care Teams Hand Worker Relationship Specialty Start Date End Date Renzo Darden MD [address] [place] [phone] PCP - General 10/31/11 09/25/12 documented as of this encounter
--- OUTSIDE RECORDS SUMMARY | 2024-03-27 00:44 | XMS_ITS | Encounter Summary ---
[place] [address] Care Team Providers Care Fabrication Manager Name Role Phone Yeimi Carey APRN Primary Care Provider [phone] Reason for Visit * Reason Comments Skin Check Psoriasis Encounter Details Date Type Department Care Team (Late st Contact Info) Description 12/18/2013 11:15 AM EDT Office Visit Dermatology at [place] [address] [place] [phone] Reilly Summers MD [address] [facility] [place] [address] Psoriasis (Primary Dx) Social History Tobacco Use Types [...] * Patient Instructions* Babs Enriquez LPN - 12/18/2013 11:55 AM EDT Images from the original note were not included. [facility] Psoriasis: After Your Visit Your Care Instructions Psoriasis (say [id number]-FD-kr-lauri) is a long-term skin problem that causes [...] still damp. This seals in moisture. Use cbbm-iif-goljjrj products that your doctor suggests. These may [...] more? Visit our health information library at [email or web address] You can also view health information on [employer], your personal patient account. Log in or sign up today. Enter U759 in the search box to learn more about Psoriasis: After Your Visit. ?? [id number] [employer]. Care instructions adapted under license by [facility]. This care instruction is for use with your licensed healthcare professional. If you have questions about a medical condition or this instruction, always ask your healthcare professional. [employer] disclaims any warranty or liability for your use of this information. Content Version: 9.9.069375; Last Revised: March 10, 2013 documented in this encounter Progress Notes * Reilly Summers MD - 12/18/2013 12:28 PM EDT Problem: Psoriasis. Roddy is a 58-year-old gentleman who has had problems with psoriasis since high school. 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 However, he is very fair skinned and tends to burn easily. His psoriasis currently has been getting worse and he is referred today to see me by Yeimi Carey for further treatment options. His medical history is also significant for a history of EtOH abuse, which he quit in 2001. He has a history of hepatitis C with hepatic coma in the past status post therapy with interferon and now doing quite well. There is a family history of psoriasis in the patient's father. He readily admits that he does not tend to use creams much and is not compliant with them. He does state that during his interferon therapy he became quite adept at injecting the interferon and had no difficulty with self injections. The patient seen in consultation for Yeimi Carey. Physical examination reveals a pleasant 58-year-old gentleman who has large plaque psoriasis covering his entire abdomen, entire lower back, large areas on his elbows and arms, and patchy involvement on the knees and chins. He has no pitting of the nails. His feet are clear, but he does have some periungual erythema around the hallux and second and third toes of both feet. He says he has some arthritic symptoms in his right thumb and right fourth small finger. Assessment and Plan: Psoriasis, moderate plaque, gradually worsening over time. a. Phototreatment in this patient is not in his best interest, given his extensive history of sun damage, work related, and his very fair skin. b. Methotrexate is clearly contraindicated by his history of hepatitis C. Would also not recommend cyclosporine. c. He is clearly beyond the reach of topicals with his widespread involvement and would recommend that we advanced to biologic therapy. Would recommend Humira. Discussed benefits and side effects. Answered patient's questions. d. Discussed with patient the National Psoriasis Foundation as a good source for information on the condition. e. Would begin Humira 40 mg, using the autoinjector pens. Inject two pens on day one, one on day eight, and then every two weeks thereafter one additional injection subcutaneously. We will obtain prior authorization and then initiate this, demonstrating it first to the patient and then have him use it for a month and then return to clinic to see his progress. Discussed benefits and side effects. The patient has no history of TB. 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 Return to clinic for initiation of Humira once he receives this medication from his insurance his mail order pharmacy. Note: Half an hour spent with the patient, more than spent in counseling. COPY: Justin Reid documented in this encounter Plan of Treatment Upcoming Encounters Date Type Department Care Team (Late st Contact Info) Description 04/15/2024 1:30 PM EDT Office [place] [address] Lucrecia Rios BRIQUETTE MACHINE OPERATOR HELPER [facility] [place] [address] documented as of this encounter Visit Diagnoses Diagnosis Psoriasis- Primary Other psoriasis documented in this encounter Care Teams Fabrication Manager Relationship Specialty Start Date End Date Yeimi Carey APRN [address] [place] [phone] PCP - General 09/26/12 12/20/13 documented as of this encounter
--- OUTSIDE RECORDS SUMMARY | 2024-03-27 00:44 | XMS_ITS | Encounter Summary ---
Author Organization [facility] [place] [address] Care Team Providers Care Stretcher Helper Name Role Phone Renzo Darden MD Primary Care Provider [phone] Reason for Visit * Reason Comments Follow-up Encounter Details Date Type Department Care Team (Late st Contact Info) Description 12/14/2014 4:30 PM EDT Office Visit Dermatology at [address] [place] [phone] Reilly Summers MD [address] [facility], [place] [address] Psoriasis Discharge Disposition: Home Social History Tobacco [...] * Patient Instructions* Krystin Heller LPN - 12/14/2014 4:28 PM EDT Images from the original note were not included. [facility] Psoriasis: After Your Visit Your Care Instructions Psoriasis (say mfm-CJ-sm-lauri) is a long-term skin problem that causes [...] still damp. This seals in moisture. Use pfmz-psu-nfeufwb products that your doctor suggests. These may [...] more? Visit our health information library at [email or web address] You can also view health information on Piece of Cake, your personal patient account. Log in or sign up today. Enter U759 in the search box to learn more about Psoriasis: After Your Visit. ?? [id number] [employer]. Care instructions adapted under license by [facility]. This care instruction is for use with your licensed healthcare professional. If you have questions about a medical condition or this instruction, always ask your healthcare professional. [employer] disclaims any warranty or liability for your use of this information. Content Version: 10.4.798075; Current as of: October 14, 2013 documented in this encounter Progress Notes * Reilly Summers MD - 12/14/2014 4:33 PM EDT Problem: Followup psoriasis status post nine months of Humira. Roddy follows up and is doing great. His psoriasis is well controlled with Humira. He is actually entirely clear. He has had no injection site reactions, no fevers or chills, and the shots are going well. They are a little bit painful at times, but he can put up with a little stinging for the wonderful results he is getting. Physical examination reveals a pleasant, 59-year-old gentleman whose psoriasis remains entirely clear on the abdomen, flanks, arms, and legs with just patchy erythema at sites of prior involvement. Assessment and Plan: Psoriasis, clear on Humira. a. Continue Humira 40 mg using the autoinjector pen, injecting once subcutaneously every two weeks. Today will fax two with five refills to his [facility]. b. The patient's prior authorization is good through June 2015. c. Return to clinic in another three months for repeat check. COPY: Yeimi Carey A.P.R.N. documented in this encounter Plan of Treatment Upcoming Encounters Date Type Department Care Team (Late st Contact Info) Description 04/15/2024 1:30 PM EDT Office [place] [address] Lucrecia Rios APRN [facility] [place] [address] documented as of this encounter Visit Diagnoses Diagnosis Psoriasis Other psoriasis documented in this encounter Care Teams Stretcher Helper Relationship Specialty Start Date End Date Renzo Darden MD [address] [place] [phone] PCP - General 12/21/13 11/03/18 documented as of this encounter
--- OUTSIDE RECORDS SUMMARY | 2024-03-27 00:44 | XMS_ITS | Encounter Summary ---
Author Organization [facility] [place] [address] Care Team Providers Care Brass Polisher Name Role Phone Renzo Darden MD Primary Care Provider [phone] Reason for Visit * Reason Onset Date Comments Medication Refill 02/14/2012 Encounter Details Date Type Department Care Team (Late Contact Info) Description 02/14/2012 Refill [place] [phone] Nataliya Mejias, [facility] [place] [address] Social History Tobacco Use Types Packs/Day Years [...] PM EDT Office Visit [place] [address] Lucrecia Rios, [facility] [place] [address] documented as of this encounter Visit Diagnoses Not on filedocumented in this encounter Care Teams Brass Polisher Relationship Specialty Start Date End Date Renzo Darden MD [address] [place] [address] PCP - General 10/31/11 09/25/12 documented as of this encounter
--- OUTSIDE RECORDS SUMMARY | 2024-03-27 00:44 | XMS_ITS | Encounter Summary ---
Author Organization [facility] [place] [address] Care Team Providers Care Sound Effects Technician Name Role Phone Renzo aDrden MD Primary Care Provider [phone] Reason for Visit * Reason Comments Hepatitis C Encounter Details Date Type Department Care Team (Late st Contact Info) Description 06/30/2012 9:30 AM EST Follow-Up [place] [phone] Nataliya Mejias APRN [facility] [place] [address] Chronic hepatitis C (Primary Dx) Discharge Disposition: Home Social [...] Sign Reading Time Taken Comments Blood Pressure 140/88 06/30/2012 9:49 AM EST Pulse - - Temperature - - Respiratory Rate - - Oxygen Saturation - - Inhaled Oxygen Concentration - - Weight 81.2 kg (179 lb) 06/30/2012 9:49 AM EST Height - - Body Mass Index 26.43 05/16/2012 9:49 AM EDT documented in this encounter Progress Notes * Nataliya Mejias APRN - 06/30/2012 9:45 AM EST Subjective: Patient ID: Hugoasad Goins is a 57 y.o. male. GI Problem CURRENT PROBLEM LIST: 1.) Chronic Hepatitis C [...] sexual active CURRENT HCV TREATMENT: Start Date: 11/16/11-(10-12-12) Initial medications: 180 Pegasys mcg / 1200 mg Ribavirin Dose reductions/ escalations: Completed tx week/ planned duration of tx: IFN dose day: Fridays Significant side effects: 09/26/2011 baseline week 4 week 7 week 9 week 28 62,384 1050 <43+ <43- <43- Mr. Goins is a very pleasant 57 year old male who presents to [facility] for follow-up of his Hepatitis C genotype 3. He started dual therapy with ribavirin 1200 mg daily and Pegasys 180 mcg SQ weekly on 11/16/11. Due to his viral clearance between week 7 and 9 we have decided to proceed with 48 weeks of treatment. He is tolerating the therapy better with the reduction of the ribavirin to 800 mg a day. Still has some fatigue and flu like symptoms around the injection. He had mouth and lip sores which have improved with zovirax ointment. Has noted decreased visual acuity, no pain or other symptoms. Review of Systems Constitutional: Negative for appetite change. Respiratory: Negative for chest tightness, shortness of breath and wheezing. Cardiovascular: Negative for chest pain, palpitations and leg swelling. Gastrointestinal: Negative for blood in stool and abdominal distention. Genitourinary: Negative for hematuria. Neurological: Negative for tremors and weakness. Hematological: Negative for adenopathy. Does not bruise/bleed easily. Psychiatric/Behavioral: Negative for sleep disturbance, dysphoric mood and agitation. Objective: Physical Exam Constitutional: He is oriented to person, place, and time. He appears well- developed and well-nourished. HENT: Head: Normocephalic and atraumatic. Mouth/Throat: Abnormal dentition. Lower lip with flat healing ulcers Eyes: No scleral icterus. Neck: Normal range [...] close to the 48 weeks as possible. Will continue on the 800 mg of ribavirin for the duration of the treatment. 2. Hypothyroid, follow up testing with Dr. Darden, TSH in May was 2. 3. Psoriasis, using steroid cream at least once a day. He is hesitant to see dermatology due to costs, but since using bag balm daily and wearing long sleeves outside his skin is better. 4. Lip and oral sores, using zorivax ointment and the sores are healing, encouraged him to use vaseline or lip balm with spf to keep his lips moist. 5. Visual changes, encouraged him to go back to the eye doctor for re-evaluation. He will get labs again in six weeks as his counts are stable, he will follow up with me in six weeks. documented in this encounter Plan of Treatment Upcoming Encounters Date Type Department Care Team (Late st Contact Info) Description 04/15/2024 1:30 PM EDT Office [place] [address] Lucrecia Rios APRN [facility] [place] [address] documented as of this encounter Procedures Procedure Name Priority Date/Time Associated Diagnosis Comments HCV QUANT Routine 06/30/2012 10:27 AM EST Chronic hepatitis C CMP W/FASTING GLUCOSE Routine 06/30/2012 10:27 AM EST Chronic hepatitis C DIFFERENTIAL, AUTOMATED Routine 06/30/2012 10:27 AM EST HEPATITIS C RNA, QUANTITATIVE, PCR Routine 06/30/2012 10:27 AM EST Chronic hepatitis C CBC (WITH DIFF) Routine 06/30/2012 10:27 AM EST Chronic hepatitis C documented in this encounter Results * (ABNORMAL) DIFFERENTIAL, AUTOMATED (06/30/2012 10:27 AM EST) Neutrophil % 64.3 34.0 - 71.0 % CERNER MILLENNIUM Neutrophil Absolute 3.08 1.50 - 6.30 x10(3)/mc L CERNER MILLENNIUM Lymph % 16.1(L) 19.0 - 53.0 % CERNER MILLENNIUM Lymphocytes Abs 0.8(L) 1.0 - 3.6 x10(3)/mc L CERNER MILLENNIUM Monocyte % 16.7(H) 4.0 - 13.0 % CERNER MILLENNIUM Monocyte Abs 0.8 0.2 - 1.0 x10(3)/mc L CERNER MILLENNIUM Eos % 2.3 0.0 - 7.0 % CERNER MILLENNIUM Eosinophils Abs 0.1 0.0 - 0.5 x10(3)/mc L CERNER MILLENNIUM Basophil % 0.2 0.0 - 2.0 % CERNER MILLENNIUM Baso Absolute 0.0 0.0 - 0.2 x10(3)/mc L CERNER MILLENNIUM Immature Gran % 0.40 0.00 - 0.66 % CERNER MILLENNIUM Comment: Immature granulocytes(IG's)percentage and absolute count will include metamyelocytes, myelocytes, and promyelocytes. Blood smears from CBCs yielding IG's will be scanned manually for concordance. If this scan disagrees with the automated IG or if promyelocytes are noted, a manual differential will be performed. Immature Gran Absolute 0.02 0.00 - 0.05 x10(3)/mc L CERNER MILLENNIUM Blood specimen (specimen) 06/30/2012 10:27 AM EST 06/30/2012 10:37 AM EST Chris Brown MD HEMATOLOGY ORDERABL ES Performing Organization Address [place] Co de Phone Number [facility] * HCV QUANT (06/30/2012 10:27 AM EST) [facility] HCV Viral Load <43 IU/mL [facility] HCV Viral Load Result: < 43 Target Not Detected Indication for Study: Hepatitis C Infection Analysis: A quantitiative real time reverse transcriptase PCR assay was performed on extracted viral RNA for the purpose of quantification. Sample: plasma (1 mL minimum volume) Method: Wilfredo Ana TaqMAN 48 HCV Linear Range: 43IU/mL - 69,000,000IU/mL (95% CI) Interpretation: The result of this analysis is within the limits of detection of the assay. Note: This assay is being performed in the [facility] Molecular Pathology Laboratory. Sha North, Ph.D. Director, Molecular Pathology [facility] Comment: [VERIFIED DATE]07.03.12 Verified By:Layla Javier (Electronic Signature) Blood specimen (specimen) 06/30/2012 10:27 AM EST 06/30/2012 10:37 AM EST Narrative Resulting Agency Comment Spec In Lab Chris Brown MD HEMATOLOGY ORDERABL ES Performing Organization Address [place] Co de Phone Number [facility] * (ABNORMAL) CMP w/fasting Glucose (06/30/2012 10:27 AM EST) Pathologist [facility] Glucose Fasting 99 65 - 99 mg/dL [facility] Comment: ?Fasting* Glucose Interpretive Criteria Normal ?65-99 [...] of Diabetes Mellitus, Position Statement from the [place] [employer]. ??Diabetes Care, Volume 33, Supplement 1, Aug 2009 Blood Urea Nitrogen 21(H) 10 - 20 mg/dL CERNER MILLENNIUM Creatinine 1.06 0.80 - 1.50 mg/dL CERNER MILLENNIUM Comment: Please note that the pediatric reference intervals supplied above were not validated at [facility]. Results from pediatric patients should be interpreted in conjunction to the patient's age, height and muscle mass. Sodium 138 135 - 145 mmol/L CERNER MILLENNIUM Potassium 4.2 3.5 - 5.0 mmol/L CERNER MILLENNIUM Comment: [...] - 31 mmol/L CERNER MILLENNIUM Anion Gap 7 5 - 15 mmol/L CERNER MILLENNIUM Calcium 9.0 8.5 - 10.5 mg/dL CERNER MILLENNIUM Protein, Total 7.4 6.4 - 8.3 gm/dL CERNER MILLENNIUM Albumin 4.1 3.2 - 5.2 gm/dL CERNER MILLENNIUM Aspartate Aminotransferase 27 0 - 39 unit/L CERNER MILLENNIUM Alanine Aminotransferase 27 0 - 55 unit/L CERNER MILLENNIUM Alkaline [...] J Am Soc Nephrol;6:1963-72. Blood specimen (specimen) 06/30/2012 10:27 AM EST 06/30/2012 10:37 AM EST Narrative Resulting Agency Comment Spec In Lab Chris Brown MD CHEMISTRY ORDERABLE S PREMA LEWIS * (ABNORMAL) CBC (with Diff) (06/30/2012 10:27 AM EST) White Blood Cell 4.8 4.0 - 10.0 x10(3)/mc L CERNER MILLENNIUM Red Blood Cell 4.25(L) 4.63 - 6.08 x10(6)/mc L CERNER MILLENNIUM Hemoglobin 13.2(L) 13.7 - 17.5 gm/dL CERNER MILLENNIUM Hematocrit 39.6(L) 40.0 - 51.0 % CERNER MILLENNIUM Mean Cell Volume 93.2(H) 79.0 - 92.0 fL CERNER MILLENNIUM Mean Cell Hemoglobin 31.1 25.6 - 32.2 pg CERNER MILLENNIUM Mean Cell Hemoglobin Concentration 33.3 32.0 - 36.5 gm/dL CERNER MILLENNIUM Platelet 212 145 - 370 x10(3)/mc L CERNER MILLENNIUM RDW Standard Deviation 51.1(H) 35.0 - 46.0 fL CERNER MILLENNIUM RDW coefficient of variation 15.1(H) 10.9 - 14.4 % CERNER MILLENNIUM Mean Platelet Volume 10.3 9.0 - 12.0 fL CERNER MILLENNIUM Blood specimen (specimen) 06/30/2012 10:27 AM EST 06/30/2012 10:37 AM EST Narrative Resulting Agency Comment Spec In Lab Chris Brown MD HEMATOLOGY ORDERABL ES PREMA LEWIS documented in this encounter Visit Diagnoses Diagnosis Chronic hepatitis C- Primary Chronic hepatitis C without mention of hepatic coma documented in this encounter Care Teams Sound Effects Technician Relationship Specialty Start Date End Date Renzo Darden MD [address] [place] [phone] PCP - General 10/31/11 09/25/12 documented as of this encounter
--- OUTSIDE RECORDS SUMMARY | 2024-03-27 00:44 | XMS_ITS | Encounter Summary ---
Author Organization [facility] [place] [address] Care Team Providers Care Rn Case Management Name Role Phone Yeimi Carey APRN Primary Care Provider [phone] Encounter Details Date Type Department Care Team (Late st Contact Info) Description 07/06/2011 12:30 PM EST - 07/06/2011 1:00 PM EST [place] [address] Chris Hernandez MD [facility] [place] [address] LIVER BIOPSY (V 1.65) Social History Tobacco Use Types Packs/Day Years [...] as of this encounter H&P Notes * Chris Hernandez MD - 07/06/2011 11:49 AM EST H&P done prior to procedure and documented in the endoscopy report located in the Procedures tab in eDH. documented in this encounter Miscellaneous Notes * Miscellaneous - Provider, Scanning - 07/06/2011 8:46 PM EST * OR Attestation - Chris Hernandez MD - 07/06/2011 12:32 PM EST Attestation: Case Date: 07/06/2011 As the attending physician, I personally performed the entire procedure. CHRIS HERNANDEZ MD 07/06/2011 * Miscellaneous - Provider, Scanning - 07/06/2011 11:32 AM EST documented in this encounter Plan of Treatment Upcoming Encounters Date Type Department Care Team (Late st Contact Info) Description 04/15/2024 1:30 PM EDT Office [place] [address] Lucrecia Rios, CRAWLER TRACTOR OPERATOR [facility] [place] [address] documented as of this encounter Procedures Procedure [...] Surgical Pathology Report (07/06/2011 2:10 PM EST) Surgical Pathology Report [id number] ? Location: 4T The signing pathologist has [...] in rendering the final pathologic diagnosis. PREMA RAMIREZLUCINDATRINI 07/06/2011 2:10 PM EST Chris Hernandez MD PATHOLOGY/CYTOLOGY ORDERABLES PREMA LEWIS * Specimen to Pathology (surgical or derm) (07/06/2011 12:43 PM EST) AP Specimen 07/06/2011 12:4 3 PM EST 07/06/2011 12:43 PM EST Narrative CERWES FUIUM - 07/06/2011 12:43 PM EST Specimen requisition ordered. ??Separate Pathology report to follow Chris Hernandez MD PATHOLOGY/CYTOLOGY ORDERABLES PREMA LEWIS * LIVER BIOPSY (PERCUTANEOUS) (07/06/2011 12:33 PM EST) LIVER BIOPSY [facility] Patient Name: Hugo Goins ? Procedure Date: 07/06/2011 12:33:08 PM ? Date of : 1955 ? Age: 56 ? Procedure: ? Liver biopsy Indications: ? Established hepatitis C Providers: ? Chris Hernandez MD Referring MD: ?Yeimi Carey MD [...] Recommendation: ?- Await pathology results. ? ____ Chris Hernandez MD Signed Date: 07/06/2011 12:35:15 PM Number of Addenda: 0 Note initiated on 07/06/2011 12:33:08 PM PROVATION 07/06/2011 12:3 3 PM EST Unknown GENERAL SURGICAL ORD ERABLES PROVATION * GI PROVATION HX AND PHYSICAL (07/06/2011 11:46 AM EST) Endo History & Physical [facility] Endoscopy Patient Name: Hugo Goins ? H & P Date: 07/06/2011 ? Date of : 1955 ? Age: 56 ? Provider: ? Chris Hernandez MD Referring : ? Requesting Provider: ? Chief Complaint: ?HCV [...] Plan: ? Perform a liver biopsy [Day]. Chris Hernandez MD Signed Date: 07/06/2011 11:48:57 AM Number of Addenda: 0 Note initiated on 07/06/2011 11:46:59 AM PROVATION 07/06/2011 11:4 6 AM EST Unknown GENERAL SURGICAL ORD ERABLES PROVATION documented in this encounter Visit Diagnoses Not on filedocumented in this encounter Administered Medications Inactive Administered Medications - up to 3 most recent administrations Medication Order MAR Action Action Date Dose Rate Site fentaNYL 50mcg/mL injection ONCE PRN, Starting on Sat07/06/11 at 1224, Until Sat07/06/11 at 1754, Pain, Intra-Operative (Intra-Procedure), Routine Given 07/06/2011 12:24 PM EST 50 mcg Given 07/06/2011 12:21 PM EST 50 mcg Given 07/06/2011 12:16 PM EST 50 mcg midazolam (VERSED) injection ONCE PRN, Starting on Sat07/06/11 at 1224, Until Sat07/06/11 at 1754, Sleep, Intra-Operative (Intra-Procedure), Routine Given 07/06/2011 12:28 PM EST 1 mg Given 07/06/2011 12:24 PM EST 1 mg Given 07/06/2011 12:21 PM EST 1 mg documented in this encounter Active and Recently Administered [...] RN) documented in this encounter Care Teams Rn Case Management Relationship Specialty Start Date End Date Yeimi Carey APRN [address] [place] [phone] PCP - General 05/04/11 10/30/11 documented as of this encounter
--- OUTSIDE RECORDS SUMMARY | 2024-03-27 00:44 | XMS_ITS | Encounter Summary ---
Author Organization [place] [address] Care Team Providers Care Email Deployment Specialist Name Role Phone Renzo Darden MD Primary Care Provider [phone] Reason for Visit * Reason Onset Date Comments Prior Authorization 05/26/2012 Pegasys Encounter Details Date Type Department Care Team (Late Contact Info) Description 05/26/2012 Telephone [place] [phone] Mimi Fisher RNsterile instrument technician (Pegasys) Social History Tobacco Use Types Packs/Day [...] Telephone Encounter - Mimi Fisher CMA - 05/26/2012 3:04 PM EDT RENEWAL Medication: Pegasys Dosage: 180 mg Frequency & Route: Inject 180 mcg weekly Pharmacy & Phone#: [facility] [employer] & Phone #: [email or web address] [phone] ID #: [id number] Notes: Started treatment on 11/16/11. PA approved for an additional 12 weeks of treatment- 05/25/12-08/18/12 documented in this encounter Plan of Treatment Upcoming Encounters Date Type Department Care Team (Late Contact Info) Description 04/15/2024 1:30 PM EDT Office [place] [address] Lucrecia Rios, MARINE CONSULTANT [facility] [place] [address] documented as of this encounter Visit Diagnoses Not on filedocumented in this encounter Care Teams Email Deployment Specialist Relationship Specialty Start Date End Date Renzo Darden MD [address] [place] [phone] PCP - General 10/31/11 09/25/12 documented as of this encounter
--- OUTSIDE RECORDS SUMMARY | 2024-03-27 00:44 | XMS_ITS | Encounter Summary ---
Author Organization [facility] [place] [place] [address] Care Team Providers Care Cordwood Cutter Name Role Phone Yeimi Carey LESTER Primary Care Provider [phone] Reason for Visit * Reason Comments GI Problem Encounter Details Date Type Department Care Team (Late st Contact Info) Description 05/30/2011 11:00 AM EDT Office [place] [phone] Nataliya Mejias APRN [facility] [place] [address] Hepatitis c, chronic (Primary Dx) Discharge Disposition: [...] Sign Reading Time Taken Comments Blood Pressure 143/78 05/30/2011 10:38 AM EDT Pulse 58 05/30/2011 10:38 AM EDT Temperature - - Respiratory Rate - - Oxygen Saturation - - Inhaled Oxygen Concentration - - Weight 85.5 kg (188 lb 8 oz) 05/30/2011 10:38 AM EDT Height 174.6 cm (5' 8.75) 05/30/2011 10:38 AM E DT Body Mass Index 28.04 05/30/2011 10:38 AM EDT documented in this encounter Progress Notes * Nataliya Mejias APRN - 05/30/2011 11:23 AM EDT Subjective: Patient ID: Hugo Goins is a 56 y.o. male. HPI Mr. Goins is a 56 year old male who is here for evaluation of chronic hepatitis B and C. He was first diagnosed with viral hepatitis in 2003. He was initially checked due to elevated liver tests during routine healthcare. He was seen here in hepatology in 2003 and was noted to have genotype 3 with a liver biopsy showing Stage 1 disease. He is not clear about the hepatitis B status and I have nolab results available during the visit in regards to the hepatitis B. His risk factors for viral acquistion include intranasal drugs in 1978, he denies intravenous drug use, denies blood transfusion, he has no tattoo's, no piercings, no known hepatitis C contacts. However he did live with people who were using intravenous drugs in the . He recalls helping a co-worker who cut his finger off ( 1999) and another incident with someone who had an injury with a chainsaw (1987). Currently he feels well, he denies gi tract bleeding, no history of jaundice, no ascites, no confusion. Rec Date: 05/08/2004 LOC: SDP ---Pathologic Diagnosis--- Liver; needle core biopsy of right lobe: Liver with preserved architcture and features of chronic hepatitis. Necroinflammatory Grade 2. Fibrosis Stage 1, with fibrous expansion of portal tracts only. OUTSIDE LABS: 05/01/2011 Wbc 11.6, hg 16.7, plt 250 Creat 1.3, na 143, kcl 5.1 tprot 8.3, alb 4.6, tbili 0.7, ap 73, alt 111, ast 74 TSH 63 Past Medical History Diagnosis Date ??? Hypertension ??? Psoriasis ??? hep b ??? Chronic hepatitis C without mention of hepatic coma ??? Hypothyroid Past Surgical History Procedure Date ??? Pilonidal cyst excision History Social History Narrative Works as a self employed [employer], full timeSingle, mother lives with himNo children Family History Problem Relation Age of Onset ??? Thyroid Disease Mother ??? Cancer Father ??? Heart Failure Father ??? Heart Failure Brother ??? High Cholesterol Brother ??? High Cholesterol Sister Review of Systems Constitutional: Negative for fever, chills and fatigue. Eyes: Negative. Respiratory: Positive for shortness of breath. Negative for cough. Cardiovascular: Negative for chest pain, palpitations and leg swelling. Gastrointestinal: Positive for nausea (on occasion from medications). Negative for vomiting, abdominal pain and blood in stool. Genitourinary: Negative for dysuria and hematuria. Musculoskeletal: Positive for back pain. Negative for arthralgias. Skin: Positive for rash. Neurological: Negative for dizziness and seizures. Hematological: Does not bruise/bleed easily. Psychiatric/Behavioral: Negative for suicidal ideas. Objective: Physical Exam Constitutional: He is oriented to person, place, and time. He appears well- developed and well-nourished. HENT: Head: Normocephalic and atraumatic. Eyes: No scleral icterus. Cardiovascular: Normal rate, regular rhythm and normal heart sounds. Exam reveals no friction rub. No murmur heard. Pulmonary/Chest: Effort normal and breath sounds normal. He has no wheezes. Abdominal: Soft. He exhibits no ascites and no mass. There is no hepatosplenomegaly. No tenderness. Musculoskeletal: He exhibits no edema. Neurological: He is alert and oriented to person, place, and time. Skin: Skin is warm and dry. Rash (scaly red skin rash on abd, legs) noted. Psychiatric: He has a normal mood and affect. His behavior is normal. Assessment and Plan: Mr. Goins is a 56 year old male with [...] the liver biopsy to review the results. documented in this encounter Plan of Treatment Upcoming Encounters Date Type Department Care Team (Late st Contact Info) Description 04/15/2024 1:30 PM EDT Office Visit Rheumatology at [facility] [place] [address] Lucrecia Rios APRN [facility] [place] [address] documented as of this encounter Procedures Procedure Name Priority Date/Time Associated Diagnosis Comments HEPATITIS B VIRAL DNA QUANT-HERRERA Routine 05/30/2011 12:58 PM EDT Hepatitis c, chronic DIFFERENTIAL, AUTOMATED Routine 05/30/2011 12:58 PM EDT HEPATITIS BE ANTIGEN AND ANTIBODY Routine 05/30/2011 12:58 PM EDT Hepatitis c, chronic IRON AND TIBC Routine 05/30/2011 12:58 PM EDT Hepatitis c, chronic HEPATITIS A ANTIBODY, TOTAL Routine 05/30/2011 12:58 PM EDT Hepatitis c, chronic HEPATITIS B CORE ANTIBODY, TOTAL Routine 05/30/2011 12:58 PM EDT Hepatitis c, chronic HEPATITIS B SURFACE ANTIBODY Routine 05/30/2011 12:58 PM EDT Hepatitis c, chronic HEPATITIS B SURFACE ANTIGEN Routine 05/30/2011 12:58 PM EDT Hepatitis c, chronic PROTHROMBIN TIME Routine 05/30/2011 12:5 8 PM EDT Hepatitis c, chronic CBC (WITH DIFF) Routine 05/30/2011 12:58 PM EDT Hepatitis c, chronic FERRITIN Routine 05/30/2011 12:58 PM EDT Hepatitis c, chronic COMPREHENSIVE METABOLIC PANEL Routine 05/30/2011 12:58 PM EDT Hepatitis c, chronic LIVER BIOPSY (PERCUTANEOUS) Routine 05/30/2011 12:13 PM EDT documented in this encounter Results * (ABNORMAL) A-DIFF (05/30/2011 12:58 PM EDT) Neutrophil % 61.9 34.0 - 71.0 % [facility] Neutrophil Absolute 6.18 1.50 - 6.30 x10(3)/mc L [facility] MILLENNI[facility] Lymph % 23.6 19.0 - 53.0 % [facility] MILLENNIUM Lymphocytes Abs 2.4 1.0 - 3.6 x10(3)/mc L [facility] MILLENNIUM Monocyte % 7.8 4.0 - 13.0 % [facility] MILLENNIUM Monocyte Abs 0.8 0.2 - 1.0 x10(3)/mc L [facility] MILLENNIUM Eos % 4.9 0.0 - 7.0 % [facility] MILLENNIUM Eosinophils Abs 0.5 0.0 - 0.5 x10(3)/mc L [facility] MILLENNI[facility] Basophil % 0.9 0.0 - 2.0 % [facility] MILLENNIUM Baso Absolute 0.1 0.0 - 0.2 x10(3)/mc L [facility] MILLENNI[facility] Immature Gran % 0.90(H) 0.00 - 0.66 % [facility] Comment: Immature granulocytes(IG's)percentage and absolute count will include metamyelocytes, myelocytes, and promyelocytes. Blood smears from CBCs yielding IG's will be scanned manually for concordance. If this scan disagrees with the automated IG or if promyelocytes are noted, a manual differential will be performed. Immature Gran Absolute 0.09(H) 0.00 - 0.05 x10(3)/mc L [facility]ILL[facility] Blood specimen (specimen) 05/30/2011 12:58 PM EDT 05/30/2011 1:04 PM EDT Chris Brown MD HEMATOLOGY ORDERABL ES [facility] A[facility]LEYEN[facility] * Prothrombin Time (05/30/2011 12:58 PM EDT) Prothrombin Time 12.8 12.3 - 14.7 sec [facility] Comment: [facility] Transfusion Committee Guidelines: INR less than 2.0, PTT less than OR equal to 43.5 seconds, or Fibrinogen greater than or equal to 100 mg/dl indicate adequate procoagulant activity for hemostasis in patients without underlying bleeding disorders. International Normalization Ratio 0.9 0.9 - 1.1 [facility] Blood specimen (specimen) 05/30/2011 12:58 PM EDT 05/30/2011 1:03 PM EDT Chris Brown MD HEMATOLOGY ORDERABL ES Performing Organization Address [facility] de Phone Number [facility] * Hepatitis B Viral DNA Quant-[place] (05/30/2011 12:58 PM EDT) [facility] Hep B DNA Quant <357 <357 IU/mL [facility] Comment: This assay cannot determine an accurate HBV DNA level below this limit. Result in log IU/mL is <2.55 Quantification range of this assay is 357 to 17,900,000 IU/mL (2.55 to 7.25 log IU/mL). Testing was done by the VERSANT HBV DNA 3.0 Assay (bDNA) ([employer] For research use only Test Performed by: [facility] Dpt of Lab Med and Pathology [address] [place] [address] [employer]: Yuri Miguel III, M.D. Blood specimen (specimen) 05/30/2011 12:58 PM EDT 05/30/2011 2:04 PM EDT Chris Brown MD CHEMISTRY ORDERABLE S Performing Organization Address [facility] Co de Phone Number [facility] * Hepatitis BE Antigen and Antibody (05/30/2011 12:58 PM EDT) [facility] Hep B E Ag (DECEMBER) Negative Negative [facility] Comment: Test Performed by: [place] [address], [place] [address] [employer]: Sue Pitts, Ph.D. Hep B E Ab (MAY) Positive Negative [facility] Comment: Test Performed by: [facility] [employer] [address], [place] [address] [employer]: Sue Pitts, Ph.D. Blood specimen (specimen) 05/30/2011 12:58 PM EDT 05/30/2011 3:07 PM EDT Chris Brown MD LAB SEND OUT ORDERA BLES Performing Organization Address [facility] de Phone Number [facility] * (ABNORMAL) Hepatitis B Core Antibody, Total (05/30/2011 12:58 PM EDT) Hepatitis B Core Antibody Positive(A ) Negative [facility] Blood specimen (specimen) 05/30/2011 12:58 PM EDT 05/30/2011 1:03 PM EDT Chris Brown MD CHEMISTRY ORDERABLE S Performing Organization Address [facility] de Phone Number [facility] * Hepatitis B Surface Antigen (05/30/2011 12:58 PM EDT) Hepatitis B Surface Antigen Negative Negative [facility] Blood specimen (specimen) 05/30/2011 12:58 PM EDT 05/30/2011 1:03 PM EDT Chris Brown MD CHEMISTRY ORDERABLE S Performing Organization Address [facility] de Phone Number [facility] * Hepatitis B Surface Antibody (05/30/2011 12:58 PM EDT) Hepatitis B Surface Antibody Indeterminate [facility] Comment: Please note: ??A positive result for this assay is consistent with a concentration of anti-HBs antibodies >10 mIU/mL, which indicates that anti-HBs antibodies have been detected at levels consistent with protective immunity against HBV infection. Blood specimen (specimen) 05/30/2011 12:58 PM EDT 05/30/2011 1:03 PM EDT Chris Brown MD CHEMISTRY ORDERABLE S [facility] * Hepatitis A Antibody, Total (05/30/2011 12:58 PM EDT) Hepatitis A ANTIBODY, TOTAL Negative Negative [facility] MILLENNI[facility] Blood specimen (specimen) 05/30/2011 12:58 PM EDT 05/30/2011 1:03 PM EDT Chris Brown MD CHEMISTRY ORDERABLE S [facility] * Iron and TIBC (05/30/2011 12:58 PM EDT) Iron 125 45 - 160 mcg/dL [facility] MILLENNIUM TIBC 422 250 - 450 mcg/dL [facility] MILLENNIUM Iron Saturation 30 20 - 50 % [facility] MILLENNIUM Blood specimen (specimen) 05/30/2011 12:58 PM EDT 05/30/2011 1:04 PM EDT Chris Brown MD CHEMISTRY ORDERABLE S Performing Organization Address [facility]/ZIP Co de Phone Number [facility] * (ABNORMAL) Ferritin (05/30/2011 12:58 PM EDT) Ferritin 513(H) 30 - 400 ng/mL [facility] Comment: Pediatric reference ranges not verified at [facility], interpret with caution. Reference ranges for females greater than 50 years of age approach values for men, i.e., 30-400 ng/mL. Blood specimen (specimen) 05/30/2011 12:58 PM EDT 05/30/2011 1:03 PM EDT Chris Brown MD CHEMISTRY ORDERABLE S [facility] * (ABNORMAL) Comprehensive metabolic panel (non-fasting) (05/30/2011 12:58 PM EDT) [facility] Glucose 91 60 - 199 mg/dL [facility] MILLENNI[facility] Comment:Diabetes: >=200 mg/d L plus symptoms Blood Urea Nitrogen 26(H) 10 - 20 mg/dL [facility] MILLENNIUM Creatinine 1.07 0.80 - 1.50 mg/dL [facility] MILLENNIUM Sodium 138 135 - 145 mmol/L [facility] MILLENNIUM Potassium 4.4 3.5 - 5.0 mmol/L [facility]ILLEN[facility] Comment: Please note: ??Patients with WBC >100,000 may have falsely elevated Potassium levels. ??For accurate Potassium quantification in these patients send serum separator tube (gold top) for subsequent determinations. ??Contact the Clinical Chemistry Laboratory if there are any questions. Chloride 102 98 - 107 mmol/L [facility] MILLENNIUM Carbon Dioxide 29 22 - 31 mmol/L [facility] MILLENNI[facility] Anion Gap 7 5 - 15 mmol/L [facility] MILLENNIUM Calcium 9.1 8.5 - 10.5 mg/dL [facility] MILLENNIUM Protein, Total 7.7 6.4 - 8.3 gm/dL [facility] MILLENNI[facility] Albumin 4.4 3.2 - 5.2 gm/dL [facility] MILLENNI[facility] Aspartate Aminotransferase 47(H) 0 - 39 unit/L [facility] MILLENNIUM Alanine Aminotransferase 79(H) 0 - 55 unit/L [facility] MILLENNI[facility] Alkaline Phosphatase 62 40 - 120 unit/L [facility] MILLENNIUM Bilirubin, [...] past week). For patients multiply eGFR by 1.2.MDRD equation has not been validated for pediatric [...] disease. References: http://nkdep.nih.gov/resources/NKDEP_Suggestn4Labs_0606_508.pdf http://www.kidney.org/professionals/kls/pdf/faq_gfr.pdf Blood specimen (specimen) 05/30/2011 12:58 PM EDT 05/30/2011 1:04 PM EDT Chris Brown MD CHEMISTRY ORDERABLE S [facility] MILLENNI[facility] * CBC (with Diff) (05/30/2011 12:58 PM EDT) White Blood Cell 10.0 4.0 - 10.0 x10(3)/mcL [facility] MILLENNIUM Red Blood Cell 5.35 4.63 - 6.08 x10(6)/mcL [facility] MILLENNIUM Hemoglobin 16.4 13.7 - 17.5 gm/dL [facility] MILLENNIUM Hematocrit 46.9 40.0 - 51.0 % [facility] MILLENNIUM Mean Cell Volume 87.7 79.0 - 92.0 fL [facility] MILLENNIUM Mean Cell Hemoglobin 30.7 25.6 - 32.2 pg [facility] MILLENNIUM Mean Cell Hemoglobin Concentration 35.0 32.0 - 36.5 gm/dL [facility] MILLENNIUM Platelet 215 145 - 370 x10(3)/mcL [facility] MILLENNIUM RDW Standard Deviation 41.9 35.0 - 46.0 fL [facility] MILLENNIUM RDW coefficient of variation 13.0 10.9 - 14.4 % [facility] MILLENNIUM Mean Platelet Volume 9.9 9.0 - 12.0 fL [facility] MILLENNIUM Blood specimen (specimen) 05/30/2011 12:58 PM EDT 05/30/2011 1:04 PM EDT Chris Brown MD HEMATOLOGY ORDERABL ES [facility] documented in this encounter Visit Diagnoses Diagnosis Hepatitis C, chronic- Primary Chronic hepatitis C without mention of hepatic coma documented in this encounter Care Teams Cordwood Cutter Relationship Specialty Start Date End Date Yeimi Carey APRN [address] [place] [phone] PCP - General 05/04/11 10/30/11 documented as of this encounter
--- OUTSIDE RECORDS SUMMARY | 2024-03-27 00:44 | XMS_ITS | Encounter Summary ---
Author Organization [facility] [place] [address] Care Team Providers Care Talent Acquisition Director Name Role Phone Lyric Egan MD Primary Care Provider Reason for Visit * Reason Comments Medication Refill Encounter Details Date Type Department Care Team (Late st Contact Info) Description 05/13/2014 Refill Dermatology at [place] [address] [place] [phone] Reilly Summers MD [address] [facility] [place] [address] Social History Tobacco Use Types Packs/Day Years [...] 1:30 PM EDT Office Visit [place] [address] Lucrecia Rios APRN [facility] [address] documented as of this encounter Visit Diagnoses Not on filedocumented in this encounter Care Teams Talent Acquisition Director Relationship Specialty Start Date End Date Lyric Egan MD [address] [place] [address] PCP - General 12/21/21 documented as of this encounter
--- OUTSIDE RECORDS SUMMARY | 2024-03-27 00:44 | XMS_ITS | Encounter Summary ---
[place] [address] Care Team Providers Care Sales Recruiting Coordinator Name Role Phone Renzo Darden MD Primary Care Provider Reason for Visit * Reason Onset Date Comments Prior Authorization 04/14/2012 [employer] Encounter Details Date Type Department Care Team (Late st Contact Info) Description 04/14/2012 Telephone [place] [phone] Mimi Fisher RNaccess service representative ([employer]) Social History Tobacco Use Types Packs/Day [...] Telephone Encounter - Mimi Fisher CMA - 04/14/2012 9:19 AM EDT RENEWAL Medication: [employer] Dosage: 180 mcg Frequency & Route: inject 180 mcg SQ weekly Insurance & Phone #: [employer] [phone] ID #: [id number] Notes: PA approved until 07/04/12 documented in this encounter Plan of Treatment Upcoming Encounters Date Type Department Care Team (Late st Contact Info) Description 04/15/2024 1:30 PM EDT Office [place] [address] Lucrecia Rios APRN [facility] [place] [address] documented as of this encounter Visit Diagnoses Not on filedocumented in this encounter Care Teams Sales Recruiting Coordinator Relationship Specialty Start Date End Date Renzo Darden MD [address] [place] [phone] PCP - General 10/31/11 09/25/12 documented as of this encounter
--- OUTSIDE RECORDS SUMMARY | 2024-03-27 00:44 | XMS_ITS | Encounter Summary ---
[place] [address] Care Team Providers Care Envelope Folding Machine Adjuster Name Role Phone Renzo Darden MD Primary Care Provider [phone] Reason for Visit * Reason Comments Follow-up Encounter Details Date Type Department Care Team (Late st Contact Info) Description 01/22/2014 10:00 AM EDT Office Visit Dermatology at [address] [phone] Reilly Summers MD [address] [facility] [place] [address] Psoriasis (Primary Dx) Social History Tobacco Use [...] Progress Notes * Reilly Summers MD - 01/22/2014 10:58 AM EDT Problem: Followup psoriasis, ready to begin Humira. Roddy follows up and has been given three months' prior authorization for Humira. Physical examination reveals a pleasant 58-year-old gentleman who continues to have about 20% large plaque psoriasis covering the entire abdomen, back, large areas on the elbows, arms, and legs. Assessment and Plan: Psoriasis, ready to begin Humira. a. Begin Humira 40 mg using the autoinjector pens. Two will be injected on day one, one on day eight, and then every two weeks an additional 40 mg will be injected subcutaneously. b. Discussed procedure. The patient will begin this at home starting today. c. Answered patient's questions regarding side effects. d. Recommend return to clinic in another three months for repeat check. COPY: Justin Reid documented in this encounter Plan of Treatment Upcoming Encounters Date Type Department Care Team (Late st Contact Info) Description 04/15/2024 1:30 PM EDT Office [place] [address] Lucrecia Rios APRN [facility] [place] [address] documented as of this encounter Visit Diagnoses Diagnosis Psoriasis- Primary Other psoriasis documented in this encounter Care Teams Envelope Folding Machine Adjuster Relationship Specialty Start Date End Date Renzo Darden MD [address] [place] [phone] PCP - General 12/21/13 11/03/18 documented as of this encounter
--- OUTSIDE RECORDS SUMMARY | 2024-03-27 00:44 | XMS_ITS | Encounter Summary ---
Author Organization [facility] [place] [address] Care Team Providers Care Chief Marketing Officer Name Role Phone Renzo Darden MD Primary Care Provider [phone] Reason for Visit * Reason Comments GI Problem Encounter Details Date Type Department Care Team (Late st Contact Info) Description 01/14/2012 10:00 AM EDT [place] [id number] Nataliya Mejias APRN [facility] [address] [place]STRO[place] [address] Hepatitis c, chronic (Primary Dx); Hepatitis C Discharge Disposition: Home Social History Tobacco Use [...] Sign Reading Time Taken Comments Blood Pressure 140/92 01/14/2012 9:53 AM EDT Pulse 67 01/14/2012 9:53 AM EDT Temperature - - Respiratory Rate - - Oxygen Saturation - - Inhaled Oxygen Concentration - - Weight 83 kg (183 lb) 01/14/2012 9:53 AM EDT Height 175.3 cm (5' 9) 01/14/2012 9:53 AM EDT Body Mass Index 27.02 01/14/2012 9:53 AM EDT documented in this encounter Progress Notes * Nataliya Mejias APRN - 01/14/2012 10:17 AM EDT Subjective: Patient ID: Hugo Swan is a 56 y.o. male. GI Problem The primary symptoms [...] sexual active CURRENT HCV TREATMENT: Start Date: 11/16/11 Initial medications: 180 Pegasys mcg / 1200 mg Ribavirin Dose reductions/ escalations: Completed tx week/ planned duration of tx: 04/28 IFN dose day: Fridays Significant side effects: 09/26/2011 baseline week 4 week 7 week 9 week 12 62,384 1050 <43+ p Mr. Swan is a very pleasant 56 year old male who presents to [facility] for follow-up of his Hepatitis C genotype 3. He started dual therapy with ribavirin 1200 mg daily and Pegasys 180 mcg SQ weekly on 11/16/11. He reports that he is doing well with intermittent flu-like sx includingbody aches and stomach aches. His sx are well-controlled with ibuprofen 600 mg 1-2 times daily. He has had two episodes of lightheadedness, and his ribavirin was reduced in response to theses complaints at week 6 to 800 mg a day. He had no new symptoms. Most recently his tsh was found to be 16.7. Review of Systems Constitutional: Negative for fever, [...] is warm and dry. Rash (psoriasis) noted. Macular papular rash on chest and arms Psoriatic plaques on abd, back, legs Psychiatric: He has a normal mood and affect. His behavior is normal. Assessment and Plan: 1. Hepatitis C virus genotype 3 in week 9 of dual therapy with ribavirin 1200 mg daily and Pegasys 180 mcg SQ once weekly. Ribavirin was dose reduced to 800 mg a day as he had 2 episodes of light headedness. He is feeling a bit better with the dose reduction. He had an EKG which showed normal sinusrhythm and apparently had a normal chest xray at his local providers office ( I do not have a copy of this xray) He has not had further issues with light headed ness. He also has not completely cleared the virus, will check an RNA today in an attempt to further delineate the timing of viral eradiction in the serum. He may require a longer duration of treatment. Heis worried about carrying on for longer than the proposed 24 weeks as he is feeling more and more symptomatic. Health insurance issue now worked out and I have given his new insurance to the person who does ourprior authorizations. 2. Hypothyroid, TSH was 16.7 (01/13/12), will check a free T4 today he is hesitant to adjust his synthroid dose further as in the past he was not able to tolerate the 150 mcg. He is currently taking 125 mcg daily at the same time of day however he gets different generic drugs frequently and this maybe the problem. In any event I will forward this information on to his PCP who is managing his thyroid disease. 3. Psoriasis, using steroid cream at least once a day. 4. Skin rash, appears to be a ribavirin skin rash on his chest and arms. He is encouraged to cover his arms and head and neck when working outside and to use sun block as the medications make him sensitive to the sun. Will attempt to continue this medication as it is integral to his ultimate response. He will start doing his labs, cbc, hepatic function and HCV RNA once a month. He will return to the clinic in 1 month for follow-up. All of the patient's questions were answered. Results for HUGO SWAN ( ) as of 01/14/2012 15:01 Ref. Range 01/14/2012 11:35 WBC Latest Range: 4.0-10.0 x10(3)/mcL 4.5 RBC Latest Range: 4.63-6.08 x10(6)/mcL 4.01 (L) Hemoglobin Latest Range: 13.7-17.5 gm/dL 12.4 (L) Hematocrit Latest Range: 40.0-51.0 % 37.4 (L) MCV Latest Range: 79.0-92.0 fL 93.3 (H) MCH Latest Range: 25.6-32.2 pg 30.9 MCHC Latest Range: 32.0-36.5 gm/dL 33.2 RDWSD Latest Range: 35.0-46.0 fL 59.7 (H) RDWCV Latest Range: 10.9-14.4 % 17.7 (H) Platelets Latest Range: 145-370 x10(3)/mcL 174 MPV Latest Range: 9.0-12.0 fL 10.4 Neutr Abs (ANC) Latest Range: 1.50-6.30 x10(3)/mcL 2.91 Neutrophils % Latest Range: 34.0-71.0 % 64.1 Immature Gran % Latest Range: 0.00-0.66 % 0.70 (H) Lymphocytes % Latest Range: 19.0-53.0 % 22.2 Monocytes % Latest Range: 4.0-13.0 % 12.8 Eosinophils % Latest Range: 0.0-7.0 % 0.0 Basophils % Latest Range: 0.0-2.0 % 0.2 Elizabeth Gran Abs Latest Range: 0.00-0.05 x10(3)/mcL 0.03 Lymphocytes Abs Latest Range: 1.0-3.6 x10(3)/mcL 1.0 Monocyte Abs Latest Range: 0.2-1.0 x10(3)/mcL 0.6 Eosinophils Abs Latest Range: 0.0-0.5 x10(3)/mcL 0.0 Basophils Abs Latest Range: 0.0-0.2 x10(3)/mcL 0.0 Total Bilirubin Latest Range: 0.2-1.3 mg/dL 0.5 Bili, Direct Latest Range: 0.0-0.3 mg/dL 0.1 Alk Phos Latest Range: 40-120 unit/L 62 AST Latest Range: 0-39 unit/L 40 (H) ALT Latest Range: 0-55 unit/L 38 Sodium Latest Range: 135-145 mmol/L 136 Potassium Latest Range: 3.5-5.0 mmol/L 4.2 Chloride Latest Range: 98-107 mmol/L 104 CO2 Latest Range: 22-31 mmol/L 24 Anion Gap Latest Range: 5-15 mmol/L 8 BUN Latest Range: 10-20 mg/dL 23 (H) Creatinine Latest Range: 0.80-1.50 mg/dL 1.02 Estimated GFR Latest Range: >=60 >60 Glucose Lvl Latest Range: 60-199 mg/dL 101 Calcium Latest Range: 8.5-10.5 mg/dL 8.7 Total Protein Latest Range: 6.4-8.3 gm/dL 6.9 Albumin Latest Range: 3.2-5.2 gm/dL 3.9 Free T4 Latest Range: 0.90-1.60 ng/dL 0.92 TSH Latest Range: 0.27-4.20 mcIU/mL 18.65 (H) documented in this encounter Plan of Treatment Upcoming Encounters Date Type Department Care Team (Late st Contact Info) Description 04/15/2024 1:30 PM EDT Office [place] [phone] Lucrecia Rios APRN [facility] [place] [address] Pending Results Name Type Priority Associated Diagnoses Date /Time Hepatitis C RNA, quantitative, PCR Lab Routine Hepatitis c, chronic 01/14/2012 11:26 AM EDT Scheduled Orders Name Type Priority Associated Diagnoses Orde r Schedule Hepatitis C RNA, quantitative, PCR Lab Routine Hepatitis c, chronic Expected: 01/14/2012, Expires: 01/18/2012 documented as of this encounter Procedures Procedure Name Priority Date/Time Associated Diagnosis Comments HCV QUANT Routine 01/14/2012 11:35 AM EDT DIFFERENTIAL, AUTOMATED Routine 01/14/2012 11:35 AM EDT CBC (WITH DIFF) Routine 01/14/2012 11:35 AM EDT TSH Routine 01/14/2012 11:35 AM EDT T4, FREE Routine 01/14/2012 11:35 AM EDT Hepatitis c, chronic COMPREHENSIVE METABOLIC PANEL Routine 01/14/2012 11:35 AM EDT documented in this encounter Results * (ABNORMAL) DIFFERENTIAL, AUTOMATED (01/14/2012 11:35 AM EDT) Neutrophil % 64.1 34.0 - 71.0 % [facility] Neutrophil Absolute 2.91 1.50 - 6.30 x10(3)/mc L [facility] Lymph % 22.2 19.0 - 53.0 % [facility]ILLENNI[facility] Lymphocytes Abs 1.0 1.0 - 3.6 x10(3)/mc L [facility] Monocyte % 12.8 4.0 - 13.0 % [facility]ILLENNI[facility] Monocyte Abs 0.6 0.2 - 1.0 x10(3)/mc L [facility]ILL[facility]NI[facility] Eos % 0.0 0.0 - 7.0 % [facility]ILL[facility] Eosinophils Abs 0.0 0.0 - 0.5 x10(3)/mc L [facility] Basophil % 0.2 0.0 - 2.0 % [facility]ILL[facility]NI[facility] Baso Absolute 0.0 0.0 - 0.2 x10(3)/mc L [facility] Immature Gran % 0.70(H) 0.00 - 0.66 % [facility]ILL[facility]NI[facility] Comment: Immature granulocytes(IG's)percentage and absolute count will include metamyelocytes, myelocytes, and promyelocytes. Blood smears from CBCs yielding IG's will be scanned manually for concordance. If this scan disagrees with the automated IG or if promyelocytes are noted, a manual differential will be performed. Immature Gran Absolute 0.03 0.00 - 0.05 x10(3)/mc L [facility] Blood specimen (specimen) 01/14/2012 11:35 AM EDT 01/14/2012 11:40 AM EDT Nataliya Mejias APRN HEMATOLOGY ORDERABLE S Performing Organization Address [facility] Co de Phone Number [facility] * (ABNORMAL) TSH (01/14/2012 11:35 AM EDT) Thyroid Stimulating Hormone 18.65(H) 0.27 - 4.20 mcIU/mL [facility] Blood specimen (specimen) 01/14/2012 11:35 AM EDT 01/14/2012 11:40 AM EDT Narrative Resulting Agency Comment Spec In Lab Nataliya Mejias APRN CHEMISTRY ORDERABLES Performing Organization Address [facility] Co de Phone Number [facility] * HCV QUANT (01/14/2012 11:35 AM EDT) HCV Viral Load <43 IU/mL [facility] HCV Viral Load Result: < 43 (Target Not Detected) Indication for Study: Hepatitis C Infection Analysis: [...] This assay is being performed in the [facility]. Sha North, Ph.D. Director, Molecular Pathology [facility] Comment: [VERIFIED DATE]01.17.12 Verified By:Layla Javier (Electronic Signature) Blood specimen (specimen) 01/14/2012 11:35 AM EDT 01/16/2012 9:20 AM EDT Narrative Resulting Agency Comment Spec In Lab Nataliya Mejias APRN HEMATOLOGY ORDERABLE S Performing Organization Address City/[facility]/ZIP Co de Phone Number [facility] * (ABNORMAL) CBC (WITH DIFF) (01/14/2012 11:35 AM EDT) White Blood Cell 4.5 4.0 - 10.0 x10(3)/mc L [facility]ILL[facility] Red Blood Cell 4.01(L) 4.63 - 6.08 x10(6)/mc L [facility] Hemoglobin 12.4(L) 13.7 - 17.5 gm/dL [facility] Hematocrit 37.4(L) 40.0 - 51.0 % [facility]ILLENNI[facility] Mean Cell Volume 93.3(H) 79.0 - 92.0 fL [facility] Mean Cell Hemoglobin 30.9 25.6 - 32.2 pg [facility] Mean Cell Hemoglobin Concentration 33.2 32.0 - 36.5 gm/dL [facility] Platelet 174 145 - 370 x10(3)/mc L [facility] RDW Standard Deviation 59.7(H) 35.0 - 46.0 fL [facility] RDW coefficient of variation 17.7(H) 10.9 - 14.4 % [facility] Mean Platelet Volume 10.4 9.0 - 12.0 fL [facility] Blood specimen (specimen) 01/14/2012 11:35 AM EDT 01/14/2012 11:40 AM EDT Narrative Resulting Agency Comment Spec In Lab Nataliya Mejias APRN HEMATOLOGY ORDERABLE S [facility] * (ABNORMAL) COMPREHENSIVE METABOLIC PANEL (NON-FASTING) (01/14/2012 11:35 AM EDT) [facility] Glucose 101 60 - 199 mg/dL [facility] MILLENNIUM Comment:Diabetes: >=200 mg/d L plus symptoms Blood Urea Nitrogen 23(H) 10 - 20 mg/dL [facility] Creatinine 1.02 0.80 - 1.50 mg/dL [facility] Comment: Please note that the pediatric reference intervals supplied above were not validated at [facility]. Results from pediatric patients should be interpreted in conjunction to the patient's age, height and muscle mass. Sodium 136 135 - 145 mmol/L [facility]ILL[facility] Potassium 4.2 3.5 - 5.0 mmol/L [facility]ILL[facility] Comment: Please note: ??Patients with WBC >100,000 may have falsely elevated Potassium levels. ??For accurate Potassium quantification in these patients send serum separator tube (gold top) for subsequent determinations. ??Contact the Clinical Chemistry Laboratory if there are any questions. Chloride 104 98 - 107 mmol/L [facility]ILL[facility] Carbon Dioxide 24 22 - 31 mmol/L [facility]ILL[facility] Anion Gap 8 5 - 15 mmol/L [facility] Calcium 8.7 8.5 - 10.5 mg/dL [facility] Protein, Total 6.9 6.4 - 8.3 gm/dL [facility]ILL[facility] Albumin 3.9 3.2 - 5.2 gm/dL [facility]ILLENNI[facility] Aspartate Aminotransferase 40(H) 0 - 39 unit/L [facility]ILLEN[facility] Alanine Aminotransferase 38 0 - 55 unit/L [facility]ILLENNI[facility] Alkaline [...] J Am Soc Nephrol;6:1963-72. Blood specimen (specimen) 01/14/2012 11:35 AM EDT 01/14/2012 11:40 AM EDT Narrative Resulting Agency Comment Spec In Lab Nataliya Mejias APRN CHEMISTRY ORDERABLES [facility] * T4, free (01/14/2012 11:35 AM EDT) Free T4 0.92 0.90 - 1.60 ng/dL [facility] Blood specimen (specimen) 01/14/2012 11:35 AM EDT 01/14/2012 11:40 AM EDT Narrative Resulting Agency Comment Spec In Lab Chris Brown MD CHEMISTRY ORDERABLE S [facility] documented in this encounter Visit Diagnoses Diagnosis Hepatitis C, chronic- Primary Chronic hepatitis C without mention of hepatic coma Hepatitis C Unspecified viral hepatitis C without hepatic coma documented in this encounter Care Teams Chief Marketing Officer Relationship Specialty Start Date End Date Renzo Darden MD [address] [place] [phone] PCP - General 10/31/11 09/25/12 documented as of this encounter
--- OUTSIDE RECORDS SUMMARY | 2024-03-27 00:44 | XMS_ITS | Encounter Summary ---
Author Organization [facility] [place] [address] Care Team Providers Care Citrus Fruit Packer Name Role Phone Renzo Darden MD Primary Care Provider [phone] Reason for Referral * Consultation (Routine) - Closed Specialty Diagnoses / Procedures Referred By Ernie ramsey Referred To Contact Dermatology Diagnoses Psoriasis Nataliya Mejias CHANGE CONSULTANT [facility] [place] [address] [facility] [address] [place] [address] Referral ID Status Reason Start Date Expiration Date V isits Requested Visits Authorized [id number] Closed Consult, Test & Treat 02/22/2012 08/20/2012 1 1 Reason for Visit * Reason Comments Follow-up Encounter Details Date Type Department Care Team (Late st Contact Info) Description 02/22/2012 3:00 PM EDT Follow-[place] [address] Nataliya Mejias [facility] [place] [address] Psoriasis (Primary Dx) Discharge Disposition: Home Social History [...] Sign Reading Time Taken Comments Blood Pressure 120/67 02/22/2012 2:53 PM EDT Pulse 88 02/22/2012 2:53 PM EDT Temperature - - Respiratory Rate - - Oxygen Saturation - - Inhaled Oxygen Concentration - - Weight 81.6 kg (180 lb) 02/22/2012 2:53 PM EDT Height 178 cm (5' 10.08) 02/22/2012 2:53 PM EDT Body Mass Index 25.77 02/22/2012 2:53 PM EDT documented in this encounter Progress Notes * Nataliya Mejias, CHANGE CONSULTANT - 02/22/2012 3:00 PM EDT Subjective: Patient ID: Hugo Goins is a 56 y.o. male. GI Problem [...] 56 year old male who presents to [facility] for follow-up of his Hepatitis [...] 62,000 and was undetected at week 9. His psoriasis is getting worse over the past 3-4 weeks. He now has psoriatic plaques on his arms, chest, back, abdomen, legs and hands are cracked. He is quite pruritic. Review of Systems Constitutional: Negative for fever, [...] for 48 weeks to get the best outcome however I think he is unlikely going to be able to tolerate 48 weeks. His psoriasis has progressed so much the last month it is causing crackingon his hands. 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 He has financial concerns as his work has been hit or miss, he anticipates that he will be able to work next week. Health insurance issue now worked out and I have given his new insurance to the person who does ourprior authorizations. He has medications at this time. However his insurance status may change whenhe goes back to work next week. I have advised him to go to financial services here at [facility] to see if qualifies for any assistance. 2. Hypothyroid, TSH was 16.7 (01/13/12), his PCP is managing this issue, no change was made, he plans to have follow up testing with Dr. Darden. 3. Psoriasis, using steroid cream at least once a day. He is hesitant to see dermatology due to costs, but will make an appointment to see if there is anything that can be done to maximize control ofthis while on the HCV treatment. He will get labs again in six weeks as his counts are stable, he will follow up with me in six weeks. He will call the office if he feels he needs to stop treatment early. documented in this encounter Plan of Treatment Upcoming Encounters Date Type Department Care Team (Late st Contact Info) Description 04/15/2024 1:30 PM EDT Office [place] [address] Lucrecia Rios APRN [facility] [place] [address] Scheduled Orders Name Type Priority Associated Diagnoses Orde r Schedule CBC (with Diff) Lab Routine Psoriasis Expected: 03/20/2012, Expires: 06/04/2012 Scheduled Referrals Name Type Priority Associated Diagnoses Order Schedule REFERRAL TO DERMATOLOGY Outpatient Referral Routine Psoriasis Ordered: 02/22/2012 documented as of this encounter Visit Diagnoses Diagnosis Psoriasis- Primary Other psoriasis documented in this encounter Care Teams Citrus Fruit Packer Relationship Specialty Start Date End Date Renzo Darden MD [address] [place] [phone] PCP - General 10/31/11 09/25/12 documented as of this encounter
--- OUTSIDE RECORDS SUMMARY | 2024-03-27 00:44 | XMS_ITS | Encounter Summary ---
Author Organization [facility] [place] [address] Care Team Providers Care Concrete Mixing Plant Laborer Name Role Phone Renzo Darden MD Primary Care Provider [phone] Reason for Visit * Reason Onset Date Comments Medication Refill 07/08/2012 Encounter Details Date Type Department Care Team (Late Contact Info) Description 07/08/2012 Refill [place] [phone] Nataliya Mejias, [facility] [place] [address] Social History Tobacco Use Types Packs/Day Years [...] PM EDT Office Visit [place] [phone] Lucrecia Rios, [facility] [place] [address] documented as of this encounter Visit Diagnoses Not on filedocumented in this encounter Care Teams Concrete Mixing Plant Laborer Relationship Specialty Start Date End Date Renzo Darden MD [address] [place] [phone] PCP - General 10/31/11 09/25/12 documented as of this encounter
--- OUTSIDE RECORDS SUMMARY | 2024-03-27 00:44 | XMS_ITS | Encounter Summary ---
[place] [address] Care Team Providers Care Bicycle Assembler Name Role Phone Renzo Darden MD Primary Care Provider [phone] Encounter Details Date Type Department Care Team (Late Contact Info) Description 01/18/2014 Telephone Dermatology at [place] [address] [place] [place] [phone] Reilly Summers MD [address] [facility] [place] [address] Social History Tobacco Use Types Packs/Day Years [...] encounter Miscellaneous Notes * Telephone Encounter - Babs Gonzalez LPN - 01/18/2014 2:24 PM EDT Call from [facility] requesting medication order be changed to Azathiopine. Consult with Dr. Summers stating this medication is not acceptable due to hepatic complication. Denied medication substitute for Humira . documented in this encounter Plan of Treatment Upcoming Encounters Date Type Department Care Team (Late st Contact Info) Description 04/15/2024 1:30 PM EDT Office [place] [address] Lucrecia Rios APRN [facility] [address] documented as of this encounter Visit Diagnoses Not on filedocumented in this encounter Care Teams Bicycle Assembler Relationship Specialty Start Date End Date Renzo Darden MD [address] [place] [phone] PCP - General 12/21/13 11/03/18 documented as of this encounter
--- OUTSIDE RECORDS SUMMARY | 2024-03-27 00:44 | XMS_ITS | Encounter Summary ---
Author Organization [facility] [place] [address] Care Team Providers Care Flower Grader Name Role Phone Aurelio Yeimi LESTER Primary Care Provider [phone] Reason for Visit * Reason Comments Follow-up Encounter Details Date Type Department Care Team (Late st Contact Info) Description 09/26/2012 10:00 AM EST [place] [id number] Nataliya Mejias LINE O SCRIBE OPERATOR [facility] [place] [address] Chronic hepatitis C (Primary Dx) Discharge Disposition: [...] Sign Reading Time Taken Comments Blood Pressure 142/67 09/26/2012 9:45 AM EST Pulse 63 09/26/2012 9:45 AM EST Temperature - - Respiratory Rate - - Oxygen Saturation - - Inhaled Oxygen Concentration - - Weight 83.9 kg (185 lb) 09/26/2012 9:45 AM EST Height 175.3 cm (5' 9) 09/26/2012 9:45 AM EST Body Mass Index 27.32 09/26/2012 9:45 AM EST documented in this encounter Patient Instructions * Patient Instructions* Nataliya Mejias APRN - 09/26/2012 10:15 AM EST Repeat labs 1,3 and 6 months post treatment documented in this encounter Progress Notes * Nataliya Mejias APRN - 09/26/2012 9:55 AM EST Subjective: Patient ID: Hugo Goins is [...] Completed tx week/ planned duration of tx: 45/48 IFN dose day: Fridays Significant side effects: 09/26/2011 baseline week 4 week 7 week 9 week 28 Week 34 62,384 1050 <43+ <43- <43- <43- Mr. Goins is a very pleasant 57 year old male who presents to [facility] for follow-up of his Hepatitis C genotype 3. He started dual therapy with ribavirin 1200 mg daily and Pegasys 180 mcg SQ weekly on 11/16/11. The plan is to treat him for 48 weeks as he had a slower response to thetreatment, not clearing the virus until somewhere between week 7 and 9. He is tolerating therapy with major side effects mostly related to his psoriasis. He has good days and bad days but overall is tolerating well. Review of Systems Constitutional: Negative for appetite [...] Head: Normocephalic and atraumatic. Mouth/Throat: Abnormal dentition. Eyes: No scleral icterus. Neurological: He is alert and oriented to person, place, and time. Skin: Skin is warm and dry. Rash (psoriasis) noted. Assessment and Plan: 1. Hepatitis C virus genotype 3 he cleared the virus at week 9 of treatment. He has decided to continue therapy for 48 weeks. Will continue on the 800 mg of ribavirin for the duration of the treatment. October 10 will be his last injection. 2. Hypothyroid, follow up testing with Dr. Darden. Will check a tsh today as he is due for this lab test with his pcp and forgot the lab slip. 3. Psoriasis, using steroid cream at least once a day. I anticipate that his psoriasis will improveonce he stops the interferon. We discussed how to complete therapy, and the realistic recovery time from the medications which isseveral months. Will plan to check hcv rna, hepatic panel and cbc at 1,3 and 6 months post treatment. I will see him back in seven months to review his labs. documented in this encounter Plan of Treatment Upcoming Encounters Date Type Department Care Team (Late st Contact Info) Description 04/15/2024 1:30 PM EDT Office [place] [address] Lucrecia Rios APRN [facility] [address] Scheduled Orders Name Type Priority Associated Diagnoses Orde r Schedule CBC (with Diff) Lab Routine Chronic hepatitis C Expected: 09/26/2012 (Approximate), Expires: 09/27/2012 documented as of this encounter Procedures Procedure Name Priority Date/Time Associated Diagnosis Comments HCV QUANT Routine 09/26/2012 10:45 AM EST Chronic hepatitis C CMP W/FASTING GLUCOSE Routine 09/26/2012 10:45 AM EST Chronic hepatitis C DIFFERENTIAL, AUTOMATED Routine 09/26/2012 10:45 AM EST HEPATITIS C RNA, QUANTITATIVE, PCR Routine 09/26/2012 10:45 AM EST Chronic hepatitis C CBC (WITH DIFF) Routine 09/26/2012 10:45 AM EST Chronic hepatitis C TSH Routine 09/26/2012 10:45 AM EST Chronic hepatitis C HEPATIC FUNCTION PANEL Routine 09/26/2012 10:45 AM EST Chronic hepatitis C documented in this encounter Results * (ABNORMAL) Differential, Automated (09/26/2012 10:45 AM EST) Neutrophil % 62.4 34.0 - 71.0 % CERNER MILLENNIUM Neutrophil Absolute 3.17 1.50 - 6.30 x10(3)/mc L CERNER MILLENNIUM Lymph % 19.7 19.0 - 53.0 % CERNER MILLENNIUM Lymphocytes Abs 1.0 1.0 - 3.6 x10(3)/mc L CERNER MILLENNIUM Monocyte % 10.2 4.0 - 13.0 % CERNER MILLENNIUM Monocyte Abs 0.5 0.2 - 1.0 x10(3)/mc L CERNER MILLENNIUM Eos % 7.3(H) 0.0 - 7.0 % CERNER MILLENNIUM Eosinophils Abs 0.4 0.0 - 0.5 x10(3)/mc L CERNER MILLENNIUM Basophil % 0.2 0.0 - 2.0 % CERNER MILLENNIUM Baso Absolute 0.0 0.0 - 0.2 x10(3)/mc L CERNER MILLENNIUM Immature Gran % 0.20 0.00 - 0.66 % CERNER MILLENNIUM Comment: Immature granulocytes(IG's)percentage and absolute count will include metamyelocytes, myelocytes, and promyelocytes. Blood smears from CBCs yielding IG's will be scanned manually for concordance. If this scan disagrees with the automated IG or if promyelocytes are noted, a manual differential will be performed. Immature Gran Absolute 0.01 0.00 - 0.05 x10(3)/mc L [facility] Blood specimen (specimen) 09/26/2012 10:45 AM EST 09/26/2012 10:49 AM EST Chris Brown MD HEMATOLOGY ORDERABL ES Performing Organization Address [facility] Phone Number [facility] * HCV Quant Wilfredo (09/26/2012 10:45 AM EST) [facility] HCV Viral Load <43 IU/mL [facility] HCV Viral Load Result: < 43 [...] This assay is being performed in the [facility]. Sha North, Ph.D. Director, Molecular Pathology [facility] Comment: [VERIFIED DATE]10.02.12 Verified By:Noemí Vasquez (Electronic Signature) Blood specimen (specimen) 09/26/2012 10:45 AM EST 10/01/2012 8:35 AM EST Narrative Resulting Agency Comment Spec In Lab Chris Brown MD HEMATOLOGY ORDERABL ES Performing Organization Address [facility] de Phone Number [facility] * (ABNORMAL) CMP w/fasting Glucose (09/26/2012 10:45 AM EST) [facility] Glucose Fasting 95 65 - 99 mg/dL [facility] Comment: ?Fasting* Glucose Interpretive Criteria Normal [...] of Diabetes Mellitus, Position Statement from the [place] Diabetes Association. ??Diabetes Care, Volume 33, Supplement 1, Aug 2009 Blood Urea Nitrogen 27(H) 10 - 20 mg/dL CERNER MILLENNIUM Creatinine 1.08 0.80 - 1.50 mg/dL CERNER MILLENNIUM Comment: Please note that the pediatric reference intervals supplied above were not validated at [facility]. Results from pediatric patients should be interpreted [...] diabetic kidney disease. References: http://nkdep.nih.gov/resources/NKDEP_Suggestn4Labs_0606_508.pdf http://www.kidney.org/professionals/kls/pdf/faq_gfr.pdf Roxane Roa, Corby NA, Jhoan AK, Anthony TS, Nan AD, Bran NABEEL. Relative performance of the MDRD and CKD-EPI equations for estimating glomerular filtration rate among patients with varied clinical presentations. Clin J Am Soc Nephrol;6:1963-72. Blood specimen (specimen) 09/26/2012 10:45 AM EST 09/26/2012 10:49 AM EST Narrative Resulting Agency Comment Spec In Lab Chris Brown MD CHEMISTRY ORDERABLE S PREMA [facility]ERLY [facility], [facility] * (ABNORMAL) CBC (with Diff) (09/26/2012 10:45 AM EST) White Blood Cell 5.1 4.0 - 10.0 x10(3)/mc L CERNER MILLENNIUM Red Blood Cell 4.23(L) 4.63 - 6.08 x10(6)/mc L CERNER MILLENNIUM Hemoglobin 13.2(L) 13.7 - 17.5 gm/dL CERNER MILLENNIUM Hematocrit 40.0 40.0 - 51.0 % CERNER MILLENNIUM Mean Cell Volume 94.6(H) 79.0 - 92.0 fL CERNER MILLENNIUM Mean Cell Hemoglobin 31.2 25.6 - 32.2 pg CERNER MILLENNIUM Mean Cell Hemoglobin Concentration 33.0 32.0 - 36.5 gm/dL CERNER MILLENNIUM Platelet 228 145 - 370 x10(3)/mc L CERNER MILLENNIUM RDW Standard Deviation 52.2(H) 35.0 - 46.0 fL CERNER MILLENNIUM RDW coefficient of variation 15.1(H) 10.9 - 14.4 % CERNER MILLENNIUM Mean Platelet Volume 10.2 9.0 - 12.0 fL [facility] MILLENNIUM Blood specimen (specimen) 09/26/2012 10:45 AM EST 09/26/2012 10:49 AM EST Narrative Resulting Agency Comment Spec In Lab Chris Brown MD HEMATOLOGY ORDERABL ES [facility]ERN[facility] MILLENNIUM * Hepatic Function Panel (09/26/2012 10:45 AM EST) Protein, Total 7.6 6.4 - 8.3 gm/dL CERNER MILLENNIUM Albumin 4.2 3.2 - 5.2 gm/dL CERNER MILLENNIUM Aspartate Aminotransferase 24 0 - 39 unit/L CERNER MILLENNIUM Alanine Aminotransferase 28 0 - 55 unit/L CERNER MILLENNIUM Alkaline Phosphatase 69 40 - 120 unit/L CERNER MILLENNIUM Bilirubin, Total 0.5 0.2 - 1.3 mg/dL CERNER MILLENNIUM Bilirubin, Direct 0.1 0.0 - 0.3 mg/dL [facility]ERN[facility] MILLENNIUM Blood specimen (specimen) 09/26/2012 10:45 AM EST 09/26/2012 10:49 AM EST Narrative Resulting Agency Comment Spec In Lab Chris Brown MD CHEMISTRY ORDERABLE S PREMA LEWIS * (ABNORMAL) TSH (09/26/2012 10:45 AM EST) Thyroid Stimulating Hormone 7.38(H) 0.27 - 4.20 mcIU/mL CERNER ASHLEYENNIUM Blood specimen (specimen) 09/26/2012 10:45 AM EST 09/26/2012 10:49 AM EST Narrative Resulting Agency Comment Spec In Lab Chris Brown MD [place] [facility] Performing Organization Address [facility] Co de Phone Number PREMA LEWIS documented in this encounter Visit Diagnoses Diagnosis Chronic hepatitis C- Primary Chronic hepatitis C without mention of hepatic coma documented in this encounter Care Teams Flower Grader Relationship Specialty Start Date End Date Yeimi Carey APRN [address] [place] [phone] PCP - General 09/26/12 12/20/13 documented as of this encounter
--- OUTSIDE RECORDS SUMMARY | 2024-03-27 00:44 | XMS_ITS | Encounter Summary ---
Author Organization [facility] [place] [address] Care Team Providers Care Carpenter Cradle And Dolly Name Role Phone Renzo Darden MD Primary Care Provider [phone] Reason for Visit * Reason Comments Follow-up Encounter Details Date Type Department Care Team (Late st Contact Info) Description 08/11/2012 9:30 AM EST Follow-[place] [phone] Nataliya Mejias, MANAGER SUPPLY [facility] DR GASTROENTER[place] [address] Chronic hepatitis C (Primary Dx); Hepatitis C Discharge Disposition: Home [...] Sign Reading Time Taken Comments Blood Pressure 131/87 08/11/2012 9:34 AM EST Pulse 98 08/11/2012 9:34 AM EST Temperature - - Respiratory Rate - - Oxygen Saturation - - Inhaled Oxygen Concentration - - Weight 84.4 kg (186 lb) 08/11/2012 9:34 AM EST Height 175.3 cm (5' 9) 08/11/2012 9:34 AM EST Body Mass Index 27.47 08/11/2012 9:34 AM EST documented in this encounter Progress Notes * Jina Simms 08/11/2012 10:12 AM ESTAddended by: JINA SIMMS on: 08/11/2012 10:12 AM Modules accepted: Orders * Randell Nataliya LESTER Garvin - 08/11/2012 9:38 AM EST Subjective: Patient ID: Hugo Goins [...] Completed tx week/ planned duration of tx: 40/48 IFN dose day: Fridays Significant side effects: 09/26/2011 baseline week 4 week 7 week 9 week 28 Week 34 62,384 1050 <43+ <43- <43- <43- Mr. Goins is a very pleasant 57 year old male who presents to [facility] for follow-up of his Hepatitis C genotype 3. He started dual therapy with ribavirin 1200 mg daily and Pegasys 180 mcg SQ weekly on 11/16/11. The plan is to treat him for 48 weeks as he had a slower response to thetreatment, not clearing the virus until somewhere between week 7 and 9. He is tolerating the therapy better with the reduction of the ribavirin to 800 mg a day. Still has some fatigue and flu like symptoms around the injection. He reports that his breathing has been better. He has not been using the advair due to financial constraints. In regards to his psoriasis his skin is better in some spots and worse in others. His lips are healed, he continues to have visual adriana nges and has not yet made it to the eye doctor but believes he has an appt in the next week or two. Review of Systems Constitutional: Negative for appetite [...] using bag balm daily and wearing long sleeves, he is considering going under the lights. 4. Lip and oral sores, used zorivax ointment regularly with good success, now using chapstick to keep his lips moist. 5. Visual changes, encouraged him to go back to the eye doctor for re- evaluation, he has a follow up appointment in the next few weeks he is not sure of hte date. He will get labs again in six weeks as his counts are stable, he will follow up with me in six weeks. documented in this encounter Plan of Treatment Upcoming Encounters Date Type Department Care Team (Late st Contact Info) Description 04/15/2024 1:30 PM EDT Office Visit Rheumatology at [facility] [place] [address] Lucrecia Rios APRN [facility] [place] [address] documented as of this encounter Procedures Procedure Name Priority Date/Time Associated Diagnosis Comments HCV QUANT Routine 08/11/2012 10:17 AM EST Chronic hepatitis C CMP W/FASTING GLUCOSE Routine 08/11/2012 10:17 AM EST Chronic hepatitis C DIFFERENTIAL, AUTOMATED Routine 08/11/2012 10:17 AM EST HEPATITIS C RNA, QUANTITATIVE, PCR Routine 08/11/2012 10:17 AM EST Chronic hepatitis C CBC (WITH DIFF) Routine 08/11/2012 10:17 AM EST Chronic hepatitis C documented in this encounter Results * (ABNORMAL) Differential, Automated (08/11/2012 10:17 AM EST) Neutrophil % 65.8 34.0 - 71.0 % CERNER MILLENNIUM Neutrophil Absolute 3.30 1.50 - 6.30 x10(3)/mc L CERNER MILLENNIUM Lymph % 18.6(L) 19.0 - 53.0 % CERNER MILLENNIUM Lymphocytes Abs 0.9(L) 1.0 - 3.6 x10(3)/mc L CERNER MILLENNIUM Monocyte % 11.4 4.0 - 13.0 % CERNER MILLENNIUM Monocyte Abs 0.6 0.2 - 1.0 x10(3)/mc L CERNER MILLENNIUM Eos % 3.6 0.0 - 7.0 % CERNER MILLENNIUM Eosinophils Abs 0.2 0.0 - 0.5 x10(3)/mc L [facility] Basophil % 0.2 0.0 - 2.0 % [facility] Baso Absolute 0.0 0.0 - 0.2 x10(3)/mc L [facility] Immature Gran % 0.40 0.00 - 0.66 % [facility] Comment: Immature granulocytes(IG's)percentage and absolute count will include metamyelocytes, myelocytes, and promyelocytes. Blood smears from CBCs yielding IG's will be scanned manually for concordance. If this scan disagrees with the automated IG or if promyelocytes are noted, a manual differential will be performed. Immature Gran Absolute 0.02 0.00 - 0.05 x10(3)/mc L [facility] Blood specimen (specimen) 08/11/2012 10:17 AM EST 08/11/2012 10:26 AM EST Chris Brown MD HEMATOLOGY ORDERABL ES [facility] * HCV Quant Wilfredo (08/11/2012 10:17 AM EST) Pathologist [facility] HCV Viral Load <43 IU/mL [facility] HCV Viral Load Result: < 43 Target [...] This assay is being performed in the [facility] Pathology Laboratory. Sha North, Ph.D. Director, Molecular Pathology [facility] Comment: [VERIFIED DATE]08.14.12 Verified By:Jenna Navarro I (Electronic Signature) Blood specimen (specimen) 08/11/2012 10:17 AM EST 08/11/2012 10:26 AM EST Narrative Resulting Agency Comment Spec In Lab Chris Brown MD HEMATOLOGY ORDERABL ES CERNER ASHLEYENNIUM * (ABNORMAL) CMP w/fasting Glucose (08/11/2012 10:17 AM EST) [facility] Signature Glucose Fasting 101(H) 65 - 99 mg/dL CERNER MILLENNIUM Comment: [...] of Diabetes Mellitus, Position Statement from the [place] Diabetes [employer]. ??Diabetes Care, Volume 33, Supplement 1, Aug 2009 Blood Urea Nitrogen 24(H) 10 - 20 mg/dL CERNER MILLENNIUM Creatinine 1.06 0.80 - 1.50 mg/dL CERNER MILLENNIUM Comment: Please note that the pediatric reference intervals supplied above were not validated at [facility]. Results from pediatric patients should be interpreted in conjunction to the patient's age, height and muscle mass. Sodium 139 135 - 145 mmol/L CERNER MILLENNIUM Potassium 4.0 3.5 - 5.0 mmol/L CERN[facility] MILLENNIUM Comment: [...] - 10.5 mg/dL CERNER MILLENNIUM Protein, Total 7.3 6.4 - 8.3 gm/dL CERNER MILLENNIUM Albumin 4.0 3.2 - 5.2 gm/dL CERNER MILLENNIUM Aspartate Aminotransferase 26 0 - 39 unit/L CERNER MILLENNIUM Alanine Aminotransferase 26 0 - 55 unit/L CERNER MILLENNIUM Alkaline Phosphatase 71 40 - 120 unit/L CERNER MILLENNIUM Bilirubin, [...] J Am Soc Nephrol;6:1963-72. Blood specimen (specimen) 08/11/2012 10:17 AM EST 08/11/2012 10:26 AM EST Narrative Resulting Agency Comment Spec In Lab Chris Brown MD CHEMISTRY ORDERABLE S Performing Organization Address [facility] Co de Phone Number CERWES MILLENNIUM * (ABNORMAL) CBC (with Diff) (08/11/2012 10:17 AM EST) White Blood Cell 5.0 4.0 - 10.0 x10(3)/mc L CERNER MILLENNIUM Red Blood Cell 4.04(L) 4.63 - 6.08 x10(6)/mc L CERNER MILLENNIUM Hemoglobin 12.5(L) 13.7 - 17.5 gm/dL CERNER MILLENNIUM Hematocrit 38.0(L) 40.0 - 51.0 % CERNER MILLENNIUM Mean Cell Volume 94.1(H) 79.0 - 92.0 fL CERNER MILLENNIUM Mean Cell Hemoglobin 30.9 25.6 - 32.2 pg CERNER MILLENNIUM Mean Cell Hemoglobin Concentration 32.9 32.0 - 36.5 gm/dL CERNER MILLENNIUM Platelet 203 145 - 370 x10(3)/mc L CERNER MILLENNIUM RDW Standard Deviation 51.3(H) 35.0 - 46.0 fL CERNER MILLENNIUM RDW coefficient of variation 14.9(H) 10.9 - 14.4 % CERNER MILLENNIUM Mean Platelet Volume 10.3 9.0 - 12.0 fL [facility]ERNER MILLENNIUM Blood specimen (specimen) 08/11/2012 10:17 AM EST 08/11/2012 10:26 AM EST Narrative Resulting Agency Comment Spec In Lab Chrsi Brown MD HEMATOLOGY ORDERABL ES Performing Organization Address City/[facility] Co de Phone Number PREMA LEWIS documented in this encounter Visit Diagnoses Diagnosis Chronic hepatitis C- Primary Chronic hepatitis C without mention of hepatic coma Hepatitis C Unspecified viral hepatitis C without hepatic coma documented in this encounter Care Teams Carpenter Cradle And Dolly Relationship Specialty Start Date End Date Renzo Darden MD [address] [place] [address] PCP - General 10/31/11 09/25/12 documented as of this encounter
--- OUTSIDE RECORDS SUMMARY | 2024-03-27 00:44 | XMS_ITS | Encounter Summary ---
Author Organization [facility] [place] [address] Care Team Providers Care Database Designer Name Role Phone Renzo Darden MD Primary Care Provider [phone] Reason for Visit * Reason Onset Date Comments Results 01/03/2012 Encounter Details Date Type Department Care Team (Late st Contact Info) Description 01/03/2012 Telephone [place] [address] Tania Sanchez APRN [facility] [place] [address] Results Social History Tobacco Use Types Packs/Day Years [...] Miscellaneous Notes * Telephone Encounter - Noemí Botello RN - 01/03/2012 1:01 PM EDT Left message for patient on voice mail; asked him to call back if questions or further episodes of shortness of breath. * Telephone Encounter - Noemí Botello RN - 01/03/2012 12:59 PM EDT Message copied by NOEMÍ BOTELLO on SatJanuary 03, 2012 12:59 PM ------ Message from: TANIA SANCHEZ Created: [facility] January 03, 2012 12:53 PM Nitesh Dowd, Please call pt and let him know to continue with same dose of ribavirin (800 mg daily). We will lethim know when he can increase his dose of ribavirin. Thanks! -Sury documented in this encounter Plan of Treatment Upcoming Encounters Date Type Department Care Team (Late st Contact Info) Description 04/15/2024 1:30 PM EDT Office [place] [address] Lucrecia Rios, [facility] [place] [address] documented as of this encounter Visit Diagnoses Not on filedocumented in this encounter Care Teams Database Designer Relationship Specialty Start Date End Date Renzo Darden MD [address] [place] [phone] PCP - General 10/31/11 09/25/12 documented as of this encounter
--- OUTSIDE RECORDS SUMMARY | 2024-03-27 00:44 | XMS_ITS | Encounter Summary ---
Author Organization [facility] [place] [address] Care Team Providers Care Tree Thinner Name Role Phone Renzo Darden MD Primary Care Provider Reason for Visit * Reason Comments Follow-up Encounter Details Date Type Department Care Team (Late st Contact Info) Description 12/12/2011 2:00 PM EDT Follow-[place] [phone] Nataliya Mejias MANGLE OPERATOR GARMENTS [facility] GASTROENTEROLOGY [place] [address] Hepatitis c, chronic (Primary Dx) Discharge Disposition: [...] Sign Reading Time Taken Comments Blood Pressure 146/93 12/12/2011 1:57 PM EDT Pulse 82 12/12/2011 1:57 PM EDT Temperature - - Respiratory Rate - - Oxygen Saturation - - Inhaled Oxygen Concentration - - Weight 84.1 kg (185 lb 6.4 oz) 12/12/2011 1:57 P M EDT Height 176.5 cm (5' 9.49) 12/12/2011 1:57 PM ED T Body Mass Index 27 12/12/2011 1:57 PM EDT documented in this encounter Progress Notes * Juana Vu, MANGLE OPERATOR GARMENTS - 12/12/2011 2:27 PM EDT Subjective: Patient ID: Hugo Goins [...] Completed tx week/ planned duration of tx: 11/26 IFN dose day: Fridays Significant side effects: 09/26/2011 baseline week 4 / week 8 / week 12 / week 24 62,384 Mr. Goins is a very pleasant 56 year old male who presents to [facility] for follow-up of his Hepatitis C genotype 3. He started dual therapy with ribavirin 1200 mg daily and Pegasys 180 mcg SQ weekly on 11/16/11. He reports that he is doing well with intermittent flu-like sx includingbody aches and stomach aches. His sx are well-controlled with ibuprofen 600 mg 1-2 times daily. He denies unusual fatigue, SOB, chest pain, rashes, abdominal pain, N, V, D, melena, hematochezia, new rashes. His psoriasis remains stable. He is working 30-40 hrs/week and does not feel that treatment is impeding his ability to work. Review of Systems Constitutional: Negative for fever, [...] is warm and dry. Rash (psoriasis) noted. Psychiatric: He has a normal mood and affect. His behavior is normal. Assessment and Plan: 1. Hepatitis C virus genotype 3 in week 4 of dual therapy with ribavirin 1200 mg daily and Pegasys 180 mcg SQ once weekly. He is tolerating treatment well with minimal adverse effects. He will continue with medications as directed. He had labs drawn on 12/09/11 locally which are stable but are awaiting viral load. He will now get labs every other week. Of note he does tell me that he may be losing his health insurance as of February 01. In anticipationof this we have provided him with 2 weeks of samples of Pegasys and ribavirin. We have asked that he call the office with more information regarding status of health insurance so we can initiate process of applying to [employer] for assistance as soon as possible if needed. 2. Hypothyroid, currently stable on current medication regimen. Will continue to monitor periodically. 3. Psoriasis, stable 4. Asthma, currently well-controlled. He will return to the clinic in 1 month for follow-up. All of the patient's questions were answered. Mr. Goins is seen with Sury Vu APRN. documented in this encounter Plan of Treatment Upcoming Encounters Date Type Department Care Team (Late st Contact Info) Description 04/15/2024 1:30 PM EDT Office [place] [phone] Lucrecia Rios APRN [facility] [place] [address] documented as of this encounter Visit Diagnoses Diagnosis Hepatitis C, chronic- Primary Chronic hepatitis C without mention of hepatic coma documented in this encounter Care Teams Tree Thinner Relationship Specialty Start Date End Date Renzo Darden MD [address] [place] [phone] PCP - General 10/31/11 09/25/12 documented as of this encounter
--- OUTSIDE RECORDS SUMMARY | 2024-03-27 00:45 | XMS_ITS ---
[place] [address] Care Team Providers Care Fisher Eel Spear Name Role Phone Lyric Egan MD Primary Care Provider Rheumatology Status:Un-enrolled (Enrolling) Start date:02/20/2024 Enrollment reason:Un-enrolled - MAP Linked medications:etanercept (Active) Linked problems:Psoriasis (Active) Continued Care and Services Coordination
--- OUTSIDE RECORDS SUMMARY | 2024-03-27 00:45 | XMS_ITS | Encounter Summary ---
Author Organization [facility] [place] [address] Care Team Providers Care Customer Experience Leader Name Role Phone Lyric Egan MD Primary Care Provider Encounter Details Date Type Department Care Team (Late st Contact Info) Description 05/08/2004 [place] [phone] Carlo Mosley MD GASTROENTEROLOGY Social History Tobacco Use Types Packs/Day Years Used Date Smoking Tobacco: Never Assessed Sex and Gender Information Value Date Recorded Sex Assigned at Not on file Gender Identity Not on file Sexual Orientation Not on file documented as of this encounter Plan of Treatment Upcoming Encounters Date Type Department Care Team (Late st Contact Info) Description 04/15/2024 1:30 PM EDT Office [place] [phone] Lucrecia Rios, AUTOMATION MACHINE OPERATOR [facility] [place] [address] documented as of this encounter Goals Goal Patient Goal Type Associated Problems Recent Progress Patient-Stated? Author [facility] Medication Compliance and Understanding Patient Facing Action Plan No Nataliya Lentz, 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 documented as of this encounter Procedures Procedure Name Priority Date/Time Associated Diagnosis Comments SURGICAL PATHOLOGY REPORT Routine 05/08/2004 2:50 PM EDT documented in this encounter Results * Surgical Pathology Report (05/08/2004 2:50 PM EDT) Surgical Pathology Report [id number] ? Location: The signing pathologist has (i) examined the relevant preparation(s) for the specimen(s) and (ii) rendered or confirmed the diagnosis(es). . ?Pathology Surgical Pathology Final Report Clinical Information Specimen Submitted: A - Needle biopsy; right lobe. Clinical History: Chronic Hepatitis C. ??Please stage and grade. ??Assess ??pathology. CD: Hep C. Gross Description Labeled/Fixativ e: ? Right lobe liver biopsy, Jannette. Qty/Size/Weight : ?Two soft, jurado needle core biopsies, 1.4 x 0.2 cm and ?4.2 x 0.2 cm. Sections/Proces sing: ??The largest is bisected. ??(T1) ??aje/SNS Microscopic Description Slides reviewed, microscopic description not recorded. Diagnosis Liver; needle core biopsy of right lobe: Liver with preserved architcture and features of chronic hepatitis. Necroinflammato ry Grade 2. Fibrosis Stage 1, with fibrous expansion of portal tracts only. CR-0 05/11/04 KO 05/11/04 Verified by: ? Sury Tracy MD ?Pathologist ?(Electronic Signature) The attending pathologist whose signature appears on this report has reviewed all diagnostic slides and has edited the gross and/or microscopic portion of the report in rendering the final pathologic diagnosis. Comment Trichrome and reticulin stains confirm the portal expansion. The iron stain is negative. PREMA FUIUM 05/08/2004 2:50 PM EDT Carlo Mosley MD PATHOLOGY/CYTOLOGY ORDERABLES PREMA FUFORMERLY [facility] documented in this encounter Visit Diagnoses Not on filedocumented in this encounter Care Teams Customer Experience Leader Relationship Specialty Start Date End Date Lyric Egan MD [address] [place] [address] PCP - General 12/21/21 documented as of this encounter
--- NOTE | 2024-03-27 08:00 | DI.CT_ITS ---
Exam(s) CT NECK W EXAM: CT NECK W CLINICAL HISTORY: Right tonsillar mass,j35.8. TECHNIQUE: Imaging Protocol: Axial computed tomography images with coronal and sagittal reformatted images were created and reviewed CONTRAST MATERIAL: Intravenous: Omnipaque 350 Contrast volume:100 ml contrast COMPARISON: No exams were available for comparison FINDINGS: Parotids: Normal. Submandibular glands: Normal. Thyroid gland: Thyroid gland appears diminutive. Lymph nodes: Conglomeration of abnormal lymph nodes noted deep to the sternocleidomastoid muscle elena uring roughly 3.7 x 2.2 by 4.9 cm. A partially necrotic lymph node measuring 19 millimeters is seen inferior to this level. Other smaller nodes are seen. No abnormal left-sided adenopathy. Carotids arteries: No significant stenosis or dissection. Vertebral arteries: No significant stenosis or dissection. Soft tissues: The floor the mouth is unremarkable. Prominence of the right tonsil without discrete measurable mass. Combined measurement is 3.0 transverse by 3.4 cephalo caudad by 3 cm AP. This caus es mild narrowing of the airway. The epiglottis and vocal cords are within normal limits. Lungs: Images through both lung apices are unremarkable. Bones: Degenerative changes of the cervical spine. Visualized portions of the brain and orbits: Unremarkable. Sinuses and mastoids: mucosal thickening greatest in the ethmoids peer. Mastoid air cells are clear . IMPRESSION: Right-sided tonsillar mass. Conglomeration of partially necrotic right cervical lymph nodes. RADIATION DOSE DELIVERED: Total DLP DATA REPOSITORY: All CT scans at this facility are submitted to the National Radiology Data Registry (NRDR) Dose Index Registry (DIR) with the [employer] (ACR). RADIATION OPTIMIZATION: All CT scans at this facility use at least one of these dose optimization te chniques: automated exposure control; mA and/or kV adjustment per patient size (includes targeted exa ms where dose is matched to clinical indication); or iterative reconstruction.
[2024-03-27] MEDS: Omnipaque 350 MG/ML 100 ML BTL IJ (15:07)
[2024-03-27] MEDS: Normal Saline - Diluent 50 ML VIAL IJ (15:08)
== END 2024-03-27 00:45 ==
LOC: DI 00:25
PROVIDERS: PCP Nurse Practitioner Family; Visit Provider Otolaryngology
DX: J35.8 Other chronic diseases of tonsils and adenoids (principal)
CPT/HCPCS: 70491; J3490

== ENCOUNTER 2024-06-01 01:43 | Outpatient (RCR) | payer MEDICARE, SELFPAY ==
[2024-05-18] MEDS: Normal Saline Flush 10 ML SYR IVP (08:34)
[2024-05-18 08:44] LABS: Abs Immature Grans 0.07 10^3/uL (0.0-0.06); Absolute Basophil Count 0.09 10^3/uL (0.0-0.2); Absolute Eosinophil Count 0.47 10^3/uL (0.0-0.7); Absolute Lymphocyte Count 1.78 10^3/uL (1.2-3.4); Absolute Monocyte Count 0.85 10^3/uL (0.1-0.8); Absolute Neutrophil Count 4.91 10^3/uL (1.2-6.7); Basophils % 1.1 %; Eosinophils % 5.8 %; HCT 47.2 % (40.0-50.0); HGB 15.3 g/dL (13.5-17.5); Immature Grans % 0.9 %; Lymphocytes % 21.8 %; MCH 28.2 pg (27.0-33.0); MCHC 32.4 % (32.0-36.0); MCV 87 fL (80-95); Monocytes % 10.4 %; Platelet Count 227 10^3/uL (130-400); RBC 5.42 10^6/uL (4.36-5.78); RDW-SD 41.1 fL; WBC 8.17 10^3/uL (4.4-10.8)
[2024-05-18 09:04] LABS: ALT 29 U/L (16-63); AST 24 U/L (15-37); Albumin 3.6 g/dL (3.4-5.0); Alkaline Phosphatase 57 U/L (46-116); Anion Gap 7.2 mmol/L (3-11); BUN 35 mg/dL (7-18); Bilirubin, Total 0.41 mg/dL (0.2-1.0); CO2 27.8 mmol/L (21.0-32.0); CREATININE 1.4 mg/dL (0.70-1.30); Calcium 9.2 mg/dL (8.5-10.1); Chloride 104 mmol/L (98-107); Estimated GFR 54.75 (mL/min/1.73m2); Glucose 114 mg/dL (74-106); Magnesium 2.2 mg/dL (1.8-2.4); Potassium 4.5 mmol/L (3.5-5.1); Sodium 139 mmol/L (136-145); Total Protein 7.6 g/dL (6.4-8.2)
[2024-05-19] MEDS: Normal Saline Flush 10 ML SYR IVP (11:45)
[2024-05-19 11:49] LABS: Abs Immature Grans 0.09 10^3/uL (0.0-0.06); Absolute Basophil Count 0.02 10^3/uL (0.0-0.2); Absolute Monocyte Count 0.68 10^3/uL (0.1-0.8); Absolute Neutrophil Count 18.48 10^3/uL (1.2-6.7); Basophils % 0.1 %; HGB 15.4 g/dL (13.5-17.5); Immature Grans % 0.4 %; MCH 28.9 pg (27.0-33.0); MCHC 33.5 % (32.0-36.0); MCV 86 fL (80-95); MPV 9.9 fL (8.0-11.0); Monocytes % 3.4 %; Neutrophils % 92.1 %; Platelet Count 226 10^3/uL (130-400); RBC 5.33 10^6/uL (4.36-5.78); RDW 13.2 % (11.8-14.1); RDW-SD 41.2 fL; WBC 20.07 10^3/uL (4.4-10.8)
[2024-05-19 12:36] LABS: ALT 29 U/L (16-63); AST 21 U/L (15-37); Albumin 3.8 g/dL (3.4-5.0); Alkaline Phosphatase 59 U/L (46-116); Anion Gap 10.2 mmol/L (3-11); BUN 31 mg/dL (7-18); Bilirubin, Total 0.71 mg/dL (0.2-1.0); CO2 23.8 mmol/L (21.0-32.0); CREATININE 1.4 mg/dL (0.70-1.30); Calcium 9.2 mg/dL (8.5-10.1); Chloride 105 mmol/L (98-107); Estimated GFR 54.75 (mL/min/1.73m2); Glucose 133 mg/dL (74-106); Magnesium 2.9 mg/dL (1.8-2.4); Potassium 4.6 mmol/L (3.5-5.1); Sodium 139 mmol/L (136-145); Total Protein 7.7 g/dL (6.4-8.2)
[2024-05-20] MEDS: Normal Saline Flush 10 ML SYR IVP (11:33)
[2024-05-20 11:44] LABS: Abs Immature Grans 0.08 10^3/uL (0.0-0.06); Absolute Basophil Count 0.02 10^3/uL (0.0-0.2); Absolute Eosinophil Count 0.02 10^3/uL (0.0-0.7); Absolute Lymphocyte Count 1.04 10^3/uL (1.2-3.4); Absolute Neutrophil Count 15.56 10^3/uL (1.2-6.7); Basophils % 0.1 %; Eosinophils % 0.1 %; HCT 43.5 % (40.0-50.0); HGB 14.2 g/dL (13.5-17.5); Immature Grans % 0.4 %; Lymphocytes % 5.8 %; MCH 28.7 pg (27.0-33.0); MCHC 32.6 % (32.0-36.0); MCV 88 fL (80-95); MPV 10.1 fL (8.0-11.0); Monocytes % 7.2 %; Neutrophils % 86.4 %; Platelet Count 204 10^3/uL (130-400); RBC 4.94 10^6/uL (4.36-5.78); RDW 13.4 % (11.8-14.1); RDW-SD 43.2 fL; WBC 18.01 10^3/uL (4.4-10.8)
[2024-05-20 11:55] LABS: ALT 33 U/L (16-63); AST 21 U/L (15-37); Albumin 3.2 g/dL (3.4-5.0); Alkaline Phosphatase 47 U/L (46-116); Anion Gap 7.2 mmol/L (3-11); BUN 59 mg/dL (7-18); Bilirubin, Total 0.39 mg/dL (0.2-1.0); CO2 23.8 mmol/L (21.0-32.0); Calcium 8.5 mg/dL (8.5-10.1); Chloride 105 mmol/L (98-107); Estimated GFR 35.68 (mL/min/1.73m2); Glucose 115 mg/dL (74-106); Magnesium 2.8 mg/dL (1.8-2.4); Potassium 5.1 mmol/L (3.5-5.1); Sodium 136 mmol/L (136-145); Total Protein 6.6 g/dL (6.4-8.2)
[2024-05-21 12:01] LABS: Abs Immature Grans 0.04 10^3/uL (0.0-0.06); Absolute Basophil Count 0.02 10^3/uL (0.0-0.2); Absolute Lymphocyte Count 1.54 10^3/uL (1.2-3.4); Absolute Monocyte Count 1.14 10^3/uL (0.1-0.8); Basophils % 0.2 %; Eosinophils % 0.4 %; HCT 42.9 % (40.0-50.0); HGB 14.1 g/dL (13.5-17.5); Immature Grans % 0.4 %; Lymphocytes % 13.6 %; MCH 29.1 pg (27.0-33.0); MCHC 32.9 % (32.0-36.0); MCV 89 fL (80-95); MPV 10.4 fL (8.0-11.0); Monocytes % 10.1 %; Neutrophils % 75.3 %; Platelet Count 179 10^3/uL (130-400); RBC 4.85 10^6/uL (4.36-5.78); RDW 13.2 % (11.8-14.1); RDW-SD 42.9 fL; WBC 11.31 10^3/uL (4.4-10.8)
[2024-05-21 12:02] LABS: Absolute Eosinophil Count 0.05 10^3/uL (0.0-0.7); Absolute Neutrophil Count 8.52 10^3/uL (1.2-6.7)
[2024-05-21 12:17] LABS: ALT 39 U/L (16-63); AST 24 U/L (15-37); Albumin 3.2 g/dL (3.4-5.0); Alkaline Phosphatase 52 U/L (46-116); BUN 49 mg/dL (7-18); Bilirubin, Total 0.56 mg/dL (0.2-1.0); CREATININE 1.9 mg/dL (0.70-1.30); Calcium 8.4 mg/dL (8.5-10.1); Chloride 104 mmol/L (98-107); Estimated GFR 37.95 (mL/min/1.73m2); Glucose 105 mg/dL (74-106); Magnesium 2.5 mg/dL (1.8-2.4); Potassium 4.6 mmol/L (3.5-5.1); Sodium 137 mmol/L (136-145); Total Protein 6.6 g/dL (6.4-8.2)
[2024-05-25] MEDS: Normal Saline Flush 10 ML SYR IVP (10:34)
[2024-05-25 10:50] LABS: Abs Immature Grans 0.04 10^3/uL (0.0-0.06); Absolute Basophil Count 0.07 10^3/uL (0.0-0.2); Absolute Eosinophil Count 0.15 10^3/uL (0.0-0.7); Absolute Lymphocyte Count 1.18 10^3/uL (1.2-3.4); Absolute Monocyte Count 0.62 10^3/uL (0.1-0.8); Absolute Neutrophil Count 6.62 10^3/uL (1.2-6.7); Basophils % 0.8 %; Eosinophils % 1.7 %; HCT 45.9 % (40.0-50.0); HGB 15.3 g/dL (13.5-17.5); Immature Grans % 0.5 %; Lymphocytes % 13.6 %; MCH 28.8 pg (27.0-33.0); MCHC 33.3 % (32.0-36.0); MCV 86 fL (80-95); MPV 9.9 fL (8.0-11.0); Monocytes % 7.1 %; Neutrophils % 76.3 %; Platelet Count 145 10^3/uL (130-400); RBC 5.31 10^6/uL (4.36-5.78); RDW 12.7 % (11.8-14.1); RDW-SD 39.8 fL; WBC 8.68 10^3/uL (4.4-10.8)
[2024-05-25 11:06] LABS: ALT 36 U/L (16-63); AST 16 U/L (15-37); Albumin 3.4 g/dL (3.4-5.0); Alkaline Phosphatase 59 U/L (46-116); Anion Gap 5.2 mmol/L (3-11); BUN 26 mg/dL (7-18); Bilirubin, Total 0.53 mg/dL (0.2-1.0); CO2 30.8 mmol/L (21.0-32.0); CREATININE 1.6 mg/dL (0.70-1.30); Chloride 102 mmol/L (98-107); Estimated GFR 46.64 (mL/min/1.73m2); Glucose 148 mg/dL (74-106); Magnesium 1.8 mg/dL (1.8-2.4); Potassium 4.8 mmol/L (3.5-5.1); Sodium 138 mmol/L (136-145); Total Protein 7.4 g/dL (6.4-8.2)
[2024-06-01] MEDS: Normal Saline Flush 10 ML SYR IVP (08:14)
[2024-06-01 08:42] LABS: Abs Immature Grans 0.01 10^3/uL (0.0-0.06); Absolute Basophil Count 0.03 10^3/uL (0.0-0.2); Absolute Eosinophil Count 0.13 10^3/uL (0.0-0.7); Absolute Lymphocyte Count 0.87 10^3/uL (1.2-3.4); Absolute Monocyte Count 0.61 10^3/uL (0.1-0.8); Absolute Neutrophil Count 3.96 10^3/uL (1.2-6.7); Basophils % 0.5 %; Eosinophils % 2.3 %; HCT 40.8 % (40.0-50.0); HGB 13.5 g/dL (13.5-17.5); Immature Grans % 0.2 %; Lymphocytes % 15.5 %; MCH 28.5 pg (27.0-33.0); MCHC 33.1 % (32.0-36.0); MCV 86 fL (80-95); MPV 9.4 fL (8.0-11.0); Monocytes % 10.9 %; Neutrophils % 70.6 %; Platelet Count 162 10^3/uL (130-400); RBC 4.73 10^6/uL (4.36-5.78); RDW 12.7 % (11.8-14.1); WBC 5.61 10^3/uL (4.4-10.8)
[2024-06-01 08:45] LABS: ALT 22 U/L (16-63); AST 16 U/L (15-37); Albumin 3.3 g/dL (3.4-5.0); Alkaline Phosphatase 62 U/L (46-116); Anion Gap 7.4 mmol/L (3-11); BUN 38 mg/dL (7-18); Bilirubin, Total 0.24 mg/dL (0.2-1.0); CO2 26.6 mmol/L (21.0-32.0); CREATININE 1.6 mg/dL (0.70-1.30); Calcium 8.9 mg/dL (8.5-10.1); Chloride 104 mmol/L (98-107); Estimated GFR 46.64 (mL/min/1.73m2); Glucose 102 mg/dL (74-106); Magnesium 2.3 mg/dL (1.8-2.4); Potassium 4.7 mmol/L (3.5-5.1); Sodium 138 mmol/L (136-145); Total Protein 7.3 g/dL (6.4-8.2)
== END 2024-06-04 23:59 | disposition home or self-care (01) ==
LOC: INF 01:43
PROVIDERS: Nurse Practitioner; PCP Nurse Practitioner Family; Visit Provider Internal Medicine Hematology
DX: C09.9 Malignant neoplasm of tonsil, unspecified (principal)
CPT/HCPCS: 36591; 80053; 96523; 83735; 85025

== ENCOUNTER 2024-06-18 11:26 | Outpatient (REF) | payer MEDICARE, SELFPAY ==
[2024-06-18 12:16] LABS: ALT 17 U/L (16-63); AST 16 U/L (15-37); Albumin 3.2 g/dL (3.4-5.0); Alkaline Phosphatase 55 U/L (46-116); Anion Gap 7.9 mmol/L (3-11); BUN 32 mg/dL (7-18); Bilirubin, Total 0.38 mg/dL (0.2-1.0); CO2 29.1 mmol/L (21.0-32.0); CREATININE 1.8 mg/dL (0.70-1.30); Calcium 8.5 mg/dL (8.5-10.1); Chloride 104 mmol/L (98-107); Estimated GFR 40.49 (mL/min/1.73m2); Glucose 95 mg/dL (74-106); Potassium 4.7 mmol/L (3.5-5.1); Sodium 141 mmol/L (136-145); Total Protein 6.3 g/dL (6.4-8.2)
== END 2024-06-18 11:27 | disposition home or self-care (01) ==
LOC: LBN 11:26
PROVIDERS: PCP Nurse Practitioner Family; Visit Provider Internal Medicine Hematology
DX: C09.9 Malignant neoplasm of tonsil, unspecified (principal)
CPT/HCPCS: 80053

== ENCOUNTER 2024-06-29 01:53 | Outpatient (RCR) | payer MEDICARE, SELFPAY ==
[2024-06-08] MEDS: Normal Saline Flush 10 ML SYR IVP (08:36)
[2024-06-08 08:38] LABS: Abs Immature Grans 0.08 10^3/uL (0.0-0.06); Absolute Basophil Count 0.05 10^3/uL (0.0-0.2); Absolute Eosinophil Count 0.15 10^3/uL (0.0-0.7); Absolute Lymphocyte Count 0.57 10^3/uL (1.2-3.4); Absolute Monocyte Count 0.84 10^3/uL (0.1-0.8); Absolute Neutrophil Count 1.87 10^3/uL (1.2-6.7); Basophils % 1.4 %; Eosinophils % 4.2 %; HCT 41.9 % (40.0-50.0); Immature Grans % 2.2 %; MCH 28.2 pg (27.0-33.0); MCHC 33.4 % (32.0-36.0); MCV 85 fL (80-95); MPV 8.9 fL (8.0-11.0); Monocytes % 23.6 %; Neutrophils % 52.6 %; Platelet Count 442 10^3/uL (130-400); RBC 4.96 10^6/uL (4.36-5.78); RDW 13.1 % (11.8-14.1); RDW-SD 38.8 fL; WBC 3.56 10^3/uL (4.4-10.8)
[2024-06-08 08:55] LABS: ALT 20 U/L (16-63); AST 16 U/L (15-37); Albumin 3.3 g/dL (3.4-5.0); Alkaline Phosphatase 67 U/L (46-116); Anion Gap 4.5 mmol/L (3-11); BUN 27 mg/dL (7-18); Bilirubin, Total 0.35 mg/dL (0.2-1.0); CO2 29.5 mmol/L (21.0-32.0); CREATININE 1.4 mg/dL (0.70-1.30); Calcium 9.1 mg/dL (8.5-10.1); Chloride 103 mmol/L (98-107); Estimated GFR 54.75 (mL/min/1.73m2); Glucose 107 mg/dL (74-106); Magnesium 2.3 mg/dL (1.8-2.4); Potassium 4.6 mmol/L (3.5-5.1); Sodium 137 mmol/L (136-145); Total Protein 7.5 g/dL (6.4-8.2)
[2024-06-15 12:29] LABS: Abs Immature Grans 0.04 10^3/uL (0.0-0.06); Absolute Basophil Count 0.04 10^3/uL (0.0-0.2); Absolute Eosinophil Count 0.02 10^3/uL (0.0-0.7); Absolute Lymphocyte Count 0.46 10^3/uL (1.2-3.4); Absolute Monocyte Count 0.78 10^3/uL (0.1-0.8); Absolute Neutrophil Count 4.03 10^3/uL (1.2-6.7); Basophils % 0.7 %; Eosinophils % 0.4 %; HCT 37.7 % (40.0-50.0); HGB 12.5 g/dL (13.5-17.5); Immature Grans % 0.7 %; Lymphocytes % 8.6 %; MCH 28.2 pg (27.0-33.0); MCHC 33.2 % (32.0-36.0); MCV 85 fL (80-95); MPV 9.1 fL (8.0-11.0); Monocytes % 14.5 %; Neutrophils % 75.1 %; Platelet Count 129 10^3/uL (130-400); RBC 4.43 10^6/uL (4.36-5.78); RDW 12.9 % (11.8-14.1); RDW-SD 39.5 fL; WBC 5.37 10^3/uL (4.4-10.8)
[2024-06-15] MEDS: Normal Saline Flush 10 ML SYR IVP (12:44)
[2024-06-15 12:58] LABS: ALT 20 U/L (16-63); AST 22 U/L (15-37); Albumin 3.3 g/dL (3.4-5.0); Alkaline Phosphatase 54 U/L (46-116); Anion Gap 7.9 mmol/L (3-11); BUN 38 mg/dL (7-18); Bilirubin, Total 0.36 mg/dL (0.2-1.0); CO2 29.1 mmol/L (21.0-32.0); CREATININE 2.2 mg/dL (0.70-1.30); Calcium 8.4 mg/dL (8.5-10.1); Chloride 104 mmol/L (98-107); Estimated GFR 31.83 (mL/min/1.73m2); Glucose 157 mg/dL (74-106); Potassium 4.4 mmol/L (3.5-5.1); Sodium 141 mmol/L (136-145); Total Protein 6.8 g/dL (6.4-8.2)
[2024-06-22] MEDS: Normal Saline Flush 10 ML SYR IVP (08:08)
[2024-06-22 08:43] LABS: Abs Immature Grans 0.02 10^3/uL (0.0-0.06); Absolute Basophil Count 0.02 10^3/uL (0.0-0.2); Absolute Eosinophil Count 0.04 10^3/uL (0.0-0.7); Absolute Lymphocyte Count 0.24 10^3/uL (1.2-3.4); Absolute Monocyte Count 0.49 10^3/uL (0.1-0.8); Absolute Neutrophil Count 4.61 10^3/uL (1.2-6.7); Basophils % 0.4 %; Eosinophils % 0.7 %; HCT 35.5 % (40.0-50.0); HGB 11.9 g/dL (13.5-17.5); Immature Grans % 0.4 %; Lymphocytes % 4.4 %; MCH 28.9 pg (27.0-33.0); MCHC 33.5 % (32.0-36.0); MCV 86 fL (80-95); MPV 9.7 fL (8.0-11.0); Neutrophils % 85.1 %; Platelet Count 145 10^3/uL (130-400); RBC 4.12 10^6/uL (4.36-5.78); RDW 12.9 % (11.8-14.1); RDW-SD 38.9 fL; WBC 5.42 10^3/uL (4.4-10.8)
[2024-06-22 09:12] LABS: ALT 17 U/L (16-63); AST 14 U/L (15-37); Albumin 3.1 g/dL (3.4-5.0); Alkaline Phosphatase 59 U/L (46-116); Anion Gap 4.7 mmol/L (3-11); BUN 30 mg/dL (7-18); Bilirubin, Total 0.47 mg/dL (0.2-1.0); CO2 29.3 mmol/L (21.0-32.0); CREATININE 1.6 mg/dL (0.70-1.30); Calcium 8.8 mg/dL (8.5-10.1); Chloride 103 mmol/L (98-107); Estimated GFR 46.64 (mL/min/1.73m2); Glucose 132 mg/dL (74-106); Potassium 4.8 mmol/L (3.5-5.1); Sodium 137 mmol/L (136-145); Total Protein 6.7 g/dL (6.4-8.2)
[2024-06-29 08:52] LABS: Abs Immature Grans 0.12 10^3/uL (0.0-0.06); Absolute Basophil Count 0.04 10^3/uL (0.0-0.2); Absolute Eosinophil Count 0.18 10^3/uL (0.0-0.7); Absolute Lymphocyte Count 0.24 10^3/uL (1.2-3.4); Absolute Monocyte Count 0.75 10^3/uL (0.1-0.8); Absolute Neutrophil Count 1.85 10^3/uL (1.2-6.7); Basophils % 1.3 %; Eosinophils % 5.7 %; HCT 36.1 % (40.0-50.0); HGB 12.3 g/dL (13.5-17.5); Immature Grans % 3.8 %; Lymphocytes % 7.5 %; MCH 28.9 pg (27.0-33.0); MCHC 34.1 % (32.0-36.0); MCV 85 fL (80-95); MPV 9.2 fL (8.0-11.0); Monocytes % 23.6 %; Neutrophils % 58.1 %; Platelet Count 345 10^3/uL (130-400); RBC 4.25 10^6/uL (4.36-5.78); RDW 13.8 % (11.8-14.1); RDW-SD 40.7 fL; WBC 3.18 10^3/uL (4.4-10.8)
[2024-06-29 09:13] LABS: ALT 15 U/L (16-63); AST 13 U/L (15-37); Albumin 3.3 g/dL (3.4-5.0); Alkaline Phosphatase 62 U/L (46-116); Anion Gap 5.2 mmol/L (3-11); BUN 31 mg/dL (7-18); Bilirubin, Total 0.37 mg/dL (0.2-1.0); CO2 30.8 mmol/L (21.0-32.0); CREATININE 1.6 mg/dL (0.70-1.30); Calcium 9.1 mg/dL (8.5-10.1); Chloride 99 mmol/L (98-107); Estimated GFR 46.64 (mL/min/1.73m2); Glucose 167 mg/dL (74-106); Magnesium 2.3 mg/dL (1.8-2.4); Potassium 4.4 mmol/L (3.5-5.1); Sodium 135 mmol/L (136-145); Total Protein 7.2 g/dL (6.4-8.2)
[2024-06-29] MEDS: Normal Saline Flush 10 ML SYR IVP (13:22)
== END 2024-07-04 23:59 | disposition home or self-care (01) ==
LOC: INF 01:53
PROVIDERS: PCP Nurse Practitioner Family; Visit Provider Internal Medicine Hematology
DX: C09.9 Malignant neoplasm of tonsil, unspecified (principal); Z45.2 Encounter for adjustment and management of vascular access device
CPT/HCPCS: 36591; 80053; 83735; 85025

== ENCOUNTER 2024-08-03 02:11 | Outpatient (RCR) | payer MEDICARE, SELFPAY ==
[2024-07-06] MEDS: Normal Saline Flush 10 ML SYR IVP (09:36)
[2024-07-06 09:59] LABS: Abs Immature Grans 0.28 10^3/uL (0.0-0.06); Absolute Basophil Count 0.08 10^3/uL (0.0-0.2); Absolute Eosinophil Count 0.07 10^3/uL (0.0-0.7); Absolute Lymphocyte Count 0.35 10^3/uL (1.2-3.4); Absolute Monocyte Count 0.99 10^3/uL (0.1-0.8); Absolute Neutrophil Count 5.66 10^3/uL (1.2-6.7); Basophils % 1.1 %; Eosinophils % 0.9 %; HCT 37.3 % (40.0-50.0); HGB 12.2 g/dL (13.5-17.5); Immature Grans % 3.8 %; Lymphocytes % 4.7 %; MCH 28.6 pg (27.0-33.0); MCHC 32.7 % (32.0-36.0); MCV 87 fL (80-95); MPV 9.3 fL (8.0-11.0); Monocytes % 13.3 %; Neutrophils % 76.2 %; Platelet Count 281 10^3/uL (130-400); RBC 4.27 10^6/uL (4.36-5.78); RDW 14.2 % (11.8-14.1); RDW-SD 43.3 fL; WBC 7.43 10^3/uL (4.4-10.8)
[2024-07-06 10:19] LABS: ALT 18 U/L (16-63); AST 14 U/L (15-37); Albumin 3.2 g/dL (3.4-5.0); Alkaline Phosphatase 64 U/L (46-116); Anion Gap 7.9 mmol/L (3-11); BUN 34 mg/dL (7-18); CO2 29.1 mmol/L (21.0-32.0); CREATININE 1.7 mg/dL (0.70-1.30); Calcium 8.9 mg/dL (8.5-10.1); Chloride 103 mmol/L (98-107); Estimated GFR 43.37 (mL/min/1.73m2); Glucose 140 mg/dL (74-106); Magnesium 2.2 mg/dL (1.8-2.4); Potassium 4.4 mmol/L (3.5-5.1); Sodium 140 mmol/L (136-145); Total Protein 7.3 g/dL (6.4-8.2)
[2024-07-20] MEDS: Normal Saline Flush 10 ML SYR IVP (13:20)
[2024-07-20 13:41] LABS: Abs Immature Grans 0.09 10^3/uL (0.0-0.06); Absolute Basophil Count 0.05 10^3/uL (0.0-0.2); Absolute Eosinophil Count 0.24 10^3/uL (0.0-0.7); Absolute Monocyte Count 0.89 10^3/uL (0.1-0.8); Absolute Neutrophil Count 4.47 10^3/uL (1.2-6.7); Basophils % 0.8 %; Eosinophils % 3.8 %; HCT 36.9 % (40.0-50.0); HGB 12.5 g/dL (13.5-17.5); Immature Grans % 1.4 %; Lymphocytes % 9.5 %; MCH 29.3 pg (27.0-33.0); MCHC 33.9 % (32.0-36.0); MCV 87 fL (80-95); Neutrophils % 70.5 %; Platelet Count 241 10^3/uL (130-400); RBC 4.26 10^6/uL (4.36-5.78); RDW 15.2 % (11.8-14.1); RDW-SD 46.8 fL; WBC 6.34 10^3/uL (4.4-10.8)
[2024-07-20 14:03] LABS: ALT 16 U/L (16-63); AST 17 U/L (15-37); Albumin 3.7 g/dL (3.4-5.0); Alkaline Phosphatase 66 U/L (46-116); Anion Gap 7.4 mmol/L (3-11); BUN 31 mg/dL (7-18); Bilirubin, Total 0.53 mg/dL (0.2-1.0); CO2 29.6 mmol/L (21.0-32.0); CREATININE 1.3 mg/dL (0.70-1.30); Calcium 9.4 mg/dL (8.5-10.1); Chloride 102 mmol/L (98-107); Estimated GFR 59.84 (mL/min/1.73m2); Glucose 97 mg/dL (74-106); Magnesium 2.3 mg/dL (1.8-2.4); Potassium 4.4 mmol/L (3.5-5.1); Sodium 139 mmol/L (136-145); Total Protein 7.6 g/dL (6.4-8.2)
[2024-07-27] MEDS: Normal Saline Flush 10 ML SYR IVP (12:47)
[2024-07-27 12:50] LABS: Abs Immature Grans 0.04 10^3/uL (0.0-0.06); Absolute Basophil Count 0.05 10^3/uL (0.0-0.2); Absolute Lymphocyte Count 0.57 10^3/uL (1.2-3.4); Absolute Monocyte Count 0.87 10^3/uL (0.1-0.8); Absolute Neutrophil Count 3.88 10^3/uL (1.2-6.7); Basophils % 0.9 %; Eosinophils % 5.3 %; HCT 35.5 % (40.0-50.0); HGB 12.1 g/dL (13.5-17.5); Immature Grans % 0.7 %; MCH 29.5 pg (27.0-33.0); MCHC 34.1 % (32.0-36.0); MCV 87 fL (80-95); MPV 9.8 fL (8.0-11.0); Monocytes % 15.2 %; Neutrophils % 67.9 %; Platelet Count 216 10^3/uL (130-400); RDW 15.4 % (11.8-14.1); RDW-SD 48.5 fL; WBC 5.71 10^3/uL (4.4-10.8)
[2024-07-27 13:25] LABS: ALT 19 U/L (16-63); AST 15 U/L (15-37); Albumin 3.6 g/dL (3.4-5.0); Alkaline Phosphatase 60 U/L (46-116); Anion Gap 6.5 mmol/L (3-11); BUN 27 mg/dL (7-18); CO2 29.5 mmol/L (21.0-32.0); CREATININE 1.3 mg/dL (0.70-1.30); Calcium 9.2 mg/dL (8.5-10.1); Chloride 103 mmol/L (98-107); Estimated GFR 59.84 (mL/min/1.73m2); Glucose 91 mg/dL (74-106); Magnesium 2.2 mg/dL (1.8-2.4); Potassium 4.3 mmol/L (3.5-5.1); Sodium 139 mmol/L (136-145); Total Protein 7.3 g/dL (6.4-8.2)
[2024-08-03 13:25] LABS: Abs Immature Grans 0.03 10^3/uL (0.0-0.06); Absolute Basophil Count 0.04 10^3/uL (0.0-0.2); Absolute Eosinophil Count 0.19 10^3/uL (0.0-0.7); Absolute Lymphocyte Count 0.59 10^3/uL (1.2-3.4); Absolute Monocyte Count 0.62 10^3/uL (0.1-0.8); Absolute Neutrophil Count 4.25 10^3/uL (1.2-6.7); Basophils % 0.7 %; Eosinophils % 3.3 %; HCT 36.1 % (40.0-50.0); HGB 12.1 g/dL (13.5-17.5); Immature Grans % 0.5 %; Lymphocytes % 10.3 %; MCH 29.6 pg (27.0-33.0); MCHC 33.5 % (32.0-36.0); MCV 88 fL (80-95); MPV 10.1 fL (8.0-11.0); Monocytes % 10.8 %; Neutrophils % 74.4 %; Platelet Count 175 10^3/uL (130-400); RBC 4.09 10^6/uL (4.36-5.78); RDW 15.2 % (11.8-14.1); RDW-SD 48.8 fL; WBC 5.72 10^3/uL (4.4-10.8)
[2024-08-03 13:42] LABS: ALT 19 U/L (16-63); AST 13 U/L (15-37); Albumin 3.6 g/dL (3.4-5.0); Alkaline Phosphatase 60 U/L (46-116); Anion Gap 7.6 mmol/L (3-11); BUN 29 mg/dL (7-18); Bilirubin, Total 0.36 mg/dL (0.2-1.0); CO2 30.4 mmol/L (21.0-32.0); CREATININE 1.2 mg/dL (0.70-1.30); Calcium 8.9 mg/dL (8.5-10.1); Chloride 102 mmol/L (98-107); Estimated GFR 65.87 (mL/min/1.73m2); Glucose 129 mg/dL (74-106); Potassium 4.2 mmol/L (3.5-5.1); Sodium 140 mmol/L (136-145); Total Protein 6.9 g/dL (6.4-8.2)
[2024-08-03] MEDS: Normal Saline Flush 10 ML SYR IVP (13:53)
== END 2024-08-04 23:59 | disposition home or self-care (01) ==
LOC: INF 02:11
PROVIDERS: PCP Nurse Practitioner Family; Visit Provider Internal Medicine Hematology
DX: C09.9 Malignant neoplasm of tonsil, unspecified (principal); Z45.2 Encounter for adjustment and management of vascular access device
CPT/HCPCS: 36591; 80053; 83735; 85025

== ENCOUNTER 2024-08-31 02:17 | Outpatient (RCR) | payer MEDICARE, SELFPAY ==
[2024-08-12] MEDS: Normal Saline Flush 10 ML SYR IVP (11:11)
[2024-08-12 11:18] LABS: Abs Immature Grans 0.02 10^3/uL (0.0-0.06); Absolute Basophil Count 0.03 10^3/uL (0.0-0.2); Absolute Eosinophil Count 0.13 10^3/uL (0.0-0.7); Absolute Lymphocyte Count 0.49 10^3/uL (1.2-3.4); Absolute Monocyte Count 0.65 10^3/uL (0.1-0.8); Absolute Neutrophil Count 3.74 10^3/uL (1.2-6.7); Basophils % 0.6 %; Eosinophils % 2.6 %; HCT 35.5 % (40.0-50.0); Immature Grans % 0.4 %; Lymphocytes % 9.7 %; MCH 30.2 pg (27.0-33.0); MCHC 33.8 % (32.0-36.0); MCV 89 fL (80-95); MPV 9.9 fL (8.0-11.0); Monocytes % 12.8 %; Neutrophils % 73.9 %; Platelet Count 184 10^3/uL (130-400); RBC 3.98 10^6/uL (4.36-5.78); RDW 14.9 % (11.8-14.1); RDW-SD 48.8 fL; WBC 5.06 10^3/uL (4.4-10.8)
[2024-08-12 11:38] LABS: ALT 29 U/L (16-63); AST 20 U/L (15-37); Albumin 3.6 g/dL (3.4-5.0); Alkaline Phosphatase 58 U/L (46-116); BUN 29 mg/dL (7-18); Bilirubin, Total 0.49 mg/dL (0.2-1.0); CREATININE 1.3 mg/dL (0.70-1.30); Calcium 8.9 mg/dL (8.5-10.1); Chloride 102 mmol/L (98-107); Estimated GFR 59.84 (mL/min/1.73m2); Glucose 138 mg/dL (74-106); Magnesium 2.1 mg/dL (1.8-2.4); Potassium 4.3 mmol/L (3.5-5.1); Sodium 141 mmol/L (136-145); Total Protein 6.8 g/dL (6.4-8.2)
[2024-08-24] MEDS: Normal Saline Flush 10 ML SYR IVP (13:06)
[2024-08-24 13:10] LABS: Abs Immature Grans 0.03 10^3/uL (0.0-0.06); Absolute Basophil Count 0.04 10^3/uL (0.0-0.2); Absolute Eosinophil Count 0.11 10^3/uL (0.0-0.7); Absolute Lymphocyte Count 0.59 10^3/uL (1.2-3.4); Absolute Monocyte Count 0.88 10^3/uL (0.1-0.8); Absolute Neutrophil Count 5.13 10^3/uL (1.2-6.7); Basophils % 0.6 %; Eosinophils % 1.6 %; HCT 37.7 % (40.0-50.0); HGB 12.5 g/dL (13.5-17.5); Immature Grans % 0.4 %; Lymphocytes % 8.7 %; MCH 30.1 pg (27.0-33.0); MCHC 33.2 % (32.0-36.0); MCV 91 fL (80-95); MPV 10.2 fL (8.0-11.0); Neutrophils % 75.7 %; Platelet Count 196 10^3/uL (130-400); RBC 4.15 10^6/uL (4.36-5.78); RDW 14.1 % (11.8-14.1); RDW-SD 47.7 fL; WBC 6.78 10^3/uL (4.4-10.8)
[2024-08-24 13:28] LABS: ALT 29 U/L (16-63); AST 17 U/L (15-37); Albumin 3.8 g/dL (3.4-5.0); Alkaline Phosphatase 55 U/L (46-116); Anion Gap 6.4 mmol/L (3-11); BUN 37 mg/dL (7-18); Bilirubin, Total 0.53 mg/dL (0.2-1.0); CO2 30.6 mmol/L (21.0-32.0); CREATININE 1.2 mg/dL (0.70-1.30); Calcium 9.4 mg/dL (8.5-10.1); Chloride 102 mmol/L (98-107); Estimated GFR 65.87 (mL/min/1.73m2); Glucose 106 mg/dL (74-106); Magnesium 2.3 mg/dL (1.8-2.4); Potassium 4.2 mmol/L (3.5-5.1); Sodium 139 mmol/L (136-145); Total Protein 7.2 g/dL (6.4-8.2)
[2024-08-31] MEDS: Normal Saline Flush 10 ML SYR IVP (13:38)
[2024-08-31 13:47] LABS: Abs Immature Grans 0.05 10^3/uL (0.0-0.06); Absolute Basophil Count 0.05 10^3/uL (0.0-0.2); Absolute Eosinophil Count 0.13 10^3/uL (0.0-0.7); Absolute Monocyte Count 0.83 10^3/uL (0.1-0.8); Absolute Neutrophil Count 4.28 10^3/uL (1.2-6.7); Basophils % 0.8 %; Eosinophils % 2.2 %; HCT 38.8 % (40.0-50.0); HGB 12.8 g/dL (13.5-17.5); Immature Grans % 0.8 %; Lymphocytes % 10.1 %; MCV 91 fL (80-95); MPV 10.7 fL (8.0-11.0); Neutrophils % 72.1 %; Platelet Count 193 10^3/uL (130-400); RBC 4.26 10^6/uL (4.36-5.78); RDW 13.6 % (11.8-14.1); RDW-SD 45.5 fL; WBC 5.94 10^3/uL (4.4-10.8)
[2024-08-31 14:01] LABS: ALT 32 U/L (16-63); AST 18 U/L (15-37); Albumin 3.8 g/dL (3.4-5.0); Alkaline Phosphatase 62 U/L (46-116); Anion Gap 5.8 mmol/L (3-11); BUN 35 mg/dL (7-18); Bilirubin, Total 0.39 mg/dL (0.2-1.0); CO2 30.2 mmol/L (21.0-32.0); CREATININE 1.2 mg/dL (0.70-1.30); Calcium 9.1 mg/dL (8.5-10.1); Chloride 101 mmol/L (98-107); Estimated GFR 65.87 (mL/min/1.73m2); Glucose 107 mg/dL (74-106); Magnesium 2.2 mg/dL (1.8-2.4); Potassium 4.7 mmol/L (3.5-5.1); Sodium 137 mmol/L (136-145); Total Protein 7.2 g/dL (6.4-8.2)
== END 2024-09-04 23:59 | disposition home or self-care (01) ==
LOC: INF 02:17
PROVIDERS: PCP Nurse Practitioner Family; Visit Provider Internal Medicine Hematology
DX: C09.9 Malignant neoplasm of tonsil, unspecified (principal)
CPT/HCPCS: 36591; 80053; 83735; 85025

== ENCOUNTER 2024-09-02 03:10 | Outpatient (CLI) | payer MEDICARE, SELFPAY ==
--- NOTE | 2024-09-02 15:10 | DI.RAD_ITS ---
Exam(s) RF MODIFIED SPEECH BA SWALLOW TECHNIQUE: Modified barium swallow was performed in conjunction with speech pathology. CONTRAST MATERIAL: Oral barium contrast was administered. COMPARISON: No exams were available for comparison FINDINGS: Note that this is not a dedicated esophagram, distal esophagus not evaluated. There is no evidence of aspiration or penetration of thick or thin liquids, barium pudding or barium coated cookie. Speech pathology report to follow. . . . IMPRESSION: No evidence of aspiration or penetration. RADIATION DOSE DELIVERED: eron Pablo=4.98 mGy
[2024-09-02] MEDS: Barium Sulfate Oral Paste 40% W/V 230 ML TUBE PO (15:18)
[2024-09-02] MEDS: Barium Sulfate 700 MG TAB PO (15:18)
[2024-09-02] MEDS: Barium Sulfate 81% w/w for Oral Suspension 148 GM BTL PO (15:20)
--- NOTE | 2024-09-02 15:32 | ST.MBS_ITS ---
Date of Service Date of service: 09/02/24 Time of Service: 15:32 Modified Barium Swallow Study Findings: Video fluoroscopic Swallowing Evaluation (VFSE) / Modified Barium Swallow Study (MBSS) Speech Language Pathology Report Patient referred for VFSE/MBSS from Dr. Christine given reliance on G-tube for nutrition s/p recent completion of chemo-radiation treatment. 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 He had a feeding tube placed due to poor PO intake in setting of dysgeusia, pain, and xerostomia. He did not demonstrate increased s/sx aspiration or difficulty with pharyngeal clearance during the course of treatment but has had limited PO intake aside from water due to treatment side effects. Patient had mild trismus at start of treatment but has been overall stable throughout the course of treatment. Patient feels it has not gotten worse at this time. He continues with daily stretches. IMPRESSIONS: Swallow safety is preserved; swallow efficiency is preserved. Overall swallow function appears safe/WFL with good timing, coordination and strength of swallow. He does demonstrate some mild oral residue across textures consistent with xerostomia. Airway protection and hyo-laryngeal movement was excellent, swallow initiation was not delayed, and he was with very good pharyngeal stripping and epiglottic inversion without any notable pharyngeal residue. He was able to transit 13mm barium tablet through the pharynx without any delay. No penetration or aspiration was observed throughout the study. Patient appears to be at low risk for potential aspiration PNA and/or pulmonary compromise and low risk for malnutrition/dehydration based on swallow function a lone. Swallow prognosis is good given: Positive prognostic factors: Age, Severity, Cognitive status, Negative prognostic factors: Motivation, Relative dose of Chemotherapy and/or radiation treatment, RECOMMENDATIONS: Diet Texture Recommendation:? IDDSI LEVEL SOLIDS 7-Regular Solids LIQUIDS 0-Thin Liquids Please see further details at?[email or web address].iddsi.org MEDICATIONS Whole with 0-Thin Liquids Diet texture modification is per patient's preference; please adjust diet textures at patient's discretion & collaboration with care team. Do not alter medications (e.g., cut)? without advice from your MD or pharmacist. Risk Management Strategies:? Small bites, approx [id number] Swallow dry/tough foods with small sip of liquids for oral clearance. Control risk factors for aspiration pneumonia via (a) thorough oral hygiene & (b) maintaining physical mobility as tolerated PLAN: Recommended daily jaw and tongue stretching, patient is comfortable doing this independently which is reasonable. At this time he is not interested in trismus therapy, but provided education regarding this option. No further DATA SPECIALIST follow-up at this time. Please re-refer as needed. ----- OBJECTIVE Videofluoroscopic Swallow Evaluation (VFSE/MBSS) was conducted in the lateral projection by Speech-Language Pathologist, in collaboration with Radiologist, to evaluate oropharyngeal swallow function. Anatomic view under fluoroscopy: WFL PO Barium Contrast Trials Oral barium water-soluble contrast was administered as follows: IDDSI Level 0 Varibar thin liquid (40% w/v) IDDSI Level 4 Varibar pudding/pureed/extremely thick (40% w/v) IDDSI Level 7 Regular Solid: 1/2 jody cracker coated in 3 mL Varibar pudding 13 mm barium tablet taken with water. MBSImP Component Scores: COMPONENT Scale SCORE 1 Lip closure (0-4) 0 Resulted in no labial escape 2 Hold Position (0-3) 0 Maintained a cohesive bolus between tongue to palatal seal 3 Bolus Preparation (0-4) 0 Resulted in timely and efficient chewing and mashi ng 4 Bolus Transport (0-4) 0 Was with brisk tongue motion 5 Oral Residue (0-4) 2 Was a collection on oral structures 6 Swallow Initiation (0-4) 1 Occurred when the bolus head was in valleculae 7 Soft Palate Elevation (0-4) 0 Resulted in no bolus between soft palate and t he pharyngeal wall 8 Laryngeal Elevation (0-3) 0 Demonstrated complete superior movement of thyro id cartilage with complete approximation of arytenoids to epiglottic petiole 9 Anterior Hyoid Motion (0-2) 0 Demonstrated complete anterior movement 10 Epiglottic Movement (0-2) 0 Resulted in complete inversion 11 Laryngeal Closure (0-2) 0 Was complete with no air or contrast in laryngeal vestibule 12 Pharyngeal Stripping Wave (0-2) 0 Was present and complete 13 Pharyngeal Contraction (0-3) NA 14 PES Opening (0-3) 0 Was completely distended and complete duration with no obstruction of flow 15 Tongue Base Retraction (0-4) 0 Allowed no contrast between the tongue base and posterior pharyngeal wall 16 Pharyngeal Residue (0-4) 1 Showed a trace within or on pharyngeal structure s 17 Esophageal Clearance (0-4) NA Results: COMPONENT Scale SCORE 1 Oral Score (0-18) 3 2 Pharyngeal Score (0-29) 0 3 Esophageal Score (0-4) 0 Penetration-Aspiration Scale: COMPONENT Scale SCORE 1 Thin liquid (1-8) 1 Contrast did not enter the airway 2 [place] thick (1-8) NA 3 Honey thick (1-8) NA 4 Pudding thick (1-8) 1 Contrast did not enter the airway 5 Cookie (1-8) 1 Contrast did not enter the airway Functional Oral Intake Scale: COMPONENT Scale SCORE 1 Pre-Study (1-7) 3 Tube supplements with consistent oral intake 2 Post-Study (1-7) 6 Total oral intake with no special preparation, but must avoid specific foods or liquid items DIGEST: COMPONENT Scale SCORE 1 Thin Max PAS (1-8) 1 Contrast did not enter the airway 2 [place] Max PAS (1-8) NA 3 Honey Max PAS (1-8) NA 4 Liquid Max PAS (1-8) 1 Maximum PAS Score over all liquid trials 5 Liquid Max Residue (0-3) 0 below 10% 6 Pudding Max PAS (1-8) 1 Contrast did not enter the airway 7 Pudding Max Residue (0-3) 0 below 10% 8 Cracker Max PAS (1-8) 1 Contrast did not enter the airway 9 Cracker Max Residue (0-3) 0 below 10% 10 Frequency if PAS >= 3 (0-3) NA 11 Amount if PAS >= 5 (0-1) NA Results: COMPONENT Scale SCORE 1 SAFETY GRADE (0-4) 0 Safety grade for swallowing based on patterns of aspiration or laryngeal penetration 2 EFFICIENCY GRADE (0-4) 0 Efficiency grade of swallowing based on patterns of pharyngeal residue 3 DIGEST (0-4) 0 Severity grade of pharyngeal dysphagia: 0 - Normal, 1 - Mild, 2 - Moderate, 3 - Severe, 4 - Life threatening 4 Max Exam PAS (1-8) 1 Maximum PAS Score over all bolus trials 5 Max Exam Residue (0-3) 0 Maximum Exam Residue over all bolus trials Thank you for allowing us to take part in this patient's care. Please feel free to contact the [facility] Speech Language Pathology Department with any questions/concerns.
== END 2024-09-02 03:30 ==
LOC: DI 03:10
PROVIDERS: PCP Nurse Practitioner Family; Visit Provider Preventive Medicine Undersea and Hyperbaric Medicine
DX: C09.9 Malignant neoplasm of tonsil, unspecified (principal)
CPT/HCPCS: 92526; 74221

== ENCOUNTER 2024-09-21 01:43 | Outpatient (RCR) | payer MEDICARE, SELFPAY ==
[2024-09-07 13:13] LABS: Abs Immature Grans 0.06 10^3/uL (0.0-0.06); Absolute Basophil Count 0.04 10^3/uL (0.0-0.2); Absolute Eosinophil Count 0.13 10^3/uL (0.0-0.7); Absolute Lymphocyte Count 0.64 10^3/uL (1.2-3.4); Absolute Monocyte Count 0.74 10^3/uL (0.1-0.8); Absolute Neutrophil Count 4.59 10^3/uL (1.2-6.7); Basophils % 0.6 %; Eosinophils % 2.1 %; HGB 13.3 g/dL (13.5-17.5); Lymphocytes % 10.3 %; MCH 30.4 pg (27.0-33.0); MCHC 33.3 % (32.0-36.0); MCV 91 fL (80-95); MPV 10.7 fL (8.0-11.0); Monocytes % 11.9 %; Neutrophils % 74.1 %; Platelet Count 201 10^3/uL (130-400); RBC 4.38 10^6/uL (4.36-5.78); RDW 12.9 % (11.8-14.1); RDW-SD 43.5 fL
[2024-09-07] MEDS: Normal Saline Flush 10 ML SYR IVP (13:19)
[2024-09-07 13:35] LABS: ALT 35 U/L (16-63); AST 19 U/L (15-37); Albumin 3.6 g/dL (3.4-5.0); Alkaline Phosphatase 70 U/L (46-116); Anion Gap 6.3 mmol/L (3-11); BUN 40 mg/dL (7-18); Bilirubin, Total 0.47 mg/dL (0.2-1.0); CO2 29.7 mmol/L (21.0-32.0); CREATININE 1.3 mg/dL (0.70-1.30); Calcium 9.5 mg/dL (8.5-10.1); Chloride 102 mmol/L (98-107); Estimated GFR 59.84 (mL/min/1.73m2); Glucose 139 mg/dL (74-106); Magnesium 2.2 mg/dL (1.8-2.4); Potassium 4.5 mmol/L (3.5-5.1); Sodium 138 mmol/L (136-145); Total Protein 7.3 g/dL (6.4-8.2)
[2024-09-14 13:14] LABS: Abs Immature Grans 0.04 10^3/uL (0.0-0.06); Absolute Basophil Count 0.04 10^3/uL (0.0-0.2); Absolute Eosinophil Count 0.14 10^3/uL (0.0-0.7); Absolute Lymphocyte Count 0.63 10^3/uL (1.2-3.4); Absolute Monocyte Count 0.63 10^3/uL (0.1-0.8); Absolute Neutrophil Count 4.17 10^3/uL (1.2-6.7); Basophils % 0.7 %; Eosinophils % 2.5 %; HGB 12.7 g/dL (13.5-17.5); Immature Grans % 0.7 %; Lymphocytes % 11.2 %; MCH 30.5 pg (27.0-33.0); MCHC 33.4 % (32.0-36.0); MCV 91 fL (80-95); MPV 10.1 fL (8.0-11.0); Monocytes % 11.2 %; Neutrophils % 73.7 %; Platelet Count 189 10^3/uL (130-400); RBC 4.16 10^6/uL (4.36-5.78); RDW 12.6 % (11.8-14.1); RDW-SD 41.9 fL; WBC 5.65 10^3/uL (4.4-10.8)
[2024-09-14] MEDS: Normal Saline Flush 10 ML SYR IVP (13:26)
[2024-09-14 13:27] LABS: ALT 29 U/L (16-63); AST 13 U/L (15-37); Albumin 3.5 g/dL (3.4-5.0); Alkaline Phosphatase 61 U/L (46-116); Anion Gap 2.4 mmol/L (3-11); BUN 43 mg/dL (7-18); Bilirubin, Total 0.42 mg/dL (0.2-1.0); CO2 31.6 mmol/L (21.0-32.0); CREATININE 1.4 mg/dL (0.70-1.30); Calcium 9.1 mg/dL (8.5-10.1); Chloride 103 mmol/L (98-107); Estimated GFR 54.75 (mL/min/1.73m2); Glucose 132 mg/dL (74-106); Magnesium 2.2 mg/dL (1.8-2.4); Potassium 4.6 mmol/L (3.5-5.1); Sodium 137 mmol/L (136-145); Total Protein 6.8 g/dL (6.4-8.2)
[2024-09-21] MEDS: Normal Saline Flush 10 ML SYR IVP (11:40)
[2024-09-21 12:08] LABS: Abs Immature Grans 0.04 10^3/uL (0.0-0.06); Absolute Basophil Count 0.05 10^3/uL (0.0-0.2); Absolute Eosinophil Count 0.13 10^3/uL (0.0-0.7); Absolute Lymphocyte Count 0.59 10^3/uL (1.2-3.4); Absolute Monocyte Count 0.78 10^3/uL (0.1-0.8); Absolute Neutrophil Count 4.95 10^3/uL (1.2-6.7); Basophils % 0.8 %; HCT 39.2 % (40.0-50.0); HGB 13.4 g/dL (13.5-17.5); Immature Grans % 0.6 %; MCH 30.9 pg (27.0-33.0); MCHC 34.2 % (32.0-36.0); MCV 90 fL (80-95); MPV 10.5 fL (8.0-11.0); Monocytes % 11.9 %; Neutrophils % 75.7 %; Platelet Count 198 10^3/uL (130-400); RBC 4.34 10^6/uL (4.36-5.78); RDW 12.2 % (11.8-14.1); RDW-SD 40.5 fL; WBC 6.54 10^3/uL (4.4-10.8)
[2024-09-21 12:46] LABS: ALT 27 U/L (16-63); AST 14 U/L (15-37); Albumin 3.7 g/dL (3.4-5.0); Alkaline Phosphatase 54 U/L (46-116); Anion Gap 5.7 mmol/L (3-11); BUN 39 mg/dL (7-18); Bilirubin, Total 0.45 mg/dL (0.2-1.0); CO2 29.3 mmol/L (21.0-32.0); CREATININE 1.3 mg/dL (0.70-1.30); Calcium 9.6 mg/dL (8.5-10.1); Chloride 103 mmol/L (98-107); Estimated GFR 59.84 (mL/min/1.73m2); Glucose 103 mg/dL (74-106); Magnesium 2.2 mg/dL (1.8-2.4); Potassium 4.5 mmol/L (3.5-5.1); Sodium 138 mmol/L (136-145); Total Protein 7.2 g/dL (6.4-8.2)
== END 2024-10-02 23:59 | disposition home or self-care (01) ==
LOC: INF 01:43
PROVIDERS: PCP Nurse Practitioner Family; Visit Provider Internal Medicine Hematology
DX: C09.9 Malignant neoplasm of tonsil, unspecified (principal)
CPT/HCPCS: 36591; 80053; 83735; 85025

== ENCOUNTER 2024-11-20 00:04 | Outpatient (CLI) | payer MEDICARE, SELFPAY ==
--- NOTE | 2024-11-20 | DI.CT_ITS ---
Exam(s) CT NECK W EXAM: CT NECK W INDICATION: C09.9,E03.9 HX Head Neck CA, assess response to treatment. COMPARISON: CT CT NECK W from 03/27/2024 TECHNIQUE: FINDINGS: VISUALIZED PARANASAL SINUSES: Unremarkable. NASOPHARYNX: Unremarkable ORODENTAL: Left mandible tooth removal again noted. OROPHARYNX: The size of the right tonsil decreased. No obvious mass nor discernible abscess at this level. In addition, the previously present right-sided enlarged and centrally hypodense lymph nodes in the right-side of the neck are no longer present. On the present study there does not appear to b e significant adenopathy on either side of the neck nor in the supraclavicular regions. HYPOPHARYNX: Symmetrical thickening of the epiglottis is noted. This may be related to radiation dilip atment. Below this level the tissues are difficult to assess in the supraglottic region because ebony ent apparently held there breath causing apposition of midline tissues. . VOCAL CORDS: Unremarkable. No masses evident. Subglottic airway appears unremarkable. THYROID GLAND: Small gland again noted. SALIVARY GLANDS: No masses in the submandibular glands nor in the parotid glands. OTHER: VISUALIZED LUNG APICES: No significant findings. IMPRESSION: 1. Compared to the prior CT scan of March 2024 there appears to be resolution of the right-sided ne ck lymphadenopathy and the previously described enlarged right tonsil appears smaller on the present study. 2. No new significant findings in the neck. 3. Visualized lung apices are clear with no nodules. RADIATION DOSE DELIVERED: 269.03mGy.cm Total DLP DATA REPOSITORY: All CT scans at this facility are submitted to the National Radiology Data Registry (NRDR) Dose Index Registry (DIR) with the [employer] (ACR). RADIATION OPTIMIZATION: All CT scans at this facility use at least one of these dose optimization te chniques: automated exposure control; mA and/or kV adjustment per patient size (includes targeted exa ms where dose is matched to clinical indication); or iterative reconstruction.
[2024-11-20] MEDS: Omnipaque 350 MG/ML 100 ML BTL IJ (13:38)
[2024-11-20] MEDS: Normal Saline - Diluent 50 ML VIAL IJ (13:39)
== END 2024-11-20 00:24 ==
LOC: DI 00:04
PROVIDERS: PCP Nurse Practitioner Family; Visit Provider Nurse Practitioner
DX: E03.9 Hypothyroidism, unspecified (principal); C09.9 Malignant neoplasm of tonsil, unspecified
CPT/HCPCS: 70491; J3490

== ENCOUNTER 2024-11-20 00:44 | Outpatient (RCR) | payer MEDICARE, SELFPAY ==
[2024-11-20] MEDS: Normal Saline Flush 10 ML SYR IVP (13:11)
[2024-11-20 13:28] LABS: ALT 22 U/L (16-63); AST 14 U/L (15-37); Albumin 3.7 g/dL (3.4-5.0); Alkaline Phosphatase 45 U/L (46-116); Anion Gap 7.2 mmol/L (3-11); BUN 30 mg/dL (7-18); Bilirubin, Total 0.5 mg/dL (0.2-1.0); CO2 28.8 mmol/L (21.0-32.0); CREATININE 1.3 mg/dL (0.70-1.30); Calcium 9.6 mg/dL (8.5-10.1); Chloride 103 mmol/L (98-107); Estimated GFR 59.84 (mL/min/1.73m2); Glucose 98 mg/dL (74-106); Potassium 4.9 mmol/L (3.5-5.1); Sodium 139 mmol/L (136-145); Total Protein 7.1 g/dL (6.4-8.2)
== END 2024-12-02 23:59 | disposition home or self-care (01) ==
LOC: INF 00:44
PROVIDERS: PCP Nurse Practitioner Family; Visit Provider Internal Medicine Hematology
DX: C09.9 Malignant neoplasm of tonsil, unspecified (principal)
CPT/HCPCS: 36591; 80053

== ENCOUNTER 2024-12-14 03:31 | Outpatient (RCR) | payer MEDICARE, SELFPAY ==
[2024-12-14 12:57] LABS: Abs Immature Grans 0.09 10^3/uL (0.0-0.06); Absolute Basophil Count 0.06 10^3/uL (0.0-0.2); Absolute Eosinophil Count 0.27 10^3/uL (0.0-0.7); Absolute Lymphocyte Count 1.04 10^3/uL (1.2-3.4); Absolute Monocyte Count 0.67 10^3/uL (0.1-0.8); Absolute Neutrophil Count 4.77 10^3/uL (1.2-6.7); Basophils % 0.9 %; Eosinophils % 3.9 %; HCT 40.3 % (40.0-50.0); HGB 13.7 g/dL (13.5-17.5); Immature Grans % 1.3 %; Lymphocytes % 15.1 %; MCH 29.5 pg (27.0-33.0); MCV 87 fL (80-95); MPV 8.8 fL (8.0-11.0); Monocytes % 9.7 %; Neutrophils % 69.1 %; Platelet Count 212 10^3/uL (130-400); RBC 4.64 10^6/uL (4.36-5.78); RDW 13.4 % (11.8-14.1); RDW-SD 41.6 fL
[2024-12-14] MEDS: Normal Saline Flush 10 ML SYR IVP (13:27)
[2024-12-14 13:32] LABS: ALT 21 U/L (16-63); AST 16 U/L (15-37); Albumin 4.1 g/dL (3.4-5.0); Alkaline Phosphatase 47 U/L (46-116); Anion Gap 6.1 mmol/L (3-11); BUN 36 mg/dL (7-18); Bilirubin, Total 0.5 mg/dL (0.2-1.0); CO2 28.9 mmol/L (21.0-32.0); CREATININE 1.5 mg/dL (0.70-1.30); Calcium 9.8 mg/dL (8.5-10.1); Chloride 101 mmol/L (98-107); Glucose 99 mg/dL (74-106); Magnesium 2.1 mg/dL (1.8-2.4); Potassium 4.9 mmol/L (3.5-5.1); Sodium 136 mmol/L (136-145); TSH 9.13 uIU/mL (0.36-3.74); Total Protein 7.5 g/dL (6.4-8.2)
== END 2025-01-02 23:59 | disposition home or self-care (01) ==
LOC: INF 03:31
PROVIDERS: PCP Nurse Practitioner Family; Visit Provider Internal Medicine Hematology
DX: C09.9 Malignant neoplasm of tonsil, unspecified (principal); Z79.899 Other long term (current) drug therapy; Z45.2 Encounter for adjustment and management of vascular access device; E03.9 Hypothyroidism, unspecified
CPT/HCPCS: 36591; 80053; 83735; 84443; 85025

== ENCOUNTER 2025-06-21 02:03 | Outpatient (CLI) | payer MEDICARE, SELFPAY ==
[2025-06-21 07:31] LABS: Abs Immature Grans 0.07 10^3/uL (0.0-0.06); HCT 43.0 % (40.0-50.0); HGB 14.2 g/dL (13.5-17.5); Immature Grans % 0.9 %; MCH 28.6 pg (27.0-33.0); MCHC 33.0 % (32.0-36.0); MCV 87 fL (80-95); MPV 9.1 fL (8.0-11.0); Platelet Count 202 10^3/uL (130-400); RBC 4.96 10^6/uL (4.36-5.78); RDW 12.9 % (11.8-14.1); RDW-SD 40.4 fL; WBC 7.51 10^3/uL (4.4-10.8)
[2025-06-21 07:46] LABS: ALT 21 U/L (10-49); AST 22 U/L (<34); Albumin 4.5 g/dL (3.4-5.0); Alkaline Phosphatase 53 U/L (46-116); Anion Gap 6.7 mmol/L (3-11); BUN 39 mg/dL (9-23); Bilirubin, Total 0.40 mg/dL (0.2-1.2); CO2 29.3 mmol/L (20.0-31.0); Calcium 9.4 mg/dL (8.3-10.6); Chloride 105 mmol/L (98-107); Glucose 97 mg/dL (74-106); Potassium 4.6 mmol/L (3.5-5.1); Sodium 141 mmol/L (136-145); Total Protein 7.5 g/dL (5.7-8.2)
== END 2025-06-21 02:04 | disposition home or self-care (01) ==
LOC: LBO 02:03
PROVIDERS: PCP Nurse Practitioner Family; Visit Provider Internal Medicine Hematology
DX: C09.9 Malignant neoplasm of tonsil, unspecified (principal)
CPT/HCPCS: 36415; 80053; 85025

== ENCOUNTER 2025-06-28 03:58 | Outpatient (CLI) | payer MEDICARE, SELFPAY ==
[2025-06-28 08:06] LABS: Abs Immature Grans 0.01 10^3/uL (0.0-0.06); HCT 39.8 % (40.0-50.0); HGB 13.5 g/dL (13.5-17.5); MCH 28.5 pg (27.0-33.0); MCHC 33.9 % (32.0-36.0); MCV 84 fL (80-95); MPV 9.9 fL (8.0-11.0); Platelet Count 146 10^3/uL (130-400); RBC 4.73 10^6/uL (4.36-5.78); RDW 12.3 % (11.8-14.1); RDW-SD 37.5 fL
[2025-06-28 08:21] LABS: ALT 49 U/L (10-49); AST 28 U/L (<34); Albumin 4.2 g/dL (3.4-5.0); Alkaline Phosphatase 51 U/L (46-116); Anion Gap 2.8 mmol/L (3-11); BUN 27 mg/dL (9-23); Bilirubin, Total 0.60 mg/dL (0.2-1.2); CO2 30.2 mmol/L (20.0-31.0); Calcium 9.3 mg/dL (8.3-10.6); Chloride 102 mmol/L (98-107); Glucose 106 mg/dL (74-106); Potassium 4.1 mmol/L (3.5-5.1); Sodium 135 mmol/L (136-145); Total Protein 7.0 g/dL (5.7-8.2)
[2025-06-28 08:30] LABS: RBC Morphology Normal
[2025-06-28 08:33] LABS: WBC 0.96 10^3/uL (4.4-10.8)
== END 2025-06-28 03:59 | disposition home or self-care (01) ==
PROVIDERS: PCP Nurse Practitioner Family; Referring Provider Nurse Practitioner Adult Health; Visit Provider Nurse Practitioner Adult Health
DX: C09.9 Malignant neoplasm of tonsil, unspecified (principal); D70.2 Other drug-induced agranulocytosis; K12.31 Oral mucositis (ulcerative) due to antineoplastic therapy; T45.1X5S Adverse effect of antineoplastic and immunosuppressive drugs, sequela; B37.0 Candidal stomatitis; K12.30 Oral mucositis (ulcerative), unspecified
CPT/HCPCS: 36415; 80053; 85025

== ENCOUNTER 2025-08-02 00:28 | Outpatient (RCR) | payer MEDICARE, SELFPAY ==
[2025-07-12 10:53] LABS: Abs Immature Grans 0.20 10^3/uL (0.0-0.06); HCT 38.6 % (40.0-50.0); HGB 12.7 g/dL (13.5-17.5); Immature Grans % 1.5 %; MCH 28.7 pg (27.0-33.0); MCHC 32.9 % (32.0-36.0); MCV 87 fL (80-95); MPV 8.8 fL (8.0-11.0); Platelet Count 219 10^3/uL (130-400); RBC 4.42 10^6/uL (4.36-5.78); RDW 14.2 % (11.8-14.1); RDW-SD 42.1 fL; WBC 13.03 10^3/uL (4.4-10.8)
[2025-07-12 11:09] LABS: ALT 22 U/L (10-49); AST 20 U/L (<34); Albumin 4.2 g/dL (3.2-5.0); Alkaline Phosphatase 96 U/L (46-116); Anion Gap 7.6 mmol/L (3-11); BUN 33 mg/dL (9-23); Bilirubin, Total 0.40 mg/dL (0.2-1.2); CO2 27.4 mmol/L (20.0-31.0); Calcium 9.4 mg/dL (8.3-10.6); Chloride 105 mmol/L (98-107); Glucose 106 mg/dL (74-106); Potassium 4.1 mmol/L (3.5-5.1); Sodium 140 mmol/L (136-145); Total Protein 7.1 g/dL (5.7-8.2)
[2025-07-12] MEDS: Normal Saline Flush 10 ML SYR IVP (11:10)
== END 2025-08-04 23:59 | disposition home or self-care (01) ==
LOC: INF 00:28
PROVIDERS: PCP Nurse Practitioner Family; Visit Provider Nurse Practitioner Adult Health
DX: D70.2 Other drug-induced agranulocytosis (principal); Z45.2 Encounter for adjustment and management of vascular access device
CPT/HCPCS: 36591; 80053; 85025